=== PATIENT | male | born 1950 | race Caucasian/White ===

== ENCOUNTER → 2023-11-07 12:27 | Outpatient (REF) | payer MEDICARE, SELFPAY ==
[2023-11-07 12:39] LABS: % Basophils 0.3 % (0-2); % Eosinophils 1.2 % (0-6); % Immature Granulocytes 0.9 % (0-0.5); % Lymphocytes 29.8 % (20.5-51.1); % Neutrophils 54.8 % (42.2-75.2); Absolute Monocytes 0.4 10^3/uL (0.1-0.6); Absolute Neutrophils 1.9 10^3/uL (1.4-6.5); Hematocrit 28.2 % (39.0-52.0); Hemoglobin 9.5 g/dL (13.0-18.0); Mean Corp Hgb Conc. 33.7 g/dL (33.0-37.0); Mean Corpuscular Hgb 27.5 pg (27.0-31.0); Mean Corpuscular Volume 81.5 fL (80.0-94.0); Mean Platelet Volume 9.2 fL (7.4-10.4); Nucleated Red Blood Cells % 0 % (-); Platelet Count 195 10^3/uL (130-400); Red Blood Cell Count 3.46 10^6/uL (4.70-6.10); Red Cell Dist. Width 21.2 % (11.5-14.5); White Blood Cell Count 3.4 10^3/uL (4.8-10.8)
[2023-11-07 12:48] LABS: ALT (SGPT) 16 U/L (0-50); AST (SGOT) 20 U/L (17-59); Albumin 3.3 g/dl (3.5-5.0); Alkaline Phosphatase 85 U/L (38-126); Blood Urea Nitrogen 9 mg/dl (9-20); Calcium 8.6 mg/dl (8.4-10.2); Carbon Dioxide 23 mmol/L (22-30); Chloride 106 mmol/L (98-107); Glucose 158 mg/dl (70-99); Potassium 3.7 mmol/L (3.5-5.1); Sodium 137 mmol/L (135-145); Total Bilirubin 0.6 mg/dl (0.2-1.3); Total Protein 5.9 g/dl (6.3-8.2); eGFR > 60.00
== END ==
LOC: OIDL 12:27
PROVIDERS: ATTENDING PHYSICIAN Internal Medicine Hematology & Oncology
DX: C21.1 Malignant neoplasm of anal canal (principal); D50.9 Iron deficiency anemia, unspecified
CPT/HCPCS: 80053; 85025

== ENCOUNTER → 2023-12-19 14:23 | Outpatient (REF) | payer MEDICARE, SELFPAY ==
[2023-12-19 14:41] LABS: % Basophils 0.3 % (0-2); % Eosinophils 0.7 % (0-6); % Immature Granulocytes 0.7 % (0-0.5); % Lymphocytes 26.7 % (20.5-51.1); % Monocytes 5.6 % (1.7-9.3); Absolute Lymphocytes 0.8 10^3/uL (1.2-3.4); Absolute Monocytes 0.2 10^3/uL (0.1-0.6); Absolute Neutrophils 1.9 10^3/uL (1.4-6.5); Hematocrit 27.1 % (39.0-52.0); Hemoglobin 9.1 g/dL (13.0-18.0); Mean Corp Hgb Conc. 33.6 g/dL (33.0-37.0); Mean Corpuscular Hgb 29.7 pg (27.0-31.0); Mean Corpuscular Volume 88.6 fL (80.0-94.0); Mean Platelet Volume 9.5 fL (7.4-10.4); Platelet Count 267 10^3/uL (130-400); Red Blood Cell Count 3.06 10^6/uL (4.70-6.10); Red Cell Dist. Width 20.7 % (11.5-14.5); White Blood Cell Count 2.9 10^3/uL (4.8-10.8)
[2023-12-19 15:12] LABS: ALT (SGPT) 15 U/L (0-50); AST (SGOT) 23 U/L (17-59); Albumin 3.8 g/dl (3.5-5.0); Alkaline Phosphatase 96 U/L (38-126); Blood Urea Nitrogen 17 mg/dl (9-20); Calcium 8.9 mg/dl (8.4-10.2); Carbon Dioxide 24 mmol/L (22-30); Chloride 105 mmol/L (98-107); Glucose 154 mg/dl (70-99); Potassium 4.5 mmol/L (3.5-5.1); Sodium 135 mmol/L (135-145); Total Bilirubin 0.6 mg/dl (0.2-1.3); Total Protein 6.4 g/dl (6.3-8.2); eGFR > 60.00
== END ==
LOC: OIDL 14:23
PROVIDERS: ATTENDING PHYSICIAN Internal Medicine Hematology & Oncology
DX: C21.0 Malignant neoplasm of anus, unspecified (principal)
CPT/HCPCS: 80053; 85025

== ENCOUNTER → 2023-12-26 14:44 | Outpatient (REF) | payer MEDICARE, SELFPAY ==
[2023-12-26 14:50] LABS: % Basophils 0.5 % (0-2); % Immature Granulocytes 0.5 % (0-0.5); Absolute Lymphocytes 0.8 10^3/uL (1.2-3.4); Absolute Monocytes 0.2 10^3/uL (0.1-0.6); Absolute Neutrophils 1.1 10^3/uL (1.4-6.5); Hematocrit 25.6 % (39.0-52.0); Hemoglobin 8.7 g/dL (13.0-18.0); Mean Corpuscular Hgb 30.9 pg (27.0-31.0); Mean Corpuscular Volume 90.8 fL (80.0-94.0); Mean Platelet Volume 9.4 fL (7.4-10.4); Platelet Count 190 10^3/uL (130-400); Red Blood Cell Count 2.82 10^6/uL (4.70-6.10); Red Cell Dist. Width 19.8 % (11.5-14.5)
[2023-12-26 14:51] LABS: White Blood Cell Count 2.1 10^3/uL (4.8-10.8)
[2023-12-26 15:43] LABS: ALT (SGPT) 13 U/L (0-50); AST (SGOT) 22 U/L (17-59); Albumin 3.9 g/dl (3.5-5.0); Alkaline Phosphatase 74 U/L (38-126); Blood Urea Nitrogen 13 mg/dl (9-20); Calcium 9.2 mg/dl (8.4-10.2); Carbon Dioxide 22 mmol/L (22-30); Chloride 103 mmol/L (98-107); Glucose 173 mg/dl (70-99); Potassium 4.4 mmol/L (3.5-5.1); Sodium 135 mmol/L (135-145); Total Protein 6.5 g/dl (6.3-8.2); eGFR > 60.00
== END ==
LOC: OIDL 14:44
PROVIDERS: ATTENDING PHYSICIAN Internal Medicine Hematology & Oncology
DX: C21.1 Malignant neoplasm of anal canal (principal)
CPT/HCPCS: 80053; 85025

== ENCOUNTER 2024-01-04 14:21 | Inpatient (IN) | payer MEDICARE, SELFPAY ==
[2024-01-04] VITALS (10 sets, daily range): BP systolic 94–159; BP diastolic 52–86; BMI 25.4; BMI 25.1
[2024-01-04 10:44] LABS: Hematocrit 22.9 % (39.0-52.0); Hemoglobin 7.9 g/dL (13.0-18.0); Mean Corp Hgb Conc. 34.5 g/dL (33.0-37.0); Mean Corpuscular Hgb 32.2 pg (27.0-31.0); Mean Corpuscular Volume 93.5 fL (80.0-94.0); Platelet Count 145 10^3/uL (130-400); Red Blood Cell Count 2.45 10^6/uL (4.70-6.10); Red Cell Dist. Width 19.6 % (11.5-14.5); White Blood Cell Count 11.5 10^3/uL (4.8-10.8)
[2024-01-04 10:57] LABS: ALT (SGPT) 14 U/L (0-50); AST (SGOT) 25 U/L (17-59); Albumin 3.7 g/dl (3.5-5.0); Alkaline Phosphatase 84 U/L (38-126); Blood Urea Nitrogen 13 mg/dl (9-20); Carbon Dioxide 23 mmol/L (22-30); Chloride 106 mmol/L (98-107); Glucose 156 mg/dl (70-99); Potassium 4.9 mmol/L (3.5-5.1); Sodium 135 mmol/L (135-145); Total Bilirubin 0.6 mg/dl (0.2-1.3); Total Protein 6.1 g/dl (6.3-8.2); eGFR > 60.00
[2024-01-04 11:12] LABS: Troponin I 0.152 ng/ml
[2024-01-04 12:09] LABS: Absolute Neutrophils -Man Diff 9.7 10^3/uL (1.4-6.5); Band Neutrophils 23 % (0-3); Lymphocytes 6 % (20-51); Monocytes 8 % (2-9); Segmented Neutrophils 62 % (42-75)
--- NOTE | 2024-01-04 12:09 | ED.GENMED ---
History of Present Illness
<Mai Leon PA-C - Last Filed: 01/04/24 13:45>
General
Chief Complaint: Breathing Problem
Source: patient
Exam Limitations: none
Time Seen by Provider: 01/04/24 11:39
Nursing documentation reviewed up to this point in time: agreed with
Travel History
Have you had any contact with someone who has COVID-19?: No
Do you have any symptoms of coronavirus? Fever > 100 degrees, chills, cough, shortness of breath, sore throat, loss of taste or smell, muscle aches, or headache?: No
History of Present Illness
History of Present Illness:
73-year-old male with past medical history of CVA, CAD, rectal cancer, diabetes presenting emergency department today with shortness of breath for the past week intermittent mild chest pain. Patient states that earlier this week, he started to
notice that when he would walk, he would become very short of breath. He also states that he will occasionally have shortness of breath at rest. He has not noticed any positions that make the shortness of breath worse. Patient states that 1 night,
when the shortness of breath came on, he had chest pain that lasted a few minutes and resolved. Of note, patient is currently undergoing chemotherapy treatment for rectal cancer. Patient had 7 treatments thus far. Patient does take baby aspirin
daily but is not on any blood thinners.
Past History
<Mai Leon PA-C - Last Filed: 01/04/24 13:45>
Past History
ED Past Medical History: CAD, Hypercholesterolemia and Other (Alchol abuse, GI bleed)
ED Past Surgical History: Other (Hernia repair)
Patient has exhibited threatening behavior?: No
Social History
Tobacco: Former smoker
Alcohol: Occasional
Drug: None
Living: with roommate
Review of Systems
<Mai Leon PA-C - Last Filed: 01/04/24 13:45>
Review of Systems
All Other Systems: ROS reviewed and negative except as documented in HPI and ROS
Phy Exam
<Mai Leon PA-C - Last Filed: 01/04/24 13:45>
Physical Exam
Physical Exam:
Vitals: Vital signs are stable
General: Patient appears chronically ill
Skin: Mild pallor noted. No rashes or lesions.
Head: Normocephalic, atraumatic
Cardiac: Regular rate and rhythm, no murmurs
Peripheral Vascular: Right sided lower extremity edema and erythema, warmth. No tenderness to palpation. 2+ DP pulses b/l.
Pulm: Normal respiratory effort, breath sounds equal bilaterally, no wheezes, rales, or rhonchi
Abdomen: No abdominal tenderness
Neuro: AAOx3. CN II-XII intact.
Scores
<Mai Leon PA-C - Last Filed: 01/04/24 13:45>
Heart Failure Risk
Heart Failure Risk Score: Yes
History of Stroke or TIA: Yes
History of intubation for respiratory distress: No (unknown)
Heart rate on ED arrival >/= 110: No
SaO2 <90% on arrival on room air: No
HR >/=110 during 3min walk test (or too ill to perform test): No
ECG has acute ischemic changes: No
Urea >/=12mmol/L (BUN 33.6mg/dL): No
Serum CO2>/=35mmol/L: No
Troponin I or T elevated to [place] Level (0.4mg/dL): Yes
NT-proBNP >/=5,000ng/L (5,000pg/ml): No
HF Risk Score: 3
Admission Status: HIGH RISK 15.9% Consider SNF treatment or admission to hospital
Course
<Mai Leon PA-C - Last Filed: 01/04/24 13:45>
Orders/Labs/Results
Orders:
Orders
01/04/24 10:10
EKG [Electrocardiogram (*1)] Urgent
Reason for Study: Chest Pain
EKG- Treatment ONCE
01/04/24 10:37
Complete Blood Count/With Diff Urgent
Comprehensive Metabolic Panel Urgent
Manual Differential Urgent
Troponin I Urgent
01/04/24 12:06
CT Chest Pe Study Urgent
Comment:
Reason For Exam: chest pain, shortness of breath, leg swelling
01/04/24 12:07
US Legs, Right [US Periph Venous LOWER Ext RT] Urgent
Comment:
Reason For Exam: right lower ext swelling + warmth
01/04/24 12:17
0.9% Sodium Chloride 500 ml [Nss] 500 ml IV BOLUS
01/04/24 12:18
0.9% Sodium Chloride 250 ml [Nss] 250 ml IV BOLUS
01/04/24 12:22
0.9% Sodium Chloride 500 ml [Nss] 500 ml IV BOLUS
Abnormal Lab Results
01/04/24
10:37
WBC 11.5 H 10^3/uL
(4.8-10.8)
RBC 2.45 L 10^6/uL
(4.70-6.10)
Hgb 7.9 L g/dL
(13.0-18.0)
Hct 22.9 L %
(39.0-52.0)
MCH 32.2 H pg
(27.0-31.0)
RDW 19.6 H %
(11.5-14.5)
Abs Neuts (Manual) 9.7 H 10^3/uL
(1.4-6.5)
Band Neutrophils 23 H %
(0-3)
Lymphocytes (Manual) 6 L %
(20-51)
Creatinine 0.6 L mg/dL
(0.7-1.3)
Glucose 156 H mg/dl
(70-99)
Troponin I 0.152 H* ng/ml
Total Protein 6.1 L g/dl
(6.3-8.2)
01/04/24 10:37
01/04/24 10:37
Vital Signs
Initial and Last Documented VS:
Initial Vital Signs
Temp Pulse Resp BP Pulse Ox
98.8 F 96 18 104/62 98
01/04/24 10:21 01/04/24 10:21 01/04/24 10:21 01/04/24 10:21 01/04/24 10:21
Last Documented Vital Signs
Temp Pulse Resp BP Pulse Ox
98.8 F 86 17 94/59 97
01/04/24 10:21 01/04/24 12:15 01/04/24 12:15 01/04/24 12:10 01/04/24 12:15
<Jarrod Ribeiro, DO - Last Filed: 01/04/24 12:29>
Orders/Labs/Results
Orders:
Orders
01/04/24 10:10
EKG [Electrocardiogram (*1)] Urgent
Reason for Study: Chest Pain
EKG- Treatment ONCE
01/04/24 10:37
Complete Blood Count/With Diff Urgent
Comprehensive Metabolic Panel Urgent
Manual Differential Urgent
Troponin I Urgent
01/04/24 12:06
CT Chest Pe Study Urgent
Comment:
Reason For Exam: chest pain, shortness of breath, leg swelling
01/04/24 12:07
US Legs, Right [US Periph Venous LOWER Ext RT] Urgent
Comment:
Reason For Exam: right lower ext swelling + warmth
01/04/24 12:17
0.9% Sodium Chloride 500 ml [Nss] 500 ml IV BOLUS
01/04/24 12:18
0.9% Sodium Chloride 250 ml [Nss] 250 ml IV BOLUS
01/04/24 12:22
0.9% Sodium Chloride 500 ml [Nss] 500 ml IV BOLUS
Abnormal Lab Results
01/04/24
10:37
WBC 11.5 H 10^3/uL
(4.8-10.8)
RBC 2.45 L 10^6/uL
(4.70-6.10)
Hgb 7.9 L g/dL
(13.0-18.0)
Hct 22.9 L %
(39.0-52.0)
MCH 32.2 H pg
(27.0-31.0)
RDW 19.6 H %
(11.5-14.5)
Abs Neuts (Manual) 9.7 H 10^3/uL
(1.4-6.5)
Band Neutrophils 23 H %
(0-3)
Lymphocytes (Manual) 6 L %
(20-51)
Creatinine 0.6 L mg/dL
(0.7-1.3)
Glucose 156 H mg/dl
(70-99)
Troponin I 0.152 H* ng/ml
Total Protein 6.1 L g/dl
(6.3-8.2)
01/04/24 10:37
01/04/24 10:37
Vital Signs
Initial and Last Documented VS:
Initial Vital Signs
Temp Pulse Resp BP Pulse Ox
98.8 F 96 18 104/62 98
01/04/24 10:21 01/04/24 10:21 01/04/24 10:21 01/04/24 10:21 01/04/24 10:21
Last Documented Vital Signs
Temp Pulse Resp BP Pulse Ox
98.8 F 86 17 94/59 97
01/04/24 10:21 01/04/24 12:15 01/04/24 12:15 01/04/24 12:10 01/04/24 12:15
<Mai Leon PA-C - Last Filed: 01/04/24 13:45>
MDM/Problems Addressed
Differential Diagnosis Includes:
ddx include PE, pneumonia, ACS, COPD, chemotherapy side affects, lung metastasis,
MDM/Problems Addressed:
shortness of breath
leg swelling
Chronic conditions affecting care: DM, HTN, CAD and Cancer
Acute Exacerbation and/or Progression of Chronic Illness: DM, HTN, CAD and Cancer
<Mai Leon PA-C - Last Filed: 01/04/24 13:45>
*Pulse Oximetry
Patient hypoxic: no
*EKG
Interpreted by ED Provider?: Yes
EKG Intrepretation Date: 01/04/24
Interpretation: abnormal
Comparison EKG: no changes
Heart Rate: 97
Rate: normal
Rhythm: sinus
[place]: left axis deviation
Interval: normal interval, normal QT interval and normal TN interval
QRS Pattern: left bundle branch block
Ischemia: no ischemia
*Critical Care Note
Total Time (30-74mins, 75-104mins- exclusive of procedures): Not Applicable
Data Reviewed
Review of Other/Old Records Reveals: Records (reviewed ER physician documentation from 08/02/23, 04/11/23) and Discharge Summary (reviewed discharge summary from 08/16/2023)
Source: patient
<MICHELLE Umaña Last Filed: 01/04/24 13:45>
Patient Management
Escalation/DeEscalation of care consider admission/obs:
73-year-old male with past medical history of CVA, CAD, rectal cancer, diabetes presenting emergency department today with shortness of breath for the past week intermittent mild chest pain. Patient currently undergoing chemotherapy for rectal
cancer. In emergency department, his vital signs have been stable. His CBC demonstrates mild leukocytosis, and chronic anemia. His CMP is unremarkable. His troponin is elevated at 0.152. His EKG demonstrates left bundle branch block unchanged
from previous EKGs. His CT PE study was negative for PE, negative for pneumonia. His ultrasound study of the right leg did not show any evidence of clot. Considering his significant history of cardiac disease and elevated troponin, he will be
admitted to the hospital for further monitoring and workup. Patient accepted by hospitalist.
ED Attending Note
<Mia Leon PA-C - Last Filed: 01/04/24 13:45>
-
Portions of this chart may have been created with voice recognition software.� Occasional wrong word or��sound alike� substitutions may have occurred due to the inherent limitations of voice recognition software.
<Jarrod Ribeiro DO - Last Filed: 01/04/24 12:29>
ED Attending Note
Patient seen and examined by attending physician: Yes
I performed a history and physical exam of patient and discussed management with resident, I reviewed resident's note and agree with documented findings and plan of care.: Yes
ED Attending Note:
I have reviewed and agree with history and treatment plan by Mai Leon. My exam revealed 73-year-old male with mild hypotension, clear lungs bilaterally. Patient with exertional chest pain over the past week and mild chest pain. Concerning
for PE versus ACS. CT chest pending.
Discharge Plan
Departure
Patient Disposition: Admit
Date of Disposition: 01/04/24
Time of Disposition: 13:24
Presentation/result/management discussed w/ accepting MD/DO: Hospitalist
Discharge Problem:
Shortness of breath, Chest pain
Prescriptions:
No Action
rosuvastatin 10 MG tablet
10 mg PO DAILY
cholecalciferol (vitamin D3) [Vitamin D3] 25 mcg (1,000 unit) Tablet
25 mcg PO DAILY Qty: 0
metoprolol succinate 25 mg Tablet Extended Release 24 Hr
25 mg PO DAILY
tamsulosin 0.4 MG capsule
0.4 mg PO DAILY
vitamin B complex Tablet
1 tab PO DAILY
metformin 500 mg Tablet
250 mg PO DAILY
aspirin 81 MG tablet,delayed release (DR/EC)
81 mg PO DAILY
glimepiride 2 MG tablet
2 mg PO DAILY
folic acid 1 MG tablet
1 mg PO DAILY
polyethylene glycol 3350 [Miralax] 17 gram Powder In Packet
17 g PO DAILY PRN (Reason: constipation)
docusate sodium [Colace] 100 mg Capsule
100 mg PO DAILY
Referrals:
Marco Rahman MD [Family Provider] -
Interventions
Interventions:
*Risk Screen - Suicide Last Done: 01/04/24 10:21
*General Assessment Last Done: 01/04/24 10:21
*Neglect/Abuse Screening Last Done: 01/04/24 10:21
ED- Fall Risk Assessment Last Done: 01/04/24 12:20
*ED COVID-19 Vaccine History Last Done: 01/04/24 12:11
ED- Cardiac Assessment Last Done: 01/04/24 12:20
ED- Pulmonary Assessment Last Done: 01/04/24 12:20
Discharge Date and Time
Print Language: CYPRIOT
[2024-01-04 12:10] LABS: Anisocytosis 1+; Macrocytosis 1+; Normal RBC Morphology No; Ovalocytes 1+; Platelets Checked Yes; Poikilocytosis 1+; Total Cells Counted 100
[2024-01-04] MEDS: NSS 500 IV (12:37)
--- NOTE | 2024-01-04 14:53 | HPS.HSE ---
Family Physician
-
Family Physician: Marco Rahman
Chief Complaint
-
shortness of breath
History of Present Illness
73-year-old male past medical history of rectal cancer on chemotherapy, GI bleeding, anemia, hypertension, hyperlipidemia, diabetes, coronary artery disease, peripheral arterial disease, CVA, alcohol use disorder, chronic lymphedema right lower
extremity presenting with exertional shortness of breath for the past week associate with intermittent mild chest pain described as aching. Pain does not radiate to the back or arms. He also has some dizziness when he stands up which has been
ongoing for a longer time. He denies any blood in the stool or black stool. He denies any cough or fevers or chills.
He last received chemotherapy a week ago.
He does drink 2 glasses of beer or wine every night. He is a former smoker.
Medical History
Past Medical History
Past Medical History: Reports Other (rectal cancer on chemotherapy, GI bleeding, anemia, hypertension, hyperlipidemia, diabetes, coronary artery disease, peripheral arterial disease, CVA, alcohol use disorder, chronic lymphedema right lower
extremity)
Past Surgical History: Reports None
Social History
Tobacco: Former Smoker
Drug: None
Family History
Family History: Not pertinent
Allergies / Home Medications
Allergies reflects when Allergies were last updated in [facility].
Home Medications with original date entered in [facility]
Allergy/Medication List:
Allergies
Allergy/AdvReac Type Severity Reaction Status Date / Time
abciximab [From Reopro] Allergy Thrombocyto Verified 04/11/23 21:02
penia
Penicillins Allergy Rash-chilho Verified 04/11/23 21:02
od
Home Medications
cholecalciferol (vitamin D3) 25 mcg (1,000 unit) tablet (Vitamin D3) 25 mcg PO DAILY Supplement ##0 01/11/22
rosuvastatin 10 mg tablet 10 mg PO DAILY High cholesterol 01/11/22
metoprolol succinate 25 mg tablet,extended release 24 hr 25 mg PO DAILY Heart disease/condition 04/18/22
tamsulosin 0.4 mg capsule 0.4 mg PO DAILY Urinary issue 04/18/22
aspirin 81 mg tablet,delayed release 81 mg PO DAILY Blood Clot Prevention/Tx 08/02/23
folic acid 1 mg tablet 1 mg PO DAILY Supplement 08/02/23
glimepiride 2 mg tablet 2 mg PO DAILY Diabetes 08/02/23
metformin 500 mg tablet 250 mg PO DAILY Diabetes 08/02/23
vitamin B complex 1 tab PO DAILY Supplement 08/02/23
carboplatin 1 dose IV . DIRECTED Cancer 01/04/24
docusate sodium 100 mg capsule (Colace) 100 mg PO DAILY 01/04/24
paclitaxel 6 mg/mL concentrate,intravenous 1 mg IV . DIRECTED Cancer 01/04/24
polyethylene glycol 3350 17 gram oral powder packet (Miralax) 17 g PO DAILY PRN constipation 01/04/24
Review of Systems
-
History Source: Patient
A 12 point ROS was completed and negative except as noted: Yes
Constitutional: Reports No Symptoms
EENT: Reports No Symptoms
Respiratory: Reports See HPI
Cardiac: Reports See HPI
Abdomen/GI: Reports No Symptoms
: Reports No Symptoms
Musculoskeletal: Reports No Symptoms
Skin: Reports No Symptoms
Neurological: Reports No Symptoms
Endocrine: Reports No Symptoms
Hematologic/Lymphatic: Reports No Symptoms
Psych: Reports No Symptoms
Physical Exam
Vital Signs
Vital Signs
Temp Pulse Resp BP Pulse Ox
98.8 F 75 14 134/60 98
01/04/24 10:21 01/04/24 14:32 01/04/24 14:32 01/04/24 14:00 01/04/24 14:32
Physical Exam
General: Well Developed, Well Nourished and No Apparent Distress
HEENT: NormoCephalic, Moist mucous membranes and Atraumatic
Respiratory: Clear
Cardiac: S1/S2 and Regular Rhythm; No Murmur or Rub
GI: Soft, Non Tender, Non Distended and Normal Bowel Sounds; No Organomegaly
Rectal: Deferred by Provider
Musculoskeletal: No Clubbing, No Cyanosis and Edema, Right Lower Extremity
Skin: No Rash
Neuro: Nonfocal/grossly intact
Laboratory Results
-
01/04/24 14:41
01/04/24 10:37
Laboratory Results
APTT Cancelled 01/04/24 14:41
Total Bilirubin 0.6 mg/dl (0.2-1.3) 01/04/24 10:37
AST 25 U/L (17-59) 01/04/24 10:37
ALT 14 U/L (0-50) 01/04/24 10:37
Alkaline Phosphatase 84 U/L (38-126) 01/04/24 10:37
Troponin I 0.152 ng/ml H* 01/04/24 10:37
Data Reviewed
-
Lab Data: Labs Reviewed by me
Old Records: Reviewed
Impression/Plan
-
IMPRESSION:
PLAN:
# NSTEMI
# History of CAD
-EKG shows normal sinus rhythm, left bundle branch block which is old
-CT PE shows no evidence of pulmonary embolism/thoracic aortic dissection
-Troponin of 0.152
-Continue to trend troponins
-Give aspirin 325 mg, continue 81 mg daily
-Hold off on heparin drip given progressive anemia and underlying rectal cancer
History of SVT
Proximal left subclavian artery stenosis
-50 to 75% stenosis
-Outpatient follow-up with vascular surgery
Peripheral arterial disease
History of left carotid endarterectomy
Rectal cancer on chemotherapy
#Symptomatic anemia secondary to rectal cancer/chemotherapy
-No active bleeding
-Hemoglobin 7.9 trending down from 10.1 in October
-Will give 2 unit of blood to keep hemoglobin above 8
-Check fecal occult, iron studies,
Essential hypertension
Hyperlipidemia
-Continue statin
Type 2 diabetes
-Hold glimepiride, metformin
-Insulin sliding scale
History of CVA
Alcohol use disorder
BPH
-Continue tamsulosin
Chronic right lower extremity lymphedema
Full code
DVT prophylaxis�heparin drip
Cardiac diet
--- NOTE | 2024-01-04 15:20 | CON.CAR ---
Addendum entered and electronically signed by Jacky Peterson MD 01/04/24 17:07:
I saw and examined the patient.
The Supply Chain Director's note was reviewed and I agree with the note.
Comment:
GEN: No distress, awake, Ox3
HEENT: supple, anicteric, mmm
LUNGS: CTA, no wheezes/rales
CV: Reg, S1/S2, 1/6 syst LSB, no gallop
ABD: soft, BS+, NT/ND
EXT: No edema
NEURO: Gross non-focal
SKIN: No rash
Plan:
He has a past medical history of rectal cancer getting current chemotherapy, coronary status post OM PCI, hypertension, hyperlipidemia, diabetes, left bundle branch block, carotid disease, CVA, and moderate aortic stenosis presents with CP,
dizziness and sob. He is getting current chemotherapy and felt poorly for the past several days. He has noticed positional dizziness and then over the past 48 hours started having chest discomfort and shortness of breath. He noticed significant
dyspnea on exertion and felt something was not right. Cardiac troponins were abnormal in the 0.1-0.3 range. He currently is pain-free but was found to have a hemoglobin of 7.9. His blood pressure was also on the low side.
Plan: Continue to trend troponins until they plateau. I suspect he has had a small non-STEMI. With his history of colon cancer getting active treatment and a hemoglobin of 7.9 I will treat him conservatively for now. We will repeat an
echocardiogram to reevaluate his LVEF and aortic valve. He has a history of moderate aortic stenosis.
Okay to continue aspirin for now. Continue metoprolol and Crestor. Check lipids. Will likely further titrate his Crestor. If blood pressure remains stable or improves would consider adding low-dose lisinopril.
We could consider an invasive treatment for him, however he would likely need dual antiplatelet therapy. Will discuss with medicine and oncology.
He does have a history of stress testing from 2021 which did suggest some apical ischemia.
Original Note:
Consultation
Consultation Request
Date/Time Consultation Requested: 01/04/2024
Date/Time Consultation Performed: 01/04/2024 at 1445
Requesting Provider: Dr. Gregory
Performing Provider: Dr. Peterson
Reason for Consultation: Chest Pain, elevated troponin
Medical History
-
History of Present Illness:
HPI: Perry is a 73-year-old male with past medical history of CAD w/ prior PCI to OM 2, hypertension, hyperlipidemia, aortic stenosis, type 2 diabetes mellitus, CVA, carotid artery disease, SVT, LBBB, alcohol abuse, and rectal cancer. He presents
to ER for evaluation of chest pain and dizziness. He reports that over the past few weeks, he has noted intermittent dizziness with standing. He has had no syncope. He also notes that over the past few days he has had increased shortness of
breath with exertion and chest pain. He states this has been intermittent and chest discomfort is only slight. He has history of ND in 2007. Symptoms at the time were that he felt like his heart 'was not beating like it should'. He states
symptoms currently are different than his prior ND. On arrival to the emergency room, he was found to be hypotensive with blood pressure 98/59. He was started on IV fluids. EKG stable sinus rhythm with left bundle branch block. Lab work returned
with hemoglobin of 7.9 and troponin of 0.152. He was admitted for further workup and evaluation and cardiology was consulted. He reports he is chest pain free currently.
PMH:
CAD s/p ND with OM2 PCI 2007
CVA 01/2022
Carotid artery disease s/p CEA 04/2022
Hypertension
Hyperlipidemia
GERD
LBBB
SVT
Rectal cancer on chemotherapy
h/o GI bleed
DM 2
Former smoker
Alcohol abuse
Past Medical History
Past Medical History: Other (In HPI)
Past Surgical History: Cardiac (OM2 PCI 2007) and Other (Hernia repair, CEA 04/24/2022, right total shoulder and reverse shoulder 01/2022)
Social History
Tobacco: Former Smoker
Alcohol: Daily
Drug: None
Personal: Single
Living: Alone
Family History
Family History: CAD and Cancer
Allergies / Home Medications
Allergy/AdvReac Type Severity Reaction Status Date / Time
abciximab [From Reopro] Allergy Thrombocyto Verified 04/11/23 21:02
penia
Penicillins Allergy Rash-chilho Verified 04/11/23 21:02
od
�Medication �Instructions �Recorded �Confirmed �Type
cholecalciferol (vitamin D3) 25 25 mcg PO DAILY Supplement ##0 01/11/22 01/04/24 History
mcg (1,000 unit) tablet (Vitamin
D3)
rosuvastatin 10 mg tablet 10 mg PO DAILY High cholesterol 01/11/22 01/04/24 History
metoprolol succinate 25 mg 25 mg PO DAILY Heart 04/18/22 01/04/24 History
tablet,extended release 24 hr disease/condition
tamsulosin 0.4 mg capsule 0.4 mg PO DAILY Urinary issue 04/18/22 01/04/24 History
aspirin 81 mg tablet,delayed 81 mg PO DAILY Blood Clot 08/02/23 01/04/24 History
release Prevention/Tx
folic acid 1 mg tablet 1 mg PO DAILY Supplement 08/02/23 01/04/24 History
glimepiride 2 mg tablet 2 mg PO DAILY Diabetes 08/02/23 01/04/24 History
metformin 500 mg tablet 250 mg PO DAILY Diabetes 08/02/23 01/04/24 History
vitamin B complex 1 tab PO DAILY Supplement 08/02/23 01/04/24 History
carboplatin 1 dose IV . DIRECTED Cancer 01/04/24 01/04/24 History
docusate sodium 100 mg capsule 100 mg PO DAILY 01/04/24 01/04/24 History
(Colace)
paclitaxel 6 mg/mL 1 mg IV . DIRECTED Cancer 01/04/24 01/04/24 History
concentrate,intravenous
polyethylene glycol 3350 17 gram 17 g PO DAILY PRN constipation 01/04/24 01/04/24 History
oral powder packet (Miralax)
Review of Systems
-
History Source: Patient
All other systems: Negative unless noted
Physical Exam
Vital Signs
Temp Pulse Resp BP Pulse Ox
98.8 F 75 14 134/60 98
01/04/24 10:21 01/04/24 14:32 01/04/24 14:32 01/04/24 14:00 01/04/24 14:32
Lab Results
01/04/24 14:41
01/04/24 10:37
Troponin I 0.152 ng/ml H* 01/04/24 10:37
Physical Exam
General: Well Developed, Well Nourished and No Apparent Distress
HEENT: Normocephalic, Anicteric and Moist Mucous Membranes
Respiratory: Clear and Non Labored Respirations
Cardiac: S1/S2, Regular Rhythm and Murmur
Musculoskeletal: No Clubbing, No Cyanosis and No Edema
Skin: Warm and Dry
Neuro: AO x 3 and Nonfocal/Grossly Intact
Psych: Calm
Impression / Plan
-
PCP: Dr. Rahman
Litigation Docket Manager: Dr. Bunn
Impression:
Presented with dizziness, chest pain, MOSS
Elevated troponin
Anemia
CAD s/p ND with OM2 PCI 2007
CVA 01/2022
Carotid artery disease s/p CEA 04/2022
Hypertension
Hyperlipidemia
GERD
LBBB
SVT
Rectal cancer on chemotherapy
h/o GI bleed
DM 2
Former smoker
Alcohol abuse
Echo 08/03/2023: EF 55 to 60%, mild concentric LVH, stage II diastolic dysfunction, mild MR, moderate , peak/mean gradients 29/17 mmHg, NILESH 1.0 cm�, trace TR
Echo 01/04/2024: Study pending
Plan:
-Presented with chest pain and dyspnea on exertion. Initial troponin elevated at 0.152. Trend troponin to peak.
-Chest pain-free currently. Given 325 mg of aspirin in ER. On aspirin 81 mg daily as outpatient.
-EKG stable, sinus rhythm with left bundle branch block which is chronic. No acute ischemic changes noted.
-Will check echocardiogram. Prior echo 08/03/2023 with preserved EF and moderate .
-Anemia noted with hemoglobin of 7.9. 2 units PRBCs ordered. Follow Hgb, denies any bleeding. heme test stool
-Blood pressure borderline hypotensive on arrival at 98/59. Improved currently to 134/60.
-Given dizziness with position change, check orthostatic vital signs.
-CT of chest negative for PE/aortic dissection.
-Continue Toprol 25 mg daily.
-Continue Crestor 10 mg daily. Check CVE, HgbA1c in AM.
HPI: Perry is a 73-year-old male with past medical history of CAD w/ prior PCI to OM 2, hypertension, hyperlipidemia, aortic stenosis, type 2 diabetes mellitus, CVA, carotid artery disease, SVT, LBBB, alcohol abuse, and rectal cancer. He presents
to ER for evaluation of chest pain and dizziness. He reports that over the past few weeks, he has noted intermittent dizziness with standing. He has had no syncope. He also notes that over the past few days he has had increased shortness of
breath with exertion and chest pain. He states this has been intermittent and chest discomfort is only slight. He has history of ND in 2007. Symptoms at the time were that he felt like his heart 'was not beating like it should'. He states
symptoms currently are different than his prior ND. On arrival to the emergency room, he was found to be hypotensive with blood pressure 98/59. He was started on IV fluids. EKG stable sinus rhythm with left bundle branch block. Lab work returned
with hemoglobin of 7.9 and troponin of 0.152. He was admitted for further workup and evaluation and cardiology was consulted. He reports he is chest pain free currently.
Data Reviewed
-
EKG: Tracing Personally Visualized and interpreted
CT Scan: Report Reviewed by me
Ultrasound: Report Reviewed by me
Labs: Labs Reviewed by me
Old Records: Reviewed
[2024-01-04 16:35] LABS: Iron 60 ug/dl (49-181)
[2024-01-04 16:44] LABS: Percent Saturation 22 % (20-50); Total Iron Binding Capacity 269 ug/dl (261-462)
[2024-01-04 16:50] LABS: Troponin I 0.346 ng/ml
[2024-01-04 17:29] LABS: Glucose - Point of Care 101 mg/dl (70-99)
[2024-01-04] MEDS: NOVOLOG FLEXPEN-LOW RESISTANCE SC (17:53)
[2024-01-04] MEDS: ASPIRIN 325 MG PO (17:54)
[2024-01-04 19:01] LABS: Folate > 20.0 ng/ml (2.76-20); Vitamin B12 988 pg/ml (239-931)
[2024-01-04 21:57] LABS: Glucose - Point of Care 116 mg/dl (70-99)
[2024-01-05] VITALS (8 sets, daily range): BP systolic 104–125; BP diastolic 36–62
[2024-01-05 01:03] LABS: Troponin I 0.383 ng/ml
[2024-01-05 06:12] LABS: Hematocrit 26.2 % (39.0-52.0); Hemoglobin 8.8 g/dL (13.0-18.0); Mean Corp Hgb Conc. 33.6 g/dL (33.0-37.0); Mean Corpuscular Hgb 30.6 pg (27.0-31.0); Mean Platelet Volume 10.1 fL (7.4-10.4); Nucleated Red Blood Cells % 0.6 % (-); Platelet Count 126 10^3/uL (130-400); Red Blood Cell Count 2.88 10^6/uL (4.70-6.10); Red Cell Dist. Width 19.3 % (11.5-14.5); White Blood Cell Count 17.8 10^3/uL (4.8-10.8)
[2024-01-05 06:25] LABS: Troponin I 0.299 ng/ml
[2024-01-05 06:38] LABS: ALT (SGPT) 12 U/L (0-50); AST (SGOT) 26 U/L (17-59); Albumin 3.3 g/dl (3.5-5.0); Alkaline Phosphatase 90 U/L (38-126); Blood Urea Nitrogen 11 mg/dl (9-20); Calcium 8.9 mg/dl (8.4-10.2); Carbon Dioxide 22 mmol/L (22-30); Chloride 103 mmol/L (98-107); Estimated Creatinine Clearance 105 ml/min; Glucose 112 mg/dl (70-99); Potassium 3.9 mmol/L (3.5-5.1); Sodium 134 mmol/L (135-145); Total Bilirubin 1.3 mg/dl (0.2-1.3); Total Protein 5.8 g/dl (6.3-8.2); eGFR > 60.00
[2024-01-05 07:46] LABS: Glucose - Point of Care 135 mg/dl (70-99)
[2024-01-05] MEDS: NOVOLOG FLEXPEN-LOW RESISTANCE SC ×2 (08:00→12:15)
[2024-01-05] MEDS: B COMPLEX w/VITAMIN C 1 CAPLET PO (09:03)
[2024-01-05] MEDS: CRESTOR 10 MG PO (09:03)
[2024-01-05] MEDS: TOPROL XL 25 MG PO (09:04)
[2024-01-05] MEDS: FLOMAX 0.400000000000000022 MG PO (09:04)
[2024-01-05] MEDS: FOLVITE 1 MG PO (09:07)
[2024-01-05] MEDS: VITAMIN D3 (cholecalciferol) 25 MCG PO (09:07)
[2024-01-05] MEDS: COLACE 100 MG PO (09:07)
[2024-01-05 09:08] LABS: Band Neutrophils 11 % (0-3); Lymphocytes 6 % (20-51); Segmented Neutrophils 68 % (42-75)
[2024-01-05] MEDS: ASPIR LOW (ENTERIC COATED) 81 MG PO (09:08)
[2024-01-05 09:09] LABS: Atypical Lymphocytes 4 %; Monocytes 9 % (2-9); Myelocytes 2 % (-)
[2024-01-05 09:10] LABS: Anisocytosis 1+; Normal RBC Morphology No; Platelets Checked Yes; Poikilocytosis Slight
[2024-01-05 09:11] LABS: Macrocytosis Slight; Ovalocytes 1+; Total Cells Counted 100
--- NOTE | 2024-01-05 09:13 | W.PN.CARDCBS ---
Today's Communication / Plan
-
Trop peaked at 0.38. Echo noted and reviewed with pt.
Discussed consideration for ischemic eval however pt with ongoing chemo. Would consider oncology consult for length of chemo tx.
Cont ASA
His symptoms are improved with transfusion of 2 units PRBCs and improvement in hemoglobin.
Hb is 8.8 January 04. s/p 2 units PRBCs. Monitor H/H.
Likely consider outpt ischemic eval after chemo if he continues to improve. If he has recurrent symptoms despite improvement in hemoglobin, may need to consider ischemic eval sooner.
Would also need to ask oncology if he would be a candidate for potential DAPT.
Cont beta antonio
EKG shows chronic LBBB
Check lipids. Cont statin.
Cont medical therapy and follow up of mod .
Impression / Plan
-
.
PCP: Dr. Rahman
Logistics Coordinator: Dr. Bunn
Impression:
Presented with dizziness, chest pain, MOSS
Elevated troponin, peak 0.38, small wall motion change on echo
Anemia
Rectal cancer on chemotherapy
CAD s/p [place] with OM2 PCI 2007
Mod Aortic stenosis
CVA 01/2022
Carotid artery disease s/p CEA 04/2022
DM 2
Former smoker
Hypertension
Hyperlipidemia
LBBB
SVT
h/o GI bleed
GERD
Alcohol abuse
Echo 08/03/2023: EF 55 to 60%, mild concentric LVH, stage II diastolic dysfunction, mild MR, moderate , peak/mean gradients 29/17 mmHg, NILESH 1.0 cm�, trace TR
Echo 01/04/2024: Mild concentric left ventricular hypertrophy. Normal left ventricular chamber size. Low-Normal left ventricular systolic function.
EF 50% by Oconnor' s method. Mild distal anteroseptal hypokinesis. Mild to moderate MR. Mod with peak/mean gradients 49/30 mmHg.
NILESH = 1.1cm2. No AR. Compared to previous echo 08/03/23, there is now a distal anteroseptal wall motion abnormality and the aortic stenosis has worsened with mean gradient increasing from 17 to 30 mmHg.
Plan:
Trop peaked at 0.38. Echo noted and reviewed with pt.
Discussed consideration for ischemic eval however pt with ongoing chemo. Would consider oncology consult for length of chemo tx.
Cont ASA
His symptoms are improved with transfusion of 2 units PRBCs and improvement in hemoglobin.
Hb is 8.8 January 04. s/p 2 units PRBCs. Monitor H/H.
Likely consider outpt ischemic eval after chemo if he continues to improve. If he has recurrent symptoms despite improvement in hemoglobin, may need to consider ischemic eval sooner.
Would also need to ask oncology if he would be a candidate for potential DAPT.
Cont beta antonio
EKG shows chronic LBBB
Check lipids. Cont statin.
Cont medical therapy and follow up of mod .
Hx: He has a past medical history of rectal cancer getting current chemotherapy, coronary status post OM PCI, hypertension, hyperlipidemia, diabetes, left bundle branch block, carotid disease, CVA, and moderate aortic stenosis presents with CP,
dizziness and sob. He is getting current chemotherapy and felt poorly for the past several days. He has noticed positional dizziness and then over the past 48 hours started having chest discomfort and shortness of breath. He noticed significant
dyspnea on exertion and felt something was not right.
HPI: Perry is a 73-year-old male with past medical history of CAD w/ prior PCI to OM 2, hypertension, hyperlipidemia, aortic stenosis, type 2 diabetes mellitus, CVA, carotid artery disease, SVT, LBBB, alcohol abuse, and rectal cancer. He presents
to ER for evaluation of chest pain and dizziness. He reports that over the past few weeks, he has noted intermittent dizziness with standing. He has had no syncope. He also notes that over the past few days he has had increased shortness of
breath with exertion and chest pain. He states this has been intermittent and chest discomfort is only slight. He has history of [place] in 2007. Symptoms at the time were that he felt like his heart 'was not beating like it should'. He states
symptoms currently are different than his prior FL. On arrival to the emergency room, he was found to be hypotensive with blood pressure 98/59. He was started on IV fluids. EKG stable sinus rhythm with left bundle branch block. Lab work returned
with hemoglobin of 7.9 and troponin of 0.152. He was admitted for further workup and evaluation and cardiology was consulted. He reports he is chest pain free currently.
Progress Note - Logistics Coordinator
Subjective
Date of Service: January 05, 2024
Pt seen and examined. No chest kenroy. Breathing is better.
Objective
Labs:
01/05/24 05:56
01/05/24 05:56
Labs
Hgb 8.8 g/dL (13.0-18.0) L 01/05/24 05:56
Hct 26.2 % (39.0-52.0) L 01/05/24 05:56
Plt Count 126 10^3/uL (130-400) L 01/05/24 05:56
APTT Cancelled 01/04/24 14:41
Sodium 134 mmol/L (135-145) L 01/05/24 05:56
Potassium 3.9 mmol/L (3.5-5.1) 01/05/24 05:56
BUN 11 mg/dl (9-20) 01/05/24 05:56
Creatinine 0.6 mg/dL (0.7-1.3) L 01/05/24 05:56
Glucose 112 mg/dl (70-99) H 01/05/24 05:56
Troponins
01/04/24 01/04/24 01/05/24
10:37 16:07 00:14
Troponin I 0.152 H* 0.346 H* D 0.383 H*
01/05/24 01/05/24
05:56 09:13
Troponin I 0.299 H* Cancelled
Vital Signs and I&O:
Vital Signs
Temp Pulse Resp BP Pulse Ox
99.4 F 89 18 113/55 96
01/05/24 07:33 01/05/24 09:04 01/05/24 07:33 01/05/24 09:04 01/05/24 07:33
Vital Signs
Temp Pulse Resp BP Pulse Ox
99.4 F 89 18 113/55 96
01/05/24 07:33 01/05/24 09:04 01/05/24 07:33 01/05/24 09:04 01/05/24 07:33
Intake & Output
01/03/24 01/04/24 01/05/24 01/06/24
06:59 06:59 06:59 06:59
Intake Total 1530 / 1530
Balance 1530 / 1530
Physical Exam
Physical Exam
General: No acute distress, AAOX3
Neck: Negative JVD
Heart: Regular, Negative S3 positive S1/S2, Negative S4, No murmur
Lungs: CTA b/l, negative wheezes/rales/rhonchi
Abd: Positive BS, NT/ND, neg rebound/rigidity/guarding
Ext: Negative cyanosis/clubbing/edema
Neuro: nonfocal
--- NOTE | 2024-01-05 11:54 | W.PN.HOSP.TC ---
Today's Communication/Plan
-
Ongoing.
Trying CBC
Transfuse as needed
Continue with goal-directed medical therapy aspirin, statin and beta-antonio
Assessment / Plan
Assessment / Plan
# NSTEMI
# History of CAD
-EKG shows normal sinus rhythm, left bundle branch block which is old
-CT PE shows no evidence of pulmonary embolism/thoracic aortic dissection
-Troponin downtrended.
-Give aspirin 325 mg, continue 81 mg daily
-Hold off on heparin drip given progressive anemia and underlying rectal cancer
-Possible plan for cardiac catheterization however oncology input requested for duration of chemo, if safe with dual antiplatelets with thrombocytopenia while receiving chemotherapy.
-Cards correspondence noted. Oncology consulted.
History of SVT
Proximal left subclavian artery stenosis
-50 to 75% stenosis
-Outpatient follow-up with vascular surgery
Peripheral arterial disease
History of left carotid endarterectomy
Rectal cancer on chemotherapy
#Symptomatic anemia secondary to rectal cancer/chemotherapy
-No active bleeding
-Hemoglobin 8.8 status post 2 units of PRBC
-Appropriate iron stores, B12 and folate.
Essential hypertension
Hyperlipidemia
-Continue statin
Type 2 diabetes
-Hold glimepiride, metformin
-Insulin sliding scale
History of CVA
Alcohol use disorder
BPH
-Continue tamsulosin
Chronic right lower extremity lymphedema
Full code
DVT prophylaxis�scds in setting of pancytopenia
Anticipated Discharge: > 48 hours
Subjective/Interval History
-
Date of Service: January 05, 2024
Denies any chest pain or sob
feeling better
states next chemo is next sunday
Objective Data
-
Labs:
Laboratory Results
01/05/24
05:56
WBC 17.8 H
Hgb 8.8 L
Hct 26.2 L
Plt Count 126 L
Sodium 134 L
Potassium 3.9
Chloride 103
Carbon Dioxide 22
BUN 11
Creatinine 0.6 L
Glucose 112 H
Calcium 8.9
Total Bilirubin 1.3
AST 26
ALT 12
Alkaline Phosphatase 90
Vital Signs:
Vital Signs
Temp Pulse Resp BP Pulse Ox
98.6 F 78 16 115/59 97
01/05/24 11:50 01/05/24 11:50 01/05/24 11:50 01/05/24 11:50 01/05/24 11:50
I&O
01/04/24 01/05/24 01/06/24
06:59 06:59 06:59
Intake Total 1530 / 1530
Balance 1530 / 1530
Physical Exam
-
General: Well Developed and No Apparent Distress
HEENT: Normocephalic, Atraumatic and Moist Mucous Membranes
Respiratory: Clear to Auscultation
Cardiac: Regular Rhythm, S1/S2 and Other (Left chest wall port noted ); Negative Murmur, Rub or Gallop
GI: Soft, Nontender, Nondistended and Normal Bowel Sounds; Negative Organomegaly
Rectal: Deferred by Provider
Musculoskeletal: No Clubbing, No Cyanosis and No Edema
Skin: Negative Rash
Neuro: Awake, AO x 3, No Motor Deficits and Nonfocal/Grossly Intact
Psych: Calm
[2024-01-05 12:14] LABS: Glucose - Point of Care 132 mg/dl (70-99)
[2024-01-05 12:49] LABS: Glycohemoglobin (HgbA1c) 6.2 % (4.0-5.6)
--- NOTE | 2024-01-05 12:50 | CON.ONC ---
Impression
Impression
stage IV anal squamous cell carcinoma, with good response to carbo/taxol (s/p cycle #3 in late December, PET 01/03/24). Prior pelvic radiation for bleeding (late 2022)
NSTEMI
CAD
Anemia from chemotherapy
Mild thrombocytopenia
Plan
Plan
Suspect anemia contributed to ischemia, as symptoms improved w/ transfusion
Will add MONTEZ to outpatient treatment plan in hopes of maintaining a higher hgb
No contraindication to DAPT at this time from heme/onc perspective, though he's at risk for worsening thrombocytopenia as chemo continues. Details of treatment plan/duration of therapy to be determined by Dr. Craig.
However, patient is reluctant to undergo cardiac catheterization, possible stent placement and need for DAPT
No contraindications to discharge from heme/onc standpoint if no further inpatient w/u is planned
He has an appt to see Dr. Craig on 01/09/24, which I encouraged him to keep
Patient History
History of Present Illness
73 yo M w/ stage IV anal squamous cell carcinoma, diagnosed in fall 2022 w/ rectal bleeding, currently undergoing first-line chemo w/ Dr. Craig (carboplatin, taxol; cycle 3, day 15 given on 12/27, w/ GCSF), presented with progressive chest pain and
MOSS, found to have an NSTEMI. He was seen by cardiology, troponin peaked at 0.38. Echo showed new distal anteroseptal wall motion abnormality and worsened . EF is 50% with mild concentric LVH.
He was transfused x2u for hgb 7.9, up to 8.8 today. He's been resting in bed, denies chest pain/SOB at this time.
No bleeding currently, but he's had rectal bleeding previously, treated with palliative radiation in late 2022. Labs show replete iron stores.
PET on 01/03/24 showed a positive response to chemo.
Cardiology is considering further ischemia workup, though concern re: safety of DAPT while on chemo, with mild thrombocytopenia currently.
Past-Medical/Surgical History
Past History
Past Medical History: CAD, Hypercholesterolemia, DM, anemia, stroke 2021
Past Surgical History: Hernia repair, coronary stent, right arm fracture, carotid endarterectomy
Social History
Tobacco: Former smoker, quite 2020
Alcohol: 2 drinks/day
Drug: None
Living: with roommate
Family History
colon cancer in grandfather
Patient Medication
�Medication �Instructions �Recorded �Confirmed �Last Taken �Type
cholecalciferol (vitamin D3) 25 25 mcg PO DAILY Supplement ##0 01/11/22 01/04/24 01/04/24 History
mcg (1,000 unit) tablet (Vitamin
D3)
rosuvastatin 10 mg tablet 10 mg PO DAILY High cholesterol 01/11/22 01/04/24 01/04/24 History
metoprolol succinate 25 mg 25 mg PO DAILY Heart 04/18/22 01/04/24 01/04/24 History
tablet,extended release 24 hr disease/condition
tamsulosin 0.4 mg capsule 0.4 mg PO DAILY Urinary issue 04/18/22 01/04/24 01/04/24 History
aspirin 81 mg tablet,delayed 81 mg PO DAILY Blood Clot 08/02/23 01/04/24 01/04/24 History
release Prevention/Tx
folic acid 1 mg tablet 1 mg PO DAILY Supplement 08/02/23 01/04/24 01/04/24 History
glimepiride 2 mg tablet 2 mg PO DAILY Diabetes 08/02/23 01/04/24 01/04/24 History
metformin 500 mg tablet 250 mg PO DAILY Diabetes 08/02/23 01/04/24 01/04/24 History
vitamin B complex 1 tab PO DAILY Supplement 08/02/23 01/04/24 01/04/24 History
carboplatin 1 dose IV . DIRECTED Cancer 01/04/24 01/04/24 12/28/23 History
docusate sodium 100 mg capsule 100 mg PO DAILY 01/04/24 01/04/24 Unknown History
(Colace)
paclitaxel 6 mg/mL 1 mg IV . DIRECTED Cancer 01/04/24 01/04/24 12/28/23 History
concentrate,intravenous
polyethylene glycol 3350 17 gram 17 g PO DAILY PRN constipation 01/04/24 01/04/24 Unknown History
oral powder packet (Miralax)
Active Medications
Generic Name Dose Route Start Last Admin
Trade Name Freq PRN Reason Stop Dose Admin
Aspirin 81 mg 01/05/24 08:00 01/05/24 09:08
Aspirin 81 Mg (Enteric Coated) Tablet PO 02/02/24 07:59 81 mg
DAILY KATIA Administration
Cholecalciferol 25 mcg 01/05/24 08:00 01/05/24 09:07
Cholecalciferol (Vitamin D3) 25 Mcg Tablet (1,000 Units) PO 02/02/24 07:59 25 mcg
DAILY KATIA Administration
Dextrose 12.5 grams 01/04/24 15:13
Dextrose 50% (0.5 Grams/Ml) 50 Ml Syringe IV 02/01/24 15:12
[id number] PRN
hypoglycemia
Protocol
Docusate Sodium 100 mg 01/05/24 08:00 01/05/24 09:07
Docusate Sodium 100 Mg Capsule PO 02/02/24 07:59 100 mg
DAILY KATIA Administration
Folic Acid 1 mg 01/05/24 08:00 01/05/24 09:07
Folic Acid 1 Mg Tablet PO 02/02/24 07:59 1 mg
DAILY KATIA Administration
Glucagon 1 mg 01/04/24 15:13
Glucagon 1 Mg Vial IM 02/01/24 15:12
PRN PRN
hypoglycemia
Protocol
Heparin Sodium (Porcine) 500 unit 01/04/24 17:17 01/05/24 06:01
Heparin Flush Pf (100 Unit/Ml) 5 Ml Syringe IV 02/01/24 17:16 500 unit
PRN PRN Administration
SC PORT FLUSH
Insulin Aspart 0 units 01/04/24 16:30 01/05/24 08:00
Insulin Aspart Low Resistance 300 Units/3 Ml Pen.Injctr SC 02/01/24 16:29 Not Given
AC KATIA
Protocol
Metoprolol Succinate 25 mg 01/05/24 08:00 01/05/24 09:04
Metoprolol 25 Mg Extended Release Tablet PO 02/02/24 07:59 25 mg
DAILY KATIA Administration
Polyethylene Glycol 17 grams 01/04/24 15:13
Polyethylene Glycol Powder 17 Grams Packet PO 02/01/24 15:12
DAILYPRN PRN
constipation
Rosuvastatin Calcium 10 mg 01/05/24 08:00 01/05/24 09:03
Rosuvastatin (Crestor) 10 Mg Tablet PO 02/02/24 07:59 10 mg
DAILY KATIA Administration
Sodium Chloride 0 flush 01/04/24 17:00
Sodium Chloride 0.9% (Flush) Syringe IV 02/01/24 16:59
PER PROTOCOL KATIA
Tamsulosin HCl 0.4 mg 01/05/24 08:00 01/05/24 09:04
Tamsulosin 0.4 Mg Capsule PO 02/02/24 07:59 0.4 mg
DAILY KATIA Administration
Vitamin B Complex/Vitamin C 1 caplet 01/05/24 08:00 01/05/24 09:03
Vitamin B Complex With Vitamin C Caplet PO 02/02/24 07:59 1 caplet
DAILY KATIA Administration
Physical Exam
-
General: Well Developed, Well Nourished and No Apparent Distress
HEENT: Moist Mucous Membranes
Cardiology: Normal Sinus Rhythm
Musculoskeletal: No Clubbing and No Cyanosis; Negative No Edema (trace LE)
Neurology: Non Focal, No Lateralizing Symptoms and No Word Finding Difficulty
Skin: Dry; Negative Rash
Psych: Calm and Intact Judgement/Insight
Labs
Lab Results
WBC 17.8 10^3/uL (4.8-10.8) H 01/05/24 05:56
RBC 2.88 10^6/uL (4.70-6.10) L 01/05/24 05:56
Hgb 8.8 g/dL (13.0-18.0) L 01/05/24 05:56
Hct 26.2 % (39.0-52.0) L 01/05/24 05:56
MCV 91.0 fL (80.0-94.0) 01/05/24 05:56
MCH 30.6 pg (27.0-31.0) 01/05/24 05:56
MCHC 33.6 g/dL (33.0-37.0) 01/05/24 05:56
RDW 19.3 % (11.5-14.5) H 01/05/24 05:56
Plt Count 126 10^3/uL (130-400) L 01/05/24 05:56
MPV 10.1 fL (7.4-10.4) 01/05/24 05:56
Abs Immat Gran (auto) Not Reportable 01/04/24 10:37
Absolute Neuts (auto) Not Reportable 01/04/24 10:37
Absolute Lymphs (auto) Not Reportable 01/04/24 10:37
Absolute Monos (auto) Not Reportable 01/04/24 10:37
Absolute Eos (auto) Not Reportable 01/04/24 10:37
Absolute Basos (auto) Not Reportable 01/04/24 10:37
Immature Gran % Not Reportable 01/04/24 10:37
Neutrophils % Not Reportable 01/04/24 10:37
Lymphocytes % Not Reportable 01/04/24 10:37
Monocytes % Not Reportable 01/04/24 10:37
Eosinophils % Not Reportable 01/04/24 10:37
Basophils % Not Reportable 01/04/24 10:37
Creatinine 0.6 mg/dL (0.7-1.3) L 01/05/24 05:56
Vital Signs
Vital Signs
Temp Pulse Resp BP Pulse Ox
98.6 F 78 16 115/59 97
01/05/24 11:50 01/05/24 11:50 01/05/24 11:50 01/05/24 11:50 01/05/24 11:50
--- NOTE | 2024-01-05 16:00 | CM ---
Met with patient at bedside; initial assessment completed
Pharmacy verified: [facility], [facility], [place]
Patient reported he lives with a friend in a multi-level home; 8 step in via the back door; 11 steps down to the basement; full bath on the first floor; tub w/shower
PLOF: patient reported that he is independent with ambulation, stairs, and ADLs; Drives. 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
DME: none
SNF/Rehab/Home Care utilization history: [facility] in 2021 after he fractured his arm
Transport: friend will provide ride home
Plan: discharge to home when medically stable
[2024-01-05 16:36] LABS: Glucose - Point of Care 175 mg/dl (70-99)
[2024-01-05] MEDS: NOVOLOG FLEXPEN-LOW RESISTANCE 1 UNITS SC (18:31)
[2024-01-05 18:38] LABS: Glucose - Point of Care 162 mg/dl (70-99)
[2024-01-05 21:17] LABS: Glucose - Point of Care 184 mg/dl (70-99)
[2024-01-05] MEDS: MELATONIN 3 MG PO (21:31)
[2024-01-06 03:12] VITALS: BP 120/60
[2024-01-06 06:00] VITALS: BMI 25.1
[2024-01-06 07:19] VITALS: BP 106/51
[2024-01-06 07:38] LABS: HDL Cholesterol 11 mg/dl; LDL Cholesterol, Calculated 20 mg/dl; Total Cholesterol 77 mg/dl (50-199); Triglyceride 234 mg/dl (10-149); Very Low Density Lipoprotein 46 mg/dl (0-30)
[2024-01-06 07:46] LABS: Glucose - Point of Care 187 mg/dl (70-99)
[2024-01-06] MEDS: TOPROL XL PO (08:15)
[2024-01-06] MEDS: NOVOLOG FLEXPEN-LOW RESISTANCE 1 UNITS SC (08:16)
[2024-01-06] MEDS: B COMPLEX w/VITAMIN C 1 CAPLET PO (08:16)
[2024-01-06] MEDS: FLOMAX 0.400000000000000022 MG PO (08:16)
[2024-01-06] MEDS: CRESTOR 10 MG PO (08:16)
[2024-01-06] MEDS: FOLVITE 1 MG PO (08:17)
[2024-01-06] MEDS: ASPIR LOW (ENTERIC COATED) 81 MG PO (08:17)
[2024-01-06] MEDS: VITAMIN D3 (cholecalciferol) 25 MCG PO (08:17)
[2024-01-06] MEDS: COLACE 100 MG PO (08:17)
--- NOTE | 2024-01-06 08:26 | W.PN.CARDCBS ---
Today's Communication / Plan
-
Trop peaked at 0.38. Echo noted and reviewed with pt.
Appreciate oncology input. His symptoms appear to be more related to anemia which has improved.
May consider eventual outpt ischemic eval once he has completed his chemo. He was given approval for DAPT by oncology in the future if it needed to be considered. He was also not enthusiastic about invasive therapy or ischemic eval.
Cont beta antonio
EKG shows chronic LBBB
His symptoms are improved with transfusion of 2 units PRBCs and improvement in hemoglobin.
Hb is 8.8 January 04. s/p 2 units PRBCs. Monitor H/H, pending this AM
LDL at goal Cont statin.
Cont medical therapy and follow up of mod .
Will arrange outpt follow up.
Please recall if needed. Discussed with primary service.
Impression / Plan
-
.
PCP: Dr. Rahman
Tuber Machine Operator: Dr. Bunn
Impression:
Presented with dizziness, chest pain, MOSS
Elevated troponin, peak 0.38, small wall motion change on echo
Anemia
Rectal cancer on chemotherapy
CAD s/p [place] with OM2 PCI 2007
Mod Aortic stenosis
CVA 01/2022
Carotid artery disease s/p CEA 04/2022
DM 2
Former smoker
Hypertension
Hyperlipidemia
LBBB
SVT
h/o GI bleed
GERD
Alcohol abuse
Echo 08/03/2023: EF 55 to 60%, mild concentric LVH, stage II diastolic dysfunction, mild MR, moderate , peak/mean gradients 29/17 mmHg, NILESH 1.0 cm�, trace TR
Echo 01/04/2024: Mild concentric left ventricular hypertrophy. Normal left ventricular chamber size. Low-Normal left ventricular systolic function.
EF 50% by Oconnor' s method. Mild distal anteroseptal hypokinesis. Mild to moderate MR. Mod with peak/mean gradients 49/30 mmHg.
NILESH = 1.1cm2. No AR. Compared to previous echo 08/03/23, there is now a distal anteroseptal wall motion abnormality and the aortic stenosis has worsened with mean gradient increasing from 17 to 30 mmHg.
Plan:
Trop peaked at 0.38. Echo noted and reviewed with pt.
Appreciate oncology input. His symptoms appear to be more related to anemia which has improved.
May consider eventual outpt ischemic eval once he has completed his chemo. He was given approval for DAPT by oncology in the future if it needed to be considered. He was also not enthusiastic about invasive therapy or ischemic eval.
Cont beta antonio
EKG shows chronic LBBB
His symptoms are improved with transfusion of 2 units PRBCs and improvement in hemoglobin.
Hb is 8.8 January 04. s/p 2 units PRBCs. Monitor H/H, pending this AM
LDL at goal Cont statin.
Cont medical therapy and follow up of mod .
Will arrange outpt follow up.
Please recall if needed. Discussed with primary service.
Hx: He has a past medical history of rectal cancer getting current chemotherapy, coronary status post OM PCI, hypertension, hyperlipidemia, diabetes, left bundle branch block, carotid disease, CVA, and moderate aortic stenosis presents with CP,
dizziness and sob. He is getting current chemotherapy and felt poorly for the past several days. He has noticed positional dizziness and then over the past 48 hours started having chest discomfort and shortness of breath. He noticed significant
dyspnea on exertion and felt something was not right.
HPI: Perry is a 73-year-old male with past medical history of CAD w/ prior PCI to OM 2, hypertension, hyperlipidemia, aortic stenosis, type 2 diabetes mellitus, CVA, carotid artery disease, SVT, LBBB, alcohol abuse, and rectal cancer. He presents
to ER for evaluation of chest pain and dizziness. He reports that over the past few weeks, he has noted intermittent dizziness with standing. He has had no syncope. He also notes that over the past few days he has had increased shortness of
breath with exertion and chest pain. He states this has been intermittent and chest discomfort is only slight. He has history of [place] in 2008. Symptoms at the time were that he felt like his heart 'was not beating like it should'. He states
symptoms currently are different than his prior [place]. On arrival to the emergency room, he was found to be hypotensive with blood pressure 98/59. He was started on IV fluids. EKG stable sinus rhythm with left bundle branch block. Lab work returned
with hemoglobin of 7.9 and troponin of 0.152. He was admitted for further workup and evaluation and cardiology was consulted. He reports he is chest pain free currently.
Progress Note - Tuber Machine Operator
Subjective
Date of Service: January 06, 2024
Pt seen and examined. No complaints. No chest pain or shortness of breath.
Objective
Labs:
01/05/24 05:56
Labs
Hgb 8.8 g/dL (13.0-18.0) L 01/05/24 05:56
Hct 26.2 % (39.0-52.0) L 01/05/24 05:56
Plt Count 126 10^3/uL (130-400) L 01/05/24 05:56
APTT Cancelled 01/04/24 14:41
Sodium 134 mmol/L (135-145) L 01/05/24 05:56
Potassium 3.9 mmol/L (3.5-5.1) 01/05/24 05:56
BUN 11 mg/dl (9-20) 01/05/24 05:56
Creatinine 0.6 mg/dL (0.7-1.3) L 01/05/24 05:56
Glucose 112 mg/dl (70-99) H 01/05/24 05:56
Troponins
01/04/24 01/04/24 01/05/24
10:37 16:07 00:14
Troponin I 0.152 H* 0.346 H* D 0.383 H*
01/05/24 01/05/24
05:56 09:13
Troponin I 0.299 H* Cancelled
Vital Signs and I&O:
Vital Signs
Temp Pulse Resp BP Pulse Ox
98.0 F 75 18 106/51 97
01/06/24 07:19 01/06/24 07:19 01/06/24 07:19 01/06/24 07:19 01/06/24 07:19
Vital Signs
Temp Pulse Resp BP Pulse Ox
98.0 F 75 18 106/51 97
01/06/24 07:19 01/06/24 07:19 01/06/24 07:19 01/06/24 07:19 01/06/24 07:19
Intake & Output
01/04/24 01/05/24 01/06/24 01/07/24
06:59 06:59 06:59 06:59
Intake Total 1530 / 1530 510 / 510
Output Total 250 / 250
Balance 1530 / 1530 260 / 260
Physical Exam
Physical Exam
General: No acute distress, AAOX3
Neck: Negative JVD
Heart: Regular, Negative S3 positive S1/S2, Negative S4, No murmur
Lungs: CTA b/l, negative wheezes/rales/rhonchi
Abd: Positive BS, NT/ND, neg rebound/rigidity/guarding
Ext: Negative cyanosis/clubbing/edema
Neuro: nonfocal
[2024-01-06 10:50] LABS: Hematocrit 27.4 % (39.0-52.0); Hemoglobin 9.1 g/dL (13.0-18.0); Mean Corp Hgb Conc. 33.2 g/dL (33.0-37.0); Mean Corpuscular Hgb 30.8 pg (27.0-31.0); Mean Corpuscular Volume 92.9 fL (80.0-94.0); Mean Platelet Volume 10.8 fL (7.4-10.4); Nucleated Red Blood Cells % 0.2 % (-); Platelet Count 134 10^3/uL (130-400); Red Blood Cell Count 2.95 10^6/uL (4.70-6.10); Red Cell Dist. Width 19.8 % (11.5-14.5); White Blood Cell Count 16.3 10^3/uL (4.8-10.8)
--- NOTE | 2024-01-06 11:03 | W.PN.HOSP.TC ---
Today's Communication/Plan
-
dc home
op onc f/u 01/08
Assessment / Plan
Assessment / Plan
# NSTEMI
# History of CAD
-EKG shows normal sinus rhythm, left bundle branch block which is old
-CT PE shows no evidence of pulmonary embolism/thoracic aortic dissection
-Troponin downtrended.
-Give aspirin 325 mg, continue 81 mg daily
-symptoms resolved s/p blood transfusion
-Possible plan for cardiac catheterization however oncology input requested for duration of chemo, if safe with dual antiplatelets with thrombocytopenia while receiving chemotherapy.
-Cards correspondence noted. Oncology consulted
-no further plan for intervention.
History of SVT
Proximal left subclavian artery stenosis
-50 to 75% stenosis
-Outpatient follow-up with vascular surgery
Peripheral arterial disease
History of left carotid endarterectomy
Rectal cancer on chemotherapy
#Symptomatic anemia secondary to rectal cancer/chemotherapy
-No active bleeding
-Hemoglobin 9.1 status post 2 units of PRBC
-Appropriate iron stores, B12 and folate.
Essential hypertension
Hyperlipidemia
-Continue statin
Type 2 diabetes
-restart glimepiride, metformin
-Insulin sliding scale
History of CVA
Alcohol use disorder
BPH
-Continue tamsulosin
Chronic right lower extremity lymphedema
Full code
DVT prophylaxis�scds in setting of pancytopenia
d/w with cardiology.
More than 30 minutes spent in discharge including
Final examination of the patient
Summarizing hospital stay
Instructions for continuing care to all relevant caregivers
Preparation of discharge records, prescriptions, and referral forms
Total time spent (in minutes): 45
Anticipated Discharge: Today
Subjective/Interval History
-
Date of Service: January 06, 2024
denies chest pain at rest or exertion
denies sob at rest or exertion
Objective Data
-
Labs:
Laboratory Results
01/06/24
10:06
WBC 16.3 H
Hgb 9.1 L
Hct 27.4 L
Plt Count 134
Vital Signs:
Vital Signs
Temp Pulse Resp BP Pulse Ox
98.0 F 74 18 106/50 97
01/06/24 07:19 01/06/24 08:15 01/06/24 07:19 01/06/24 08:15 01/06/24 07:19
I&O
01/05/24 01/06/24 01/07/24
06:59 06:59 06:59
Intake Total 1530 / 1530 510 / 510
Output Total 250 / 250
Balance 1530 / 1530 260 / 260
Physical Exam
-
General: Well Developed and No Apparent Distress
HEENT: Normocephalic, Atraumatic and Moist Mucous Membranes
Respiratory: Clear to Auscultation
Cardiac: Regular Rhythm, S1/S2 and Other (Left chest wall port noted ); Negative Murmur, Rub or Gallop
GI: Soft, Nontender, Nondistended and Normal Bowel Sounds; Negative Organomegaly
Rectal: Deferred by Provider
Musculoskeletal: No Clubbing, No Cyanosis and No Edema
Skin: Negative Rash
Neuro: Awake, AO x 3, No Motor Deficits and Nonfocal/Grossly Intact
Psych: Calm
--- NOTE | 2024-01-06 11:08 | W.DCSUMMARY ---
Discharge Summary
Discharge Data
Date of Admission: 01/04/24
Date of Discharge: 01/06/24
-
Pending Results: No
Hospital Course
73male past medical history of rectal cancer on chemotherapy, anemia, hypertension, hyperlipidemia, diabetes mellitus, history of stroke who is presented with chest pain. Patient was found of NSTEMI. Patient was also found with anemia and received
2 units of PRBC. Post blood transfusion patient with resolution of chest pain. Patient was eval by cardiology. Initial plan was for cardiac catheterization however with resolution of symptoms plan will be for goal-directed medical therapy.
Patient was continued on aspirin and statin. Oncology evaluated patient and stated okay for dual antiplatelet regimen if needed in the future. Patient hemoglobin stable and will be discharged home with outpatient follow-up per discussion with
cardiology.
Discharge Plan
-
Patient Disposition: Home (Routine Discharge)
Discharge Diagnosis/Procedures: NSTEMI
Symptomatic anemia
Blood transfusion
Condition: Fair
Diet: Low Cholesterol
Activity: With assistance and As tolerated
Driving Restrictions: As prior to admission
Blood Work: cbc in 3-5 days via primary doctor or oncologist.
Referrals:
Danielle Craig DO [Active] - 01/09/24
Marco Rahman MD [Family Provider] - in less than 1 week
Prescriptions:
Continued
rosuvastatin 10 MG tablet
10 mg PO DAILY
cholecalciferol (vitamin D3) [Vitamin D3] 25 mcg (1,000 unit) Tablet
25 mcg PO DAILY Qty: 0
metoprolol succinate 25 mg Tablet Extended Release 24 Hr
25 mg PO DAILY
tamsulosin 0.4 MG capsule
0.4 mg PO DAILY
vitamin B complex Tablet
1 tab PO DAILY
metformin 500 mg Tablet
250 mg PO DAILY
aspirin 81 MG tablet,delayed release (DR/EC)
81 mg PO DAILY
glimepiride 2 MG tablet
2 mg PO DAILY
folic acid 1 MG tablet
1 mg PO DAILY
polyethylene glycol 3350 [Miralax] 17 gram Powder In Packet
17 g PO DAILY PRN (Reason: constipation)
docusate sodium [Colace] 100 mg Capsule
100 mg PO DAILY
paclitaxel 6 mg/mL Concentrate
1 mg IV . DIRECTED
Patient Comments:
01/04/24: days 1,8,15 - every 28 days
carboplatin
1 dose IV . DIRECTED
Patient Comments:
01/04/24: days 1,8,15 - every 28 days
Discharge Orders:
Discharge Patient (As Directed); Ordered 01/06/24
Ordered By: Jordon Stevens
Discharge Date and Time
Print Language: ROMANSH
--- NOTE | 2024-01-06 11:17 | CM ---
Met with patient at bedside
IMM benefit explained and signed @ 1111
Friend will drive patient's car to the hospital; he plans to drive home
Plan: discharge to home today without services
[2024-01-06 11:44] VITALS: BP 91/57
[2024-01-06 11:53] LABS: Glucose - Point of Care 186 mg/dl (70-99)
[2024-01-06 11:57] LABS: Absolute Neutrophils -Man Diff 11.5 10^3/uL (1.4-6.5); Band Neutrophils 9 % (0-3); Lymphocytes 14 % (20-51); Metamyelocytes 8 % (-); Monocytes 2 % (2-9); Segmented Neutrophils 62 % (42-75)
[2024-01-06 11:58] LABS: Myelocytes 4 % (-)
[2024-01-06 12:01] LABS: Normal RBC Morphology No
[2024-01-06 12:02] LABS: Microcytosis FEW; Ovalocytes FEW; Stomatocytes FEW
[2024-01-06 12:03] LABS: Target Cells FEW; Tear Drop Red Blood Cells FEW; Total Cells Counted 100
[2024-01-06 12:15] VITALS: BP 106/60
[2024-01-06 14:59] LABS: Platelets Checked YES
== END 2024-01-06 13:15 | disposition home or self-care (01) | DRG 281 ==
LOC: 4 EAST ACU 14:21
PROVIDERS: Physician Assistant Medical; ADMITTING PHYSICIAN Hospitalist; ATTENDING PHYSICIAN Hospitalist; CONSULT PHYSICIAN Internal Medicine Cardiovascular Disease; CONSULT PHYSICIAN Internal Medicine Hematology & Oncology; EMERGENCY PHYSICIAN Emergency Medicine; FAMILY PHYSICIAN Family Medicine
PROC: 30233N1 Transfusion of Nonautologous Red Blood Cells into Peripheral Vein, Percutaneous Approach (ICD-10-PCS; 2024-01-04)
DX: I21.4 Non-ST elevation (NSTEMI) myocardial infarction (principal); C21.8 Malignant neoplasm of overlapping sites of rectum, anus and anal canal; I44.7 Left bundle-branch block, unspecified; D64.81 Anemia due to antineoplastic chemotherapy; I25.10 Atherosclerotic heart disease of native coronary artery without angina pectoris; I35.0 Nonrheumatic aortic (valve) stenosis; E11.9 Type 2 diabetes mellitus without complications; I10 Essential (primary) hypertension; F10.10 Alcohol abuse, uncomplicated; D69.6 Thrombocytopenia, unspecified; I25.2 Old myocardial infarction; Z95.5 Presence of coronary angioplasty implant and graft; Z87.891 Personal history of nicotine dependence; Z79.84 Long term (current) use of oral hypoglycemic drugs; Z79.82 Long term (current) use of aspirin; Z86.73 Personal history of transient ischemic attack (TIA), and cerebral infarction without residual deficits
CPT/HCPCS: 71275; 80053; 80061; 82607; 82728; 82746; 82962; 83036; 83540; 83550; 84484; 85025; 86850; 86900; 86901; 86920; 93005; 93306; 93971; 96360; 99285; P9016; Q9967

== ENCOUNTER → 2024-02-06 11:01 | Outpatient (REF) | payer MEDICARE, SELFPAY ==
[2024-02-06 11:01] LABS: % Basophils 0.4 % (0-2); % Eosinophils 0.4 % (0-6); % Immature Granulocytes 0.8 % (0-0.5); % Lymphocytes 29.3 % (20.5-51.1); % Monocytes 6.6 % (1.7-9.3); % Neutrophils 62.5 % (42.2-75.2); Absolute Lymphocytes 0.8 10^3/uL (1.2-3.4); Absolute Monocytes 0.2 10^3/uL (0.1-0.6); Absolute Neutrophils 1.6 10^3/uL (1.4-6.5); Hematocrit 27.2 % (39.0-52.0); Hemoglobin 9.2 g/dL (13.0-18.0); Mean Corp Hgb Conc. 33.8 g/dL (33.0-37.0); Mean Corpuscular Hgb 32.6 pg (27.0-31.0); Mean Corpuscular Volume 96.5 fL (80.0-94.0); Mean Platelet Volume 9.6 fL (7.4-10.4); Platelet Count 192 10^3/uL (130-400); Red Blood Cell Count 2.82 10^6/uL (4.70-6.10); Red Cell Dist. Width 13.9 % (11.5-14.5); White Blood Cell Count 2.6 10^3/uL (4.8-10.8)
[2024-02-06 11:47] LABS: ALT (SGPT) 15 U/L (0-50); AST (SGOT) 27 U/L (17-59); Albumin 3.7 g/dl (3.5-5.0); Alkaline Phosphatase 87 U/L (38-126); Blood Urea Nitrogen 18 mg/dl (9-20); Calcium 8.8 mg/dl (8.4-10.2); Carbon Dioxide 22 mmol/L (22-30); Chloride 107 mmol/L (98-107); Glucose 122 mg/dl (70-99); Potassium 4.4 mmol/L (3.5-5.1); Sodium 136 mmol/L (135-145); Total Bilirubin 0.5 mg/dl (0.2-1.3); Total Protein 6.2 g/dl (6.3-8.2); eGFR > 60.00
== END ==
LOC: OIDL 11:01
PROVIDERS: ATTENDING PHYSICIAN Internal Medicine Hematology & Oncology
DX: C21.1 Malignant neoplasm of anal canal (principal)
CPT/HCPCS: 80053; 85025

== ENCOUNTER 2024-02-13 06:30 | Day surgery (SDC) | payer MEDICARE, SELFPAY ==
[2024-02-13] VITALS (8 sets, daily range): BP systolic 103–130; BP diastolic 50–80; BMI 25.1
[2024-02-13 10:58] LABS: Glucose - Point of Care 140 mg/dl (70-99)
[2024-02-13] MEDS: TYLENOL 1000 MG PO (10:59)
[2024-02-13] MEDS: NORMOSOL-R 1000 IV (11:16)
[2024-02-13 13:26] LABS: Glucose - Point of Care 130 mg/dl (70-99)
== END 2024-02-13 15:00 | disposition home or self-care (01) ==
LOC: SDS 06:30
PROVIDERS: ATTENDING PHYSICIAN Surgery
DX: K62.6 Ulcer of anus and rectum (principal); Z85.048 Personal history of other malignant neoplasm of rectum, rectosigmoid junction, and anus
CPT/HCPCS: 45990; 88305; 88312; 82962; 88341; 88342

== ENCOUNTER 2024-03-21 13:02 | Inpatient (IN) | payer MEDICARE, SELFPAY ==
[2024-03-20] VITALS (14 sets, daily range): BP systolic 99–155; BP diastolic 44–69; BMI 27.0; BMI 26.8
[2024-03-20 01:50] LABS: Mean Corpuscular Volume 98.8 fL (80.0-94.0); Nucleated Red Blood Cells % 0 % (-); Red Cell Dist. Width 16.2 % (11.5-14.5)
[2024-03-20 01:53] LABS: Hematocrit 24.1 % (39.0-52.0); Hemoglobin 8.4 g/dL (13.0-18.0); Mean Corp Hgb Conc. 34.9 g/dL (33.0-37.0); Mean Corpuscular Hgb 34.4 pg (27.0-31.0); Mean Platelet Volume 10.4 fL (7.4-10.4); Platelet Count 150 10^3/uL (130-400); Red Blood Cell Count 2.44 10^6/uL (4.70-6.10); White Blood Cell Count 16.1 10^3/uL (4.8-10.8)
[2024-03-20 02:05] LABS: ALT (SGPT) 12 U/L (0-50); AST (SGOT) 22 U/L (17-59); Albumin 3.6 g/dl (3.5-5.0); Alkaline Phosphatase 92 U/L (38-126); Blood Urea Nitrogen 13 mg/dl (9-20); Calcium 8.9 mg/dl (8.4-10.2); Carbon Dioxide 23 mmol/L (22-30); Chloride 106 mmol/L (98-107); Estimated Creatinine Clearance 90 ml/min; Glucose 187 mg/dl (70-99); Potassium 4.2 mmol/L (3.5-5.1); Sodium 140 mmol/L (135-145); Total Bilirubin 0.4 mg/dl (0.2-1.3); Total Protein 5.9 g/dl (6.3-8.2); eGFR > 60.00
--- NOTE | 2024-03-20 02:17 | ED.GENMED ---
History of Present Illness
<SHAYLEE Price - Last Filed: 03/20/24 03:31>
General
Chief Complaint: Breathing Problem
Source: patient
Exam Limitations: none
Time Seen by Provider: 03/20/24 01:51
Travel History
Have you had any contact with someone who has COVID-19?: No
Do you have any symptoms of coronavirus? Fever > 100 degrees, chills, cough, shortness of breath, sore throat, loss of taste or smell, muscle aches, or headache?: No
History of Present Illness
History of Present Illness:
This is a 73 year old male that comes in by ambulance with c/o SOB and chest pain. States that he was getting ready for bed when he felt like he was SOB and had chest pain. States that this has happened before. States that the chest pain lasted
about a 1/2 hour. States that before it went away and this time it was not going away. States that he also got a shot on Sunday to help with is WBC's and feels that this was when he had these symptoms in the past. States that he has had diarrhea.
Denies any fever, chills, abd pain, nausea, vomiting, headache, dizziness, urinary burning.
Past History
<SHAYLEE Price - Last Filed: 03/20/24 03:31>
Past History
ED Past Medical History: CAD, CVA (No residual weakness), GERD, HTN, Hypercholesterolemia, NIDDM, [place] and Other ( GI bleed, Renal calculus, Chronic right leg lymph edema)
ED Past Surgical History: Cardiac (stents, ), Orthopedic (Right Humerus, Right shoulder replacement, ) and Other (Hernia repair, Carotid surgery, )
Patient has exhibited threatening behavior?: No
Social History
Tobacco: Former smoker
Alcohol: Daily (Wine or beer 2)
Drug: None
Personal: Single
Living: with roommate
Review of Systems
<SHAYLEE Price - Last Filed: 03/20/24 03:31>
Review of Systems
All Other Systems: ROS reviewed and negative except as documented in HPI and ROS
Constitutional: Reports no symptoms; Denies fever or chills
EENT: Reports no symptoms
Respiratory: Reports trouble breathing; Denies cough
Cardiac: Reports chest pain
ABD/GI: Reports diarrhea; Denies abdominal pain, nausea or vomiting
: Reports no symptoms; Denies dysuria, frequency or urgency
Musculoskeletal: Reports no symptoms
Skin: Reports no symptoms
Neurological: Reports no symptoms; Denies dizzy or headache
Psychiatric: Reports no symptoms
Phy Exam
<SHAYLEE Price - Last Filed: 03/20/24 03:31>
General Physical Exam
General Presentation: no apparent distress
General age: appears stated age
General Skin: warm and dry
General Habitus: elderly
General Mental: alert
General Hydration: appears well hydrated
ENT Exam
ENT Exam: TM's normal, pharynx normal and neck supple
Eye Exam
Eye Exam: EOMI
Cardiovascular Exam
Cardiovascular Exam: regular rate/rhythm, normal peripheral pulses and other (Murmur)
Pulmonary Exam
Pulmonary Exam: lungs clear, no respiratory distress, no rales, chest non tender, no crackles, no rhonchi, no wheezing and no cough
Gastrointestinal Exam
Gastrointestinal Exam: normal bowel sounds, non tender, soft, no organomegaly, no pulsatile mass and non distended
Musculoskeletal Exam
Musculoskeletal Exam: full ROM and edema (Chronic right leg lymph edema +2pitting from foot into thighs)
Skin Exam
Skin Exam: normal color, warm/dry, no rash and no petechia
Psychiatric Exam
Psychiatric Exam: normal mood/affect
Scores
<SHAYLEE Price - Last Filed: 06/13/24 03:31>
Heart Failure Risk
Heart Failure Risk Score: Not Applicable
Course
<SHAYLEE Price - Last Filed: 03/20/24 03:31>
Orders/Labs/Results
Orders:
Orders
03/20/24 01:34
Electrocardiogram (*1) Urgent
Reason for Study: Other
Other Reason for Exam: Respiratory Distress
Cardiac Monitoring- Treatment ONCE
EKG- Treatment ONCE
IV Insert/Care/Rem.- Treatment PRN
CR Chest - 2 Views Urgent
Comment:
Reason For Exam: respiratory distress
O2 Therapy [RESP] Urgent
Titrate/Wean O2 to maintain O2 sat greater than (%): 93
Special Instructions: TO MAINTAIN CONTINUOUS O2 SATS >/= 93%
Pulse Ox/cont/shift [RESP] Urgent
Quantity: 1
Special Instructions: continuous pulse ox
03/20/24 01:40
Complete Blood Count/With Diff Urgent
Comprehensive Metabolic Panel Urgent
Manual Differential Urgent
NT-proBNP Urgent
Troponin I Urgent
03/20/24 02:19
D-Dimer Urgent
03/20/24 02:33
ECG [Electrocardiogram (*1)] Urgent
Reason for Study: Chest Pain
EKG- Treatment ONCE
03/20/24 02:47
Nitroglycerin Sublingual [Nitrostat (Sublingual)] 0.4 mg .ROUTE .STK-MED ONE
03/20/24 02:48
Nitroglycerin Sublingual [Nitrostat (Sublingual)] 0.4 mg SL NOW STA
03/20/24 03:00
Electrocardiogram (*1) Urgent
Reason for Study: Chest Pain
Other Reason for Exam: Repeat with Troponin
EKG- Treatment ONCE
03/20/24 03:20
CT Chest Pe Study Urgent
Comment:
Reason For Exam: SOB, Elevated d-dimer
Urinalysis Reflex To Culture Urgent
03/20/24 03:52
Admit/Transfer Patient As Directed
Co-Sign Provider:
Level of Care: Observation services
Assign to:: Telemetry
Physician / Group: [email or web address]
Diagnosis: CP, elevated D Dimer, Leucocytosis with significant Lt shift-
Reason for Telemetry: Chest Pain syndromes
Date to Stop Telemetry: 03/22/24
Time to Stop Telemetry: 11:00
Reason for Hospitalization: CP, elevated D Dimer, Leucocytosis with significant Lt shift
03/20/24 03:53
Code Status As Directed
Resuscitation Status: Full Code
03/20/24 04:22
Troponin I Urgent
03/20/24 05:49
Electrocardiogram (*1) Q6H
Reason for Study: Chest Pain
Comment: at admission and Q3H for total of 3, to be done with each troponin
Dextrose 50%-Water [Dextrose 50% Syringe] 12.5 grams IV [id number] PRN
Glucagon [GlucaGen] 1 mg IM PRN PRN
03/20/24 05:49
CARDIOLOGY CONSULT Routine
Consulting Provider: Sita Ann
Was physician already notified: No
Reason for consult: CP, elevated D Dimer, Leucocytosis with significant Lt shift
Consult Notification Routine
Specialty to Notify: Cardiology
Activity As Directed
Activity Level: With Assistance
Bedside Glucose Monitoring As Directed
Frequency: AC&HS
Additional Instructions:: Change to q6h if pt on TPN, tube feeding or not eating
INT (Intravenous Needle Therapy) As Directed
Comment: maintain peripheral IV access
Intake/ Output As Directed
Frequency: Per unit guidelines
Pneumatic Compression Sleeves As Directed
Type: Knee high
Vital Signs As Directed
Frequency: q4h
Weight As Directed
Frequency: Daily
DX Deep Vein Thrombosis Video Routine
03/20/24 06:26
Cardiovascular Evaluation IN AM
Complete Blood Count/No Diff IN AM
Glycohemoglobin (HgbA1c) Routine
Troponin I Q3H
Comment: at admit & Q3H for 3 total including ED draws, obtain ECG with each level
03/20/24 07:30
Insulin Aspart Corrective Low [Novolog Flexpen-Low Resistance] See Protocol SC AC
03/20/24 08:00
Aspirin Low Dose EC [Aspir Low (Enteric Coated)] 81 mg PO DAILY
FOLic ACID [Folvite] 1 mg PO DAILY
Metoprolol Xl [Toprol Xl] 25 mg PO DAILY
Rosuvastatin Calcium [Crestor] 10 mg PO DAILY
Tamsulosin [Flomax] 0.4 mg PO DAILY
03/20/24 08:49
Troponin I Q3H
Comment: at admit & Q3H for 3 total including ED draws, obtain ECG with each level
03/20/24 11:49
Electrocardiogram (*1) Q6H
Reason for Study: Chest Pain
Comment: at admission and Q3H for total of 3, to be done with each troponin
Troponin I Q3H
Comment: at admit & Q3H for 3 total including ED draws, obtain ECG with each level
03/20/24 Dinner
Cholesterol Lowering
At Your Request: Full Participation
Cholesterol Lowering: Sodium, 2 Gram
1800 abiel/15 CHO Diabetic
03/20/24 17:49
Electrocardiogram (*1) Q6H
Reason for Study: Chest Pain
Comment: at admission and Q3H for total of 3, to be done with each troponin
03/21/24 06:00
Comprehensive Metabolic Panel IN AM
03/22/24 11:00
DC Protocol for Telemetry ONCE
Abnormal Lab Results
03/20/24 03/20/24 03/20/24
01:40 02:19 04:22
WBC 16.1 H 10^3/uL
(4.8-10.8)
RBC 2.44 L 10^6/uL
(4.70-6.10)
Hgb 8.4 L g/dL
(13.0-18.0)
Hct 24.1 L %
(39.0-52.0)
MCV 98.8 H fL
(80.0-94.0)
MCH 34.4 H pg
(27.0-31.0)
RDW 16.2 H %
(11.5-14.5)
Abs Neuts (Manual) 13.6 H 10^3/uL
(1.4-6.5)
Band Neutrophils 14 H %
(0-3)
Lymphocytes (Manual) 9 L %
(20-51)
D-Dimer 1.06 H ug/mlFEU
(0.00-0.50)
Glucose 187 H mg/dl
(70-99)
Troponin I 0.054 H* D ng/ml
Total Protein 5.9 L g/dl
(6.3-8.2)
03/20/24 01:40
03/20/24 01:40
Leukocytosis (patient had injection to increase WBC's), H/H low. bandemia, Glucose nonfasting. total protein low. Troponin 0.022, Pro-BNP 1030 D-dimer 1.06.
Vital Signs
Initial and Last Documented VS:
Initial Vital Signs
Pulse Resp Pulse Ox
93 19 95
03/20/24 01:37 03/20/24 01:37 03/20/24 01:37
Last Documented Vital Signs
Temp Pulse Resp BP Pulse Ox
98.6 F 92 18 123/60 97
03/20/24 06:02 03/20/24 06:02 03/20/24 06:02 03/20/24 06:02 03/20/24 06:02
<Gissell R. Santizo, DO - Last Filed: 03/20/24 06:57>
Orders/Labs/Results
Orders:
Orders
03/20/24 01:34
Electrocardiogram (*1) Urgent
Reason for Study: Other
Other Reason for Exam: Respiratory Distress
Cardiac Monitoring- Treatment ONCE
EKG- Treatment ONCE
IV Insert/Care/Rem.- Treatment PRN
CR Chest - 2 Views Urgent
Comment:
Reason For Exam: respiratory distress
O2 Therapy [RESP] Urgent
Titrate/Wean O2 to maintain O2 sat greater than (%): 93
Special Instructions: TO MAINTAIN CONTINUOUS O2 SATS >/= 93%
Pulse Ox/cont/shift [RESP] Urgent
Quantity: 1
Special Instructions: continuous pulse ox
03/20/24 01:40
Complete Blood Count/With Diff Urgent
Comprehensive Metabolic Panel Urgent
Manual Differential Urgent
NT-proBNP Urgent
Troponin I Urgent
03/20/24 02:19
D-Dimer Urgent
03/20/24 02:33
ECG [Electrocardiogram (*1)] Urgent
Reason for Study: Chest Pain
EKG- Treatment ONCE
03/20/24 02:47
Nitroglycerin Sublingual [Nitrostat (Sublingual)] 0.4 mg .ROUTE .STK-MED ONE
03/20/24 02:48
Nitroglycerin Sublingual [Nitrostat (Sublingual)] 0.4 mg SL NOW STA
03/20/24 03:00
Electrocardiogram (*1) Urgent
Reason for Study: Chest Pain
Other Reason for Exam: Repeat with Troponin
EKG- Treatment ONCE
03/20/24 03:20
CT Chest Pe Study Urgent
Comment:
Reason For Exam: SOB, Elevated d-dimer
Urinalysis Reflex To Culture Urgent
03/20/24 03:52
Admit/Transfer Patient As Directed
Co-Sign Provider:
Level of Care: Observation services
Assign to:: Telemetry
Physician / Group: karen
Diagnosis: CP, elevated D Dimer, Leucocytosis with significant Lt shift-
Reason for Telemetry: Chest Pain syndromes
Date to Stop Telemetry: 03/22/24
Time to Stop Telemetry: 11:00
Reason for Hospitalization: CP, elevated D Dimer, Leucocytosis with significant Lt shift
03/20/24 03:53
Code Status As Directed
Resuscitation Status: Full Code
03/20/24 04:22
Troponin I Urgent
03/20/24 05:49
Electrocardiogram (*1) Q6H
Reason for Study: Chest Pain
Comment: at admission and Q3H for total of 3, to be done with each troponin
Dextrose 50%-Water [Dextrose 50% Syringe] 12.5 grams IV [id number] PRN
Glucagon [GlucaGen] 1 mg IM PRN PRN
03/20/24 05:49
CARDIOLOGY CONSULT Routine
Consulting Provider: Sita Ann
Was physician already notified: No
Reason for consult: CP, elevated D Dimer, Leucocytosis with significant Lt shift
Consult Notification Routine
Specialty to Notify: Cardiology
Activity As Directed
Activity Level: With Assistance
Bedside Glucose Monitoring As Directed
Frequency: AC&HS
Additional Instructions:: Change to q6h if pt on TPN, tube feeding or not eating
INT (Intravenous Needle Therapy) As Directed
Comment: maintain peripheral IV access
Intake/ Output As Directed
Frequency: Per unit guidelines
Pneumatic Compression Sleeves As Directed
Type: Knee high
Vital Signs As Directed
Frequency: q4h
Weight As Directed
Frequency: Daily
DX Deep Vein Thrombosis Video Routine
03/20/24 06:26
Cardiovascular Evaluation IN AM
Complete Blood Count/No Diff IN AM
Glycohemoglobin (HgbA1c) Routine
Troponin I Q3H
Comment: at admit & Q3H for 3 total including ED draws, obtain ECG with each level
03/20/24 07:30
Insulin Aspart Corrective Low [Novolog Flexpen-Low Resistance] See Protocol SC AC
03/20/24 08:00
Aspirin Low Dose EC [Aspir Low (Enteric Coated)] 81 mg PO DAILY
FOLic ACID [Folvite] 1 mg PO DAILY
Metoprolol Xl [Toprol Xl] 25 mg PO DAILY
Rosuvastatin Calcium [Crestor] 10 mg PO DAILY
Tamsulosin [Flomax] 0.4 mg PO DAILY
03/20/24 08:49
Troponin I Q3H
Comment: at admit & Q3H for 3 total including ED draws, obtain ECG with each level
03/20/24 11:49
Electrocardiogram (*1) Q6H
Reason for Study: Chest Pain
Comment: at admission and Q3H for total of 3, to be done with each troponin
Troponin I Q3H
Comment: at admit & Q3H for 3 total including ED draws, obtain ECG with each level
03/20/24 Dinner
Cholesterol Lowering
At Your Request: Full Participation
Cholesterol Lowering: Sodium, 2 Gram
1800 abiel/15 CHO Diabetic
03/20/24 17:49
Electrocardiogram (*1) Q6H
Reason for Study: Chest Pain
Comment: at admission and Q3H for total of 3, to be done with each troponin
03/21/24 06:00
Comprehensive Metabolic Panel IN AM
03/22/24 11:00
DC Protocol for Telemetry ONCE
Abnormal Lab Results
03/20/24 03/20/24 03/20/24
01:40 02:19 04:22
WBC 16.1 H 10^3/uL
(4.8-10.8)
RBC 2.44 L 10^6/uL
(4.70-6.10)
Hgb 8.4 L g/dL
(13.0-18.0)
Hct 24.1 L %
(39.0-52.0)
MCV 98.8 H fL
(80.0-94.0)
MCH 34.4 H pg
(27.0-31.0)
RDW 16.2 H %
(11.5-14.5)
Abs Neuts (Manual) 13.6 H 10^3/uL
(1.4-6.5)
Band Neutrophils 14 H %
(0-3)
Lymphocytes (Manual) 9 L %
(20-51)
D-Dimer 1.06 H ug/mlFEU
(0.00-0.50)
Glucose 187 H mg/dl
(70-99)
Troponin I 0.054 H* D ng/ml
Total Protein 5.9 L g/dl
(6.3-8.2)
03/20/24 01:40
03/20/24 01:40
Vital Signs
Initial and Last Documented VS:
Initial Vital Signs
Pulse Resp Pulse Ox
93 19 95
03/20/24 01:37 03/20/24 01:37 03/20/24 01:37
Last Documented Vital Signs
Temp Pulse Resp BP Pulse Ox
98.6 F 92 18 123/60 97
03/20/24 06:02 03/20/24 06:02 03/20/24 06:02 03/20/24 06:02 03/20/24 06:02
Celinalt;SHAYLEE Price - Last Filed: 03/20/24 03:31>
MDM/Problems Addressed
Differential Diagnosis Includes:
CHF, PE, Anxiety
MDM/Problems Addressed:
This is a 73 year old male that comes in with c/o chest pain and SOB. States that he has had this before after getting an injection to help with his WBC's. States that at this time he has no pain.
Will get Labs, Chest x-ray
Patient was seen by Dr. Santizo as nursing come out and stated that he had c/o chest pain again. Patient had Repeat ECG: Rate 105, Sinus Tachycardia, Left axis. LBBB, ST depression in V4, V5, V6. Patient was given a nitro and know his pain is gone.
Will admit for further evaluation.
D-dimer is elevated will get CT chest and urine.
Chronic conditions affecting care: CAD and Cancer
Acute Exacerbation and/or Progression of Chronic Illness: CAD and Cancer
<SHAYLEE Price - Last Filed: 03/20/24 03:31>
*Radiology
Radiology exam reviewed: preliminary read by ED provider (Chest - Negative for active disease)
*Pulse Oximetry
Patient hypoxic: no
*EKG
Interpreted by ED Provider?: Yes
Heart Rate: 89
Rate: normal
Rhythm: sinus
Arnold: left axis deviation
Interval: normal interval
QRS Pattern: left bundle branch block
Ischemia: no ischemia
*Modeling Teacher Interpretation
Rate: normal
Heart Rate: 89
Rhythm: sinus
*Critical Care Note
Total Time (30-74mins, 75-104mins- exclusive of procedures): Not Applicable
ED Attending Note
<SHAYLEE Price - Last Filed: 03/20/24 03:31>
-
Portions of this chart may have been created with voice recognition software.� Occasional wrong word or��sound alike� substitutions may have occurred due to the inherent limitations of voice recognition software.
<Gissell Santizo DO - Last Filed: 03/20/24 06:57>
ED Attending Note
Patient seen and examined by attending physician: Yes
I performed the substantive portion of visit, reviewed & personally made and approve the management plan that is documented in note by myself or PALLAVI.: Yes
I performed a history and physical exam of patient and discussed management with resident, I reviewed resident's note and agree with documented findings and plan of care.: Yes
ED Attending Note:
03/20/2024 03:00 AM
73-year-old gentleman with history of anal carcinoma, follows with oncology, currently receiving chemotherapy and receives subcu injections of Epogen/Neupogen after his chemotherapy treatments.
He also has history of hypertension, hyperlipidemia, diabetes, CAD, CVA, peripheral arterial disease.
He presents to the ED with complaints of acute substernal chest pain accompanied with shortness of breath. Chest pain improved/resolved shortly after arrival to the ED and initial EKG unremarkable but chest pain has since returned accompanied with
shortness of breath.
Repeat EKG shows new ST depression laterally compared to previous.
Significant concern for unstable angina, ACS. He has been given 1 sublingual nitroglycerin with prompt relief of chest discomfort and no further shortness of breath.
Initial troponin 0.022.
He was given 4 chewable aspirin prehospital by EMS.
Will plan to repeat troponin at 4 AM and plan to admit to hospitalist service.
Discharge Plan
Departure
Patient Disposition: Admit
Date of Disposition: 03/20/24
Time of Disposition: 03:00
Presentation/result/management discussed w/ accepting MD/DO: Hospitalist
Patient with high blood pressure during this ER visit?: Yes
Condition: Good
Covid-19: Not Applicable
Discharge Problem:
Chest pain
Interventions
Interventions:
*Risk Screen - Suicide Last Done: 03/20/24 01:37
*General Assessment Last Done: 03/20/24 01:37
*Neglect/Abuse Screening Last Done: 03/20/24 01:37
ED- Fall Risk Assessment Last Done: 03/20/24 02:05
*ED COVID-19 Vaccine History Last Done: 03/20/24 01:37
*Nursing Disposition Last Done: 03/20/24 05:33
ED- Cardiac Assessment Last Done: 03/20/24 02:05
ED- Pulmonary Assessment Last Done: 03/20/24 02:05
Discharge Date and Time
Discharge Date/Time: 03/20/24 05:33
[2024-03-20 02:23] LABS: NT-proBNP 1030 pg/ml; Troponin I 0.022 ng/ml
[2024-03-20 02:38] LABS: Absolute Neutrophils -Man Diff 13.6 10^3/uL (1.4-6.5); Band Neutrophils 14 % (0-3); Lymphocytes 9 % (20-51); Monocytes 6 % (2-9); Segmented Neutrophils 71 % (42-75)
[2024-03-20 02:39] LABS: Normal RBC Morphology No; Platelets Checked Yes
[2024-03-20 02:40] LABS: Anisocytosis 1+; Ovalocytes 1+; Tear Drop Red Blood Cells 1+; Total Cells Counted 100; Toxic Granulation 1+
[2024-03-20 02:48] LABS: D-Dimer 1.06 ug/mlFEU (0.00-0.50)
[2024-03-20] MEDS: NITROSTAT (SUBLINGUAL) 0.400000000000000022 MG SL (02:48)
--- NOTE | 2024-03-20 03:45 | HPS.HSE ---
Addendum entered and electronically signed by Juan Diaz MD 03/20/24 12:09:
CTC PE study
There is no pulmonary embolism
There are small stable probably benign pulmonary nodules, not significantly changed when compared with the prior study
Original Note:
Family Physician
-
Family Physician: Marco Rahman
Chief Complaint
-
CP and SoB
History of Present Illness
73M HX rectal CA on chemotherapy, ACDz , HTN, DM HX CVA stroke seen at ER for chest pain
[facility] EMS for evaluation for CP and SoB
- acute onset of CP and SoB for 30mins however CP free at ER
- Then recurrent of CP with abn ST : Pain was relieved by SL NTG
- Recent admission in December for CP : it was considered d due to symptomatic anemia and improved with Blood Tx. Initial plan was for cardiac catheterization however with resolution of symptoms plan will be for GDMT.
- reports recently received inj for low WCC
ROS
Denies any fever, chills, abd pain, nausea, vomiting, headache, dizziness, urinary burning.
PHX
Medical History
Past Medical History
Past Medical History: Reports Other (rectal cancer on chemotherapy, GI bleeding, anemia, hypertension, hyperlipidemia, diabetes, coronary artery disease, peripheral arterial disease, CVA, alcohol use disorder, chronic lymphedema right lower
extremity)
Past Surgical History: Reports None
Social History
Tobacco: Former Smoker
Drug: None
Family History
Family History: Not pertinent
Allergies / Home Medications
Allergies reflects when Allergies were last updated in [facility].
Home Medications with original date entered in [facility]
Allergy/Medication List:
Allergies
Allergy/AdvReac Type Severity Reaction Status Date / Time
abciximab [From Reopro] Allergy Thrombocyto Verified 04/11/23 21:02
penia
Penicillins Allergy Rash-chilho Verified 04/11/23 21:02
od
Home Medications
cholecalciferol (vitamin D3) 25 mcg (1,000 unit) tablet (Vitamin D3) 25 mcg PO DAILY Supplement ##0 01/11/22
rosuvastatin 10 mg tablet 10 mg PO DAILY High cholesterol 01/11/22
metoprolol succinate 25 mg tablet,extended release 24 hr 25 mg PO DAILY Heart disease/condition 04/18/22
tamsulosin 0.4 mg capsule 0.4 mg PO DAILY Urinary issue 04/18/22
aspirin 81 mg tablet,delayed release 81 mg PO DAILY Blood Clot Prevention/Tx 08/02/23
folic acid 1 mg tablet 1 mg PO DAILY Supplement 08/02/23
glimepiride 2 mg tablet 2 mg PO DAILY Diabetes 08/02/23
metformin 500 mg tablet 250 mg PO DAILY Diabetes 08/02/23
vitamin B complex 1 tab PO DAILY Supplement 08/02/23
carboplatin 1 dose IV . DIRECTED Cancer 01/04/24
docusate sodium 100 mg capsule (Colace) 100 mg PO DAILY 01/04/24
paclitaxel 6 mg/mL concentrate,intravenous 1 mg IV . DIRECTED Cancer 01/04/24
polyethylene glycol 3350 17 gram oral powder packet (Miralax) 17 g PO DAILY PRN constipation 01/04/24
Review of Systems
-
Constitutional: Reports No Symptoms
EENT: Reports No Symptoms
Respiratory: Reports See HPI
Cardiac: Reports See HPI
Abdomen/GI: Reports No Symptoms
: Reports No Symptoms
Musculoskeletal: Reports No Symptoms
Skin: Reports No Symptoms
Neurological: Reports No Symptoms
Endocrine: Reports No Symptoms
Hematologic/Lymphatic: Reports No Symptoms
Psych: Reports No Symptoms
Physical Exam
Vital Signs
Vital Signs
Pulse Resp BP Pulse Ox
94 16 117/45 100
03/20/24 03:00 03/20/24 03:00 03/20/24 03:00 03/20/24 02:45
Physical Exam
General: Well Developed, Well Nourished and No Apparent Distress
HEENT: NormoCephalic, Moist mucous membranes and Atraumatic
Respiratory: Clear
Cardiac: S1/S2 and Regular Rhythm; No Murmur or Rub
GI: Soft, Non Tender, Non Distended and Normal Bowel Sounds; No Organomegaly
Rectal: Deferred by Provider
Genito-urinary: Deferred by me
Musculoskeletal: No Clubbing, No Cyanosis and Edema, Right Lower Extremity
Skin: No Rash
Neuro: AO x 3 and Nonfocal/grossly intact
Psych: Calm
Laboratory Results
-
03/20/24 01:40
03/20/24 01:40
Laboratory Results
Total Bilirubin 0.4 mg/dl (0.2-1.3) 03/20/24 01:40
AST 22 U/L (17-59) 03/20/24 01:40
ALT 12 U/L (0-50) 03/20/24 01:40
Alkaline Phosphatase 92 U/L (38-126) 03/20/24 01:40
Troponin I 0.022 ng/ml 03/20/24 01:40
Data Reviewed
-
CT Scan: Other (pending )
Medical Tests (Nuc Med, Echo, EKG etc): Report Reviewed by me
Lab Data: Labs Reviewed by me
Old Records: Reviewed
Impression/Plan
-
Reviewed VS: HR 94 BP 117/45
Data
WCC 16 POS bands with significant Lt shift
Hgb 8.4 - baseline hi 8s to low 9s
TPNI 0.022 --> Pending
D Dimer 1.06
EKG
SINUS TACHYCARDIA WITH PREMATURE ATRIAL COMPLEXES
LEFT AXIS DEVIATION
LEFT BUNDLE BRANCH BLOCK
ABNORMAL ECG
01/04/24 TTE
LVEF 50
Stage II diastolic dysfunction
Normal RV size and function.
Indexed LA volume is mildly abnormal (35-41 mL/m2).
Mild to moderate MR
Moderate : Peak/mean gradients across the aortic valve are 49/30 mmHg,
LVOT diameter of 2.1 cm, the NILESH = 1.1cm2.
Last hospitalist admission: 01/04/24 - 01/06/24
Symptomatic anemia
Blood transfusion
ASSESSMENT & PLAN
Acute CP improved with SL NTG, associated abnorma ST . NEG first TPNI but elevated D dimer
Asso. SoB
HX CAD
HX Moderate : LVOT diameter of 2.1 cm, the NILESH = 1.1cm2.
Hyperlipidemia
Of note: - Admission in December for CP : it was considered due to symptomatic anemia and improved with Blood Tx. Initial plan was for cardiac catheterization however with resolution of symptoms plan will be for GDMT
- CTC for PE protocol
- Trend TPNI
- add SL NTG PRN
- cont MANAGER OUTPATIENT baby ASA and Statin
- Hold off on heparin gtt : currently CP free
- cont MANAGER OUTPATIENT Metoprolol succinate
- DCA card consult
Essential hypertension
- cont MANAGER OUTPATIENT Metoprolol succinate
Leucocytosis with significant Lt shift- bandemia 14% likely due to recent GCSF inj for chemo for Rectal CA
Rectal CA on chemotherapy
- f/u CXR final report
- check UA
- afebrile
- Hold off ABx for now
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
- No active bleeding
- Current Hgb hi 8s is somewhat close to baseline
- trend Hgb
HX CVA
Proximal left subclavian artery stenosis
- 50 to 75% stenosis
- Outpatient follow-up with vascular surgery
Peripheral arterial disease HX
HX eft carotid endarterectomy
TDM
-Hold glimepiride, metformin
add ISS low
BPH
-Continue tamsulosin
Chronic right lower extremity lymphedema
DVT Px: SCD
Code: Full
Obs TLM
[2024-03-20 05:06] LABS: Troponin I 0.054 ng/ml
--- NOTE | 2024-03-20 05:34 | W.PN.UPDATE ---
Update Note
Progress Note Update
RN notified elevated Troponin. 0.022>>0.054, Will trend Troponin, EKG in Am. Patient asymptomatic, stable VS. Hx of elevated Troponin CAD and stents.
--- NOTE | 2024-03-20 06:03 | PTCARENOTE ---
Pt arrived onto floor @0603. Pt AAOx3 and a ticket puller to the bed. Pt with no complaints of pain or SOB at this time. EKG and troponin drawn as ordered. Pt oriented to room and call ham[place]; will continue to monitor.
[2024-03-20 06:36] LABS: Hematocrit 23.8 % (39.0-52.0); Mean Corp Hgb Conc. 33.6 g/dL (33.0-37.0); Mean Corpuscular Hgb 33.9 pg (27.0-31.0); Mean Corpuscular Volume 100.8 fL (80.0-94.0); Mean Platelet Volume 10.2 fL (7.4-10.4); Platelet Count 125 10^3/uL (130-400); Red Blood Cell Count 2.36 10^6/uL (4.70-6.10); Red Cell Dist. Width 16.2 % (11.5-14.5); White Blood Cell Count 15.1 10^3/uL (4.8-10.8)
[2024-03-20 06:52] LABS: HDL Cholesterol 38 mg/dl; LDL Cholesterol, Calculated 54 mg/dl; Total Cholesterol 122 mg/dl (50-199); Triglyceride 154 mg/dl (10-149); Very Low Density Lipoprotein 30 mg/dl (0-30)
[2024-03-20 07:05] LABS: Troponin I 0.075 ng/ml
[2024-03-20] MEDS: NOVOLOG FLEXPEN-LOW RESISTANCE SC ×2 (08:00→18:38)
[2024-03-20 08:49] LABS: Glycohemoglobin (HgbA1c) 5.9 % (4.0-5.6)
[2024-03-20] MEDS: ASPIR LOW (ENTERIC COATED) 81 MG PO (10:23)
[2024-03-20] MEDS: FLOMAX 0.400000000000000022 MG PO (10:23)
[2024-03-20] MEDS: FOLVITE 1 MG PO (10:24)
[2024-03-20] MEDS: TOPROL XL 25 MG PO (10:24)
[2024-03-20] MEDS: CRESTOR 10 MG PO (10:27)
--- NOTE | 2024-03-20 11:09 | CON.CAR ---
Addendum entered and electronically signed by Juan Diego Cerda MD 03/20/24 13:17:
73-year-old man with rectal cancer with inguinal nodes but good response to carboplatin, radiation, and Taxol, negative PET scan in December, remote OM PCI in 2007, admitted in December with chest discomfort and detectable troponin in the setting of
anemia, with medical management after consideration for cardiac catheterization. Now with recurrent chest pain. Troponin is0.075, during prior hospital stay had peaked at 0.383, and 4.2 in 2021 in the setting of carotid endarterectomy. Current
hemoglobin 8.0, platelets are 125, never thrombocytopenic. He underwent biopsy of palpable rectal mass following chemotherapy in February without evidence of carcinoma but with suppurative inflammation
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
aortic stenosis, history of GI bleed, history of alcohol abuse, history of SVT
PSH: Herniorrhaphy, right arm fracture reverse right total shoulder, carotid endarterectomy
SH: Lives with roommate, retired, 2 drinks a day, quit smoking 2020
FH: Colon cancer in second-degree relatives
Allergies: ReoPro, penicillin
Outpatient cardiac meds: Aspirin 81 mg a day, glimepiride, metformin, metoprolol ER 25 mg a day, rosuvastatin 10 mg a day
Review of systems negative except as above
125/54, pulse 80, afebrile, respiratory rate 18
Hemoglobin 8, platelets 125, D-dimer 1.06, hemoglobin A1c 5.9, BUN and creatinine 13 and 0.8, LDL 54, total cholesterol 122, proBNP 1030, troponin 0.075
EKG sinus rhythm, left bundle branch block left axis
Cardiac cath April 2008, normal left main, 30% LAD, followed by 50% LAD, D1 50-70% at ostium, small ramus, OM 2 is large with 90% proximal stenosis, 40% stenosis of inferior branch, RCA luminal irregularities, normal EF, 3.0 x 23 vision stent to OM
Echo 3/24: Mild LVH, EF 50% low normal systolic function with stage II diastolic dysfunction, mild to moderate MR, dilated left atrium, moderate aortic stenosis, peak/mean gradient 49/30 mmHg, aortic valve area 1.1 cm to no AI, normal RV, could not
determine pulmonary artery pressure
Plan:
He presents with recent non-STEMI and now with recurrent chest pain with detectable troponin in the setting of known CAD, prior stroke, and moderate aortic stenosis. Management strategy in December was based largely on uncertainty regarding his
prognosis from stage IV anal cancer, associated with coexisting anemia.
At this time he is now doing very well from the standpoint of his malignancy, platelets are 125, recent PET scan was negative, and an anal biopsy in February did not show evidence of cancer. Given recurrent admission with high likelihood of progressive
CAD and moderate aortic stenosis, cardiac catheterization may be the best strategy at this time.
.
Discussed with the patient, he is agreeable to proceeding with cardiac catheterization.
We will discuss with interventional cardiology. Per oncology, as of December he was a candidate for DAPT.
Original Note:
Consultation
Consultation Request
Date/Time Consultation Requested: 03/20/2024
Date/Time Consultation Performed: 03/20/2024
Requesting Provider: Dr. Diaz
Performing Provider: Dr. VICTOR MANUEL Cerda
Reason for Consultation: Chest Pain, elevated troponin
Medical History
-
History of Present Illness:
HPI: Perry is a 73-year-old male with past medical history of CAD w/ prior PCI to OM 2, hypertension, hyperlipidemia, aortic stenosis, type 2 diabetes mellitus, CVA, carotid artery disease, SVT, LBBB, alcohol abuse, and rectal cancer who presents
to [facility] for evaluation of chest pain. He was lying in bed last night when he had onset of L sided chest pain. He states this pain is similar to what brought him in for recent admission 12/2023. He has had intermittent, mild pain since that admission
that is only short lived, however episode last night lasted longer and was more severe, prompting ER evaluation. On arrival to ER, he was noted to have troponin of 0.022 which has trended up to 0.075. He was given SL nitro in ER and has had no
recurrent pain overnight. He notes he receives a shot every so often to increase his WBC after chemo. He received this shot recently and also notes he had gotten the shot shortly before his prior hospitalization as well. During both admissions, he
has been somewhat anemic. During prior admission, he required 2units PRBCs, however hemoglobin this admission 8.0. Previously he has preferred avoiding invasive cardiac procedures and preferred to avoid cardiac catheterization as well as DAPT,
however he has been given approval by oncology to be on DAPT if needed. He notes this AM he is feeling well and has had no recurrent pain.
PMH:
CAD s/p LA with OM2 PCI 2007
CVA 01/2022
Carotid artery disease s/p CEA 04/2022
Hypertension
Hyperlipidemia
GERD
LBBB
SVT
Rectal cancer on chemotherapy
h/o GI bleed
DM 2
Former smoker
Alcohol abuse
Past Medical History
Past Medical History: Other (In HPI)
Past Surgical History: Cardiac (OM2 PCI 2007) and Other (Hernia repair, CEA 04/24/2022, right total shoulder and reverse shoulder 01/2022)
Social History
Tobacco: Former Smoker
Alcohol: Daily
Drug: None
Personal: Single
Living: Alone
Family History
Family History: CAD and Cancer
Allergies / Home Medications
Allergy/AdvReac Type Severity Reaction Status Date / Time
abciximab [From Reopro] Allergy Thrombocyto Verified 03/20/24 01:33
penia
Penicillins Allergy Rash-chilho Verified 03/20/24 01:33
od
�Medication �Instructions �Recorded �Confirmed �Type
cholecalciferol (vitamin D3) 25 25 mcg PO DAILY Supplement ##0 01/11/22 03/20/24 History
mcg (1,000 unit) tablet (Vitamin
D3)
rosuvastatin 10 mg tablet 10 mg PO DAILY High cholesterol 01/11/22 03/20/24 History
metoprolol succinate 25 mg 25 mg PO DAILY Heart 04/18/22 03/20/24 History
tablet,extended release 24 hr disease/condition
tamsulosin 0.4 mg capsule 0.4 mg PO DAILY Urinary issue 04/18/22 03/20/24 History
aspirin 81 mg tablet,delayed 81 mg PO DAILY Blood Clot 08/02/23 03/20/24 History
release Prevention/Tx
folic acid 1 mg tablet 1 mg PO DAILY Supplement 08/02/23 03/20/24 History
glimepiride 2 mg tablet 2 mg PO DAILY Diabetes 08/02/23 03/20/24 History
metformin 500 mg tablet 250 mg PO DAILY Diabetes 08/02/23 03/20/24 History
vitamin B complex 1 tab PO DAILY Supplement 08/02/23 03/20/24 History
docusate sodium 100 mg capsule 100 mg PO DAILY PRN constipation 01/04/24 02/13/24 History
(Colace)
Chemotherapy 1 dose IV .TWICE A MONTH 02/11/24 03/20/24 History
Review of Systems
-
History Source: Patient
All other systems: Negative unless noted
Physical Exam
Vital Signs
Temp Pulse Resp BP Pulse Ox
98.0 F 80 18 125/54 97
03/20/24 07:00 03/20/24 07:00 03/20/24 07:00 03/20/24 07:00 03/20/24 07:00
Lab Results
03/20/24 06:26
03/20/24 01:40
Troponin I Cancelled 03/20/24 11:00
Ins-S-Rfencmhqdlz Pept 1030 pg/ml 03/20/24 01:40
Physical Exam
General: Well Developed, Well Nourished and No Apparent Distress
HEENT: Normocephalic, Anicteric and Moist Mucous Membranes
Respiratory: Clear and Non Labored Respirations
Cardiac: S1/S2, Regular Rhythm and Murmur
Musculoskeletal: No Clubbing, No Cyanosis and Edema
Skin: Warm and Dry
Neuro: AO x 3 and Nonfocal/Grossly Intact
Psych: Calm
Impression / Plan
-
PCP: Dr. Rahman
Shale Miner: Dr. Bunn
Impression:
Presented with chest pain
Elevated troponin
Anemia
Elevated D-dimer
CAD s/p LA with OM2 PCI 2007
CVA 01/2022
Carotid artery disease s/p CEA 04/2022
Mod
Hypertension
Hyperlipidemia
GERD
LBBB
SVT
Rectal cancer on chemotherapy
h/o GI bleed
DM 2
Former smoker
Alcohol abuse
Echo 08/03/2023: EF 55 to 60%, mild concentric LVH, stage II diastolic dysfunction, mild MR, moderate , peak/mean gradients 29/17 mmHg, NILESH 1.0 cm�, trace TR
Echo 01/04/2024: EF 50%, mild cLVH, mild distal anteroseptal hypokinesis, stage II diastolic dysfunction, mild to mod MR, mod with peak/mean gradients 49/30 mmHg, NILESH 1.1cm2
Plan:
-Presented with chest pain that started while lying in bed. Lasted for 30 minutes. No recurrent pain overnight.
-Elevated troponin noted, peaking at 0.075, trending down thereafter. During recent admission, trop was as high as 0.383.
-Echo 12/2023 with low normal EF and new WMA, however patient was not interested in cath/ischemic evaluation at the time.
-EKG this AM stable, SR with LBBB which is chronic.
-Continue medical therapy with aspirin 81mg daily, Toprol 25mg daily, and crestor 10 mg daily
-BPs have been on the lower side which limits ability to increase medical therapy/antianginals.
-Discussed w/ patient that given recurrent chest pain w/ elevated troponin, would strongly consider ischemic evaluation w/ stress testing versus catheterization.
-He has been given the OK from oncology to be on DAPT if needed which previously was a concern.
-Hgb 8.0, continue to follow closely. During prior admission, chest pain was felt to possibly be related to symptomatic anemia.
-Elevated D-dimer noted in ER, CTA of chest negative for PE or dissection.
-LDL 54.
-Hgb A1c 5.9%
HPI: Perry is a 73-year-old male with past medical history of CAD w/ prior PCI to OM 2, hypertension, hyperlipidemia, aortic stenosis, type 2 diabetes mellitus, CVA, carotid artery disease, SVT, LBBB, alcohol abuse, and rectal cancer who presents
to [facility] for evaluation of chest pain. He was lying in bed last night when he had onset of L sided chest pain. He states this pain is similar to what brought him in for recent admission 12/2023. He has had intermittent, mild pain since that admission
that is only short lived, however episode last night lasted longer and was more severe, prompting ER evaluation. On arrival to ER, he was noted to have troponin of 0.022 which has trended up to 0.075. He was given SL nitro in ER and has had no
recurrent pain overnight. He notes he receives a shot every so often to increase his WBC after chemo. He received this shot recently and also notes he had gotten the shot shortly before his prior hospitalization as well. During both admissions, he
has been somewhat anemic. During prior admission, he required 2units PRBCs, however hemoglobin this admission 8.0. Previously he has preferred avoiding invasive cardiac procedures and preferred to avoid cardiac catheterization as well as DAPT,
however he has been given approval by oncology to be on DAPT if needed. He notes this AM he is feeling well and has had no recurrent pain.
Data Reviewed
-
EKG: Tracing Personally Visualized and interpreted
Radiology: Report Reviewed by me
CT Scan: Report Reviewed by me
Labs: Labs Reviewed by me
Old Records: Reviewed
--- NOTE | 2024-03-20 11:26 | W.PN.UPDATE ---
Update Note
Progress Note Update
Seen and examined independent of overnight physician. Nonbillable note. Denies chest pain chronically. Resting in bed comfortably.
General: Well Developed, Well Nourished and No Apparent Distress
HEENT: NormoCephalic, Moist mucous membranes and Atraumatic
Respiratory: Clear, port noted
Cardiac: S1/S2 and Regular Rhythm; No Murmur or Rub
GI: Soft, Non Tender, Non Distended and Normal Bowel Sounds; No Organomegaly
Musculoskeletal: No Clubbing, No Cyanosis and Edema, Right Lower Extremity
Skin: No Rash
Neuro: AO x 3 and Nonfocal/grossly intact
Psych: Calm
Elevated troponin likely secondary to rule out ACS
CAD s/p PCI
Chronic LBBB
Hx of SVT
HX Moderate : LVOT diameter of 2.1 cm, the NILESH = 1.1cm2.
Hyperlipidemia
- CTC for PE protocol negative. Pulmonary nodules.
- Trend TPNI up trended to 0.075 and now downtrending. proBNP 8000.
- add SL NTG PRN
- cont [facility] baby ASA and Statin
- Hold off on heparin gtt : currently CP free
- cont [facility] Metoprolol succinate
-Repeat echo per cardiology. Echo 01/04/24 with mild concentric LVH. EF 50%. Mild distal anteroseptal hypokinesis. Stage II diastolic dysfunction. Mild to moderate mitral regurgitation. Moderate aortic stenosis.
-Ischemic eval stress test versus cath per cardiology.
- DCA card consult
Essential hypertension
- cont [facility] Metoprolol succinate
Leucocytosis with significant Lt shift- bandemia 14% likely due to recent GCSF inj for chemo for Rectal CA
Stage IV anal squamous cell carcinoma on chemotherapy status post radiation
-No urinary symptoms.
- afebrile
- Hold off ABx for now
- follows with Dr. Craig
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
- No active bleeding
- trend Hgb
HX CVA
Proximal left subclavian artery stenosis
Peripheral arterial disease
- 50 to 75% stenosis
- Outpatient follow-up with vascular surgery
Peripheral arterial disease HX
HX eft carotid endarterectomy
TDM
-Hold glimepiride, metformin
add ISS low
BPH
-Continue tamsulosin
Chronic right lower extremity lymphedema
DVT Px: SCD
Code: Full
--- NOTE | 2024-03-20 12:35 | CM ---
Met with patient at the bedside; initial assessment completed
Pharmacy verified: [facility], [facility]
Patient reported that he and a friend live in a one floor cottage w/ basement; 8 steps to enter via back door; 11 steps down to the basement; railings inside/outside. Bathroom has tub w/shower; grab bar
PLOF: patient reported that he is independent with ambulation, stairs, and ADLs; Drives. Receiving outpatient Chemo 2-3 times/month
SNF/Rehab/Home Health utilization history: SNF stay @ [facility] 2021; has needed home health care in the past; does not remember agency
Transportation: unsure who will be available to give him a ride home but thinks he can find someone
Has DM2 but does not check his blood sugar; does not have a glucometer
Plan: anticipate discharge to home when medically stable; CM will monitor for needs
[2024-03-20 13:28] LABS: Troponin I 0.053 ng/ml
[2024-03-20 13:41] LABS: Glucose - Point of Care 169 mg/dl (70-99)
[2024-03-20] MEDS: NOVOLOG FLEXPEN-LOW RESISTANCE 1 UNITS SC (14:00)
[2024-03-20 14:54] LABS: Urine Albumin Negative (Neg - Trace); Urine Bilirubin Negative (Negative); Urine Character Clear (Clear); Urine Color Yellow; Urine Glucose Negative (Negative); Urine Ketone Negative (Negative); Urine Leukocyte Negative (Negative); Urine Nitrite Negative (Negative); Urine Occult Blood Negative (Negative); Urine Specific Gravity 1.005 (<1.030); Urine Urobilinogen Negative (Neg - 1+)
[2024-03-20 16:54] LABS: Glucose - Point of Care 123 mg/dl (70-99)
[2024-03-20] MEDS: MELATONIN 5 MG PO (23:19)
[2024-03-21] VITALS (16 sets, daily range): BP systolic 83–127; BP diastolic 45–79; BMI 26.3
[2024-03-21 03:15] LABS: Glucose - Point of Care 142 mg/dl (70-99)
[2024-03-21 04:58] LABS: ALT (SGPT) 11 U/L (0-50); AST (SGOT) 23 U/L (17-59); Albumin 3.3 g/dl (3.5-5.0); Alkaline Phosphatase 117 U/L (38-126); Blood Urea Nitrogen 9 mg/dl (9-20); Calcium 9.2 mg/dl (8.4-10.2); Carbon Dioxide 25 mmol/L (22-30); Chloride 106 mmol/L (98-107); Estimated Creatinine Clearance 90 ml/min; Glucose 124 mg/dl (70-99); Potassium 4.2 mmol/L (3.5-5.1); Sodium 136 mmol/L (135-145); Total Bilirubin 0.5 mg/dl (0.2-1.3); Total Protein 5.6 g/dl (6.3-8.2); eGFR > 60.00
[2024-03-21 05:50] LABS: Glucose - Point of Care 144 mg/dl (70-99)
[2024-03-21] MEDS: FLOMAX 0.400000000000000022 MG PO (08:19)
[2024-03-21] MEDS: TOPROL XL 25 MG PO (08:19)
[2024-03-21] MEDS: ASPIR LOW (ENTERIC COATED) 81 MG PO (08:19)
[2024-03-21] MEDS: CRESTOR 10 MG PO (08:19)
[2024-03-21] MEDS: FOLVITE 1 MG PO (08:19)
--- NOTE | 2024-03-21 10:37 | CONSULT.CT ---
Consultation
-
Date/Time Consultation Requested: 03/21/24
Date/Time Consultation Performed: 03/21/24
Requesting Provider: Fatoumata
Performing Provider: Khadra Townsend PA-C for Dr. Clint Overton
Reason for Consultation: CABG evaluation
Patient History
Physicians
Family Physician: Marco Rahman
Outpatient Brush Material Preparer: Sepideh
Inpatient Brush Material Preparer: ELA
History of Present Illness
Pt is a very pleasant 73y/oM with PMH significant for CAD s/p PCI to OM2 2007, CVA 2021 without residual, hx bilateral carotid stenosis s/p L CEA 04/2022, currently undergoing treatment for stage IV anal squamous cell carcinoma (chemotx- IV
taxol/carboplatin) with recent anal biopsy negative for CA who presented to the ED with complaints of chest pain and shortness of breath. Pt had similar complaints during admission in december in the setting of worsened anemia which improved with
transfusion and therefore LHC deferred at that time. Troponins positive with peak at 0.075, symptoms have resolved with SL nitro. Pt underwent cardiac cath today which demonstrated MVCAD. Echo in december demonstrated LVEF 50% with mild-mod MR & mod
. We are asked to evaluate him for CABG.
Past Medical History
CAD s/p MD with OM2 PCI 2007
CVA 01/2022 (aphasia, no residual)
Carotid artery disease- totally occluded R ICA and s/p left CEA 04/2022
left subclavian artery stenosis
Hypertension
Hyperlipidemia
GERD
LBBB
SVT
R shoulder fx s/p reverse total shoulder replacement
stage IV anal squamous cell carcinoma dx 07/2023, on IV taxol/carboplatin & some XRT early 2023; rectal bx 02/13/2024 neg for CA
h/o lower GI bleed
NIDDM, well controlled w/ A1C 5.9
Former smoker
daily alcohol use with hx ETOH withdrawal during admission 01/2022
Past Surgical History
Left CEA 04/2022 (Joanie)
rectal biopsies 07/2023
Right reverse total shoulder replacement 01/12/22 with reop for dislocation 01/18/24 (both related to mechanical falls)
bilateral inguinal hernia repair
Family History
Mother: at Age (90; with hx 'leaky valve')
Father: at Age (91; with hx CABG)
Family Medical History: CAD
Social History
Alcohol: Daily (2-3 drinks/day--usually wine, occasional martini)
Drug: None
Tobacco: Former Smoker
Personal: Single and Other
Living: With Roomate
Allergies
Allergy/AdvReac Type Severity Reaction Status Date / Time
abciximab [From Reopro] Allergy Thrombocyto Verified 03/20/24 01:33
penia
Penicillins Allergy Rash-chilho Verified 03/20/24 01:33
od
Home Medications
�Medication �Instructions �Recorded �Confirmed �Type
cholecalciferol (vitamin D3) 25 25 mcg PO DAILY Supplement ##0 01/11/22 03/20/24 History
mcg (1,000 unit) tablet (Vitamin
D3)
rosuvastatin 10 mg tablet 10 mg PO DAILY High cholesterol 01/11/22 03/20/24 History
metoprolol succinate 25 mg 25 mg PO DAILY Heart 04/18/22 03/20/24 History
tablet,extended release 24 hr disease/condition
tamsulosin 0.4 mg capsule 0.4 mg PO DAILY Urinary issue 04/18/22 03/20/24 History
aspirin 81 mg tablet,delayed 81 mg PO DAILY Blood Clot 08/02/23 03/20/24 History
release Prevention/Tx
folic acid 1 mg tablet 1 mg PO DAILY Supplement 08/02/23 03/20/24 History
glimepiride 2 mg tablet 2 mg PO DAILY Diabetes 08/02/23 03/20/24 History
metformin 500 mg tablet 250 mg PO DAILY Diabetes 08/02/23 03/20/24 History
vitamin B complex 1 tab PO DAILY Supplement 08/02/23 03/20/24 History
docusate sodium 100 mg capsule 100 mg PO DAILY PRN constipation 01/04/24 02/13/24 History
(Colace)
Chemotherapy 1 dose IV .TWICE A MONTH 02/11/24 03/20/24 History
Review of Systems
-
History Source: Patient
General: Denies Fever, Weight Gain or Weight Loss
HEENT: Reports No Symptoms
Respiratory: Reports SOB; Denies MOSS or PND
Cardiac: Reports Chest Pain, CAD and Known Vascular Disease; Denies Palpitations, Diaphoresis or Edema
Abdomen/GI: Reports No Symptoms
: Reports No Symptoms
Musculoskeletal: Reports No Symptoms
Skin: Reports No Symptoms
Neurological: Reports CVA; Denies Syncope or Seizures
Vascular: Reports No Symptoms
Physical Exam
Vital Signs
Temp 98.3 F 03/21/24 10:34
Temp route: Oral 03/21/24 10:34
Pulse 65 03/21/24 10:34
Rhythm: Normal sinus rhythm 03/21/24 08:20
With- Bundle Branch Block Confi 03/21/24 08:20
Resp Rate 18 03/21/24 10:34
Blood pressure 127/51 03/21/24 07:31
Blood pressure extremity used: Left upper arm 03/21/24 10:34
Position: Lying 03/21/24 07:31
MAP (cuff-Corazon Monitor) 67 03/20/24 05:00
SaO2 99 03/21/24 10:34
Oxygen Mode of Delivery Room air 03/21/24 10:34
Can the patient verbally communicate their pain? Yes 03/20/24 20:00
Actual Weight 78.585 kg 03/21/24 05:40
Body Mass Index (BMI) 26.3 03/21/24 05:40
Labs
03/20/24 06:26
03/21/24 04:02
Hemoglobin A1c 5.9 % (4.0-5.6) H 03/20/24 06:26
Troponin I 0.053 ng/ml H* 03/20/24 12:47
Czf-E-[place] Pept 1030 pg/ml 03/20/24 01:40
Urinalysis
Urine Color Yellow 03/20/24 14:28
Urine Clarity Clear (Clear) 03/20/24 14:28
Urine pH 7.0 (5.0-9.0) 03/20/24 14:28
Ur Specific [place] 1.005 (<1.030) 03/20/24 14:28
Urine Ketones Negative (Negative) 03/20/24 14:28
Ur Occult Blood Reflex Negative (Negative) 03/20/24 14:28
Urine Bilirubin Negative (Negative) 03/20/24 14:28
Leukocyte Esterase Rfl Negative (Negative) 03/20/24 14:28
Urine Glucose Negative (Negative) 03/20/24 14:28
Urine Albumin (Reflex) Negative (Neg - Trace) 03/20/24 14:28
Exam
General: Well Developed, Well Nourished and No Apparent Distress
HEENT: Normocephalic and Anicteric
Neck: Trachea Midline; Negative Carotid Bruit or Mass
Respiratory: Clear and Other (left chest wall port in place & accessed); Negative Wheezes, Crackles or Rhonchi
Cardiac: Regular Rhythm and Murmur (systolic murmur radiating to carotids)
GI: Soft, Non Tender and Non Distended
Rectal: Deferred by Provider
Skin: Warm and Dry
Neuro: Nonfocal/Grossly Intact
Extremities: Lower Level Edema (RLE lymphedema; no LLE edema)
Psych: Calm
Assessment / Plan
-
NSTEMI
MVCAD with patent OM stent from 2007
stage IV anal SCC undergoing chemo tx (oncologist Dr. Kiara)
[facility] report unavailable to me at this time, but on my review of films anatomy looks acceptable for bypass surgery. Will discuss further with Drs. Overton & Fatoumata-- although patient is currently undergoing cancer treatment it is apparent his response to
chemo has been very good. Will likely discuss further with oncology as well. Will hold off on ordering preop studies until these discussions occur (US carotids, vein mapping of LLE). Would repeat echo if not already ordered for this admission to
reassess severity of MR & .
Data Reviewed
-
EKG: Report Reviewed by me
Briquette Machine Operator: Image Personally Visualized and interpreted
Echo: Report Reviewed by me
Labs: Labs Reviewed by me
--- NOTE | 2024-03-21 10:46 | CM ---
Patient off floor for Cardiac cath.
--- NOTE | 2024-03-21 10:57 | PTCARENOTE ---
received pt from slab installer. right radial is CDI, slightly ecchymotic, but pt denies pain. pt is sr on the monitor, hr in the 60s, vss. IVF running per order. pt educated on plan of care and pt verbalized understanding.
[2024-03-21 12:26] LABS: Glucose - Point of Care 158 mg/dl (70-99)
--- NOTE | 2024-03-21 12:36 | ITS.CL.CATH ---
[employer] - Catheterization
Cardiac Catheterization
Procedure Report:
LEFT HEART CATHETERIZATION
Date of Procedure: March 21, 2024
Referring: Juan Diego Cerda MD
PROCEDURES:
1. Left heart catheterization, coronary angiogram.
2. Ultrasound-guided access.
INDICATION: Patient is a 73-year-old gentleman with past medical history of hypertension, hyperlipidemia, type 2 diabetes mellitus, carotid artery disease status post CEA in April 2022, CVA in January 2022, coronary artery disease status post TN with
OM 2 PCI in 2007, chronic left bundle branch block, Former tobacco abuse, history of GI bleed, alcohol abuse, rectal cancer with inguinal nodes but good response to carboplatin, radiation and Taxol, negative PET scan in December who presents this
admission with recurrent episode of chest discomfort with mild level troponin elevation now being referred for left heart catheterization to rule out obstructive CAD. Echocardiogram from December 2023 shows LVEF of 50%, stage II diastolic dysfunction,
mild to moderate mitral regurgitation, moderate aortic stenosis with peak and mean transaortic gradients of 49 and 30 mmHg, aortic valve area 1.1 cm� without aortic regurgitation.
ACCESS: Right radial artery, 6 Ivorian sheath, under ultrasound guidance
HEMODYNAMICS : (mmHg)
AO (s/d) : 96/46
LV (s/d) : 111/4
LVEDP : 11
CORONARY FINDINGS
DOMINANCE: Left
LEFT MAIN: The left main artery is a large-caliber vessel which gives rise to the left anterior descending artery and the left circumflex artery. There is mild diffuse atherosclerotic
LEFT ANTERIOR DESCENDING: The left anterior descending artery is a medium to large caliber vessel which gives rise to multiple small to medium caliber diagonal branches as it courses through the anterior interventricular groove towards the apex.
There is diffuse at least moderate plaque from the proximal to the mid LAD with 3 serial tubular stenosis, 50% in the proximal LAD, 70% just distal to a diagonal branch and a third 80% stenosis in the mid LAD. There is a possible subtotally
occluded versus a very small diagonal branch in the mid LAD and between the 2 distal lesions.
CIRCUMFLEX: The left circumflex artery is a medium caliber, nondominant vessel which gives rise to 1 very small obtuse marginal branch and a second branching medium to large caliber obtuse marginal branch as it courses through the AV groove with
small left posterolateral branches distally. Previously placed OM stent is patent. The upper branch of the OM has an ostial 70% stenosis. Mid left circumflex at the level of previous OM stent has eccentric 70% stenosis
RIGHT CORONARY ARTERY: The right coronary artery is a medium to large caliber, dominant vessel which gives rise to the right posterior descending artery and the right posterolateral system. The right PDA has 2 serial lesions, 70% proximally and
50-60% distally. Ostial RPL B branch has an eccentric 70% stenosis. Otherwise there is mild diffuse atherosclerotic plaque.
SEDATION: 27 minutes of procedural sedation was utilized. An independent medical investigator was present to assist with and help manage the patient's level of consciousness and physiologic status.
RADIATION SUMMARY: Fluoro Time (min): 2.8, Dose (mGy): 224.04, DAP (Gy.cm2) : 19.08
Closure Device: Vascular band over right radial artery, 10 cc of air
CONCLUSIONS
1. Significant multi-vessel coronary artery disease.
2. Moderate aortic stenosis with invasive transaortic mean gradient of 28 mmHg.
3. Normal LV EDP at 11 mmHg.
RECOMMENDATIONS
1. In the setting of his rectal cancer and ongoing chemotherapy with multivessel coronary artery disease in the setting of known type 2 diabetes mellitus and moderate aortic stenosis, plan for a multidisciplinary discussion with CT surgery input as
well as oncology input in regards to prognosis and tolerance of full anticoagulation versus dual antiplatelet therapy in the setting of pancytopenia to discuss best management strategy in addition to medications.
2. Repeat echocardiogram to assess biventricular function.
3. Medical management of presumed NSTEMI and coronary artery disease.
4. Aggressive management of cardiovascular risk factors.
5. Eventual outpatient referral for cardiac rehab.
Copy to: Juan Diego Cerda MD
Yisel Ham MD, FACC, [facility]
--- NOTE | 2024-03-21 13:00 | W.PN.HOSP.TC ---
Today's Communication/Plan
-
CT surgery recs
Continue with goal-directed medical therapy
Echo pending
Assessment / Plan
Assessment / Plan
General: Well Developed, Well Nourished and No Apparent Distress
HEENT: NormoCephalic, Moist mucous membranes and Atraumatic
Respiratory: Clear, port noted
Cardiac: S1/S2 and Regular Rhythm; No Murmur or Rub
GI: Soft, Non Tender, Non Distended and Normal Bowel Sounds; No Organomegaly
Musculoskeletal: No Clubbing, No Cyanosis and Edema, Right Lower Extremity
Skin: No Rash
Neuro: AO x 3 and Nonfocal/grossly intact
Psych: Calm
NSTEMI
CAD s/p PCI
Chronic LBBB
Hx of SVT
HX Moderate : LVOT diameter of 2.1 cm, the NILESH = 1.1cm2.
Hyperlipidemia
- CTC for PE protocol negative. Pulmonary nodules.
- Trend TPNI up trended to 0.075 and now downtrending. proBNP 8000.
- add SL NTG PRN
- cont POWDER MIXER baby ASA and Statin
- Hold off on heparin gtt : currently CP free
- cont POWDER MIXER Metoprolol succinate
-Echo 01/04/24 with mild concentric LVH. EF 50%. Mild distal anteroseptal hypokinesis. Stage II diastolic dysfunction. Mild to moderate mitral regurgitation. Moderate aortic stenosis.
-Repeat echo pending.
-Status post cardiac catheterization with significant multivessel coronary artery disease. Moderate aortic stenosis with invasive transaortic mean gradient of 28 mmHg. Intervention cardiology discussed with CT surgery if patient candidate for
bypass
-Cardiology on board.
Essential hypertension
- cont POWDER MIXER Metoprolol succinate
Leucocytosis with significant Lt shift- bandemia 14% likely due to recent GCSF inj for chemo for Rectal CA
Stage IV anal squamous cell carcinoma on chemotherapy status post radiation
-No urinary symptoms.
- afebrile
- Hold off ABx for now
- follows with Dr. Craig
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
- No active bleeding
- trend Hgb
HX CVA
Proximal left subclavian artery stenosis
Peripheral arterial disease
- 50 to 75% stenosis
- Outpatient follow-up with vascular surgery
Peripheral arterial disease HX
HX eft carotid endarterectomy
TDM
-Hold glimepiride, metformin
add ISS low
BPH
-Continue tamsulosin
Chronic right lower extremity lymphedema
DVT Px: SCD
Code: Full
Anticipated Discharge: > 48 hours
Subjective/Interval History
-
Date of Service: March 21, 2024
Seen postcardiac cath
Denies any chest pain nausea vomiting
Objective Data
-
Labs:
Laboratory Results
03/21/24
04:02
Sodium 136
Potassium 4.2
Chloride 106
Carbon Dioxide 25
BUN 9
Creatinine 0.7
Glucose 124 H
Calcium 9.2
Total Bilirubin 0.5
AST 23
ALT 11
Alkaline Phosphatase 117
Vital Signs:
Vital Signs
Temp Pulse Resp BP Pulse Ox
98.3 F 61 18 95/67 96
03/21/24 10:34 03/21/24 10:46 03/21/24 10:34 03/21/24 10:46 03/21/24 11:39
I&O
03/20/24 03/21/24 03/22/24
06:59 06:59 06:59
Intake Total 1680 / 1680 480 / 480
Output Total 300 / 300
Balance 1680 / 1680 180 / 180
[2024-03-21] MEDS: NORVASC PO (13:28)
--- NOTE | 2024-03-21 15:42 | CM ---
Chart reviewed. Patient is independent of ADLS, lives with his friend in a [address], 8 [address]IO in the back, 0 DME. Patient being worked up for a CABG vs PCI. Plan is for the patient to return home. CM to follow
--- NOTE | 2024-03-21 17:22 | PTCARENOTE ---
pt continues to be SR w/ BBB on the monitor, hr in the 80s, vss. pt offers no complaints at this time. right radial band off, ecchymotic. pt educated on plan of care for the evening and pt verbalized understanding. call hamilton within reach.
[2024-03-21 17:32] LABS: Glucose - Point of Care 144 mg/dl (70-99)
[2024-03-21] MEDS: NOVOLOG FLEXPEN-LOW RESISTANCE SC (17:45)
[2024-03-21] MEDS: CRESTOR 20 MG PO (17:51)
--- NOTE | 2024-03-21 20:45 | PTCARENOTE ---
Assumed care of pt from prev nsg shift, AAOx3 w/no c/o CP or SOB. Pt w/R radial site w/dressing C/D/I w/some ecchymosis surrounding the dressing. No signs or symptoms of bleeding or hematoma at the access site. Pt's VS stable w/HR in the 70's & BP
119/53. Pt anxious regarding current plan of care; emotional support provided. Pt w/call hamilton within reach & no addtl needs at this time. Plan of care ongoing.
[2024-03-21 22:07] LABS: Glucose - Point of Care 167 mg/dl (70-99)
[2024-03-21] MEDS: MELATONIN 5 MG PO (22:26)
[2024-03-22 04:15] VITALS: BP 116/51
[2024-03-22] MEDS: FLUSH (NSS) 2 FLUSH IV (04:57)
[2024-03-22 05:18] LABS: Hematocrit 23.3 % (39.0-52.0); Mean Corp Hgb Conc. 34.3 g/dL (33.0-37.0); Mean Corpuscular Hgb 34.2 pg (27.0-31.0); Mean Corpuscular Volume 99.6 fL (80.0-94.0); Mean Platelet Volume 10.7 fL (7.4-10.4); Platelet Count 150 10^3/uL (130-400); Red Blood Cell Count 2.34 10^6/uL (4.70-6.10); Red Cell Dist. Width 16.7 % (11.5-14.5); White Blood Cell Count 21.2 10^3/uL (4.8-10.8)
[2024-03-22 05:32] LABS: Blood Urea Nitrogen 12 mg/dl (9-20); Calcium 9.1 mg/dl (8.4-10.2); Carbon Dioxide 25 mmol/L (22-30); Chloride 104 mmol/L (98-107); Estimated Creatinine Clearance 90 ml/min; Glucose 140 mg/dl (70-99); HDL Cholesterol 12 mg/dl; LDL Cholesterol, Calculated 25 mg/dl; Potassium 3.9 mmol/L (3.5-5.1); Sodium 136 mmol/L (135-145); Total Cholesterol 92 mg/dl (50-199); Triglyceride 275 mg/dl (10-149); Very Low Density Lipoprotein 55 mg/dl (0-30); eGFR > 60.00
[2024-03-22 06:00] VITALS: BMI 26.3
--- NOTE | 2024-03-22 06:27 | W.PN.HOSP.TC ---
Today's Communication/Plan
-
Await further recommendations from cardiology and CT surgery. Discharge planning is on hold
Assessment / Plan
Assessment / Plan
Physical exam:
General: Well Developed, Well Nourished and No Apparent Distress
HEENT: NormoCephalic, Moist mucous membranes and Atraumatic
Respiratory: Clear, port noted
Cardiac: S1/S2 and Regular Rhythm; No Murmur or Rub
GI: Soft, Non Tender, Non Distended and Normal Bowel Sounds; No Organomegaly
Musculoskeletal: No Clubbing, No Cyanosis and Edema, Right Lower Extremity
Skin: No Rash
Neuro: AO x 3 and Nonfocal/grossly intact
Psych: Calm
NSTEMI
CAD s/p PCI
Chronic LBBB
Hx of SVT
HX Moderate : LVOT diameter of 2.1 cm, the NILESH = 1.1cm2.
Hyperlipidemia
- CTC for PE protocol negative. Pulmonary nodules.
- Trend TPNI up trended to 0.075 and now downtrending. proBNP 8000.
- added SL NTG PRN
- cont WAFER SUBSTRATE TESTER baby ASA and Statin
- Hold off on heparin gtt : currently CP free
- cont WAFER SUBSTRATE TESTER Metoprolol succinate
-Echo 01/04/24 with mild concentric LVH. EF 50%. Mild distal anteroseptal hypokinesis. Stage II diastolic dysfunction. Mild to moderate mitral regurgitation. Moderate aortic stenosis.
-Repeat echo showed LVEF 65-to 70%, mild LVH, mild MR, moderate AAS, trace TR
-Status post cardiac catheterization with significant multivessel coronary artery disease. Moderate aortic stenosis with invasive transaortic mean gradient of 28 mmHg. Intervention cardiology discussed with CT surgery if patient candidate for
bypass
-Cardiology on board.
#Essential hypertension
- cont WAFER SUBSTRATE TESTER Metoprolol succinate
# Reactive leucocytosis with significant Lt shift- bandemia 14% likely due to recent GCSF inj for chemo for Rectal CA
Stage IV anal squamous cell carcinoma on chemotherapy status post radiation
-No urinary symptoms.
- afebrile
- Hold off ABx for now
- follows with Dr. Craig
# History of colon cancer/anemia of chronic disease secondary to rectal cancer/chemotherapy
- No active bleeding
- Hemoglobin around 8
# HX CVA
Proximal left subclavian artery stenosis
Peripheral arterial disease
- 50 to 75% stenosis
- Outpatient follow-up with vascular surgery
Peripheral arterial disease HX
HX eft carotid endarterectomy
# Diabetes
A.m. blood glucose 176
-Hold glimepiride, metformin
add ISS low
#BPH
-Continue tamsulosin
Chronic right lower extremity lymphedema
DVT Px: SCD
Code: Full
Total time spent to see the patient, examine the patient on the floor, review data and lab results, discuss treatment plan with patient, nursing staff around 55 minutes
Anticipated Discharge: > 48 hours
Subjective/Interval History
-
Date of Service: March 22, 2024
No chest pain
No sob
Objective Data
-
Labs:
Laboratory Results
03/22/24
05:03
WBC 21.2 H
Hgb 8.0 L
Hct 23.3 L
Plt Count 150
Sodium 136
Potassium 3.9
Chloride 104
Carbon Dioxide 25
BUN 12
Creatinine 0.7
Glucose 140 H
Calcium 9.1
Vital Signs:
Vital Signs
Temp Pulse Resp BP Pulse Ox
98.6 F 82 20 116/51 96
03/22/24 04:42 03/22/24 04:30 03/22/24 04:18 03/22/24 04:15 03/22/24 04:18
I&O
03/20/24 03/21/24 03/22/24
06:59 06:59 06:59
Intake Total 1680 / 1680 840 / 840
Output Total 300 / 300
Balance 1680 / 1680 540 / 540
[2024-03-22 06:49] VITALS: BP 128/53
[2024-03-22 06:53] LABS: Glucose - Point of Care 176 mg/dl (70-99)
--- NOTE | 2024-03-22 08:37 | W.PN.CARDCBS ---
Today's Communication / Plan
-
-Pain free
Continue medical therapy with aspirin 81mg daily, Toprol 25mg daily, and Crestor 10 mg daily. Holding off on SHIRIN-I for now due to borderline BPs
Maintain heparin and asa as we await CTS opinion
-Discussed with primary service re consulting oncology. He tells me his next chemo rx infusion is this upcoming Sunday.
Impression / Plan
-
PCP: Dr. Rahman
Real Estate Leasing Manager: Dr. Bunn
Impression:
ACS
Anemia
Elevated D-dimer, CTA of chest negative for PE or dissection.
CAD s/p AK with OM2 PCI 2007
CVA 01/2022
Carotid artery disease s/p CEA 04/2022
Mod
Hypertension
Hyperlipidemia
GERD
LBBB
SVT
Rectal cancer on chemotherapy
h/o GI bleed
DM 2
Former smoker
Alcohol abuse
Echo 08/03/2023: EF 55 to 60%, mild concentric LVH, stage II diastolic dysfunction, mild MR, moderate , peak/mean gradients 29/17 mmHg, NILESH 1.0 cm�, trace TR
Echo 01/04/2024: EF 50%, mild cLVH, mild distal anteroseptal hypokinesis, stage II diastolic dysfunction, mild to mod MR, mod with peak/mean gradients 49/30 mmHg, NILESH 1.1cm2
Cath 03/21/24: Multivessel CAD
-There is diffuse at least moderate plaque from the proximal to the mid LAD with 3 serial tubular stenosis, 50% in the proximal LAD, 70% just distal to a diagonal branch and a third 80% stenosis in the mid LAD. There is a possible subtotally
occluded versus a very small diagonal branch in the mid LAD and between the 2 distal lesions.
-The upper branch of the OM has an ostial 70% stenosis. Mid left circumflex at the level of previous OM stent has eccentric 70% stenosis.
-The right PDA has 2 serial lesions, 70% proximally and 50-60% distally. Ostial RPL B branch has an eccentric 70% stenosis.
Echo 03/21/24: Normal LV systolic function with ejection fraction of 65 to 70% with distal septal hypokinesis. Moderate aortic stenosis with peak and mean gradients of 46 and 28 mmHg. Aortic valve area of 1 cm�
Plan:
ACS now pain free, multivessel coronary artery disease and moderate aortic stenosis, DM, prior CVA, PAD, LBBB, HTN, GIB, Anemia, Rectal CA
In the setting of his rectal cancer and ongoing chemotherapy with multivessel coronary artery disease in the setting of known type 2 diabetes mellitus and moderate aortic stenosis, we are planning multidisciplinary discussion with CT surgery as well
as oncology regarding prognosis and tolerance of dual antiplatelet therapy in the setting of pancytopenia to discuss best management strategy while we concentrate on aggressive management of cardiovascular risk factors.
-Pain free, troponin peaking at 0.075, trending down thereafter, ECHO with stable wall motion abn (mild distal anteroseptal hypokinesis) and preserved LVEF with Mod
-Continue medical therapy with aspirin 81mg daily, Toprol 25mg daily, and Crestor 10 mg daily. Holding off on SHIRIN-I for now due to borderline BPs
Currently on heparin and asa as we await CTS opinion
-He has been given the OK from oncology to be on DAPT if needed which previously was a concern.
Currently on heparin and asa as we await CTS opinion
Discussed with primary service re consulting oncology. He tells me his next chemo rx infusion is this upcoming Sunday.
Total time today, 52 min
HPI: Perry is a 73-year-old male with past medical history of CAD w/ prior PCI to OM 2, hypertension, hyperlipidemia, aortic stenosis, type 2 diabetes mellitus, CVA, carotid artery disease, SVT, LBBB, alcohol abuse, and rectal cancer who presents
to [facility] for evaluation of chest pain. He was lying in bed last night when he had onset of L sided chest pain. He states this pain is similar to what brought him in for recent admission 12/2023. He has had intermittent, mild pain since that admission
that is only short lived, however episode last night lasted longer and was more severe, prompting ER evaluation. On arrival to ER, he was noted to have troponin of 0.022 which has trended up to 0.075. He was given SL nitro in ER and has had no
recurrent pain overnight. He notes he receives a shot every so often to increase his WBC after chemo. He received this shot recently and also notes he had gotten the shot shortly before his prior hospitalization as well. During both admissions, he
has been somewhat anemic. During prior admission, he required 2units PRBCs, however hemoglobin this admission 8.0. Previously he has preferred avoiding invasive cardiac procedures and preferred to avoid cardiac catheterization as well as DAPT,
however he has been given approval by oncology to be on DAPT if needed. He notes this AM he is feeling well and has had no recurrent pain.
Progress Note - Real Estate Leasing Manager
Subjective
Date of Service: March 22, 2024
He tells me he is pain-free. No shortness of breath palpitations or dizziness.
Objective
Labs:
03/22/24 05:03
03/22/24 05:03
Labs
Hgb 8.0 g/dL (13.0-18.0) L 03/22/24 05:03
Hct 23.3 % (39.0-52.0) L 03/22/24 05:03
Plt Count 150 10^3/uL (130-400) 03/22/24 05:03
Sodium 136 mmol/L (135-145) 03/22/24 05:03
Potassium 3.9 mmol/L (3.5-5.1) 03/22/24 05:03
BUN 12 mg/dl (9-20) 03/22/24 05:03
Creatinine 0.7 mg/dL (0.7-1.3) 03/22/24 05:03
Glucose 140 mg/dl (70-99) H 03/22/24 05:03
Troponins
03/20/24 03/20/24 03/20/24
01:40 04:22 06:26
Troponin I 0.022 0.054 H* D 0.075 H* D
03/20/24 03/20/24 03/20/24
09:28 11:00 12:47
Troponin I 0.070 H* Cancelled 0.053 H*
Vital Signs and I&O:
Vital Signs
Temp Pulse Resp BP Pulse Ox
98.9 F 82 18 116/51 97
03/22/24 07:00 03/22/24 04:30 03/22/24 07:00 03/22/24 04:15 03/22/24 07:00
Vital Signs
Temp Pulse Resp BP Pulse Ox
98.9 F 82 18 116/51 97
03/22/24 07:00 03/22/24 04:30 03/22/24 07:00 03/22/24 04:15 03/22/24 07:00
Intake & Output
03/20/24 03/21/24 03/22/24 03/23/24
06:59 06:59 06:59 06:59
Intake Total 1680 / 1680 840 / 840
Output Total 300 / 300
Balance 1680 / 1680 540 / 540
Physical Exam
Physical Exam
Well-appearing, no acute distress laying in bed appears comfortable.
Regular rate and rhythm with normal S1 and S2, there is no S3 and there is no S4. There is a grade 2/6 basal systolic ejection murmur. 1/6 apical holosystolic murmur. No rubs. Normal PMI.
Lungs are clear to auscultation bilaterally without wheezes rales or rhonchi.
Abdomen soft nontender nondistended with normoactive bowel sounds.
Extremities demonstrate trace pretibial edema bilaterally.
[2024-03-22] MEDS: TOPROL XL 25 MG PO (08:58)
[2024-03-22] MEDS: FOLVITE 1 MG PO (08:58)
[2024-03-22] MEDS: NORVASC 2.5 MG PO (08:58)
[2024-03-22] MEDS: ASPIR LOW (ENTERIC COATED) 81 MG PO (08:58)
[2024-03-22] MEDS: NOVOLOG FLEXPEN-LOW RESISTANCE 1 UNITS SC ×2 (09:02→12:25)
[2024-03-22] MEDS: FLOMAX 0.400000000000000022 MG PO (09:24)
--- NOTE | 2024-03-22 10:00 | CON.ONC ---
Impression
Impression
NSTEMI
MVCAD with patent OM stent from 2007
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
History of iron deficiency anemia status post parenteral iron
Pulmonary nodules of unclear significance
Plan
Plan
Patient has had an excellent response to initial 3 cycles of carboplatin and Taxol He has just completed cycle 5
No change in pulmonary nodules unclear whether these represent metastases less likely as the areas of known metastases have progressed with chemo
Palliative radiation completed to the anus
Monitor for progressive anemia
Based on the patient's response and distribution of disease prognosis is moderate to good without expectation for curative intent
Oncologic diagnosis and stage would not preclude cardiac surgery
Anemia is likely secondary myelosuppressive effects stable today
Has previously received parenteral iron
Will follow
Patient History
History of Present Illness
Pt is a very pleasant 73y/oM with PMH significant for CAD s/p PCI to OM2 2007, CVA 2021 without residual, hx bilateral carotid stenosis s/p L CEA 04/2022, currently undergoing treatment for stage IV anal squamous cell carcinoma (chemotx- IV
taxol/carboplatin) with recent anal biopsy negative for CA who presented to the ED with complaints of chest pain and shortness of breath. Pt had similar complaints during admission in december in the setting of worsened anemia which improved with
transfusion and therefore LHC deferred at that time. Troponins positive with peak at 0.075, symptoms have resolved with SL nitro. Pt underwent cardiac cath today which demonstrated MVCAD. Echo in december demonstrated LVEF 50% with mild-mod MR & mod
. We are consulted to provide insight into oncologic prognosis and current treatment.
Recent oncologic history: Pt presented to�the�ED�on�08/02/2023�complaining�of�rectal�bleeding�and�near�syncope.�He�had�noted�intermittent�rectal
bleeding�dating�back�to�March�for�which�she�was�scheduled�to�have�outpatient�colonoscopy�in�early�November.�He�also�noted�new
right�lower�extremity�swelling�for�which�he�had�outpatient�lower�extremity�ultrasound�on�07/31/23�that�showed�no�evidence�of�DVT,
enlarged�right�inguinal�lymph�nodes�with�largest�measuring�3.1�x�2.4�x�2.8�cm.�Lab�work�was�notable�for�drop�in�hemoglobin�from 11.0�g/dL�in�[place]�to�8.0�g/dl.�He�underwent�CT�C/A/P�that�showed�Right�inguinal�lymphadenopathy�with�cluster�lymph�nodes
measuring�3.5�cm,�retroperitoneal�lymphadenopathy,�1.5�cm�pretracheal�lymph�node,�multiple�sub�cm�lung�nodules,�inflammatory
vs.�malignant.�Colorectal�surgery,�oncology,�radiation�oncology�were�consulted.�He�underwent�rectal�exam�under�anesthesia�with
�on�08/06�which�showed�a�distal�rectal�versus�anal�cancer�in�the�right�anterior�quadrant�extending�from�the�anal�canal�5
cm�proximally,�nonobstructing.�Biopsies�were�taken.�A�port�was�also�placed�due�to�high�suspicion�for�distal�GI�primary.�Biopsy�of
the�lesion�was�consistent�with�invasive�HPV�positive�squamous�cell�carcinoma,�moderately�differentiated,�focally�keratinized.�He
was�discharged�on�08/06/23.�He�had�received�2�units�pRBCs�and�IV�iron�inpatient�and�hgb�at�discharge�was�11.7�g/dl.�More�recent
CBC�on�howed�hgb�is�stable�at�10.8�g/dl.�at�showed�Metabolic�anal�mass,�nodalmetastases�throughout�the�abdomen�and�pelvis�including�multiple�para�aortic�lymph�nodes,�greatest�in�the�right�pelvic�sidewall,�right
inguinal�lymph�node�stations.�Due�to�ongoing�bleeding�and�RLE�lymphedema�from�obstructive�carrie�disease�he�started�palliative radiation�which�he�will�complete�111/22/22.�He�notes�bleeding�has�improved,�still�intermittent.�LE�swelling�is�unchanged.�
Past-Medical/Surgical History
CAD s/p [place] with OM2 PCI 2007
CVA 01/2022 (aphasia, no residual)
Carotid artery disease- totally occluded R ICA and s/p left CEA 04/2022
left subclavian artery stenosis
Hypertension
Hyperlipidemia
GERD
LBBB
SVT
R shoulder fx s/p reverse total shoulder replacement
stage IV anal squamous cell carcinoma dx 07/2023, on IV taxol/carboplatin & some XRT early 2023; rectal bx 02/13/2024 neg for CA
h/o lower GI bleed
NIDDM, well controlled w/ A1C 5.9
Former smoker
daily alcohol use with hx ETOH withdrawal during admission 01/2022
Past Surgical History
Left CEA 04/2022 ([facility])
rectal biopsies 07/2023
Right reverse total shoulder replacement 01/12/22 with reop for dislocation 01/18/24 (both related to mechanical falls)
bilateral inguinal hernia repair
Family History
Mother: at Age (90; with hx 'leaky valve')
Father: at Age (91; with hx CABG)
Family Medical History: CAD
Social History
Alcohol: Daily (2-3 drinks/day--usually wine, occasional martini)
Drug: None
Tobacco: Former Smoker
Personal: Single and Other
Living: With Roomate
Patient Medication
�Medication �Instructions �Recorded �Confirmed �Last Taken �Type
cholecalciferol (vitamin D3) 25 25 mcg PO DAILY Supplement ##0 01/11/22 03/20/24 02/11/24 History
mcg (1,000 unit) tablet (Vitamin
D3)
rosuvastatin 10 mg tablet 10 mg PO DAILY High cholesterol 01/11/22 03/20/24 02/11/24 History
metoprolol succinate 25 mg 25 mg PO DAILY Heart 04/18/22 03/20/24 02/11/24 History
tablet,extended release 24 hr disease/condition
tamsulosin 0.4 mg capsule 0.4 mg PO DAILY Urinary issue 04/18/22 03/20/24 02/11/24 History
aspirin 81 mg tablet,delayed 81 mg PO DAILY Blood Clot 08/02/23 03/20/24 02/11/24 History
release Prevention/Tx
folic acid 1 mg tablet 1 mg PO DAILY Supplement 08/02/23 03/20/24 02/11/24 History
glimepiride 2 mg tablet 2 mg PO DAILY Diabetes 08/02/23 03/20/24 02/11/24 History
metformin 500 mg tablet 250 mg PO DAILY Diabetes 08/02/23 03/20/24 02/11/24 History
vitamin B complex 1 tab PO DAILY Supplement 08/02/23 03/20/24 02/11/24 History
docusate sodium 100 mg capsule 100 mg PO DAILY PRN constipation 01/04/24 02/13/24 02/11/24 History
(Colace)
Chemotherapy 1 dose IV .TWICE A MONTH 02/11/24 03/20/24 02/08/24 History
Active Medications
Generic Name Dose Route Start Last Admin
Trade Name Freq PRN Reason Stop Dose Admin
Acetaminophen 650 mg 03/21/24 13:04
Acetaminophen 325 Mg Tablet PO 04/18/24 13:03
Q6HPRN PRN
mild pain/ fever>100.5F
Amlodipine Besylate 2.5 mg 03/21/24 11:00 03/22/24 08:58
Amlodipine 2.5 Mg Tablet PO 04/18/24 10:59 2.5 mg
DAILY KATIA Administration
Aspirin 81 mg 03/20/24 08:00 03/22/24 08:58
Aspirin 81 Mg (Enteric Coated) Tablet PO 04/17/24 07:59 81 mg
DAILY KATIA Administration
Dextrose 12.5 grams 03/20/24 05:49
Dextrose 50% (0.5 Grams/Ml) 50 Ml Syringe IV 04/17/24 05:48
[id number] PRN
hypoglycemia
Protocol
Folic Acid 1 mg 03/20/24 08:00 03/22/24 08:58
Folic Acid 1 Mg Tablet PO 04/17/24 07:59 1 mg
DAILY KATIA Administration
Glucagon 1 mg 03/20/24 05:49
Glucagon 1 Mg Vial IM 04/17/24 05:48
PRN PRN
hypoglycemia
Protocol
Heparin Sodium (Porcine) 500 unit 03/20/24 08:46 03/22/24 04:57
Heparin Flush Pf (100 Unit/Ml) 5 Ml Syringe IV 04/17/24 08:45 500 unit
PRN PRN Administration
PORT FLUSH
Sodium Chloride 1,000 mls @ 0 mls/hr 03/21/24 10:15
Nss IV 03/22/24 10:07
PER PROTOCOL KATIA
Protocol
Per Protocol
Insulin Aspart 0 units 03/21/24 16:30 03/22/24 09:02
Insulin Aspart Low Resistance 300 Units/3 Ml Pen.Injctr SC 04/18/24 16:29 1 units
AC KATIA Administration
Protocol
Melatonin 5 mg 03/21/24 22:00 03/21/24 22:26
Melatonin 5 Mg Tablet PO 04/18/24 21:59 5 mg
HS KATIA Administration
Metoprolol Succinate 25 mg 03/20/24 08:00 03/22/24 08:58
Metoprolol 25 Mg Extended Release Tablet PO 04/17/24 07:59 25 mg
DAILY KATIA Administration
Nitroglycerin 0.4 mg 03/20/24 06:13
Nitroglycerin 0.4 Mg Sl Tablet SL 04/17/24 06:12
Q5MPRN PRN
CHEST PAIN
Rosuvastatin Calcium 20 mg 03/21/24 18:00 03/21/24 17:51
Rosuvastatin (Crestor) 20 Mg Tablet PO 04/18/24 17:59 20 mg
QPM KATIA Administration
Sodium Chloride 0 flush 03/20/24 06:00 03/22/24 04:57
Sodium Chloride 0.9% (Flush) Syringe IV 04/17/24 05:59 2 flush
PER PROTOCOL KATIA Administration
Tamsulosin HCl 0.4 mg 03/20/24 08:00 03/22/24 09:24
Tamsulosin 0.4 Mg Capsule PO 04/17/24 07:59 0.4 mg
DAILY KATIA Administration
Review of Systems
-
12 point review symptoms fails to elicit additional complaints other than those reviewed in HPI
Physical Exam
-
Physical exam
General: Well Developed, Well Nourished and No Apparent Distress
HEENT: Normocephalic and Anicteric
Neck: Trachea Midline; Negative Carotid Bruit or Mass
Respiratory: Clear and Other (left chest wall port in place & accessed); Negative Wheezes, Crackles or Rhonchi
Cardiac: Regular Rhythm and Murmur (systolic murmur radiating to carotids)
GI: Soft, Non Tender and Non Distended
Skin: Warm and Dry
Neuro: Nonfocal/Grossly Intact
Extremities: Lower Level Edema (RLE lymphedema; no LLE edema)
Psych: Calm
Labs
Lab Results
WBC 21.2 10^3/uL (4.8-10.8) H 03/22/24 05:03
RBC 2.34 10^6/uL (4.70-6.10) L 03/22/24 05:03
Hgb 8.0 g/dL (13.0-18.0) L 03/22/24 05:03
Hct 23.3 % (39.0-52.0) L 03/22/24 05:03
MCV 99.6 fL (80.0-94.0) H 03/22/24 05:03
MCH 34.2 pg (27.0-31.0) H 03/22/24 05:03
MCHC 34.3 g/dL (33.0-37.0) 03/22/24 05:03
RDW 16.7 % (11.5-14.5) H 03/22/24 05:03
Plt Count 150 10^3/uL (130-400) 03/22/24 05:03
MPV 10.7 fL (7.4-10.4) H 03/22/24 05:03
Creatinine 0.7 mg/dL (0.7-1.3) 03/22/24 05:03
Vital Signs
Vital Signs
Temp Pulse Resp BP Pulse Ox
98.9 F 68 18 128/53 97
03/22/24 07:00 03/22/24 08:58 03/22/24 07:00 03/22/24 08:58 03/22/24 07:00
[2024-03-22 12:07] LABS: Glucose - Point of Care 162 mg/dl (70-99)
[2024-03-22 12:11] VITALS: BP 121/53
[2024-03-22 15:18] VITALS: BP 114/70
--- NOTE | 2024-03-22 17:15 | W.PN.UPDATE ---
Update Note
Progress Note Update
Patient's case was discussed with the multidisciplinary team. Due to the patient's co-morbidities and actively receiving chemotherapy, we felt that this would lead to poor tissue quality and prolonged healing, therefore, increasing his surgical
risk. Case was discussed with cardiology and PCI would be attempted in the future. CT surgery will sign off.
[2024-03-22 17:37] LABS: Glucose - Point of Care 128 mg/dl (70-99)
[2024-03-22] MEDS: CRESTOR 20 MG PO (17:38)
[2024-03-22] MEDS: PLAVIX 600 MG PO (17:38)
[2024-03-22] MEDS: NOVOLOG FLEXPEN-LOW RESISTANCE SC (17:41)
--- NOTE | 2024-03-22 19:13 | PTCARENOTE ---
pt continues to be sr on the monitor, hr in the 70s, vss. pt offers no complaints at this time. pt educated on plan of care and pt verbalized understanding. call hamilton within reach.
--- NOTE | 2024-03-22 19:50 | PTCARENOTE ---
Assumed care of pt from prev nsg shift, AAOx3 w/no c/o CP or SOB. Pt w/R radial site [id number] w/some ecchymosis surrounding the dressing. No signs or symptoms of bleeding or hematoma at the access site. Pt's VS stable w/HR in the 70's & BP 123/53. Pt
reports 'feeling tired', but denies any pain. Pt w/call hamilton within reach & no addtl needs at this time. Plan of care ongoing.
[2024-03-22 20:17] VITALS: BP 123/53
[2024-03-22 23:11] VITALS: BP 124/42
[2024-03-22] MEDS: MELATONIN PO (23:11)
[2024-03-22 23:14] LABS: Glucose - Point of Care 189 mg/dl (70-99)
[2024-03-23 03:49] VITALS: BP 123/47
[2024-03-23] MEDS: PINK BISMUTH 525 MG PO (03:51)
[2024-03-23 04:40] LABS: Hematocrit 24.5 % (39.0-52.0); Hemoglobin 8.1 g/dL (13.0-18.0); Mean Corp Hgb Conc. 33.1 g/dL (33.0-37.0); Mean Corpuscular Hgb 33.8 pg (27.0-31.0); Mean Corpuscular Volume 102.1 fL (80.0-94.0); Mean Platelet Volume 11.1 fL (7.4-10.4); Nucleated Red Blood Cells % 0.7 % (-); Platelet Count 156 10^3/uL (130-400); Red Cell Dist. Width 16.3 % (11.5-14.5); White Blood Cell Count 18.1 10^3/uL (4.8-10.8)
[2024-03-23 05:01] LABS: Blood Urea Nitrogen 10 mg/dl (9-20); Calcium 9.4 mg/dl (8.4-10.2); Carbon Dioxide 22 mmol/L (22-30); Chloride 105 mmol/L (98-107); Estimated Creatinine Clearance 90 ml/min; Glucose 141 mg/dl (70-99); Magnesium 1.3 mg/dl (1.6-2.3); Potassium 3.8 mmol/L (3.5-5.1); Sodium 138 mmol/L (135-145); eGFR > 60.00
[2024-03-23 05:56] LABS: Absolute Neutrophils -Man Diff 12.4 10^3/uL (1.4-6.5); Atypical Lymphocytes 1 %; Band Neutrophils 11 % (0-3); Lymphocytes 15 % (20-51); Monocytes 8 % (2-9); Segmented Neutrophils 58 % (42-75)
[2024-03-23 05:57] LABS: Metamyelocytes 2 % (-); Myelocytes 5 % (-); Platelets Checked Yes
[2024-03-23 05:58] LABS: Nucleated Red Blood Cells 2 (-)
[2024-03-23 05:59] LABS: Normal RBC Morphology No
[2024-03-23 06:00] VITALS: BMI 25.5
[2024-03-23 06:00] LABS: Anisocytosis 1+; Ovalocytes 1+; Sickled Red Blood Cells 1+; Total Cells Counted 100; Toxic Granulation 2+
--- NOTE | 2024-03-23 06:39 | W.PN.HOSP.TC ---
Today's Communication/Plan
-
.
Assessment / Plan
Assessment / Plan
Physical exam:
General: Well Developed, Well Nourished and No Apparent Distress
HEENT: NormoCephalic, Moist mucous membranes and Atraumatic
Respiratory: Clear, port noted
Cardiac: S1/S2 and Regular Rhythm; No Murmur or Rub
GI: Soft, Non Tender, Non Distended and Normal Bowel Sounds; No Organomegaly
Musculoskeletal: No Clubbing, No Cyanosis and Edema, Right Lower Extremity
Skin: No Rash
Neuro: AO x 3 and Nonfocal/grossly intact
Psych: Calm
NSTEMI
CAD s/p PCI
Chronic LBBB
Hx of SVT
HX Moderate : LVOT diameter of 2.1 cm, the NILESH = 1.1cm2.
Hyperlipidemia
- CTC for PE protocol negative. Pulmonary nodules.
- Trend TPNI up trended to 0.075 and now downtrending. proBNP 8000.
- added SL NTG PRN
- cont FLY MAKER baby ASA and Statin
- Hold off on heparin gtt : currently CP free
- cont FLY MAKER Metoprolol succinate
-Echo 01/04/24 with mild concentric LVH. EF 50%. Mild distal anteroseptal hypokinesis. Stage II diastolic dysfunction. Mild to moderate mitral regurgitation. Moderate aortic stenosis.
-Repeat echo showed LVEF 65-to 70%, mild LVH, mild MR, moderate AAS, trace TR
-Status post cardiac catheterization with significant multivessel coronary artery disease. Moderate aortic stenosis with invasive transaortic mean gradient of 28 mmHg. Intervention cardiology discussed with CT surgery if patient candidate for
bypass
-Cardiology on board.
#Essential hypertension
- cont FLY MAKER Metoprolol succinate
# Reactive leucocytosis with significant Lt shift- bandemia 14% likely due to recent GCSF inj for chemo for Rectal CA
Stage IV anal squamous cell carcinoma on chemotherapy status post radiation
-No urinary symptoms.
- afebrile
- Hold off ABx for now
- follows with Dr. Craig
- Patient requested oncology to be involved, we talked to Dr Bobby.
# hypomagnesemia, replace with 2 gm Mg sulfate
# History of colon cancer/anemia of chronic disease secondary to rectal cancer/chemotherapy
- No active bleeding
- Hemoglobin around 8
# HX CVA
Proximal left subclavian artery stenosis
Peripheral arterial disease
- 50 to 75% stenosis
- Outpatient follow-up with vascular surgery
Peripheral arterial disease HX
HX eft carotid endarterectomy
# Diabetes
A.m. blood glucose 176
-Hold glimepiride, metformin
add ISS low
#BPH
-Continue tamsulosin
Chronic right lower extremity lymphedema
DVT Px: SCD
Code: Full
Total time spent to see the patient, examine the patient on the floor, review data and lab results, discuss treatment plan with patient, consultants, nursing staff around 57 minutes
Anticipated Discharge: > 48 hours
Subjective/Interval History
-
Date of Service: March 23, 2024
Slept well
No chest pain. No sob
Denies N/V, tolerating diet, moving around w/o sob
Objective Data
-
Labs:
Laboratory Results
03/23/24
03:59
WBC 18.1 H
Hgb 8.1 L
Hct 24.5 L
Plt Count 156
Sodium 138
Potassium 3.8
Chloride 105
Carbon Dioxide 22
BUN 10
Creatinine 0.7
Glucose 141 H
Calcium 9.4
Vital Signs:
Vital Signs
Temp Pulse Resp BP Pulse Ox
99.0 F 74 20 123/47 96
03/23/24 03:51 03/23/24 03:49 03/23/24 03:51 03/23/24 03:49 03/23/24 03:51
I&O
03/21/24 03/22/24 03/23/24
06:59 06:59 06:59
Intake Total 1680 / 1680 840 / 840 960 / 960
Output Total 300 / 300
Balance 1680 / 1680 540 / 540 960 / 960
[2024-03-23 07:06] VITALS: BP 132/57
[2024-03-23 07:09] LABS: Glucose - Point of Care 169 mg/dl (70-99)
[2024-03-23] MEDS: NOVOLOG FLEXPEN-LOW RESISTANCE 1 UNITS SC ×2 (07:47→12:13)
[2024-03-23] MEDS: NORVASC 2.5 MG PO (07:47)
[2024-03-23] MEDS: FOLVITE 1 MG PO (07:48)
[2024-03-23] MEDS: ASPIR LOW (ENTERIC COATED) 81 MG PO (07:48)
[2024-03-23] MEDS: FLOMAX 0.400000000000000022 MG PO (07:48)
[2024-03-23] MEDS: TOPROL XL 25 MG PO (07:48)
[2024-03-23] MEDS: PLAVIX 75 MG PO (07:48)
[2024-03-23] MEDS: MAGNESIUM SULFATE 50 IV (08:32)
--- NOTE | 2024-03-23 09:44 | W.PN.CARDCBS ---
Today's Communication / Plan
-
Plan for cardiac catheterization for complex intervention of multivessel disease in a.m.
N.p.o. after midnight
Continue current treatment
Telemetry stable
Impression / Plan
-
PCP: Dr. Rahman
Laboratory Specialist: Dr. Bunn
Impression:
ACS
Anemia
Elevated D-dimer, CTA of chest negative for PE or dissection.
CAD s/p [place] with OM2 PCI 2007
CVA 01/2022
Carotid artery disease s/p CEA 04/2022
Mod
Hypertension
Hyperlipidemia
GERD
LBBB
SVT
Rectal cancer on chemotherapy
h/o GI bleed
DM 2
Former smoker
Alcohol abuse
Echo 08/03/2023: EF 55 to 60%, mild concentric LVH, stage II diastolic dysfunction, mild MR, moderate , peak/mean gradients 29/17 mmHg, NILESH 1.0 cm�, trace TR
Echo 01/04/2024: EF 50%, mild cLVH, mild distal anteroseptal hypokinesis, stage II diastolic dysfunction, mild to mod MR, mod with peak/mean gradients 49/30 mmHg, NILESH 1.1cm2
Cath 03/21/24: Multivessel CAD
-There is diffuse at least moderate plaque from the proximal to the mid LAD with 3 serial tubular stenosis, 50% in the proximal LAD, 70% just distal to a diagonal branch and a third 80% stenosis in the mid LAD. There is a possible subtotally
occluded versus a very small diagonal branch in the mid LAD and between the 2 distal lesions.
-The upper branch of the OM has an ostial 70% stenosis. Mid left circumflex at the level of previous OM stent has eccentric 70% stenosis.
-The right PDA has 2 serial lesions, 70% proximally and 50-60% distally. Ostial RPL B branch has an eccentric 70% stenosis.
Echo 03/21/24: Normal LV systolic function with ejection fraction of 65 to 70% with distal septal hypokinesis. Moderate aortic stenosis with peak and mean gradients of 46 and 28 mmHg. Aortic valve area of 1 cm�
Plan:
ACS continues to be pain free, multivessel coronary artery disease and moderate aortic stenosis, DM, prior CVA, PAD, LBBB, HTN, GIB, Anemia, Rectal CA
In the setting of his rectal cancer and ongoing chemotherapy with multivessel coronary artery disease in the setting of known type 2 diabetes mellitus and moderate aortic stenosis, there has been multidisciplinary discussion with CT surgery as well
as oncology regarding prognosis and tolerance of dual antiplatelet therapy in the setting of pancytopenia to discuss best management strategy while we concentrate on aggressive management of cardiovascular risk factors.
-Troponin peak 0.075, trending down thereafter, ECHO with stable wall motion abn (mild distal anteroseptal hypokinesis) and preserved LVEF with Mod
-Continue medical therapy with aspirin 81mg daily, Toprol 25mg daily, and Crestor 10 mg daily. Holding off on SHIRIN-I for now due to borderline BPs
Appreciate CT surgery opinion. Plan is for PCI likely Sunday (Dr. Ham) will make patient NPO. Discussed at length with patient.
-Previously, he has been given the OK from oncology to be on DAPT if needed which previously was a concern.
Currently on Plavix and asa continue. Load given yesterday of Plavix.
He has upcoming outpatient oncology appointment (Dr. Craig). Chemo rx infusion is this upcoming Sunday.
HPI: Perry is a 73-year-old male with past medical history of CAD w/ prior PCI to OM 2, hypertension, hyperlipidemia, aortic stenosis, type 2 diabetes mellitus, CVA, carotid artery disease, SVT, LBBB, alcohol abuse, and rectal cancer who presents
to [facility] for evaluation of chest pain. He was lying in bed last night when he had onset of L sided chest pain. He states this pain is similar to what brought him in for recent admission 12/2023. He has had intermittent, mild pain since that admission
that is only short lived, however episode last night lasted longer and was more severe, prompting ER evaluation. On arrival to ER, he was noted to have troponin of 0.022 which has trended up to 0.075. He was given SL nitro in ER and has had no
recurrent pain overnight. He notes he receives a shot every so often to increase his WBC after chemo. He received this shot recently and also notes he had gotten the shot shortly before his prior hospitalization as well. During both admissions, he
has been somewhat anemic. During prior admission, he required 2units PRBCs, however hemoglobin this admission 8.0. Previously he has preferred avoiding invasive cardiac procedures and preferred to avoid cardiac catheterization as well as DAPT,
however he has been given approval by oncology to be on DAPT if needed. He notes this AM he is feeling well and has had no recurrent pain.
Progress Note - Laboratory Specialist
Subjective
Date of Service: March 23, 2024
He denies chest pain, palpitations, dizziness and syncope.
Objective
Labs:
03/23/24 03:59
03/23/24 03:59
Labs
Hgb 8.1 g/dL (13.0-18.0) L 03/23/24 03:59
Hct 24.5 % (39.0-52.0) L 03/23/24 03:59
Plt Count 156 10^3/uL (130-400) 03/23/24 03:59
Sodium 138 mmol/L (135-145) 03/23/24 03:59
Potassium 3.8 mmol/L (3.5-5.1) 03/23/24 03:59
BUN 10 mg/dl (9-20) 03/23/24 03:59
Creatinine 0.7 mg/dL (0.7-1.3) 03/23/24 03:59
Glucose 141 mg/dl (70-99) H 03/23/24 03:59
Troponins
03/20/24 03/20/24 03/20/24
09:28 11:00 12:47
Troponin I 0.070 H* Cancelled 0.053 H*
Vital Signs and I&O:
Vital Signs
Temp Pulse Resp BP Pulse Ox
98.9 F 68 18 132/57 96
03/23/24 08:13 03/23/24 09:15 03/23/24 08:13 03/23/24 07:48 03/23/24 08:13
Vital Signs
Temp Pulse Resp BP Pulse Ox
98.9 F 68 18 132/57 96
03/23/24 08:13 03/23/24 09:15 03/23/24 08:13 03/23/24 07:48 03/23/24 08:13
Intake & Output
03/21/24 03/22/24 03/23/24 03/24/24
06:59 06:59 06:59 06:59
Intake Total 1680 / 1680 840 / 840 960 / 960 480 / 480
Output Total 300 / 300
Balance 1680 / 1680 540 / 540 960 / 960 480 / 480
Physical Exam
Physical Exam
Heart: Non displaced PMI, RRR, no murmurs, No S3, S4, no rubs.
Lungs: Clear to auscultation bilaterally anteriorly
Extremities: No clubbing, cyanosis or edema bilaterally.
Neuro: Grossly nonfocal, awake, alert and oriented x3.
[2024-03-23 10:47] VITALS: BP 133/50
[2024-03-23 12:14] LABS: Glucose - Point of Care 157 mg/dl (70-99)
[2024-03-23 15:05] VITALS: BP 130/54
[2024-03-23 17:35] LABS: Glucose - Point of Care 126 mg/dl (70-99)
[2024-03-23] MEDS: NOVOLOG FLEXPEN-LOW RESISTANCE SC (17:42)
[2024-03-23] MEDS: CRESTOR 20 MG PO (17:49)
--- NOTE | 2024-03-23 17:51 | PTCARENOTE ---
pt is sr on the monitor, hr in the 70s, vss. pt offers no complaints at this time. pt educated on plan of care for the evening and pt verbalized understanding. call hamilton within reach.
[2024-03-23 18:23] VITALS: BP 131/60
[2024-03-23] MEDS: IMODIUM 2 MG PO (21:10)
--- NOTE | 2024-03-23 21:40 | PTCARENOTE ---
Pt rec'd at change of shift awake,alert with c/o loose stools. Pt reports having taken Bismuth last night without success. House [employer]CH[employer]ICIAN called one time dose of Imodium ordered and given. Pt sinus on telemetry with BBB and + murmur. Npo after mn for PCI
in am.
[2024-03-23 22:02] VITALS: BP 123/51
--- NOTE | 2024-03-23 22:05 | PTCARENOTE ---
Pt's accu check 181 at HS . taken approx 1 hr after drinking apple juice.
[2024-03-23 22:06] LABS: Glucose - Point of Care 181 mg/dl (70-99)
[2024-03-23] MEDS: MELATONIN PO (23:00)
[2024-03-24] VITALS (13 sets, daily range): BP systolic 85–132; BP diastolic 51–89
--- NOTE | 2024-03-24 05:52 | PTCARENOTE ---
Pt reports having slept well. No c/o cp or sob. Remains npo for cath today. pt also reports NO loose bm overnight.
[2024-03-24 07:39] LABS: Glucose - Point of Care 179 mg/dl (70-99)
--- NOTE | 2024-03-24 08:00 | PTCARENOTE ---
Resumed care of patient from previous RN. AAOx3. SR on monitor. + murmur. VSS. + weak pulses R leg with lymphedema noted. Remains NPO for pci this am. will continue to monitor.
[2024-03-24] MEDS: ASPIR LOW (ENTERIC COATED) 81 MG PO (08:35)
[2024-03-24] MEDS: FOLVITE 1 MG PO (08:35)
[2024-03-24] MEDS: FLOMAX 0.400000000000000022 MG PO (08:35)
[2024-03-24] MEDS: NORVASC 2.5 MG PO (08:35)
[2024-03-24] MEDS: TOPROL XL 25 MG PO (08:36)
[2024-03-24] MEDS: NOVOLOG FLEXPEN-LOW RESISTANCE SC ×2 (08:36→15:22)
[2024-03-24] MEDS: PLAVIX 75 MG PO (08:37)
--- NOTE | 2024-03-24 08:51 | W.PN.HOSP.TC ---
Today's Communication/Plan
-
Cardiac cath today
Assessment / Plan
Assessment / Plan
Physical exam:
General: Well Developed, Well Nourished and No Apparent Distress
HEENT: NormoCephalic, Moist mucous membranes and Atraumatic
Respiratory: Clear, port noted
Cardiac: S1/S2 and Regular Rhythm; No Murmur or Rub
GI: Soft, Non Tender, Non Distended and Normal Bowel Sounds; No Organomegaly
Musculoskeletal: No Clubbing, No Cyanosis and Edema, Right Lower Extremity
Skin: No Rash
Neuro: AO x 3 and Nonfocal/grossly intact
Psych: Calm
A/P:
NSTEMI
CAD s/p PCI
Chronic LBBB
Hx of SVT
HX Moderate : LVOT diameter of 2.1 cm, the NILESH = 1.1cm2.
Hyperlipidemia
- CTC for PE protocol negative. Pulmonary nodules.
- Trend TPNI up trended to 0.075 and now downtrending. proBNP 8000.
- added SL NTG PRN
- cont STUDENT [employer] REP baby ASA and Statin
- Hold off on heparin gtt : currently CP free
- cont [employer]UDENT [employer] REP Metoprolol succinate
-Echo 01/04/24 with mild concentric LVH. EF 50%. Mild distal anteroseptal hypokinesis. Stage II diastolic dysfunction. Mild to moderate mitral regurgitation. Moderate aortic stenosis.
-Repeat echo showed LVEF 65-to 70%, mild LVH, mild MR, moderate AAS, trace TR
-Status post cardiac catheterization with significant multivessel coronary artery disease. Moderate aortic stenosis with invasive transaortic mean gradient of 28 mmHg. Intervention cardiology discussed with CT surgery if patient candidate for
bypass and not ideal.
-Cardiology on board.
-Plan to repeat cardiac cath today on 03/24 for intervention
#Essential hypertension
- cont ST[employer]ENT [employer] REP Metoprolol succinate
# Reactive leucocytosis with significant Lt shift- bandemia 14% likely due to recent GCSF inj for chemo for Rectal CA
Stage IV anal squamous cell carcinoma on chemotherapy status post radiation
-No urinary symptoms.
- afebrile
- Hold off ABx for now
- follows with Dr. Craig
- Patient requested oncology to be involved, we talked to Dr Bobby.
# hypomagnesemia, replace with 2 gm Mg sulfate prior
# History of colon cancer/anemia of chronic disease secondary to rectal cancer/chemotherapy
- No active bleeding
- Hemoglobin around 8
# HX CVA
Proximal left subclavian artery stenosis
Peripheral arterial disease
- 50 to 75% stenosis
- Outpatient follow-up with vascular surgery
Peripheral arterial disease HX
HX left carotid endarterectomy
# Diabetes
-Holding glimepiride, metformin
added ISS low
#BPH
-Continue tamsulosin
Chronic right lower extremity lymphedema
DVT Px: SCD
Code: Full
Total time spent to see the patient, examine the patient on the floor, review data and lab results, discuss treatment plan with patient, consultants, nursing staff around 57 minutes
Anticipated Discharge: 24 - 48 hours
Subjective/Interval History
-
Date of Service: March 24, 2024
pte denies any cp/sob
Objective Data
-
Vital Signs:
Vital Signs
Temp Pulse Resp BP Pulse Ox
98.8 F 63 20 112/53 100
03/24/24 07:36 03/24/24 08:35 03/24/24 07:36 03/24/24 08:35 03/24/24 07:36
I&O
03/23/24 03/24/24 03/25/24
06:59 06:59 06:59
Intake Total 960 / 960 880 / 880
Balance 960 / 960 880 / 880
--- NOTE | 2024-03-24 12:51 | CM ---
Chart reviewed. Patient is independent of ADLS, lives with his friend in a 1 [address], 8 CELIO, 0 DME. Patient is going for a PCI today. Plan is for the patient to return home. CM to follow
[2024-03-24 14:02] LABS: ACT-LR - POC 265 Seconds (116-155)
[2024-03-24 14:12] LABS: ACT-LR - POC 295 Seconds (116-155)
[2024-03-24 14:41] LABS: ACT-LR - POC 271 Seconds (116-155)
[2024-03-24 15:23] LABS: ACT-LR - POC 265 Seconds (116-155)
--- NOTE | 2024-03-24 15:37 | ITS.CL.CATH ---
Clinical Office Technician - Catheterization
Cardiac Catheterization
Procedure Report:
CORONARY INTERVENTION
Date of Procedure: March 24, 2024
Referring: Juan Diego Cerda MD
PROCEDURES:
1. Selective left coronary angiogram.
2. Ultrasound-guided access.
3. Successful percutaneous coronary artery intervention of proximal to mid LAD with 2 overlapping 2.5 x 38 mm and 2.75 x 15 mm Xience johnson point drug-eluting stents, postdilated with a 2.5 x 15 mm NC trek balloon at 18 bryan distally and a 2.75 x 15
mm NC trek balloon at 18 bryan proximally with an excellent angiographic result
INDICATION: Patient is a 73-year-old gentleman with past medical history of hypertension, hyperlipidemia, type 2 diabetes mellitus, carotid artery disease status post CEA in April 2022, CVA in January 2022, coronary artery disease status post FL with
OM 2 PCI in 2007, chronic left bundle branch block, Former tobacco abuse, history of GI bleed, alcohol abuse, rectal cancer with inguinal nodes but good response to carboplatin, radiation and Taxol, negative PET scan in December who presented this
admission with recurrent episode of chest discomfort with mild level troponin elevation and was referred for left heart catheterization last week. Echocardiogram from December 2023 shows LVEF of 50%, stage II diastolic dysfunction, mild to moderate
mitral regurgitation, moderate aortic stenosis with peak and mean transaortic gradients of 49 and 30 mmHg, aortic valve area 1.1 cm� without aortic regurgitation. Left heart catheterization showed multivessel coronary artery disease and therefore
heart team discussion was had with CT surgery consult and consideration for coronary artery bypass grafting. As discussed with Dr. Clint Overton, given his underlying malignancy and ongoing chemotherapy with uncertain overall prognosis and
lymphedema of lower extremities, there were concerns regarding tissue quality and healing from a surgical standpoint and therefore decision was made to move forward with percutaneous coronary artery intervention of the LAD. Patient was loaded with
600 mg of Plavix on March 22, 2024 with stable hemoglobin this morning in low 8s.
ACCESS: Right radial artery, 6 Emirati sheath, under ultrasound guidance
HEMODYNAMICS : (mmHg)
AO (s/d) : 120/66
CORONARY FINDINGS
DOMINANCE: Right
LEFT MAIN: The left main artery is a large-caliber vessel which gives rise to the left anterior descending artery and the left circumflex artery. There is mild diffuse atherosclerotic
LEFT ANTERIOR DESCENDING: The left anterior descending artery is a medium to large caliber vessel which gives rise to multiple small to medium caliber diagonal branches as it courses through the anterior interventricular groove towards the apex.
There is diffuse at least moderate plaque from the proximal to the mid LAD with 3 serial tubular stenosis, eccentric 70% in the proximal LAD, 80% just distal to a diagonal branch and a third 90% stenosis in the mid LAD. There is a possible
subtotally occluded versus a very small diagonal branch in the mid LAD and between the 2 distal lesions.
CIRCUMFLEX: The left circumflex artery is a medium caliber, nondominant vessel which gives rise to 1 very small obtuse marginal branch and a second branching medium to large caliber obtuse marginal branch as it courses through the AV groove with
small left posterolateral branches distally. Previously placed OM stent is patent. The upper branch of the OM has an ostial 70% stenosis. Mid left circumflex at the level of previous OM stent has eccentric 70% stenosis
RIGHT CORONARY ARTERY: The RCA was not selectively shot on this study. On recent diagnostic study, the right coronary artery is known to be a medium to large caliber, dominant vessel which gives rise to the right posterior descending artery and the
right posterolateral system. The right PDA has 2 serial lesions, 70% proximally and 50-60% distally. Ostial RPL B branch has an eccentric 70% stenosis. Otherwise there is mild diffuse atherosclerotic plaque.
CORONARY INTERVENTION: The left coronary artery was selectively engaged using a 6 Emirati EBU 3.5 guide catheter. Additional heparin was given to maintain a therapeutic ACT throughout the case. A 190 cm 0.014' power turn flex coronary wire was
carefully navigated across the serial lesions and parked in the distal LAD. We initially attempted to predilate the lesions using a 2.5 x 20 mm semicompliant balloon however we could not deliver the balloon passed the second lesion given
significant stenosis. At this point we attempted to predilate the lesions with a 2.0 x 15 mm semicompliant balloon with full expansion at 14 bryan and a prolonged balloon inflation. The lesions were then further predilated using a 2.5 x 20 mm
semicompliant balloon with full expansion. The lesions were stented using a 2.5 x 33 mm Xience johnson point drug-eluting stent distally and a second overlapping 2.75 x 15 mm Xience johnson point drug-eluting stent proximally which was delivered using
guide liner support. Both the stents were postdilated using a 2.5 x 15 mm NC trek balloon at 18 bryan distally and a 2.75 x 15 mm NC trek balloon at 18 bryan proximally with an excellent angiographic result. No acute complications.
SEDATION: 118 minutes of procedural sedation was utilized. An independent medical technologist chief was present to assist with and help manage the patient's level of consciousness and physiologic status.
RADIATION SUMMARY: Fluoro Time (min): 26.9, Dose (mGy): 720.6, DAP (Gy.cm2) : 58.9
Closure Device: Vascular band over right radial artery, 11 cc of air.
CONCLUSIONS
1. Successful percutaneous coronary artery intervention of proximal to mid LAD with 2 overlapping 2.5 x 38 mm and 2.75 x 15 mm Xience johnson point drug-eluting stents, postdilated with a 2.5 x 15 mm NC trek balloon at 18 bryan distally and a 2.75 x 15 mm
NC trek balloon at 18 bryan proximally with an excellent angiographic result.
RECOMMENDATIONS
1. Uninterrupted dual antiplatelet therapy with daily baby aspirin and Plavix 75 mg along with high intensity statin and beta-antonio as tolerated.
2. Wean radial band per protocol.
3. Aggressive management of cardiovascular risk factors.
4. For now pursue aggressive medical therapy for coronary disease in the left circumflex artery and the RCA to make sure patient continues to tolerate DAPT in the setting of chronic pancytopenia with plan close monitoring of her current symptoms.
5. Referral for outpatient cardiac rehab.
Copy to: Juan Diego Cerda MD, Sita Ann
Yisel Ham MD, FAC, [facility]
--- NOTE | 2024-03-24 15:49 | PTCARENOTE ---
pt back from cathead operator, right radial is CDI, ecchymotic from previous cath. pt offers no complaints at this time. pt educated on plan of care and pt verbalized understanding. call hamilton within reach.
[2024-03-24 16:15] LABS: Glucose - Point of Care 153 mg/dl (70-99)
[2024-03-24] MEDS: NOVOLOG FLEXPEN-LOW RESISTANCE 1 UNITS SC (16:15)
[2024-03-24] MEDS: CRESTOR 20 MG PO (16:58)
[2024-03-24] MEDS: MELATONIN 5 MG PO (22:46)
[2024-03-24 22:49] LABS: Glucose - Point of Care 159 mg/dl (70-99)
[2024-03-25] VITALS (7 sets, daily range): BP systolic 89–143; BP diastolic 46–74; BMI 25.5
--- NOTE | 2024-03-25 00:25 | PTCARENOTE ---
Pt received start of shift, HR SR w/ BBB. R radial band off @ 1940. Dressing CDI, soft, no hematoma. Pt states they look forward to getting out of hospital. Pt denies any CP or SOB. Informed to notify RN if any changes, call hamilton within reach.
[2024-03-25 05:23] LABS: Hematocrit 24.4 % (39.0-52.0); Hemoglobin 8.2 g/dL (13.0-18.0); Mean Corp Hgb Conc. 33.6 g/dL (33.0-37.0); Mean Corpuscular Hgb 33.9 pg (27.0-31.0); Mean Corpuscular Volume 100.8 fL (80.0-94.0); Mean Platelet Volume 10.9 fL (7.4-10.4); Platelet Count 167 10^3/uL (130-400); Red Blood Cell Count 2.42 10^6/uL (4.70-6.10); Red Cell Dist. Width 17.1 % (11.5-14.5); White Blood Cell Count 12.3 10^3/uL (4.8-10.8)
[2024-03-25 06:30] LABS: Blood Urea Nitrogen 16 mg/dl (9-20); Calcium 8.5 mg/dl (8.4-10.2); Carbon Dioxide 25 mmol/L (22-30); Chloride 104 mmol/L (98-107); Estimated Creatinine Clearance 78 ml/min; Glucose 150 mg/dl (70-99); Potassium 4.2 mmol/L (3.5-5.1); Sodium 136 mmol/L (135-145); eGFR > 60.00
[2024-03-25 07:33] LABS: Glucose - Point of Care 179 mg/dl (70-99)
[2024-03-25] MEDS: ASPIR LOW (ENTERIC COATED) 81 MG PO (08:48)
[2024-03-25] MEDS: FLOMAX 0.400000000000000022 MG PO (08:48)
[2024-03-25] MEDS: TOPROL XL 25 MG PO (08:48)
[2024-03-25] MEDS: PLAVIX 75 MG PO (08:48)
[2024-03-25] MEDS: NOVOLOG FLEXPEN-LOW RESISTANCE 1 UNITS SC ×2 (08:48→10:20)
[2024-03-25] MEDS: FOLVITE 1 MG PO (08:49)
[2024-03-25] MEDS: NORVASC 2.5 MG PO (08:57)
--- NOTE | 2024-03-25 09:09 | W.PN.HOSP.TC ---
Addendum entered and electronically signed by Jose Roberto Reed MD 03/25/24 15:12:
We reported to getting discharged today but patient developed hypotension and lightheadedness. Cardiology reach out to me. Compression stockings and IV fluids and hold discharge today.
Original Note:
Today's Communication/Plan
-
d/c planning today
Assessment / Plan
Assessment / Plan
Physical exam:
General: Well Developed, Well Nourished and No Apparent Distress
HEENT: NormoCephalic, Moist mucous membranes and Atraumatic
Respiratory: Clear, port noted
Cardiac: S1/S2 and Regular Rhythm; No Murmur or Rub
GI: Soft, Non Tender, Non Distended and Normal Bowel Sounds; No Organomegaly
Musculoskeletal: No Clubbing, No Cyanosis and Edema, Right Lower Extremity
Skin: No Rash
Neuro: AO x 3 and Nonfocal/grossly intact
Psych: Calm
A/P:
NSTEMI
CAD s/p PCI
Chronic LBBB
Hx of SVT
HX Moderate : LVOT diameter of 2.1 cm, the NILESH = 1.1cm2.
Hyperlipidemia
- CTC for PE protocol negative. Pulmonary nodules.
- Trend TPNI up trended to 0.075 and now downtrending. proBNP 8000.
- added SL NTG PRN
- cont CIVIL TRANSPORTATION ENGINEER baby ASA and Statin
- Hold off on heparin gtt : currently CP free
- cont CIVIL TRANSPORTATION ENGINEER Metoprolol succinate
-Echo 01/04/24 with mild concentric LVH. EF 50%. Mild distal anteroseptal hypokinesis. Stage II diastolic dysfunction. Mild to moderate mitral regurgitation. Moderate aortic stenosis.
-Repeat echo showed LVEF 65-to 70%, mild LVH, mild MR, moderate AAS, trace TR
-Status post cardiac catheterization with significant multivessel coronary artery disease. Moderate aortic stenosis with invasive transaortic mean gradient of 28 mmHg. Intervention cardiology discussed with CT surgery if patient candidate for
bypass and not ideal.
-Cardiology on board.
-Plan to repeat cardiac cath yesterday on 03/24 for intervention--> see cath results. Cardiology clear him for d/c today
#Essential hypertension
- cont CIVIL TRANSPORTATION ENGINEER Metoprolol succinate
# Reactive leucocytosis with significant Lt shift- bandemia 14% likely due to recent GCSF inj for chemo for Rectal CA
Stage IV anal squamous cell carcinoma on chemotherapy status post radiation
-No urinary symptoms.
- afebrile
- Hold off ABx for now
- follows with Dr. Craig
- Patient requested oncology to be involved, we talked to Dr Bobby.
# hypomagnesemia, replace with 2 gm Mg sulfate prior
# History of colon cancer/anemia of chronic disease secondary to rectal cancer/chemotherapy
- No active bleeding
- Hemoglobin around 8
# HX CVA
Proximal left subclavian artery stenosis
Peripheral arterial disease
- 50 to 75% stenosis
- Outpatient follow-up with vascular surgery
Peripheral arterial disease HX
HX left carotid endarterectomy
# Diabetes
-Holding glimepiride, metformin
added ISS low
#BPH
-Continue tamsulosin
Chronic right lower extremity lymphedema
DVT Px: SCD
Code: Full
Anticipated Discharge: Today
Subjective/Interval History
-
Date of Service: March 25, 2024
pte denies any cp or sob today
Objective Data
-
Labs:
Laboratory Results
03/25/24
05:09
WBC 12.3 H
Hgb 8.2 L
Hct 24.4 L
Plt Count 167
Sodium 136
Potassium 4.2
Chloride 104
Carbon Dioxide 25
BUN 16
Creatinine 0.8
Glucose 150 H
Calcium 8.5
Vital Signs:
Vital Signs
Temp Pulse Resp BP Pulse Ox
98.3 F 60 18 108/53 98
03/25/24 07:27 03/25/24 08:48 03/25/24 07:27 03/25/24 08:48 03/25/24 07:27
I&O
03/24/24 03/25/24 03/26/24
06:59 06:59 06:59
Intake Total 880 / 880 480 / 480
Balance 880 / 880 480 / 480
--- NOTE | 2024-03-25 10:15 | W.PN.CARDCBS ---
Addendum entered and electronically signed by Angel Bunn MD 03/25/24 12:23:
I saw and examined the patient.
The PAINT MIXER MACHINE or PA's note was reviewed and I agree with the note.
Comment: General: Well developed, well nourished in NAD.
Stable cardiology status for discharge. Follow-up will be arranged. Discussed with patient in detail.
Original Note:
Today's Communication / Plan
-
Status post LAD PCI x 2
Continue aspirin, Plavix, increased dose Crestor, decreased dose Toprol, Norvasc
Cardiac rehab
Outpatient cardiac follow-up arranged
Okay for discharge to home today
Impression / Plan
-
PCP: Dr. Rahman
Application Performance Engineer: Dr. Bunn
Impression:
NSTEMI s/p cath resulting in LAD PCI x2 03/24/24
Anemia
Elevated D-dimer, CTA of chest negative for PE or dissection.
CAD s/p PR with OM2 PCI 2007
CVA 01/2022
Carotid artery disease s/p CEA 04/2022
Mod
Hypertension
Hyperlipidemia
GERD
LBBB
SVT
Rectal cancer on chemotherapy
h/o GI bleed
DM 2
Former smoker
Alcohol abuse
Echo 08/03/2023: EF 55 to 60%, mild concentric LVH, stage II diastolic dysfunction, mild MR, moderate , peak/mean gradients 29/17 mmHg, NILESH 1.0 cm�, trace TR
Echo 01/04/2024: EF 50%, mild cLVH, mild distal anteroseptal hypokinesis, stage II diastolic dysfunction, mild to mod MR, mod with peak/mean gradients 49/30 mmHg, NILESH 1.1cm2
Cath 03/21/24: Multivessel CAD
-There is diffuse at least moderate plaque from the proximal to the mid LAD with 3 serial tubular stenosis, 50% in the proximal LAD, 70% just distal to a diagonal branch and a third 80% stenosis in the mid LAD. There is a possible subtotally
occluded versus a very small diagonal branch in the mid LAD and between the 2 distal lesions.
-The upper branch of the OM has an ostial 70% stenosis. Mid left circumflex at the level of previous OM stent has eccentric 70% stenosis.
-The right PDA has 2 serial lesions, 70% proximally and 50-60% distally. Ostial RPL B branch has an eccentric 70% stenosis.
Echo 03/21/24: Normal LV systolic function with ejection fraction of 65 to 70% with distal septal hypokinesis. Moderate aortic stenosis with peak and mean gradients of 46 and 28 mmHg. Aortic valve area of 1 cm�
Plan:
-Patient presented with chest pain troponin peaked at 0.075. Treating as NSTEMI. Status post cardiac catheterization with LAD and OM stenosis, status post multidisciplinary discussion. Status post LAD PCI times 2 on 03/24/24
-Feeling well overnight without symptoms
-Right wrist site clean dry and intact
-Continue aspirin, Plavix
-Crestor dose increased from 10 mg daily to 20 mg daily
-Was on Toprol 25 mg daily prior to admission. Overnight is noted to have several brief episodes of heart rates into the 30s. Will reduce dose to 12.5 mg daily. Norvasc 2.5 mg daily was added postcardiac catheterization. holding off on susi for
now with borderline BPs
-Cardiac rehab
-Plan for medical therapy of residual coronary disease in OM and RCA for now. Could consider for intervention if tolerating dual antiplatelet therapy and with recurrent symptoms
-Will need outpatient follow-up of moderate aortic stenosis in addition
-OP cardiac follow up arranged
-ok for DC to home today
-He has upcoming outpatient oncology appointment (Dr. Craig). Chemo rx infusion is this upcoming Sunday.
-d/w nursing
HPI: Perry is a 73-year-old male with past medical history of CAD w/ prior PCI to OM 2, hypertension, hyperlipidemia, aortic stenosis, type 2 diabetes mellitus, CVA, carotid artery disease, SVT, LBBB, alcohol abuse, and rectal cancer who presents
to [facility] for evaluation of chest pain. He was lying in bed last night when he had onset of L sided chest pain. He states this pain is similar to what brought him in for recent admission 12/2023. He has had intermittent, mild pain since that admission
that is only short lived, however episode last night lasted longer and was more severe, prompting ER evaluation. On arrival to ER, he was noted to have troponin of 0.022 which has trended up to 0.075. He was given SL nitro in ER and has had no
recurrent pain overnight. He notes he receives a shot every so often to increase his WBC after chemo. He received this shot recently and also notes he had gotten the shot shortly before his prior hospitalization as well. During both admissions, he
has been somewhat anemic. During prior admission, he required 2units PRBCs, however hemoglobin this admission 8.0. Previously he has preferred avoiding invasive cardiac procedures and preferred to avoid cardiac catheterization as well as DAPT,
however he has been given approval by oncology to be on DAPT if needed. He notes this AM he is feeling well and has had no recurrent pain.
Progress Note - Application Performance Engineer
Subjective
Date of Service: March 25, 2024
No issues overnight.
Objective
Labs:
03/25/24 05:09
03/25/24 05:09
Labs
Hgb 8.2 g/dL (13.0-18.0) L 03/25/24 05:09
Hct 24.4 % (39.0-52.0) L 03/25/24 05:09
Plt Count 167 10^3/uL (130-400) 03/25/24 05:09
Sodium 136 mmol/L (135-145) 03/25/24 05:09
Potassium 4.2 mmol/L (3.5-5.1) 03/25/24 05:09
BUN 16 mg/dl (9-20) 03/25/24 05:09
Creatinine 0.8 mg/dL (0.7-1.3) 03/25/24 05:09
Glucose 150 mg/dl (70-99) H 03/25/24 05:09
Vital Signs and I&O:
Vital Signs
Temp Pulse Resp BP Pulse Ox
98.3 F 60 18 108/53 98
03/25/24 07:27 03/25/24 08:48 03/25/24 07:27 03/25/24 08:48 03/25/24 07:27
Vital Signs
Temp Pulse Resp BP Pulse Ox
98.3 F 60 18 108/53 98
03/25/24 07:27 03/25/24 08:48 03/25/24 07:27 03/25/24 08:48 03/25/24 07:27
Intake & Output
03/23/24 03/24/24 03/25/24 03/26/24
07:59 07:59 07:59 07:59
Intake Total 960 / 960 400 / 400 480 / 480
Balance 960 / 960 400 / 400 480 / 480
Physical Exam
Physical Exam
GEN: No distress, awake, alert, oriented x3
HEENT: supple, anicteric, mmm, EOMI
LUNGS: CTA bilaterally, no wheezes/rales
CV: Reg, S1/S2, 2/6 syst LSB
EXT: No cyanosis, clubbing, edema
NEURO: Gross non-focal
SKIN: Warm, pink, dry. No rash. Right wrist site clean dry and intact, soft, nontender to palpation
[2024-03-25 10:21] LABS: Glucose - Point of Care 183 mg/dl (70-99)
[2024-03-25 11:00] LABS: Magnesium 1.5 mg/dl (1.6-2.3)
[2024-03-25 11:48] LABS: Glucose - Point of Care 192 mg/dl (70-99)
--- NOTE | 2024-03-25 15:06 | W.PN.UPDATE ---
Update Note
Progress Note Update
CTSP due to complaints of dizziness, hypotension. States he was getting dressed and getting his things packed to go home and felt lightheaded and dizzy. Checked BP which was 88/49. Was noted to have drop from sitting to standing. placed back in bed
by nursing. remains with some mild lightheadedness presently. BP 82/50. will order compression stockings and 500cc IVF bolus over 2 hours. DC cancelled. will keep reduced dose of toprol 12.5mg daily in AM and change norvasc 2.5mg to QPM. repeat H&H
in AM. d/w nursing, hospitalist
[2024-03-25] MEDS: NSS 500 IV (15:31)
[2024-03-25 17:33] LABS: Glucose - Point of Care 146 mg/dl (70-99)
[2024-03-25] MEDS: NOVOLOG FLEXPEN-LOW RESISTANCE SC (17:52)
[2024-03-25] MEDS: CRESTOR 20 MG PO (18:34)
--- NOTE | 2024-03-25 20:38 | PTCARENOTE ---
R radial dressing removed site CDI. + pulse. Plan of care discussed- pt without complaints of lightheadedness or dizziness this evening. Tubi automotive specialty technician measured and ordered. ambulating the room as self. L Subq. port accessed.
[2024-03-25] MEDS: MELATONIN 5 MG PO (22:10)
[2024-03-25 22:15] LABS: Glucose - Point of Care 164 mg/dl (70-99)
--- NOTE | 2024-03-26 03:44 | DOWNTIME ---
There was a Managed Methods Client Vocational Counselor Downtime on 03/26/2024 from 0100 to 03/26/2024 at 0337. Downtime documentation of patient's care, including medication administrations, has been reconciled in the electronic record per guidelines. Refer to the
patient's paper chart under the miscellaneous tab to see printed paper medication records and downtime forms.
[2024-03-26 03:53] VITALS: BP 125/56
--- NOTE | 2024-03-26 04:17 | PTCARENOTE ---
R radial dressing removed site CDI. + pulse. Plan of care discussed- pt without complaints of lightheadedness or dizziness this evening. ambulating the room as self. L Subq. port accessed.
[2024-03-26 04:18] LABS: Hematocrit 25.3 % (39.0-52.0); Hemoglobin 8.4 g/dL (13.0-18.0)
[2024-03-26 04:43] LABS: Blood Urea Nitrogen 14 mg/dl (9-20); Calcium 8.8 mg/dl (8.4-10.2); Carbon Dioxide 23 mmol/L (22-30); Chloride 107 mmol/L (98-107); Estimated Creatinine Clearance 78 ml/min; Glucose 138 mg/dl (70-99); Potassium 4.3 mmol/L (3.5-5.1); Sodium 138 mmol/L (135-145); eGFR > 60.00
[2024-03-26 05:35] VITALS: BMI 25.5
[2024-03-26 07:22] VITALS: BP 119/52
[2024-03-26] MEDS: ASPIR LOW (ENTERIC COATED) 81 MG PO (08:31)
[2024-03-26] MEDS: TOPROL XL 12.5 MG PO (08:31)
[2024-03-26] MEDS: PLAVIX 75 MG PO (08:31)
[2024-03-26] MEDS: FLOMAX 0.400000000000000022 MG PO (08:31)
[2024-03-26] MEDS: FOLVITE 1 MG PO (08:31)
[2024-03-26] MEDS: NOVOLOG FLEXPEN-LOW RESISTANCE 1 UNITS SC ×2 (08:51→12:14)
[2024-03-26 08:52] LABS: Glucose - Point of Care 154 mg/dl (70-99)
--- NOTE | 2024-03-26 08:54 | W.PN.HOSP.TC ---
Today's Communication/Plan
-
d/c planning today
Assessment / Plan
Assessment / Plan
Physical exam:
General: Well Developed, Well Nourished and No Apparent Distress
HEENT: NormoCephalic, Moist mucous membranes and Atraumatic
Respiratory: Clear, port noted
Cardiac: S1/S2 and Regular Rhythm; No Murmur or Rub
GI: Soft, Non Tender, Non Distended and Normal Bowel Sounds; No Organomegaly
Musculoskeletal: No Clubbing, No Cyanosis and Edema, Right Lower Extremity
Skin: No Rash
Neuro: AO x 3 and Nonfocal/grossly intact
Psych: Calm
A/P:
NSTEMI
CAD s/p PCI
Chronic LBBB
Hx of SVT
HX Moderate : LVOT diameter of 2.1 cm, the NILESH = 1.1cm2.
Hyperlipidemia
- CTC for PE protocol negative. Pulmonary nodules.
- Trend TPNI up trended to 0.075 and now downtrending. proBNP 8000.
- added SL NTG PRN
- cont BUSINESS ANALYST PROJECT MANAGER baby ASA and Statin
- Hold off on heparin gtt : currently CP free
- cont BUSINESS ANALYST PROJECT MANAGER Metoprolol succinate
-Echo 01/04/24 with mild concentric LVH. EF 50%. Mild distal anteroseptal hypokinesis. Stage II diastolic dysfunction. Mild to moderate mitral regurgitation. Moderate aortic stenosis.
-Repeat echo showed LVEF 65-to 70%, mild LVH, mild MR, moderate AAS, trace TR
-Status post cardiac catheterization with significant multivessel coronary artery disease. Moderate aortic stenosis with invasive transaortic mean gradient of 28 mmHg. Intervention cardiology discussed with CT surgery if patient candidate for
bypass and not ideal.
-Cardiology on board.
-Plan to repeat cardiac cath yesterday on 03/24 for intervention--> see cath results. Cardiology clear him for d/c today
Hypotension episode on 03/25--> resolved
#Essential hypertension
- cont BUSINESS ANALYST PROJECT MANAGER Metoprolol succinate
# Reactive leucocytosis with significant Lt shift- bandemia 14% likely due to recent GCSF inj for chemo for Rectal CA
Stage IV anal squamous cell carcinoma on chemotherapy status post radiation
-No urinary symptoms.
- afebrile
- Hold off ABx for now
- follows with Dr. Craig
- Patient requested oncology to be involved, we talked to Dr Bobby.
# hypomagnesemia, replace with 2 gm Mg sulfate prior
# History of colon cancer/anemia of chronic disease secondary to rectal cancer/chemotherapy
- No active bleeding
- Hemoglobin around 8
# HX CVA
Proximal left subclavian artery stenosis
Peripheral arterial disease
- 50 to 75% stenosis
- Outpatient follow-up with vascular surgery
Peripheral arterial disease HX
HX left carotid endarterectomy
# Diabetes
-Holding glimepiride, metformin
added ISS low
#BPH
-Continue tamsulosin
Chronic right lower extremity lymphedema
DVT Px: SCD
Code: Full
Anticipated Discharge: Today
Subjective/Interval History
-
Date of Service: March 26, 2024
pte feels better today. No cp/sob. BP stable today
Objective Data
-
Labs:
Laboratory Results
03/26/24
04:00
Hgb 8.4 L
Hct 25.3 L
Sodium 138
Potassium 4.3
Chloride 107
Carbon Dioxide 23
BUN 14
Creatinine 0.8
Glucose 138 H
Calcium 8.8
Vital Signs:
Vital Signs
Temp Pulse Resp BP Pulse Ox
98.5 F 61 18 119/52 99
03/26/24 07:22 03/26/24 07:22 03/26/24 07:22 03/26/24 07:22 03/26/24 07:22
I&O
03/25/24 03/26/24 03/27/24
06:59 06:59 06:59
Intake Total 480 / 480
Balance 480 / 480
--- NOTE | 2024-03-26 09:33 | PTCARENOTE ---
Received patient this morning resting in bed. He denies any dizziness this morning and is hopeful to go home today. Concerned that he had an oncology appointment today that he is missing. TT to Dr. De Leon, patient should follow up at the office later
this week, patient has an appointment for chemo on Sunday.
[2024-03-26 11:36] VITALS: BP 119/50
[2024-03-26 12:14] LABS: Glucose - Point of Care 179 mg/dl (70-99)
--- NOTE | 2024-03-26 12:43 | W.PN.CARDCBS ---
Addendum entered and electronically signed by Angel Bunn MD 03/26/24 13:55:
I saw and examined the patient.
The EQUIPMENT OPERATOR/LABORER or PA's note was reviewed and I agree with the note.
Comment: General: Well developed, well nourished in NAD.
Stable cardiology status for discharge. Discussed with patient in detail. Follow-up arranged. Discussed with primary service.
Original Note:
Today's Communication / Plan
-
no further dizziness
asa, plavix
toprol 12.5mg daily
norvasc 2.5mg HS
crestor at 20mg
tubigrip stockings
cardiac rehab
ok for DC
Impression / Plan
-
PCP: Dr. Rahman
Study Specialist: Dr. Bunn
Impression:
NSTEMI s/p cath resulting in LAD PCI x2 03/24/24
Anemia
Elevated D-dimer, CTA of chest negative for PE or dissection.
CAD s/p IL with OM2 PCI 2007
CVA 01/2022
Carotid artery disease s/p CEA 04/2022
Mod
Hypertension
Hyperlipidemia
GERD
LBBB
SVT
Rectal cancer on chemotherapy
h/o GI bleed
DM 2
Former smoker
Alcohol abuse
Echo 08/03/2023: EF 55 to 60%, mild concentric LVH, stage II diastolic dysfunction, mild MR, moderate , peak/mean gradients 29/17 mmHg, NILESH 1.0 cm�, trace TR
Echo 01/04/2024: EF 50%, mild cLVH, mild distal anteroseptal hypokinesis, stage II diastolic dysfunction, mild to mod MR, mod with peak/mean gradients 49/30 mmHg, NILESH 1.1cm2
Cath 03/21/24: Multivessel CAD
-There is diffuse at least moderate plaque from the proximal to the mid LAD with 3 serial tubular stenosis, 50% in the proximal LAD, 70% just distal to a diagonal branch and a third 80% stenosis in the mid LAD. There is a possible subtotally
occluded versus a very small diagonal branch in the mid LAD and between the 2 distal lesions.
-The upper branch of the OM has an ostial 70% stenosis. Mid left circumflex at the level of previous OM stent has eccentric 70% stenosis.
-The right PDA has 2 serial lesions, 70% proximally and 50-60% distally. Ostial RPL B branch has an eccentric 70% stenosis.
Echo 03/21/24: Normal LV systolic function with ejection fraction of 65 to 70% with distal septal hypokinesis. Moderate aortic stenosis with peak and mean gradients of 46 and 28 mmHg. Aortic valve area of 1 cm�
Plan:
-feeling well this morning. no dizziness overnight
-BPs stable
-continue toprol 12.5mg QAM and norvasc 2.5mg HS for DC
-continue asa, plavix s/p LAD PCI x2.
-Right wrist site clean dry and intact
-Crestor dose increased from 10 mg daily to 20 mg daily
-Cardiac rehab
-Plan for medical therapy of residual coronary disease in OM and RCA for now. Could consider for intervention if tolerating dual antiplatelet therapy and with recurrent symptoms
-Will need outpatient follow-up of moderate aortic stenosis in addition
-OP cardiac follow up arranged
-ok for DC to home today
-He has upcoming outpatient oncology appointment (Dr. Craig). Chemo rx infusion is this upcoming Sunday.
-d/w nursing. d/w hospitalist via TT
HPI: Perry is a 73-year-old male with past medical history of CAD w/ prior PCI to OM 2, hypertension, hyperlipidemia, aortic stenosis, type 2 diabetes mellitus, CVA, carotid artery disease, SVT, LBBB, alcohol abuse, and rectal cancer who presents
to [facility] for evaluation of chest pain. He was lying in bed last night when he had onset of L sided chest pain. He states this pain is similar to what brought him in for recent admission 12/2023. He has had intermittent, mild pain since that admission
that is only short lived, however episode last night lasted longer and was more severe, prompting ER evaluation. On arrival to ER, he was noted to have troponin of 0.022 which has trended up to 0.075. He was given SL nitro in ER and has had no
recurrent pain overnight. He notes he receives a shot every so often to increase his WBC after chemo. He received this shot recently and also notes he had gotten the shot shortly before his prior hospitalization as well. During both admissions, he
has been somewhat anemic. During prior admission, he required 2units PRBCs, however hemoglobin this admission 8.0. Previously he has preferred avoiding invasive cardiac procedures and preferred to avoid cardiac catheterization as well as DAPT,
however he has been given approval by oncology to be on DAPT if needed. He notes this AM he is feeling well and has had no recurrent pain.
Progress Note - Study Specialist
Subjective
Date of Service: March 26, 2024
no CP, SOB, lightheadedness/dizziness.
Objective
Labs:
03/26/24 04:00
03/26/24 04:00
Labs
Hgb 8.4 g/dL (13.0-18.0) L 03/26/24 04:00
Hct 25.3 % (39.0-52.0) L 03/26/24 04:00
Plt Count 167 10^3/uL (130-400) 03/25/24 05:09
Sodium 138 mmol/L (135-145) 03/26/24 04:00
Potassium 4.3 mmol/L (3.5-5.1) 03/26/24 04:00
BUN 14 mg/dl (9-20) 03/26/24 04:00
Creatinine 0.8 mg/dL (0.7-1.3) 03/26/24 04:00
Glucose 138 mg/dl (70-99) H 03/26/24 04:00
Vital Signs and I&O:
Vital Signs
Temp Pulse Resp BP Pulse Ox
97.5 F 61 18 119/50 97
03/26/24 11:36 03/26/24 12:00 03/26/24 11:36 03/26/24 11:36 03/26/24 11:36
Vital Signs
Temp Pulse Resp BP Pulse Ox
97.5 F 61 18 119/50 97
03/26/24 11:36 03/26/24 12:00 03/26/24 11:36 03/26/24 11:36 03/26/24 11:36
Intake & Output
03/24/24 03/25/24 03/26/24 03/27/24
07:59 07:59 07:59 07:59
Intake Total 400 / 400 480 / 480
Balance 400 / 400 480 / 480
Physical Exam
Physical Exam
GEN: No distress, awake, alert, oriented x3
HEENT: supple, anicteric, mmm, eomi
LUNGS: CTA B/L, no wheezes/rales
CV: Reg, S1/S2, 2/6 syst LSB
ABD: soft, BS+, NT/ND
EXT: No cyanosis, clubbing, edema. tubigrip stockings in place.
NEURO: Gross non-focal
SKIN: Warm, pink, dry. No rash. R wrist site c/d/i.
--- NOTE | 2024-03-26 13:19 | W.DCSUMMARY ---
Discharge Summary
Discharge Data
Date of Admission: 03/21/24
Date of Discharge: 03/26/24
-
Pending Results: No
Hospital Course
Patient 73 years old male with history of CAD, hypertension, hyperlipidemia, aortic stenosis, diabetes mellitus, CVA, peripheral vascular disease, alcohol use disorder, rectal cancer presented to the hospital with chest pain and clinical picture
consistent with non-STEMI. Cardiology consulted. Patient had a similar presentation and medical management was pursued at the time since the prognosis from his malignancy was unclear and if he would be able to tolerate antiplatelets but after
oncology evaluation it was determined that he could tolerate antiplatelets and his prognosis was okay to do aggressive cardiac interventions if needed. Patient known to have stage IV anal cancer but responded well to current chemotherapy and he had
undergone palliative radiation completed to anus. Patient underwent cardiac catheterization and had multivessel CAD. CT surgery consulted. CT surgery felt that he was very high risk for CABG and recommended PCI intervention if possible and
follow-up for eventual TAVR. Cardiology took him again to cardiac catheterization again and he had successful coronary intervention of proximal to mid LAD with 2 overlapping stents and recommended aggressive medical therapy for left circumflex
artery and RCA. He had mild hypotensive episode that responded to fluids. He tolerated his medications and he is hemodynamically stable currently. His cardiac regimen adjusted as per his cardiac medications upon discharge. Cardiology cleared him
for discharge today. He will be discharged in stable condition today.
Discharge duration: 40 minutes
Discharge Plan
-
Patient Disposition: Home (Routine Discharge)
Discharge Diagnosis/Procedures: Angioplasty and stent x2 to Left Anterior Descending artery
Diet: Low Cholesterol and Low Sodium
Activity: Other activity
Additional Activity: no heavy lifting greater than 10 pounds for 1 week
Driving Restrictions: No driving for 24 hours
Blood Work: PCP to order CBC, BMP within 1 week
Other Services: Cardiac Rehab
Specialty Instructions: Weigh Daily- Call MD for wt gain/loss 3 lbs overnight/5 lbs in 1 week
Stand Alone Forms: DC Instructions- Cath/EP Lab
Referrals:
[facility] [Outside] - 05/09/24 9:30 am
(Cardiac Rehab Orientation appointment is on 05/09/24 at 9:30am
The Cardiac Rehab gym is located on the first floor of the [facility].)
Marco Rahman MD [Family Provider] - in less than 1 week
Ayla Luther PA-C [Specified Professional Personl] - 04/21/24 1:00 pm (Cardiology followup appointment)
Prescriptions:
New
amlodipine 2.5 mg Tablet
2.5 mg PO DAILY 30 Days Qty: 30 0RF
clopidogrel 75 mg Tablet
75 mg PO DAILY 30 Days Qty: 30 0RF
metoprolol succinate 25 mg Tablet Extended Release 24 Hr
12.5 mg PO DAILY 30 Days Qty: 15 0RF
magnesium chloride [Mag 64] 64 mg tablet,delayed release (DR/EC)
64 mg PO DAILY Qty: 10 0RF
Continued
cholecalciferol (vitamin D3) [Vitamin D3] 25 mcg (1,000 unit) Tablet
25 mcg PO DAILY Qty: 0
tamsulosin 0.4 MG capsule
0.4 mg PO DAILY
vitamin B complex Tablet
1 tab PO DAILY
metformin 500 mg Tablet
250 mg PO DAILY
aspirin 81 MG tablet,delayed release (DR/EC)
81 mg PO DAILY
glimepiride 2 MG tablet
2 mg PO DAILY
folic acid 1 MG tablet
1 mg PO DAILY
docusate sodium [Colace] 100 mg Capsule
100 mg PO DAILY PRN (Reason: constipation)
Chemotherapy
1 dose IV .TWICE A MONTH
Changed
rosuvastatin 10 MG tablet
20 mg PO DAILY Qty: 30 0RF
Discontinued
metoprolol succinate 25 mg Tablet Extended Release 24 Hr
25 mg PO DAILY
Discharge Orders:
Discharge Patient (As Directed); Ordered 06/19/24
Ordered By: Jose Roberto Reed
Care Plan Goals
Care Plan Goals:
Problem: Readiness for enhanced knowledge related to diagnosis and treatment plan
Goal: Understand your diagnosis and treatment plan needs, including medications if applicable.
Instructions: Know your diagnosis, underlying causes and treatment plan options, including medications if applicable. Consult with your health care team to learn about your diagnosis and treatment plan, including medications if applicable.
Discharge Date and Time
Discharge Date/Time: 03/26/24 15:33
Print Language: PASHTO
--- NOTE | 2024-03-26 15:01 | PTCARENOTE ---
Patient seen by cardiology and the hospitalist and is ok for discharge home. VSS, no dizziness or complaints offered. Reviewed discharge instructions an follow up appointments/medications and he states his understanding. Waiting for his friend to
pick him up.
== END 2024-03-26 15:33 | disposition home or self-care (01) | DRG 322 ==
LOC: IVU 13:02
PROVIDERS: Clinical Nurse Specialist Family Health; Internal Medicine Cardiovascular Disease; Internal Medicine Interventional Cardiology; Nurse Practitioner; Physician Assistant; ADMITTING PHYSICIAN Internal Medicine; ATTENDING PHYSICIAN Hospitalist; CONSULT PHYSICIAN Thoracic Surgery (Cardiothoracic Vascular Surgery); EMERGENCY PHYSICIAN Emergency Medicine; FAMILY PHYSICIAN Family Medicine; OTHER PHYSICIAN Internal Medicine Cardiovascular Disease; OTHER PHYSICIAN Internal Medicine Hematology & Oncology
PROC: B2111ZZ Fluoroscopy of Multiple Coronary Arteries using Low Osmolar Contrast (ICD-10-PCS; 2024-03-21)
PROC: B2151ZZ Fluoroscopy of Left Heart using Low Osmolar Contrast (ICD-10-PCS; 2024-03-21)
PROC: 4A023N7 Measurement of Cardiac Sampling and Pressure, Left Heart, Percutaneous Approach (ICD-10-PCS; 2024-03-21)
PROC: 027035Z Dilation of Coronary Artery, One Artery with Two Drug-eluting Intraluminal Devices, Percutaneous Approach (ICD-10-PCS; 2024-03-24)
DX: I21.4 Non-ST elevation (NSTEMI) myocardial infarction (principal); C20 Malignant neoplasm of rectum; C21.1 Malignant neoplasm of anal canal; I47.10 Supraventricular tachycardia, unspecified; C77.4 Secondary and unspecified malignant neoplasm of inguinal and lower limb lymph nodes; C77.2 Secondary and unspecified malignant neoplasm of intra-abdominal lymph nodes; R91.8 Other nonspecific abnormal finding of lung field; I10 Essential (primary) hypertension; E11.51 Type 2 diabetes mellitus with diabetic peripheral angiopathy without gangrene; I25.10 Atherosclerotic heart disease of native coronary artery without angina pectoris; I95.9 Hypotension, unspecified; E83.42 Hypomagnesemia; I89.0 Lymphedema, not elsewhere classified; E78.00 Pure hypercholesterolemia, unspecified; D72.825 Bandemia; D64.81 Anemia due to antineoplastic chemotherapy; D63.0 Anemia in neoplastic disease; I08.0 Rheumatic disorders of both mitral and aortic valves; I44.7 Left bundle-branch block, unspecified; T45.1X5A Adverse effect of antineoplastic and immunosuppressive drugs, initial encounter; D50.9 Iron deficiency anemia, unspecified; R79.89 Other specified abnormal findings of blood chemistry; K21.9 Gastro-esophageal reflux disease without esophagitis; N40.0 Benign prostatic hyperplasia without lower urinary tract symptoms; I70.8 Atherosclerosis of other arteries; F10.10 Alcohol abuse, uncomplicated; Z86.73 Personal history of transient ischemic attack (TIA), and cerebral infarction without residual deficits; Z79.82 Long term (current) use of aspirin; Z87.891 Personal history of nicotine dependence; Z79.84 Long term (current) use of oral hypoglycemic drugs; I25.2 Old myocardial infarction; Z82.49 Family history of ischemic heart disease and other diseases of the circulatory system; Z95.5 Presence of coronary angioplasty implant and graft; Z79.899 Other long term (current) drug therapy
CPT/HCPCS: 71046; 71275; 80048; 80053; 80061; 81003; 82962; 83036; 83735; 83880; 84484; 85014; 85018; 85025; 85027; 85347; 85379; 93005; 93306; 93458; 94760; 99152; 99153; 99285; C1725; C1874; C1894; C9600; Q9967

== ENCOUNTER → 2024-04-02 16:24 | Outpatient (REF) | payer MEDICARE, SELFPAY ==
[2024-04-02 12:02] LABS: % Basophils 0.9 % (0-2); % Eosinophils 1.1 % (0-6); % Immature Granulocytes 0.5 % (0-0.5); % Lymphocytes 17.4 % (20.5-51.1); % Monocytes 12.4 % (1.7-9.3); % Neutrophils 67.7 % (42.2-75.2); Absolute Eosinophils 0.1 10^3/uL (0-0.7); Absolute Lymphocytes 0.8 10^3/uL (1.2-3.4); Absolute Monocytes 0.6 10^3/uL (0.1-0.6); Hematocrit 29.3 % (39.0-52.0); Hemoglobin 9.6 g/dL (13.0-18.0); Mean Corp Hgb Conc. 32.8 g/dL (33.0-37.0); Mean Corpuscular Hgb 33.6 pg (27.0-31.0); Mean Corpuscular Volume 102.4 fL (80.0-94.0); Mean Platelet Volume 8.9 fL (7.4-10.4); Platelet Count 330 10^3/uL (130-400); Red Blood Cell Count 2.86 10^6/uL (4.70-6.10); Red Cell Dist. Width 15.7 % (11.5-14.5); White Blood Cell Count 4.4 10^3/uL (4.8-10.8)
[2024-04-02 12:38] LABS: ALT (SGPT) 14 U/L (0-50); AST (SGOT) 25 U/L (17-59); Albumin 4.2 g/dl (3.5-5.0); Alkaline Phosphatase 78 U/L (38-126); Blood Urea Nitrogen 9 mg/dl (9-20); Calcium 9.6 mg/dl (8.4-10.2); Carbon Dioxide 24 mmol/L (22-30); Chloride 107 mmol/L (98-107); Glucose 135 mg/dl (70-99); Potassium 4.6 mmol/L (3.5-5.1); Sodium 139 mmol/L (135-145); Total Bilirubin 0.5 mg/dl (0.2-1.3); Total Protein 6.6 g/dl (6.3-8.2); eGFR > 60.00
== END ==
LOC: OIDL 16:24
PROVIDERS: ATTENDING PHYSICIAN Internal Medicine Hematology & Oncology
DX: C21.1 Malignant neoplasm of anal canal (principal)
CPT/HCPCS: 80053; 85025

== ENCOUNTER → 2024-05-09 12:53 | Outpatient (REF) | payer MEDICARE, SELFPAY ==
[2024-05-09 13:33] LABS: Hematocrit 26.4 % (39.0-52.0); Hemoglobin 8.9 g/dL (13.0-18.0); Mean Corp Hgb Conc. 33.7 g/dL (33.0-37.0); Mean Corpuscular Hgb 33.8 pg (27.0-31.0); Mean Corpuscular Volume 100.4 fL (80.0-94.0); Mean Platelet Volume 11.8 fL (7.4-10.4); Platelet Count 119 10^3/uL (130-400); Red Blood Cell Count 2.63 10^6/uL (4.70-6.10); White Blood Cell Count 14.9 10^3/uL (4.8-10.8)
[2024-05-09 13:55] LABS: Blood Urea Nitrogen 16 mg/dl (9-20); Iron 84 ug/dl (49-181)
[2024-05-09 14:04] LABS: Percent Saturation 30 % (20-50); Total Iron Binding Capacity 276 ug/dl (261-462)
[2024-05-09 14:08] LABS: % Basophils 0.1 % (0-2); % Eosinophils 0.3 % (0-6); % Immature Granulocytes 1.7 % (0-0.5); % Lymphocytes 10.2 % (20.5-51.1); % Monocytes 11.2 % (1.7-9.3); % Neutrophils 76.5 % (42.2-75.2); Absolute Eosinophils 0.1 10^3/uL (0-0.7); Absolute Immature Granulocytes 0.3 10^3/uL (0-0.05); Absolute Lymphocytes 1.5 10^3/uL (1.2-3.4); Absolute Monocytes 1.7 10^3/uL (0.1-0.6); Absolute Neutrophils 11.4 10^3/uL (1.4-6.5); Nucleated Red Blood Cells % 0.2 % (-)
== END ==
LOC: OIDL 12:53
PROVIDERS: ATTENDING PHYSICIAN Internal Medicine Hematology & Oncology
DX: C21.1 Malignant neoplasm of anal canal (principal); D50.9 Iron deficiency anemia, unspecified; D64.81 Anemia due to antineoplastic chemotherapy; I89.0 Lymphedema, not elsewhere classified
CPT/HCPCS: 82565; 82728; 83540; 83550; 84520; 85025

== ENCOUNTER → 2024-05-21 11:56 | Outpatient (REF) | payer MEDICARE, SELFPAY ==
[2024-05-21 11:21] LABS: % Basophils 0.6 % (0-2); % Eosinophils 1.1 % (0-6); % Immature Granulocytes 0.6 % (0-0.5); % Lymphocytes 18.3 % (20.5-51.1); % Monocytes 12.2 % (1.7-9.3); % Neutrophils 67.2 % (42.2-75.2); Absolute Eosinophils 0.1 10^3/uL (0-0.7); Absolute Lymphocytes 0.9 10^3/uL (1.2-3.4); Absolute Monocytes 0.6 10^3/uL (0.1-0.6); Absolute Neutrophils 3.2 10^3/uL (1.4-6.5); Hematocrit 31.6 % (39.0-52.0); Hemoglobin 10.3 g/dL (13.0-18.0); Mean Corp Hgb Conc. 32.6 g/dL (33.0-37.0); Mean Corpuscular Hgb 33.6 pg (27.0-31.0); Mean Corpuscular Volume 102.9 fL (80.0-94.0); Mean Platelet Volume 9.5 fL (7.4-10.4); Platelet Count 321 10^3/uL (130-400); Red Blood Cell Count 3.07 10^6/uL (4.70-6.10); Red Cell Dist. Width 15.8 % (11.5-14.5); White Blood Cell Count 4.7 10^3/uL (4.8-10.8)
[2024-05-21 12:03] LABS: ALT (SGPT) 11 U/L (0-50); AST (SGOT) 22 U/L (17-59); Alkaline Phosphatase 94 U/L (38-126); Blood Urea Nitrogen 14 mg/dl (9-20); Calcium 9.4 mg/dl (8.4-10.2); Carbon Dioxide 24 mmol/L (22-30); Chloride 104 mmol/L (98-107); Glucose 113 mg/dl (70-99); Potassium 4.7 mmol/L (3.5-5.1); Sodium 136 mmol/L (135-145); Total Bilirubin 0.7 mg/dl (0.2-1.3); Total Protein 6.3 g/dl (6.3-8.2); eGFR > 60.00
== END ==
LOC: OIDL 11:56
PROVIDERS: ATTENDING PHYSICIAN Internal Medicine Hematology & Oncology
DX: C21.1 Malignant neoplasm of anal canal (principal)
CPT/HCPCS: 80053; 85025

== ENCOUNTER 2024-05-27 06:17 | Outpatient (RCR) | payer MEDICARE, SELFPAY | END 2024-05-27 23:59 | disposition home or self-care (01) | LOC: RPT 06:17 | PROVIDERS: ATTENDING PHYSICIAN Internal Medicine Hematology & Oncology; FAMILY PHYSICIAN Family Medicine | DX: I89.0 Lymphedema, not elsewhere classified (principal); C44.520 Squamous cell carcinoma of anal skin; Z73.6 Limitation of activities due to disability | CPT/HCPCS: 97140; 97163; 97535 ==

== ENCOUNTER 2024-06-06 13:42 | Outpatient (RCR) | payer MEDICARE, SELFPAY ==
[2024-05-09 11:22] LABS: Glucose - Point of Care 189 mg/dl (70-99)
[2024-05-09 11:56] LABS: Glucose - Point of Care 154 mg/dl (70-99)
[2024-05-12 13:11] LABS: Glucose - Point of Care 226 mg/dl (70-99)
[2024-05-12 14:02] LABS: Glucose - Point of Care 135 mg/dl (70-99)
[2024-05-14 13:10] LABS: Glucose - Point of Care 153 mg/dl (70-99)
[2024-05-14 14:05] LABS: Glucose - Point of Care 155 mg/dl (70-99)
[2024-05-21 13:13] LABS: Glucose - Point of Care 197 mg/dl (70-99)
[2024-05-21 14:06] LABS: Glucose - Point of Care 230 mg/dl (70-99)
[2024-05-23 13:20] LABS: Glucose - Point of Care 158 mg/dl (70-99)
[2024-05-23 14:15] LABS: Glucose - Point of Care 98 mg/dl (70-99)
[2024-05-26 13:10] LABS: Glucose - Point of Care 115 mg/dl (70-99)
[2024-05-26 13:57] LABS: Glucose - Point of Care 158 mg/dl (70-99)
== END 2024-06-06 23:59 | disposition home or self-care (01) ==
LOC: CRHB 13:42
PROVIDERS: ATTENDING PHYSICIAN Internal Medicine Cardiovascular Disease
DX: I25.10 Atherosclerotic heart disease of native coronary artery without angina pectoris (principal); Z95.5 Presence of coronary angioplasty implant and graft
CPT/HCPCS: 82962; G0422; G0423

== ENCOUNTER 2024-07-01 13:10 | Outpatient (RCR) | payer MEDICARE, SELFPAY | END 2024-07-01 23:59 | disposition home or self-care (01) | LOC: RPT 13:10 | PROVIDERS: ATTENDING PHYSICIAN Internal Medicine Hematology & Oncology; FAMILY PHYSICIAN Family Medicine | DX: I89.0 Lymphedema, not elsewhere classified (principal); C44.520 Squamous cell carcinoma of anal skin; Z73.6 Limitation of activities due to disability | CPT/HCPCS: 97140 ==

== ENCOUNTER 2024-07-07 13:33 | Outpatient (RCR) | payer MEDICARE, SELFPAY | END 2024-07-07 23:59 | disposition home or self-care (01) | LOC: CRHB 13:33 | PROVIDERS: ATTENDING PHYSICIAN Internal Medicine Cardiovascular Disease | DX: I25.10 Atherosclerotic heart disease of native coronary artery without angina pectoris (principal); Z95.5 Presence of coronary angioplasty implant and graft; I25.2 Old myocardial infarction | CPT/HCPCS: G0422; G0423 ==

== ENCOUNTER 2024-07-29 11:07 | Outpatient (RCR) | payer MEDICARE, SELFPAY | END 2024-08-05 23:59 | disposition home or self-care (01) | LOC: RPT 11:07 | PROVIDERS: ATTENDING PHYSICIAN Internal Medicine Hematology & Oncology; FAMILY PHYSICIAN Family Medicine | DX: I89.0 Lymphedema, not elsewhere classified (principal); C44.520 Squamous cell carcinoma of anal skin; Z73.6 Limitation of activities due to disability | CPT/HCPCS: 97140; 97535 ==

== ENCOUNTER 2024-08-06 14:05 | Outpatient (RCR) | payer MEDICARE, SELFPAY | END 2024-08-06 23:59 | disposition home or self-care (01) | LOC: CRHB 14:05 | PROVIDERS: ATTENDING PHYSICIAN Internal Medicine Cardiovascular Disease | DX: I25.10 Atherosclerotic heart disease of native coronary artery without angina pectoris (principal); Z95.5 Presence of coronary angioplasty implant and graft; I25.2 Old myocardial infarction | CPT/HCPCS: G0422; G0423 ==

== ENCOUNTER 2024-08-12 11:03 | Outpatient (RCR) | payer MEDICARE, SELFPAY | END 2024-08-12 23:59 | disposition home or self-care (01) | LOC: RPT 11:03 | PROVIDERS: ATTENDING PHYSICIAN Internal Medicine Hematology & Oncology; FAMILY PHYSICIAN Family Medicine | DX: I89.0 Lymphedema, not elsewhere classified (principal); C44.520 Squamous cell carcinoma of anal skin; Z73.6 Limitation of activities due to disability | CPT/HCPCS: 97140 ==

== ENCOUNTER → 2024-09-02 16:31 | Outpatient (REF) | payer MEDICARE, SELFPAY ==
[2024-09-02 12:28] LABS: % Basophils 0.6 % (0-2); % Eosinophils 0.6 % (0-6); % Lymphocytes 49.1 % (20.5-51.1); % Monocytes 11.3 % (1.7-9.3); % Neutrophils 38.4 % (42.2-75.2); Absolute Lymphocytes 0.8 10^3/uL (1.2-3.4); Absolute Monocytes 0.2 10^3/uL (0.1-0.6); Hematocrit 28.4 % (39.0-52.0); Hemoglobin 9.3 g/dL (13.0-18.0); Mean Corp Hgb Conc. 32.7 g/dL (33.0-37.0); Mean Corpuscular Hgb 28.7 pg (27.0-31.0); Mean Corpuscular Volume 87.7 fL (80.0-94.0); Mean Platelet Volume 9.2 fL (7.4-10.4); Platelet Count 184 10^3/uL (130-400); Red Blood Cell Count 3.24 10^6/uL (4.70-6.10); Red Cell Dist. Width 12.4 % (11.5-14.5)
[2024-09-02 12:31] LABS: Absolute Neutrophils 0.6 10^3/uL (1.4-6.5); White Blood Cell Count 1.6 10^3/uL (4.8-10.8)
[2024-09-02 13:01] LABS: ALT (SGPT) 13 U/L (0-50); AST (SGOT) 18 U/L (17-59); Albumin 3.6 g/dl (3.5-5.0); Alkaline Phosphatase 68 U/L (38-126); Blood Urea Nitrogen 15 mg/dl (9-20); Calcium 8.9 mg/dl (8.4-10.2); Carbon Dioxide 24 mmol/L (22-30); Chloride 102 mmol/L (98-107); Glucose 143 mg/dl (70-99); Potassium 4.6 mmol/L (3.5-5.1); Sodium 136 mmol/L (135-145); Total Bilirubin 0.4 mg/dl (0.2-1.3); Total Protein 6.1 g/dl (6.3-8.2); eGFR > 60.00
== END ==
LOC: OIDL 16:31
PROVIDERS: ATTENDING PHYSICIAN Internal Medicine Hematology & Oncology
DX: C21.1 Malignant neoplasm of anal canal (principal); D50.9 Iron deficiency anemia, unspecified; D64.81 Anemia due to antineoplastic chemotherapy; I89.0 Lymphedema, not elsewhere classified; D70.1 Agranulocytosis secondary to cancer chemotherapy
CPT/HCPCS: 80053; 85025

== ENCOUNTER → 2024-09-24 15:41 | Outpatient (REF) | payer MEDICARE, SELFPAY ==
[2024-09-24 15:08] LABS: % Basophils 0.4 % (0-2); % Eosinophils 1.1 % (0-6); % Immature Granulocytes 0.7 % (0-0.5); % Monocytes 5.6 % (1.7-9.3); % Neutrophils 61.2 % (42.2-75.2); Absolute Lymphocytes 0.9 10^3/uL (1.2-3.4); Absolute Monocytes 0.2 10^3/uL (0.1-0.6); Absolute Neutrophils 1.7 10^3/uL (1.4-6.5); Hematocrit 26.9 % (39.0-52.0); Hemoglobin 8.7 g/dL (13.0-18.0); Mean Corp Hgb Conc. 32.3 g/dL (33.0-37.0); Mean Corpuscular Hgb 29.4 pg (27.0-31.0); Mean Corpuscular Volume 90.9 fL (80.0-94.0); Mean Platelet Volume 9.4 fL (7.4-10.4); Platelet Count 242 10^3/uL (130-400); Red Blood Cell Count 2.96 10^6/uL (4.70-6.10); White Blood Cell Count 2.8 10^3/uL (4.8-10.8)
[2024-09-24 15:46] LABS: ALT (SGPT) 13 U/L (0-50); AST (SGOT) 20 U/L (17-59); Albumin 3.8 g/dl (3.5-5.0); Alkaline Phosphatase 103 U/L (38-126); Blood Urea Nitrogen 10 mg/dl (9-20); Calcium 8.7 mg/dl (8.4-10.2); Carbon Dioxide 25 mmol/L (22-30); Chloride 101 mmol/L (98-107); Glucose 136 mg/dl (70-99); Potassium 4.2 mmol/L (3.5-5.1); Sodium 135 mmol/L (135-145); Total Bilirubin 0.5 mg/dl (0.2-1.3); Total Protein 6.3 g/dl (6.3-8.2); eGFR > 60.00
== END ==
LOC: OIDL 15:41
PROVIDERS: ATTENDING PHYSICIAN Internal Medicine Hematology & Oncology
DX: C21.1 Malignant neoplasm of anal canal (principal)
CPT/HCPCS: 80053; 85025

== ENCOUNTER 2024-09-25 11:02 | Emergency (ER) | payer MEDICARE, SELFPAY ==
[2024-09-25 11:11] VITALS: BP 171/87
--- NOTE | 2024-09-25 11:11 | ED.GENMED ---
ED Provider Triage
<Roxanne Kang PA-C - Last Filed: 09/25/24 11:26>
-
Patient seen by provider in Triage?: Seen in Triage
Attestation: A medical screening examination has been initiated by a qualified medical provider. Based on the assessment performed at this time, it has been determined that an emergent medical condition may exist and the patient has been informed
that further medical evaluation and possible additional diagnostic testing may be needed.
HPI: 74yoM here with constipation. Last BM 3 days ago. C/o lower abd pain that began this morning. Has never had this severe pain before with constipation. Currently on chemo. No vomiting, fevers, urinary retention.
GENERAL: Alert , in no apparent distress
EYE: No visual abnormalities.
NECK: Trachea midline
ENT: No visible abnormalities.
LUNGS: No acute respiratory distress
NEUROLOGICAL: Alert and oriented
SKIN: Skin intact. No visible changes.
MUSCULOSKELETAL: Moving extremities normally
PSYCH: Normal and appropriate interaction.
This is a medical evaluation conducted in person to initiate diagnostic evaluation and provide initial therapeutics. Please see further documentation by the treating clinician.
Patient moaning and doubled over in pain. Abdominal labs, lactate, and CT abdomen ordered.
History of Present Illness
<Roxanne Kang PA-C - Last Filed: 09/25/24 11:26>
General
Chief Complaint: Abdominal Pain
Time Seen by Provider: 09/25/24 11:40
<Timothy Barnes PA-C - Last Filed: 09/25/24 15:56>
History of Present Illness
History of Present Illness:
74-year-old male presents to the emergency department for evaluation of severe constipation for the past 3 days. On arrival was noted to be hypertensive and tachycardic with significant abdominal pain however just prior to my evaluation the patient
had a successful bowel movement and now feels improved. Currently denies any pain on my evaluation. Not currently on a bowel regimen
Past History
<Roxanne Kang PA-C - Last Filed: 09/25/24 11:26>
Past History
ED Past Medical History: CAD, CVA (No residual weakness), GERD, HTN, Hypercholesterolemia, NIDDM, [place] and Other ( GI bleed, Renal calculus, Chronic right leg lymph edema)
ED Past Surgical History: Cardiac (stents, ), Orthopedic (Right Humerus, Right shoulder replacement, ) and Other (Hernia repair, Carotid surgery, )
Patient has exhibited threatening behavior?: No
Social History
Tobacco: Former smoker
Alcohol: Daily (Wine or beer 2)
Drug: None
Personal: Single
Living: with roommate
Review of Systems
<Timothy Barnes PA-C - Last Filed: 09/25/24 15:56>
Review of Systems
Allergies reviewed?: Yes
All Other Systems: ROS reviewed and negative except as documented in HPI and ROS
Phy Exam
<Timothy Barnes PA-C - Last Filed: 09/25/24 15:56>
Physical Exam
Physical Exam:
GEN: Well appearing, NAD, WDWN
HEENT: Oral mucosa moist, no scleral icterus
Cardiac: Regular rate
Lung: No respiratory distress, no tachypnea
Abdomen: Soft, nondistended, nontender
MSK: No gross deformity or injuries
Skin: Good color, no pallor or jaundice, no rashes
Neuro: AO x3, moves all extremities freely
Psych: Calm, cooperative
Course
<Roxanne Kang PA-C - Last Filed: 09/25/24 11:26>
Orders/Labs/Results
Orders:
Orders
09/25/24 11:18
CT Abd/pelvis W Iv Cont Urgent
Comment:
Reason For Exam: lower abd pain, constipation
09/25/24 11:24
Complete Blood Count/With Diff Urgent
Comprehensive Metabolic Panel Urgent
Lactate Level [Lactic Acid] Urgent
Lipase Urgent
Abnormal Lab Results
09/25/24
11:24
WBC 3.4 L 10^3/uL
(4.8-10.8)
RBC 3.24 L 10^6/uL
(4.70-6.10)
Hgb 9.3 L g/dL
(13.0-18.0)
Hct 28.0 L %
(39.0-52.0)
RDW 16.1 H %
(11.5-14.5)
Absolute Lymphs (auto) 0.6 L 10^3/uL
(1.2-3.4)
Immature Gran % 1.2 H %
(0-0.5)
Lymphocytes % 18.1 L %
(20.5-51.1)
Sodium 134 L mmol/L
(135-145)
Glucose 189 H mg/dl
(70-99)
09/25/24 11:24
09/25/24 11:24
Vital Signs
Initial and Last Documented VS:
Initial Vital Signs
Temp Pulse Resp BP Pulse Ox
98.1 F 100 20 171/87 100
09/25/24 11:11 09/25/24 11:11 09/25/24 11:11 09/25/24 11:11 09/25/24 11:11
Last Documented Vital Signs
Temp Pulse Resp BP Pulse Ox
98.1 F 74 16 138/85 99
09/25/24 11:11 09/25/24 13:25 09/25/24 13:25 09/25/24 13:25 09/25/24 13:25
<Timothy Barnes PA-C - Last Filed: 09/25/24 15:56>
Orders/Labs/Results
Orders:
Orders
09/25/24 11:18
CT Abd/pelvis W Iv Cont Urgent
Comment:
Reason For Exam: lower abd pain, constipation
09/25/24 11:24
Complete Blood Count/With Diff Urgent
Comprehensive Metabolic Panel Urgent
Lactate Level [Lactic Acid] Urgent
Lipase Urgent
Abnormal Lab Results
09/25/24
11:24
WBC 3.4 L 10^3/uL
(4.8-10.8)
RBC 3.24 L 10^6/uL
(4.70-6.10)
Hgb 9.3 L g/dL
(13.0-18.0)
Hct 28.0 L %
(39.0-52.0)
RDW 16.1 H %
(11.5-14.5)
Absolute Lymphs (auto) 0.6 L 10^3/uL
(1.2-3.4)
Immature Gran % 1.2 H %
(0-0.5)
Lymphocytes % 18.1 L %
(20.5-51.1)
Sodium 134 L mmol/L
(135-145)
Glucose 189 H mg/dl
(70-99)
09/25/24 11:24
09/25/24 11:24
Vital Signs
Initial and Last Documented VS:
Initial Vital Signs
Temp Pulse Resp BP Pulse Ox
98.1 F 100 20 171/87 100
09/25/24 11:11 09/25/24 11:11 09/25/24 11:11 09/25/24 11:11 09/25/24 11:11
Last Documented Vital Signs
Temp Pulse Resp BP Pulse Ox
98.1 F 74 16 138/85 99
09/25/24 11:11 09/25/24 13:25 09/25/24 13:25 09/25/24 13:25 12/19/24 13:25
<Timothy Barnes PA-C - Last Filed: 09/25/24 15:56>
MDM/Problems Addressed
MDM/Problems Addressed:
Patient had a large bowel movement prior to my assessment and feels improved, CT scan with no acute abnormalities. Recommend bowel regimen
<Timothy Barnes PA-C - Last Filed: 09/25/24 15:56>
*Critical Care Note
Total Time (30-74mins, 75-104mins- exclusive of procedures): Not Applicable
ED Attending Note
<Roxanne Kang PA-C - Last Filed: 09/25/24 11:26>
-
Portions of this chart may have been created with voice recognition software.� Occasional wrong word or��sound alike� substitutions may have occurred due to the inherent limitations of voice recognition software.
Discharge Plan
Departure
Patient Disposition: Home (Routine Discharge)
Date of Disposition: 09/25/24
Time of Disposition: 13:22
Patient with high blood pressure during this ER visit?: No
Discharge Problem:
Acute constipation
Instructions: Constipation, Adult (DC)
Prescriptions:
New
docusate sodium [Colace] 100 mg capsule
100 mg PO BID Qty: 30 0RF
No Action
cholecalciferol (vitamin D3) [Vitamin D3] 25 mcg (1,000 unit) Tablet
25 mcg PO DAILY Qty: 0
tamsulosin 0.4 MG capsule
0.4 mg PO DAILY
vitamin B complex Tablet
1 tab PO DAILY
metformin 500 mg Tablet
250 mg PO DAILY
aspirin 81 MG tablet,delayed release (DR/EC)
81 mg PO DAILY
glimepiride 2 MG tablet
2 mg PO DAILY
folic acid 1 MG tablet
1 mg PO DAILY
docusate sodium [Colace] 100 mg Capsule
100 mg PO DAILY PRN (Reason: constipation)
Chemotherapy
1 dose IV .TWICE A MONTH
amlodipine 2.5 mg Tablet
2.5 mg PO DAILY 30 Days Qty: 30 0RF
clopidogrel 75 mg Tablet
75 mg PO DAILY 30 Days Qty: 30 0RF
metoprolol succinate 25 mg Tablet Extended Release 24 Hr
12.5 mg PO DAILY 30 Days Qty: 15 0RF
rosuvastatin 10 MG tablet
20 mg PO DAILY Qty: 30 0RF
magnesium chloride [Mag 64] 64 mg tablet,delayed release (DR/EC)
64 mg PO DAILY Qty: 10 0RF
Referrals:
UNKNOWN - PT DOES,NOT KNOW [Family Provider] -
Interventions
Interventions:
*Risk Screen - Suicide Last Done: 09/25/24 11:14
*General Assessment Last Done: 09/25/24 11:14
*Neglect/Abuse Screening Last Done: 09/25/24 11:14
ED- Fall Risk Assessment Last Done: 09/25/24 11:43
*ED COVID-19 Vaccine History Last Done: 09/25/24 11:14
*Nursing Disposition Last Done: 09/25/24 13:25
[facility] Assessment Last Done: 09/25/24 11:43
Discharge Date and Time
Discharge Date/Time: 09/25/24 13:54
Print Language: CZECH
[2024-09-25 11:17] VITALS: BMI 25.2
[2024-09-25 11:34] LABS: % Basophils 0.6 % (0-2); % Eosinophils 0.6 % (0-6); % Immature Granulocytes 1.2 % (0-0.5); % Lymphocytes 18.1 % (20.5-51.1); % Monocytes 4.4 % (1.7-9.3); % Neutrophils 75.1 % (42.2-75.2); Absolute Lymphocytes 0.6 10^3/uL (1.2-3.4); Absolute Monocytes 0.2 10^3/uL (0.1-0.6); Absolute Neutrophils 2.6 10^3/uL (1.4-6.5); Hemoglobin 9.3 g/dL (13.0-18.0); Mean Corp Hgb Conc. 33.2 g/dL (33.0-37.0); Mean Corpuscular Hgb 28.7 pg (27.0-31.0); Mean Corpuscular Volume 86.4 fL (80.0-94.0); Mean Platelet Volume 9.1 fL (7.4-10.4); Nucleated Red Blood Cells % 0 % (-); Platelet Count 250 10^3/uL (130-400); Red Blood Cell Count 3.24 10^6/uL (4.70-6.10); Red Cell Dist. Width 16.1 % (11.5-14.5); White Blood Cell Count 3.4 10^3/uL (4.8-10.8)
[2024-09-25 11:53] LABS: Lactic Acid 1.7 mmol/L (0.7-2.0)
[2024-09-25 11:54] LABS: ALT (SGPT) 15 U/L (0-50); AST (SGOT) 23 U/L (17-59); Albumin 4.2 g/dl (3.5-5.0); Alkaline Phosphatase 112 U/L (38-126); Blood Urea Nitrogen 11 mg/dl (9-20); Calcium 9.5 mg/dl (8.4-10.2); Carbon Dioxide 24 mmol/L (22-30); Chloride 101 mmol/L (98-107); Estimated Creatinine Clearance 88 ml/min; Glucose 189 mg/dl (70-99); Lipase 78 U/L (23-300); Potassium 4.6 mmol/L (3.5-5.1); Sodium 134 mmol/L (135-145); Total Bilirubin 0.9 mg/dl (0.2-1.3); Total Protein 6.7 g/dl (6.3-8.2); eGFR > 60.00
[2024-09-25 12:00] VITALS: BP 154/94
[2024-09-25 13:25] VITALS: BP 138/85
== END 2024-09-25 13:54 | disposition home or self-care (01) ==
LOC: EMR 11:02
PROVIDERS: Physician Assistant; EMERGENCY PHYSICIAN Student in an Organized Health Care Education/Training Program
DX: K59.09 Other constipation (principal); R10.30 Lower abdominal pain, unspecified; I25.10 Atherosclerotic heart disease of native coronary artery without angina pectoris; I10 Essential (primary) hypertension; E78.00 Pure hypercholesterolemia, unspecified; E11.9 Type 2 diabetes mellitus without complications; I25.2 Old myocardial infarction; Z95.5 Presence of coronary angioplasty implant and graft; Z96.611 Presence of right artificial shoulder joint; Z86.73 Personal history of transient ischemic attack (TIA), and cerebral infarction without residual deficits; Z87.891 Personal history of nicotine dependence; Z88.0 Allergy status to penicillin; Z88.8 Allergy status to other drugs, medicaments and biological substances; Z79.84 Long term (current) use of oral hypoglycemic drugs; Z79.82 Long term (current) use of aspirin
CPT/HCPCS: 99284; 74177; 80053; 83605; 83690; 85025; Q9967

== ENCOUNTER → 2024-10-02 13:01 | Outpatient (REF) | payer MEDICARE, SELFPAY ==
[2024-10-02 14:02] LABS: ALT (SGPT) 13 U/L (0-50); AST (SGOT) 23 U/L (17-59); Albumin 3.7 g/dl (3.5-5.0); Alkaline Phosphatase 110 U/L (38-126); Blood Urea Nitrogen 15 mg/dl (9-20); Calcium 8.5 mg/dl (8.4-10.2); Carbon Dioxide 26 mmol/L (22-30); Chloride 102 mmol/L (98-107); Glucose 125 mg/dl (70-99); Potassium 5.2 mmol/L (3.5-5.1); Sodium 136 mmol/L (135-145); Total Bilirubin 0.2 mg/dl (0.2-1.3); Total Protein 6.1 g/dl (6.3-8.2); eGFR > 60.00
[2024-10-02 14:03] LABS: Hematocrit 28.4 % (39.0-52.0); Mean Corp Hgb Conc. 31.7 g/dL (33.0-37.0); Mean Corpuscular Volume 91.6 fL (80.0-94.0); Mean Platelet Volume 9.5 fL (7.4-10.4); Platelet Count 215 10^3/uL (130-400); Red Cell Dist. Width 18.4 % (11.5-14.5); White Blood Cell Count 2.8 10^3/uL (4.8-10.8)
[2024-10-02 14:31] LABS: Band Neutrophils 0 % (0-3); Eosinophils 2 % (0-6); Lymphocytes 43 % (20-51); Monocytes 19 % (2-9); Segmented Neutrophils 36 % (42-75)
[2024-10-02 14:32] LABS: Anisocytosis 1+; Hypochromasia 1+; Normal RBC Morphology No; Ovalocytes 1+; Platelets Checked Yes; Polychromasia 1+; Total Cells Counted 100
== END ==
LOC: REG 13:01
PROVIDERS: ATTENDING PHYSICIAN Internal Medicine Hematology & Oncology; FAMILY PHYSICIAN Family Medicine
DX: C21.1 Malignant neoplasm of anal canal (principal); D50.9 Iron deficiency anemia, unspecified; D64.81 Anemia due to antineoplastic chemotherapy; I89.0 Lymphedema, not elsewhere classified; D70.0 Congenital agranulocytosis
CPT/HCPCS: 36415; 80053; 85025

== ENCOUNTER → 2024-11-03 13:27 | Outpatient (REF) | payer MEDICARE, SELFPAY | LOC: DHVS 13:27 | PROVIDERS: ATTENDING PHYSICIAN Surgery Vascular Surgery; FAMILY PHYSICIAN Family Medicine | DX: I65.22 Occlusion and stenosis of left carotid artery (principal); I65.21 Occlusion and stenosis of right carotid artery | CPT/HCPCS: 93880 ==

== ENCOUNTER → 2024-11-19 15:08 | Outpatient (REF) | payer MEDICARE, SELFPAY ==
[2024-11-19 15:25] LABS: % Eosinophils 0.4 % (0-6); % Immature Granulocytes 0.4 % (0-0.5); % Lymphocytes 19.8 % (20.5-51.1); % Monocytes 5.6 % (1.7-9.3); % Neutrophils 73.8 % (42.2-75.2); Absolute Monocytes 0.3 10^3/uL (0.1-0.6); Absolute Neutrophils 3.6 10^3/uL (1.4-6.5); Hematocrit 24.4 % (39.0-52.0); Hemoglobin 7.7 g/dL (13.0-18.0); Mean Corp Hgb Conc. 31.6 g/dL (33.0-37.0); Mean Corpuscular Hgb 29.8 pg (27.0-31.0); Mean Corpuscular Volume 94.6 fL (80.0-94.0); Mean Platelet Volume 9.5 fL (7.4-10.4); Platelet Count 234 10^3/uL (130-400); Red Blood Cell Count 2.58 10^6/uL (4.70-6.10); Red Cell Dist. Width 15.6 % (11.5-14.5); White Blood Cell Count 4.9 10^3/uL (4.8-10.8)
[2024-11-19 16:36] LABS: ALT (SGPT) 12 U/L (0-50); AST (SGOT) 17 U/L (17-59); Albumin 3.3 g/dl (3.5-5.0); Alkaline Phosphatase 81 U/L (38-126); Blood Urea Nitrogen 15 mg/dl (9-20); Calcium 8.7 mg/dl (8.4-10.2); Carbon Dioxide 23 mmol/L (22-30); Chloride 102 mmol/L (98-107); Glucose 214 mg/dl (70-99); Iron 61 ug/dl (49-181); Potassium 4.3 mmol/L (3.5-5.1); Sodium 134 mmol/L (135-145); Total Bilirubin 0.3 mg/dl (0.2-1.3); Total Protein 5.8 g/dl (6.3-8.2); eGFR > 60.00
[2024-11-19 16:45] LABS: Percent Saturation 23 % (20-50); Total Iron Binding Capacity 259 ug/dl (261-462)
== END ==
LOC: OIDL 15:08
PROVIDERS: ATTENDING PHYSICIAN Internal Medicine Hematology & Oncology
DX: C21.1 Malignant neoplasm of anal canal (principal); D50.9 Iron deficiency anemia, unspecified; D64.81 Anemia due to antineoplastic chemotherapy
CPT/HCPCS: 80053; 82728; 83540; 83550; 85025; 86850; 86900; 86901; 86920

== ENCOUNTER 2024-11-20 08:14 | Outpatient (RCR) | payer MEDICARE, SELFPAY ==
[2024-11-10 09:55] VITALS: BP 111/44
[2024-11-10 10:13] VITALS: BP 115/63
[2024-11-10 12:11] VITALS: BP 116/53
[2024-11-20 08:40] VITALS: BP 117/50
[2024-11-20 09:12] VITALS: BP 117/50
[2024-11-20 09:29] VITALS: BP 125/68
[2024-11-20 11:06] VITALS: BP 124/48
== END 2024-12-05 23:59 | disposition home or self-care (01) ==
LOC: OID 08:14
PROVIDERS: ATTENDING PHYSICIAN Internal Medicine Hematology & Oncology; FAMILY PHYSICIAN Family Medicine
DX: C21.1 Malignant neoplasm of anal canal (principal); D50.9 Iron deficiency anemia, unspecified
CPT/HCPCS: 36430; 86850; 86900; 86901; 86920; P9016

== ENCOUNTER 2024-12-02 00:10 | Emergency (ER) | payer MEDICARE, SELFPAY ==
[2024-12-02 00:14] VITALS: BP 98/44
[2024-12-02 02:00] VITALS: BP 105/5
[2024-12-02 03:00] VITALS: BP 105/50
[2024-12-02 03:13] VITALS: BMI 25.9
--- NOTE | 2024-12-02 03:31 | ED.GENMED ---
History of Present Illness
General
Chief Complaint: Musculo-Skeletal Complaint
Time Seen by Provider: 12/02/24 03:30
History of Present Illness
History of Present Illness:
TIME OF INITIAL ENCOUNTER: 3:35 AM
HPI: Patient came in by ambulance due to right lower extremity pain that been worsening over the past month. He started having some discomfort and swelling about 2 years ago. He was told that his swelling and pain is likely related to oncologic
involvement of his lymph nodes but he is not sure of his diagnosis (not sure if he has lymphoma). He did not speak to his oncologist recently. He has been intermittently taking narcotic analgesia.
EXAM:
GENERAL: Well appearing in no distress
HEENT: Moist oral mucosa
CARDIOVASCULAR: 3 out of 6 systolic ejection murmur heard in the upper sternal borders, normal heart rate, regular rhythm, No chest wall tenderness
PULMONARY: No respiratory distress, breath sounds are clear and equal
ABDOMEN: Soft with no peritoneal signs, no tenderness
NEUROLOGIC: Good strength all extremities, no coordination deficits
PSYCHIATRIC: Appropriate mental status, normal insight and judgement
EXTREMITIES: Marked pitting edema to the right lower extremity diffusely, mild warmth and erythema, no evidence of Eunice's gangrene
SKIN: No rash, no lesions
NUMBER AND COMPLEXITY OF PROBLEMS ADDRESSED AT THE ENCOUNTER
� Chronic conditions affecting care: Atherosclerosis, former smoker, CAD, high blood pressure, hyperlipidemia
� Acute Exacerbation and/or Progression of Chronic Illness: This is an acute problem
� Differential Diagnosis includes: Progression of venous insufficiency, progression of lymphatic involvement,
AMOUNT AND/OR COMPLEXITY OF DATA TO BE REVIEWED AND ANALYZED
� I performed an independent evaluation of and my interpretation is:
EKG:
CT:
X-rays:
Laboratory Studies:
Other: I received verbal report from cogeneration technician who also noted radiologist dictated report (which I cannot see currently) and the report is that the ultrasound is negative for DVT
� Review of other/old records: I reviewed records, the patient did have a mild drop in his hemoglobin recently
� Clinical information was obtained by an independent historian: None needed
� Prescriptions/Medications Considered but not given:
� Further testing considered but not performed:
RISK OF COMPLICATIONS AND/OR MORBIDITY OR MORTALITY OF PATIENT MANAGEMENT
� Social determinants of health affecting care: Lives at home
� Discussion with other providers:
� Escalation of care including admission/observation vs risk of discharge considered: The patient came in by ambulance due to pain. He did not call his oncologist yet. He was placed on narcotics by his PMD. Will obtain
ultrasound imaging to evaluate for DVT. Considered further workup however the patient's symptoms have been worsening for months.
ANY OTHER UPDATES:
Past History
Past History
ED Past Medical History: CAD, CVA (No residual weakness), GERD, HTN, Hypercholesterolemia, NIDDM, [place] and Other ( GI bleed, Renal calculus, Chronic right leg lymph edema)
ED Past Surgical History: Cardiac (stents, ), Orthopedic (Right Humerus, Right shoulder replacement, ) and Other (Hernia repair, Carotid surgery, )
Patient has exhibited threatening behavior?: No
Social History
Tobacco: Former smoker
Alcohol: Daily (Wine or beer 2)
Drug: None
Personal: Single
Living: with roommate
Phy Exam
Physical Exam
Physical Exam:
See HPI
Course
Orders/Labs/Results
Orders:
Orders
12/02/24 03:40
Ketorolac [Toradol] 30 mg IM NOW STA
US Legs, Right [US Periph Venous LOWER Ext RT] Urgent
Comment:
Reason For Exam: swelling eval for dvt
Vital Signs
Initial and Last Documented VS:
Initial Vital Signs
Temp Pulse Resp BP Pulse Ox
36.7 C 78 18 98/44 100
12/02/24 00:14 12/02/24 00:14 12/02/24 00:14 12/02/24 00:14 12/02/24 00:14
Last Documented Vital Signs
Temp Pulse Resp BP Pulse Ox
36.7 C 80 18 105/5 100
12/02/24 00:14 12/02/24 02:00 12/02/24 02:00 12/02/24 02:00 12/02/24 02:00
*Critical Care Note
Total Time (30-74mins, 75-104mins- exclusive of procedures): Not Applicable
ED Attending Note
-
Portions of this chart may have been created with voice recognition software.� Occasional wrong word or��sound alike� substitutions may have occurred due to the inherent limitations of voice recognition software.
Discharge Plan
Departure
Patient Disposition: Home (Routine Discharge)
Date of Disposition: 12/02/24
Time of Disposition: 06:36
Patient with high blood pressure during this ER visit?: Yes
Discharge Problem:
Edema
Instructions: Lymphedema
Prescriptions:
No Action
cholecalciferol (vitamin D3) [Vitamin D3] 25 mcg (1,000 unit) Tablet
25 mcg PO DAILY Qty: 0
tamsulosin 0.4 MG capsule
0.4 mg PO DAILY
vitamin B complex Tablet
1 tab PO DAILY
metformin 500 mg Tablet
250 mg PO DAILY
aspirin 81 MG tablet,delayed release (DR/EC)
81 mg PO DAILY
glimepiride 2 MG tablet
2 mg PO DAILY
folic acid 1 MG tablet
1 mg PO DAILY
clopidogrel 75 mg Tablet
75 mg PO DAILY 30 Days Qty: 30 0RF
metoprolol succinate 25 mg Tablet Extended Release 24 Hr
12.5 mg PO DAILY 30 Days Qty: 15 0RF
rosuvastatin 10 MG tablet
20 mg PO DAILY Qty: 30 0RF
prochlorperazine maleate [Compazine] 10 mg Tablet
10 mg PO Q6H PRN (Reason: nausea)
oxycodone 5 mg Tablet
5 mg PO Q6H PRN (Reason: pain)
Referrals:
Danielle Craig, [Active] - Follow up in 2-3 days
Marco Rahman MD [Family Provider] -
Activity Restrictions/Additional Instructions:
Ultrasound shows no sign of blood clot. I recommend that you follow-up with your primary care doctor as well as Dr. Craig. We gave a one-time dose of Toradol as a shot.
Interventions
Interventions:
*Risk Screen - Suicide Last Done: 12/02/24 00:14
*General Assessment Last Done: 12/02/24 00:14
*Neglect/Abuse Screening Last Done: 12/02/24 00:14
ED-Musculoskeletal Assessment Last Done: 12/02/24 03:16
Discharge Date and Time
Print Language: ISRAELI
[2024-12-02 04:00] VITALS: BP 111/52
[2024-12-02] MEDS: TORADOL 30 MG IM (04:13)
[2024-12-02 06:47] VITALS: BP 122/57
[2024-12-02 06:50] VITALS: BP 122/57
== END 2024-12-02 08:19 | disposition home or self-care (01) ==
LOC: EMR 00:10
PROVIDERS: EMERGENCY PHYSICIAN Emergency Medicine; FAMILY PHYSICIAN Family Medicine
DX: R60.0 Localized edema (principal); I25.10 Atherosclerotic heart disease of native coronary artery without angina pectoris; E78.00 Pure hypercholesterolemia, unspecified; I10 Essential (primary) hypertension; K21.9 Gastro-esophageal reflux disease without esophagitis; I25.2 Old myocardial infarction; E11.9 Type 2 diabetes mellitus without complications; Z86.73 Personal history of transient ischemic attack (TIA), and cerebral infarction without residual deficits; Z87.891 Personal history of nicotine dependence; Z95.5 Presence of coronary angioplasty implant and graft; Z96.611 Presence of right artificial shoulder joint
CPT/HCPCS: 96372; 99284; 93971

== ENCOUNTER → 2024-12-03 13:27 | Outpatient (REF) | payer MEDICARE, SELFPAY ==
[2024-12-03 11:54] LABS: % Basophils 0.2 % (0-2); % Eosinophils 0.8 % (0-6); % Immature Granulocytes 1.2 % (0-0.5); % Lymphocytes 10.3 % (20.5-51.1); % Neutrophils 79.5 % (42.2-75.2); Absolute Eosinophils 0.1 10^3/uL (0-0.7); Absolute Immature Granulocytes 0.1 10^3/uL (0-0.05); Absolute Monocytes 0.7 10^3/uL (0.1-0.6); Absolute Neutrophils 7.3 10^3/uL (1.4-6.5); Hematocrit 30.1 % (39.0-52.0); Hemoglobin 9.5 g/dL (13.0-18.0); Mean Corp Hgb Conc. 31.6 g/dL (33.0-37.0); Mean Corpuscular Hgb 29.9 pg (27.0-31.0); Mean Corpuscular Volume 94.7 fL (80.0-94.0); Mean Platelet Volume 10.2 fL (7.4-10.4); Platelet Count 219 10^3/uL (130-400); Red Blood Cell Count 3.18 10^6/uL (4.70-6.10); Red Cell Dist. Width 17.2 % (11.5-14.5); White Blood Cell Count 9.2 10^3/uL (4.8-10.8)
[2024-12-03 13:56] LABS: ALT (SGPT) 11 U/L (0-50); AST (SGOT) 20 U/L (17-59); Albumin 3.9 g/dl (3.5-5.0); Alkaline Phosphatase 145 U/L (38-126); Blood Urea Nitrogen 14 mg/dl (9-20); Calcium 9.3 mg/dl (8.4-10.2); Carbon Dioxide 22 mmol/L (22-30); Chloride 103 mmol/L (98-107); Glucose 136 mg/dl (70-99); Potassium 4.7 mmol/L (3.5-5.1); Sodium 138 mmol/L (135-145); Total Protein 6.4 g/dl (6.3-8.2); eGFR > 60.00
== END ==
LOC: OIDL 13:27
PROVIDERS: ATTENDING PHYSICIAN Internal Medicine Hematology & Oncology
DX: C21.1 Malignant neoplasm of anal canal (principal)
CPT/HCPCS: 80053; 85025

== ENCOUNTER 2024-12-08 16:32 | Inpatient (IN) | payer MEDICARE, SELFPAY ==
[2024-12-08 08:40] VITALS: BP 110/50
--- NOTE | 2024-12-08 09:23 | ED.GENMED ---
History of Present Illness
General
Chief Complaint: Swelling
Source: patient and records
Exam Limitations: none
Time Seen by Provider: 12/08/24 09:04
History of Present Illness
History of Present Illness:
74yoM with a history of lymphedema presenting for evaluation of right leg pain and swelling. He has a history of chronic lymphedema to the right leg over the past 2 years. 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
undergoing chemotherapy. Symptoms have been worsening over the past month or so. He was initially prescribed 5 mg of oxycodone which had to be increased to 10 mg due to uncontrolled pain. His oncologist also started him on gabapentin last week
for his pain. He was seen in the ED 6 days ago for the same and had a negative venous duplex. Patient is here with ongoing symptoms. He is tearful during exam stating he does not know what to do anymore and is requesting rehab placement. He
denies any fevers, chills, chest pain, shortness of breath.
Past History
Past History
ED Past Medical History: CAD, CVA (No residual weakness), GERD, HTN, Hypercholesterolemia, NIDDM, [place] and Other ( GI bleed, Renal calculus, Chronic right leg lymph edema)
ED Past Surgical History: Cardiac (stents, ), Orthopedic (Right Humerus, Right shoulder replacement, ) and Other (Hernia repair, Carotid surgery, )
Patient has exhibited threatening behavior?: No
Social History
Tobacco: Former smoker
Alcohol: Daily (Wine or beer 2)
Drug: None
Personal: Single
Living: with roommate
Phy Exam
General Physical Exam
General Presentation: well appearing and no apparent distress
General age: appears stated age
General Skin: warm and dry
General Habitus: normal
General Mental: anxious
ENT Exam
ENT Exam: normocephalic
Pulmonary Exam
Pulmonary Exam: lungs clear, no respiratory distress, no rales, no crackles and no rhonchi
Neurological Exam
Neurological Exam: alert
Hammond Coma Scale
Eye Opening: Spontaneous
Verbal Response: Oriented
Motor Response: Obeys Commands
GCS Total Score: 15
Skin Exam
Skin Exam: warm/dry and other (Lymphedema noted to R leg. Leg is erythematous consistent with venous stasis. No warmth to suggest cellulitis. 2+ DP pulse and cap refill <2 seconds.)
Psychiatric Exam
Psychiatric Exam: anxious
Scores
Heart Failure Risk
Heart Failure Risk Score: Not Applicable
Course
Orders/Labs/Results
Orders:
Orders
12/08/24 09:22
Case Management Consult ONCE
Case Management Consult: Discharge Planning
Oxycodone/Acetaminophen [Percocet 5/325] 2 tablet PO NOW STA
Pt Eval And Treat Urgent
Activity Level: Out of Bed- Ad Amaris
Venous Doppler Lwr Ext Rt [[facility] Venous LOWER Ext RT] Urgent
Comment:
Reason For Exam: worsening R leg swelling/pain
12/08/24 14:49
Complete Blood Count/With Diff Urgent
Comprehensive Metabolic Panel Urgent
Vital Signs
Initial and Last Documented VS:
Initial Vital Signs
Temp Pulse Resp BP Pulse Ox
98.2 F 110 18 110/50 100
12/08/24 08:40 12/08/24 08:40 12/08/24 08:40 12/08/24 08:40 12/08/24 08:40
Last Documented Vital Signs
Temp Pulse Resp BP Pulse Ox
98.2 F 110 18 110/50 100
12/08/24 08:40 12/08/24 08:40 12/08/24 08:40 12/08/24 08:40 12/08/24 08:40
MDM/Problems Addressed
Differential Diagnosis Includes:
74yoM here with R leg pain and swelling. Chronic lymphedema in the leg x 2 years. Currently on oxycodone and gabapentin for his pain. Seen in the ED last week for the same. Also does not feel comfortable at home and requesting rehab placement. HR
110, remainder of vitals are normal. Lymphedema noted to R leg on exam. Palpable pulse present and cap refill intact. Differential diagnosis includes but is not limited to: lymphedema, DVT, doubt cellulitis
Initial ED plan: Check venous duplex. Consult case management and PT.
*Critical Care Note
Total Time (30-74mins, 75-104mins- exclusive of procedures): Not Applicable
Update Note
Update Note:
Venous duplex is negative for DVT. Patient evaluated by physical therapy who recommended short-term rehab. Case management consulted to assist with this. Unfortunately, case management unable to secure placement today. He was admitted for
further management.
ED Attending Note
-
Portions of this chart may have been created with voice recognition software.� Occasional wrong word or��sound alike� substitutions may have occurred due to the inherent limitations of voice recognition software.
Discharge Plan
Departure
Patient Disposition: Admit
Date of Disposition: 12/08/24
Time of Disposition: 14:58
Presentation/result/management discussed w/ accepting MD/DO: Hospitalist
Discharge Problem:
Lymphedema, Ambulatory dysfunction
Prescriptions:
No Action
cholecalciferol (vitamin D3) [Vitamin D3] 25 mcg (1,000 unit) Tablet
25 mcg PO DAILY Qty: 0
tamsulosin 0.4 MG capsule
0.4 mg PO DAILY
vitamin B complex Tablet
1 tab PO DAILY
metformin 500 mg Tablet
250 mg PO DAILY
aspirin 81 MG tablet,delayed release (DR/EC)
81 mg PO DAILY
glimepiride 2 MG tablet
2 mg PO DAILY
folic acid 1 MG tablet
1 mg PO DAILY
clopidogrel 75 mg Tablet
75 mg PO DAILY 30 Days Qty: 30 0RF
metoprolol succinate 25 mg Tablet Extended Release 24 Hr
12.5 mg PO DAILY 30 Days Qty: 15 0RF
rosuvastatin 10 MG tablet
20 mg PO DAILY Qty: 30 0RF
prochlorperazine maleate [Compazine] 10 mg Tablet
10 mg PO Q6H PRN (Reason: nausea)
oxycodone 5 mg Tablet
5 mg PO Q6H PRN (Reason: pain)
Referrals:
Marco Rahman MD [Family Provider] -
Interventions
Interventions:
*Risk Screen - Suicide Last Done: 12/08/24 08:40
*General Assessment Last Done: 12/08/24 09:38
*Neglect/Abuse Screening Last Done: 12/08/24 08:40
*ED COVID-19 Vaccine History Last Done: 12/08/24 09:38
ED- Cardiac Assessment Last Done: 12/08/24 09:36
ED- Pulmonary Assessment Last Done: 12/08/24 09:36
ED-Skin Assessment Last Done: 12/08/24 09:36
Discharge Date and Time
Print Language: EMIRATI
[2024-12-08] MEDS: PERCOCET 5/325 2 TABLET PO (09:33)
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
[2024-12-08 11:49] VITALS: BP 93/79
--- NOTE | 2024-12-08 16:01 | HPS.HSE ---
Family Physician
-
Family Physician: Marco Rahman
Chief Complaint
-
evaluation of right leg pain and swelling.
History of Present Illness
74M HX chronic lymphedema seen at ER
- evaluation of right leg pain and swelling.
- chronic lymphedema to the right leg over the past 2 years
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
- Symptoms have been worsening over the past month or so
- initially prescribed 5 mg of oxycodone which had to be increased to 10 mg due to uncontrolled pain.
- Primary oncologist also started him on gabapentin last week for his pain.
- was in ED 6 days ago for the same and had a negative venous duplex.
- He is tearful during exam stating he does not know what to do anymore and is requesting rehab placement.
ROS
He denies any fevers, chills, chest pain, shortness of breath.
Medical History
Past Medical History
Past Medical History: Reports Other (rectal cancer on chemotherapy, GI bleeding, anemia, hypertension, hyperlipidemia, diabetes, coronary artery disease, peripheral arterial disease, CVA, alcohol use disorder, chronic lymphedema right lower
extremity)
Past Surgical History: Reports None
Social History
Tobacco: Former Smoker
Drug: None
Family History
Family History: Not pertinent
Allergies / Home Medications
Allergies reflects when Allergies were last updated in [facility].
Home Medications with original date entered in [facility]
Allergy/Medication List:
Allergies
Allergy/AdvReac Type Severity Reaction Status Date / Time
abciximab [From Reopro] Allergy Thrombocyto Verified 04/11/23 21:02
penia
Penicillins Allergy Rash-chilho Verified 04/11/23 21:02
od
Home Medications
cholecalciferol (vitamin D3) 25 mcg (1,000 unit) tablet (Vitamin D3) 25 mcg PO DAILY Supplement ##0 01/11/22
rosuvastatin 10 mg tablet 10 mg PO DAILY High cholesterol 01/11/22
metoprolol succinate 25 mg tablet,extended release 24 hr 25 mg PO DAILY Heart disease/condition 04/18/22
tamsulosin 0.4 mg capsule 0.4 mg PO DAILY Urinary issue 04/18/22
aspirin 81 mg tablet,delayed release 81 mg PO DAILY Blood Clot Prevention/Tx 08/02/23
folic acid 1 mg tablet 1 mg PO DAILY Supplement 08/02/23
glimepiride 2 mg tablet 2 mg PO DAILY Diabetes 08/02/23
metformin 500 mg tablet 250 mg PO DAILY Diabetes 08/02/23
vitamin B complex 1 tab PO DAILY Supplement 08/02/23
carboplatin 1 dose IV . DIRECTED Cancer 01/04/24
docusate sodium 100 mg capsule (Colace) 100 mg PO DAILY 01/04/24
paclitaxel 6 mg/mL concentrate,intravenous 1 mg IV . DIRECTED Cancer 01/04/24
polyethylene glycol 3350 17 gram oral powder packet (Miralax) 17 g PO DAILY PRN constipation 01/04/24
Review of Systems
-
Constitutional: Reports No Symptoms
EENT: Reports No Symptoms
Respiratory: Reports No Symptoms
Cardiac: Reports No Symptoms
Abdomen/GI: Reports No Symptoms
: Reports No Symptoms
Musculoskeletal: Reports See HPI
Skin: Reports No Symptoms
Neurological: Reports No Symptoms
Endocrine: Reports No Symptoms
Hematologic/Lymphatic: Reports No Symptoms
Psych: Reports No Symptoms
Physical Exam
Vital Signs
Vital Signs
Temp Pulse Resp BP Pulse Ox
98.2 F 110 18 110/50 100
12/08/24 08:40 12/08/24 08:40 12/08/24 08:40 12/08/24 08:40 12/08/24 08:40
Physical Exam
General: Well Developed, Well Nourished and No Apparent Distress
HEENT: NormoCephalic, Moist mucous membranes and Atraumatic
Respiratory: Clear
Cardiac: S1/S2 and Regular Rhythm; No Murmur or Rub
GI: Soft, Non Tender, Non Distended and Normal Bowel Sounds; No Organomegaly
Rectal: Deferred by Provider
Genito-urinary: Deferred by me
Musculoskeletal: No Clubbing, No Cyanosis and Edema, Right Lower Extremity
Skin: Other ( Lymphedema noted to R leg. Leg is erythematous consistent with venous stasis. No warmth to suggest cellulitis. 2+ DP pulse and cap refill <2 seconds.); No Warm or Rash
Psych: Calm
Laboratory Results
-
03/20/24 01:40
03/20/24 01:40
Laboratory Results
Total Bilirubin 0.4 mg/dl (0.2-1.3) 03/20/24 01:40
AST 22 U/L (17-59) 03/20/24 01:40
ALT 12 U/L (0-50) 03/20/24 01:40
Alkaline Phosphatase 92 U/L (38-126) 03/20/24 01:40
Troponin I 0.022 ng/ml 03/20/24 01:40
Data Reviewed
-
Ultrasound: Report Reviewed by me
Medical Tests (Nuc Med, Echo, EKG etc): Report Reviewed by me
Lab Data: Labs Reviewed by me
Old Records: Reviewed
Impression/Plan
-
VSS
12/08/24
08:40
Temp 98.2 F
Pulse 110
Resp Rate 18
Blood pressure 110/50
SaO2 100
Oxygen Mode of Delivery Room air
Data: Pending
Rt [place] US: No evidence of deep venous thrombosis of the right lower extremity.
ASSESSMENT & PLAN
74M HX lymphoma on chemo (follows with Dr. Craig) and chronic lymphedema of R leg.
Worsening & intractable pain/swelling to the R leg on current OP pain controll
- associated with ambulatory dysfunction.
- Duplex is negative for DVT
- escalade Gabapentin to 300mg q8h in place of RATE SETTER BID
- escalade PO Oxycodone to 5mg q4h prn and hold for excessive sedation
- add IV Dilaudid PRN for break thru pain
- BW regime
- PT/OT
- to consider placement
- f/u with Case management in AM : unable to place from ER today
Known HX
HX OR, HX CAD: on DAPL
HX CVA without residual weakness
Essential HTN: on Amlodipine, metoprolol XL
Hypercholesterolemia
NIDDM; on Metformin, add ISS low
HX GI bleed
HX Renal calculus
DVT Px: SQH
Full code
IP MS
[2024-12-08 16:24] VITALS: BP 122/74
[2024-12-08 16:54] LABS: % Basophils 0.4 % (0-2); % Immature Granulocytes 0.2 % (0-0.5); % Lymphocytes 12.4 % (20.5-51.1); % Monocytes 2.9 % (1.7-9.3); % Neutrophils 84.1 % (42.2-75.2); Absolute Lymphocytes 0.7 10^3/uL (1.2-3.4); Absolute Monocytes 0.2 10^3/uL (0.1-0.6); Absolute Neutrophils 4.4 10^3/uL (1.4-6.5); Hemoglobin 8.3 g/dL (13.0-18.0); Mean Corp Hgb Conc. 31.9 g/dL (33.0-37.0); Mean Corpuscular Volume 93.9 fL (80.0-94.0); Mean Platelet Volume 9.7 fL (7.4-10.4); Nucleated Red Blood Cells % 0 % (-); Platelet Count 240 10^3/uL (130-400); Red Blood Cell Count 2.77 10^6/uL (4.70-6.10); Red Cell Dist. Width 16.8 % (11.5-14.5); White Blood Cell Count 5.3 10^3/uL (4.8-10.8)
[2024-12-08 17:12] LABS: ALT (SGPT) 13 U/L (0-50); AST (SGOT) 22 U/L (17-59); Albumin 3.6 g/dl (3.5-5.0); Alkaline Phosphatase 88 U/L (38-126); Blood Urea Nitrogen 23 mg/dl (9-20); Calcium 8.6 mg/dl (8.4-10.2); Carbon Dioxide 24 mmol/L (22-30); Chloride 99 mmol/L (98-107); Estimated Creatinine Clearance 88 ml/min; Glucose 190 mg/dl (70-99); Sodium 134 mmol/L (135-145); Total Protein 5.9 g/dl (6.3-8.2); eGFR > 60.00
[2024-12-08 17:26] VITALS: BP 153/67
[2024-12-08 17:27] VITALS: BMI 25.3
[2024-12-08 18:04] LABS: Glucose - Point of Care 205 mg/dl (70-99)
[2024-12-08] MEDS: DILAUDID 0.25 MG IV (18:12)
[2024-12-08] MEDS: NOVOLOG FLEXPEN-LOW RESISTANCE 2 UNITS SC (18:14)
[2024-12-08] MEDS: COLACE PO (19:48)
[2024-12-08] MEDS: NEURONTIN 300 MG PO (21:04)
[2024-12-08] MEDS: ROXICODONE 5 MG PO (21:24)
[2024-12-08] MEDS: ANESTHETIC LOZENGE 1 LOZENGE PO (21:39)
[2024-12-08 21:58] LABS: Glucose - Point of Care 204 mg/dl (70-99)
[2024-12-08 23:15] VITALS: BP 116/57
[2024-12-09] MEDS: DILAUDID 0.5 MG IV ×3 (01:19→23:52)
[2024-12-09] MEDS: ROXICODONE 5 MG PO ×3 (04:49→15:05)
[2024-12-09 06:36] LABS: Hematocrit 24.8 % (39.0-52.0); Hemoglobin 8.2 g/dL (13.0-18.0); Mean Corp Hgb Conc. 33.1 g/dL (33.0-37.0); Mean Corpuscular Hgb 30.4 pg (27.0-31.0); Mean Corpuscular Volume 91.9 fL (80.0-94.0); Mean Platelet Volume 11.2 fL (7.4-10.4); Platelet Count 267 10^3/uL (130-400); Red Cell Dist. Width 16.3 % (11.5-14.5); White Blood Cell Count 5.1 10^3/uL (4.8-10.8)
[2024-12-09 06:57] LABS: Blood Urea Nitrogen 17 mg/dl (9-20); Calcium 8.6 mg/dl (8.4-10.2); Carbon Dioxide 26 mmol/L (22-30); Chloride 101 mmol/L (98-107); Estimated Creatinine Clearance 88 ml/min; Glucose 157 mg/dl (70-99); Potassium 4.4 mmol/L (3.5-5.1); Sodium 134 mmol/L (135-145); eGFR > 60.00
[2024-12-09 07:31] LABS: Glucose - Point of Care 169 mg/dl (70-99)
[2024-12-09 07:55] VITALS: BP 155/74
[2024-12-09] MEDS: NEURONTIN 300 MG PO ×3 (08:01→20:01)
[2024-12-09] MEDS: PLAVIX 75 MG PO (08:02)
[2024-12-09] MEDS: NORVASC 2.5 MG PO (08:02)
[2024-12-09] MEDS: TOPROL XL 25 MG PO (08:02)
[2024-12-09] MEDS: AMARYL 2 MG PO (08:02)
[2024-12-09] MEDS: ASPIR LOW (ENTERIC COATED) 81 MG PO (08:02)
[2024-12-09] MEDS: FLOMAX 0.4 MG PO (08:02)
[2024-12-09] MEDS: COLACE PO ×2 (08:02→19:58)
[2024-12-09] MEDS: NOVOLOG FLEXPEN-LOW RESISTANCE 1 UNITS SC (08:03)
--- NOTE | 2024-12-09 09:06 | W.PN.HOSP.TC ---
Today's Communication/Plan
-
PT OT
Consulted CM for placement
Pain management as needed
Assessment / Plan
Assessment / Plan
Patient is a 74 yo M with PMH of who presents with worsening chronic lymphedema of right leg, causing severe pain and ambulatory dysfunction.
#Chronic right leg lymphedema
- Present since 2022 after anal SCC diagnosis
- Patient was recently in ED if similar complaint- Duplex ultrasound done which was negative for DVT
- On gabapentin 300 twice daily and oxycodone 5 mg q6h at home
- Gabapentin increased to 300mg q8h and oxycodone increased to q4h prn- Dilaudid 0.5 q4h PRN
- PT OT
- Consulted CM for placement
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
-Follows with Dr. Craig
-Per patient, still receiving chemo therapy (last session 10/31/24)
# Essential HTN
-Continue home amlodipine 2.5, metoprolol 25 XL
# NIDDM
-Accu-Chek
-Low SSI
-Hold metformin for now-continue glimepiride
-Check A1c
# BPH
-Continue Flomax
# History of PR/ CAD
-Continue home aspirin and Plavix
# History of chronic constipation
-Chronic opioid use
-Scheduled Colace
-MiraLAX and Senokot as as needed
DVT prophylaxis
Heparin SC
CODE STATUS
Full code
Anticipated Discharge: > 48 hours
Subjective/Interval History
-
Date of Service: December 09, 2024
Patient complains of right leg pain, especially on walking. Does not offer any other complaints
Objective Data
-
Labs:
Laboratory Results
12/09/24
04:48
WBC 5.1
Hgb 8.2 L
Hct 24.8 L
Plt Count 267
Sodium 134 L
Potassium 4.4
Chloride 101
Carbon Dioxide 26
BUN 17
Creatinine 0.7
Glucose 157 H
Calcium 8.6
Vital Signs:
Vital Signs
Temp Pulse Resp BP Pulse Ox
98.0 F 97 16 155/74 96
12/09/24 07:55 12/09/24 07:55 12/09/24 07:55 12/09/24 07:55 12/09/24 07:55
I&O
12/08/24 12/09/24 12/10/24
06:59 06:59 06:59
Intake Total 480 / 480
Output Total 1100 / 1100
Balance -620 / -620
Review of Systems
-
History Source: Patient
All other systems: Reviewed and negative
Musculoskeletal: Reports Other (Right leg pain)
Physical Exam
-
General: Well Developed and No Apparent Distress
HEENT: Normocephalic, Atraumatic and Moist Mucous Membranes
Respiratory: Clear to Auscultation
Cardiac: Regular Rhythm, S1/S2 and Other; Negative Murmur, Rub or Gallop
GI: Soft, Nontender, Nondistended and Normal Bowel Sounds
Musculoskeletal: No Clubbing, No Cyanosis and Edema, Right Lower Extrem (2+ nonpitting edema extending from foot to hip, no signs of cellulitis)
Neuro: Awake, AO x 3, No Motor Deficits and Nonfocal/Grossly Intact
Psych: Calm
[2024-12-09 09:17] LABS: Glycohemoglobin (HgbA1c) 6.4 % (4.0-5.6)
--- NOTE | 2024-12-09 11:54 | W.PN.UPDATE ---
Update Note
Progress Note Update
I saw and evaluated the patient. I reviewed the resident�s note and agree with findings and plan as documented in the resident�s note.
No new complaints.
Gen: NAD, AAOx3.
Eyes: EOMI, PERRLA, no scleral icterus.
Neck: supple.
CV: RRR, +S1/S2, no m/r/g.
Resp: CTAB, no rales, wheezes, or rhonchi.
Abd: +BS, soft, NT, ND
Skin: No rashes. 2+ RLE lymphedema.
Neuro: CN 2-12 intact, non-focal.
Psych: Normal mood and affect.
Worsening & intractable pain/swelling of RLE:
-with resulting ambulatory dysfunction
-h/o Lymphoma on chemo with chronic RLE lymphedema
-RLE U/S NEG DVT
-Neurontin/oxycodone increased for uncontrolled pain
-Bowel regimen
-PT/OT
-for placement (was unable to be placed from ER)
Other problems:
HX AK, HX CAD: on DAPL
HX CVA without residual weakness
Essential HTN: on Amlodipine, metoprolol XL
Hypercholesterolemia
NIDDM; on Metformin, add ISS low
HX GI bleed
HX Renal calculus
Remains medically cleared for discharge since the patient was in the ER. Case management aware.
[2024-12-09 13:13] LABS: Glucose - Point of Care 131 mg/dl (70-99)
[2024-12-09] MEDS: NOVOLOG FLEXPEN-LOW RESISTANCE SC ×2 (13:41→18:36)
[2024-12-09 15:06] VITALS: BP 133/58; PULSE 85; O2SAT 99
[2024-12-09 15:55] VITALS: BP 109/50
[2024-12-09 16:13] VITALS: BP 95/58; PULSE 89; O2SAT 99
--- NOTE | 2024-12-09 17:00 | CM ---
Alert awake oriented patient who lives with his friend Jacky who lives in a 1 story home with 4 step to enter. He is independent in driving and in all activities of daily living.He has had increase pain recently in right leg.He is current with
cancer chemo treatments.PT OT helen needed for dc plan.No DME.
Pharmacy [facility]
PCP DR Rahman
PLAN Will need VN VS SNF
[2024-12-09 18:37] LABS: Glucose - Point of Care 111 mg/dl (70-99)
[2024-12-09 21:39] LABS: Glucose - Point of Care 155 mg/dl (70-99)
[2024-12-09 23:16] VITALS: BP 139/66
[2024-12-10 05:54] LABS: Blood Urea Nitrogen 17 mg/dl (9-20); Calcium 8.6 mg/dl (8.4-10.2); Carbon Dioxide 25 mmol/L (22-30); Chloride 102 mmol/L (98-107); Estimated Creatinine Clearance 103 ml/min; Glucose 146 mg/dl (70-99); Potassium 4.1 mmol/L (3.5-5.1); Sodium 133 mmol/L (135-145); eGFR > 60.00
[2024-12-10 07:17] LABS: Glucose - Point of Care 160 mg/dl (70-99)
[2024-12-10 07:20] VITALS: BP 131/59
--- NOTE | 2024-12-10 07:43 | W.PN.HOSP.TC ---
Today's Communication/Plan
-
PT OT
Gabapentin 300 TID and oxycodone 5mg q4h
Assessment / Plan
Assessment / Plan
Patient is a 74 yo M with PMH of stage IV anal SCC who presents with worsening chronic lymphedema of right leg, causing severe pain and ambulatory dysfunction.
#Chronic right leg lymphedema
- Present since 2022 after anal SCC diagnosis
- Patient was recently in ED for similar complaint- Duplex ultrasound done which was negative for DVT
- On gabapentin 300 twice daily and oxycodone 5 mg q6h at home
- Gabapentin increased to 300mg q8h and oxycodone increased to q4h prn- Dilaudid 0.5 q4h PRN
- PT OT
- CM involved for dispo planning
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
-Follows with Dr. Craig
-Per patient, still receiving chemo therapy (last session 10/31/24)
# Essential HTN
-Continue home amlodipine 2.5, metoprolol 25 XL
# NIDDM
-Accu-Chek
-Low SSI
-Hold metformin for now-continue glimepiride
-Check A1c
# BPH
-Continue Flomax
# History of ME/ CAD
-Continue home aspirin and Plavix
# History of chronic constipation
-Chronic opioid use
-Scheduled Colace
-MiraLAX and Senokot as as needed
DVT prophylaxis
Heparin SC
CODE STATUS
Full code
Anticipated Discharge: 24 - 48 hours
Subjective/Interval History
-
Date of Service: December 10, 2024
Does not offer any complaints except for right leg pain.
Objective Data
-
Labs:
Laboratory Results
12/10/24
05:05
Sodium 133 L
Potassium 4.1
Chloride 102
Carbon Dioxide 25
BUN 17
Creatinine 0.6 L
Glucose 146 H
Calcium 8.6
Vital Signs:
Vital Signs
Temp Pulse Resp BP Pulse Ox
99.1 F 91 16 139/66 97
12/09/24 23:16 12/09/24 23:16 12/09/24 23:16 12/09/24 23:16 12/09/24 23:16
I&O
12/09/24 12/10/24 12/11/24
06:59 06:59 06:59
Intake Total 480 / 480 1440 / 1920 480 / 480
Output Total 1100 / 1100 260 / 1735 1475 / 1475
Balance -620 / -620 1180 / 185 -995 / -995
Review of Systems
-
History Source: Patient
All other systems: Reviewed and negative
Musculoskeletal: Reports Other (Right leg pain)
Physical Exam
-
General: Well Developed and No Apparent Distress
HEENT: Normocephalic, Atraumatic and Moist Mucous Membranes
Respiratory: Clear to Auscultation
Cardiac: Regular Rhythm, S1/S2 and Other; Negative Murmur, Rub or Gallop
GI: Soft, Nontender, Nondistended and Normal Bowel Sounds
Musculoskeletal: No Clubbing, No Cyanosis and Edema, Right Lower Extrem (2+ nonpitting edema extending from foot to hip, no signs of cellulitis)
Neuro: Awake, AO x 3, No Motor Deficits and Nonfocal/Grossly Intact
Psych: Calm
[2024-12-10] MEDS: FLOMAX 0.4 MG PO (08:22)
[2024-12-10] MEDS: ASPIR LOW (ENTERIC COATED) 81 MG PO (08:22)
[2024-12-10] MEDS: NORVASC 2.5 MG PO (08:22)
[2024-12-10] MEDS: TOPROL XL 25 MG PO (08:22)
[2024-12-10] MEDS: NEURONTIN 300 MG PO ×3 (08:22→21:40)
[2024-12-10] MEDS: AMARYL 2 MG PO (08:22)
[2024-12-10] MEDS: NOVOLOG FLEXPEN-LOW RESISTANCE 1 UNITS SC ×2 (08:23→12:10)
[2024-12-10] MEDS: COLACE PO ×2 (08:23→19:57)
[2024-12-10] MEDS: PLAVIX 75 MG PO (08:24)
[2024-12-10] MEDS: ROXICODONE 5 MG PO (08:30)
[2024-12-10] MEDS: DILAUDID 0.5 MG IV (09:26)
--- NOTE | 2024-12-10 09:31 | PN.CDI ---
CDI
- -
CDI:
Physician Documentation Request
Admit Date: 12/08/24 16:32
Dear Doctor Bailee,
Patient admitted with lymphedema.
/ Hospitalist PN: 'On gabapentin 300 twice daily and oxycodone 5 mg q6h at home - Gabapentin increased to 300mg q8h and oxycodone increased to q4h prn- Dilaudid 0.5 q4h PRN...Chronic opioid use'
If possible, please provide further specificity as outlined below:
Opioid dependence
Opioid use
Other
Use of terms such as suspected, likely, concern for, or probable (associated with a specific diagnosis that is being evaluated, monitored, or treated as if it exists) are acceptable and can be coded in the inpatient setting, when documented at the
time of discharge.
Thank you,
Lupe Bob RN, BSN
CDI Specialist
Available via [place] text
Please use your independent medical judgment in providing your response.
--- NOTE | 2024-12-10 10:22 | W.PN.UPDATE ---
Update Note
Progress Note Update
I saw and evaluated the patient. I reviewed the resident�s note and agree with findings and plan as documented in the resident�s note.
Complains of uncontrolled pain.
Gen: NAD, AAOx3.
Eyes: EOMI, PERRLA, no scleral icterus.
Neck: supple.
CV: Remains RRR, +S1/S2, no m/r/g.
Resp: Remains CTAB, no rales, wheezes, or rhonchi.
Abd: +BS, soft, NT, ND
Skin: No rashes. remains 2+ RLE lymphedema.
Neuro: CN 2-12 intact, non-focal.
Psych: Normal mood and affect.
Worsening & intractable pain/swelling of RLE:
-with resulting ambulatory dysfunction
-h/o Lymphoma on chemo with chronic RLE lymphedema
-chronic opioid use with dependence
-RLE U/S NEG DVT
-Neurontin/oxycodone increased for uncontrolled pain
-Bowel regimen
-PT/OT
-start MS Contin 15mg PO BID
Other problems:
CAD with h/o VT: cont ASA/Plavix
h/o CVA: cont ASA/Plavix
Essential HTN: cont Amlodipine, metoprolol XL
Hypercholesterolemia
DM2: SSI/accuchecks
h/o GIB
FULL/heparin
--- NOTE | 2024-12-10 10:42 | PTCARENOTE ---
Addendum entered by Ciera Young RN 12/10/24 12:15:
MD aware. MS Contin ordered and given. Education provided to patient. Patient verbalizes understanding of teaching and denies questions at this time.
Original Note:
Patient tearful and upset. Patient states that he 'cannot live like this anymore'. Patient states that he is 'tired' of the pain and 'dealing' with his cancer that will not get better. Patient has a call into his oncologist's office. Gave patient
emotional support. Offered pastoral care services and patient declined. Asked patient if he would like to call family or friends and he declined. Offered patient music or other distraction and patient declined. Patient would be agreeable to seeing a
psychiatrist and is interested in alternative pain management options. Gave patient the ordered dilaudid 5 mg IV at that time. Patient now resting comfortably in bed and appears to be relaxing.
[2024-12-10 11:38] LABS: Glucose - Point of Care 181 mg/dl (70-99)
[2024-12-10] MEDS: MS CONTIN (EXTENDED RELEASE) 15 MG PO ×2 (12:12→20:02)
[2024-12-10 15:34] VITALS: BP 109/49
--- NOTE | 2024-12-10 16:13 | CM ---
Spoke with room mate Jacky [phone] she said she is not his home care giver just room mate . Reviewed with pt and her option . For dc to home with VN VS SNF. Pt will not have chemo if he goes goes to SNF.
Pt said he wanted SNF PACC Data given for [facility].
Referral placed for [facility] and [facility].
Will need auth .
Will probable need walker PT dept can not provide.IF going to SNF they will set up.
Pt reminded to maintain TEDS stocking [place].
PLAN To SNf after located and SNF obtained
[2024-12-10 17:12] LABS: Glucose - Point of Care 114 mg/dl (70-99)
[2024-12-10] MEDS: NOVOLOG FLEXPEN-LOW RESISTANCE SC (17:12)
[2024-12-10 21:26] LABS: Glucose - Point of Care 142 mg/dl (70-99)
[2024-12-10 23:33] VITALS: BP 111/53
[2024-12-11] MEDS: DILAUDID 0.5 MG IV ×2 (00:44→21:47)
[2024-12-11 07:16] LABS: Blood Urea Nitrogen 20 mg/dl (9-20); Calcium 8.6 mg/dl (8.4-10.2); Carbon Dioxide 22 mmol/L (22-30); Chloride 105 mmol/L (98-107); Estimated Creatinine Clearance 88 ml/min; Glucose 119 mg/dl (70-99); Potassium 4.7 mmol/L (3.5-5.1); Sodium 133 mmol/L (135-145); eGFR > 60.00
[2024-12-11] MEDS: ASPIR LOW (ENTERIC COATED) 81 MG PO (07:55)
[2024-12-11] MEDS: PLAVIX 75 MG PO (07:55)
[2024-12-11] MEDS: AMARYL 2 MG PO (07:55)
[2024-12-11] MEDS: MS CONTIN (EXTENDED RELEASE) 15 MG PO ×2 (07:55→20:26)
[2024-12-11] MEDS: NORVASC 2.5 MG PO (07:55)
[2024-12-11] MEDS: NEURONTIN 300 MG PO ×3 (07:55→21:47)
[2024-12-11] MEDS: FLOMAX 0.4 MG PO (07:55)
[2024-12-11] MEDS: TOPROL XL 25 MG PO (07:56)
[2024-12-11] MEDS: COLACE 100 MG PO ×2 (07:56→20:26)
[2024-12-11 08:18] VITALS: BP 111/57
[2024-12-11 08:37] LABS: Glucose - Point of Care 117 mg/dl (70-99)
[2024-12-11] MEDS: NOVOLOG FLEXPEN-LOW RESISTANCE SC ×3 (08:41→16:55)
--- NOTE | 2024-12-11 09:02 | W.PN.HOSP.TC ---
Today's Communication/Plan
-
OT PT
CM working on obtaining authorization and finding SNF
Pain is [id number] care as before
Assessment / Plan
Assessment / Plan
Patient is a 74 yo M with PMH of stage IV anal SCC who presents with worsening chronic lymphedema of right leg, causing severe pain and ambulatory dysfunction.
#Chronic right leg lymphedema
- Present since 2022 after anal SCC diagnosis
- Patient was recently in ED for similar complaint- Duplex ultrasound done which was negative for DVT
- On gabapentin 300 twice daily and oxycodone 5 mg q6h at home
-Gabapentin increased to 300mg q8h and oxycodone increased to q4h prn- Dilaudid 0.5 q4h PRN-pain is well-controlled
-Appreciate PT OT
-Appreciate CM-actively searching for available beds at [facility] and obtaining prior Auth
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
-Follows with Dr. Craig
-Per patient, still receiving chemo therapy (last session 10/31/24)
# Essential HTN
-Continue home amlodipine 2.5, metoprolol 25 XL
# NIDDM
-Accu-Chek
-Low SSI
-Hold metformin for now-continue glimepiride
-Check A1c
# BPH
-Continue Flomax
# History of [place]/ CAD
-Continue home aspirin and Plavix
# History of chronic constipation
-Chronic opioid use
-Scheduled Colace
-MiraLAX and Senokot as as needed
DVT prophylaxis
Heparin SC
CODE STATUS
Full code
Anticipated Discharge: Within 24 hours
Subjective/Interval History
-
Date of Service: December 11, 2024
Patient does not have any complaints. Mentions his pain is well-controlled. Was able to get out of bed and walk around.
Objective Data
-
Labs:
Laboratory Results
12/11/24
05:23
Sodium 133 L
Potassium 4.7
Chloride 105
Carbon Dioxide 22
BUN 20
Creatinine 0.7
Glucose 119 H
Calcium 8.6
Vital Signs:
Vital Signs
Temp Pulse Resp BP Pulse Ox
99 F 82 18 111/57 97
12/11/24 08:18 12/11/24 08:18 12/11/24 08:18 12/11/24 08:18 12/11/24 08:18
I&O
12/10/24 12/11/24 12/12/24
06:59 06:59 06:59
Intake Total 1440 / 1920 1860 / 1860
Output Total 260 / 1735 2400 / 2400
Balance 1180 / 185 -540 / -540
Physical Exam
-
General: Well Developed and No Apparent Distress
HEENT: Normocephalic, Atraumatic and Moist Mucous Membranes
Respiratory: Clear to Auscultation
Cardiac: Regular Rhythm, S1/S2, Murmur (3/6 systolic ejection murmur) and Other (Chemo-Port seen on upper left chest); Negative Rub or Gallop
GI: Soft, Nontender, Nondistended and Normal Bowel Sounds
Musculoskeletal: No Clubbing, No Cyanosis and Edema, Right Lower Extrem (2+ nonpitting edema extending from foot to hip, no signs of cellulitis)
Neuro: Awake, AO x 3, No Motor Deficits and Nonfocal/Grossly Intact
Psych: Calm
[2024-12-11 10:33] VITALS: BP 91/57; PULSE 81
--- NOTE | 2024-12-11 11:28 | CM ---
Trinidad from [facility] confirmed a bed after auth obtained.
Pt aware [facility] has a bed.
Jodie Christianson spoke with [facility] given Auth Ref # [id number] Clinical faxed to [phone].
Requested auth for today.
[facility]
report [phone]
fax [phone]
PLAN To [facility] after auth obtained
--- NOTE | 2024-12-11 11:37 | W.PN.UPDATE ---
Addendum entered and electronically signed by Roberto Jaquez MD 12/11/24 13:06:
Anemia of chronic disease
Original Note:
Update Note
Progress Note Update
I saw and evaluated the patient. I reviewed the resident�s note and agree with findings and plan as documented in the resident�s note.
Pain has improved significantly since yesterday.
Gen: NAD, AAOx3.
Eyes: EOMI, PERRLA, no scleral icterus.
Neck: supple.
CV: Continues to remain RRR, +S1/S2, no m/r/g.
Resp: Continues to remain CTAB, no rales, wheezes, or rhonchi.
Abd: +BS, soft, NT, ND
Skin: No rashes. Continues to remain 2+ RLE lymphedema.
Neuro: CN 2-12 intact, non-focal.
Psych: Normal mood and affect.
Worsening & intractable pain/swelling of RLE:
-with resulting ambulatory dysfunction
-h/o Lymphoma on chemo with chronic RLE lymphedema
-chronic opioid use with dependence
-RLE U/S NEG DVT
-Neurontin/oxycodone increased for uncontrolled pain. MS Contin started.
-Bowel regimen
-PT/OT
Other problems:
CAD with h/o MD: cont ASA/Plavix
h/o CVA: cont ASA/Plavix
Essential HTN: cont Amlodipine, metoprolol XL
Hypercholesterolemia
DM2: SSI/accuchecks
h/o GIB
FULL/heparin
Medically cleared for discharge. Case management aware.
--- NOTE | 2024-12-11 11:50 | PN.CDI ---
CDI
- -
CDI:
Physician Documentation Request
Admit Date: 12/08/24 16:32
Dear Doctor Bailee,
Patient admitted for lymphedema.
12/11 Hospitalist PN: 'Stage IV anal SCC with LN involvement status post chemoradiation...Per patient, still receiving chemo therapy (last session 10/31/24)'
Laboratory Tests
12/08/24 12/09/24
15:36 04:48
RBC 2.77 L 2.70 L
Hgb 8.3 L 8.2 L
Hct 26.0 L 24.8 L
Based on the above, could you clarify in the progress notes, the appropriate diagnosis, if significant, that supports the above abnormalities and additional evaluation, monitoring and/or treatment rendered:
Anemia of chronic disease - indicate if neoplastic disease, CKD or other
Chronic iron deficiency anemia due to blood loss
Vitamin B deficiency anemia - indicate3 etiology, such as intrinsic factor deficiency, malabsorption, transcobalamin II deficiency, dietary etc.
Folate deficiency anemia - indicate etiology, such as dietary, drug induced etc.
Protein deficiency anemia
Other
Unable to determine
Use of terms such as suspected, likely, concern for, or probable (associated with a specific diagnosis that is being evaluated, monitored, or treated as if it exists) are acceptable and can be coded in the inpatient setting, when documented at the
time of discharge.
Thank you,
Lupe Bob RN, BSN
CDI Specialist
Available via [place] text
Please use your independent medical judgment in providing your response.
[2024-12-11 12:11] LABS: Glucose - Point of Care 124 mg/dl (70-99)
[2024-12-11] MEDS: ROXICODONE 5 MG PO (12:29)
[2024-12-11 16:25] VITALS: BP 103/51
[2024-12-11 16:43] LABS: Glucose - Point of Care 131 mg/dl (70-99)
[2024-12-11 21:34] LABS: Glucose - Point of Care 123 mg/dl (70-99)
[2024-12-11 21:40] VITALS: BP 126/63
[2024-12-11] MEDS: PEPCID 20 MG PO (22:06)
[2024-12-11 23:41] VITALS: BP 111/50
[2024-12-12] MEDS: DILAUDID 0.5 MG IV (01:50)
[2024-12-12 05:38] LABS: Hematocrit 22.1 % (39.0-52.0); Hemoglobin 7.2 g/dL (13.0-18.0); Mean Corp Hgb Conc. 32.6 g/dL (33.0-37.0); Mean Corpuscular Hgb 29.8 pg (27.0-31.0); Mean Corpuscular Volume 91.3 fL (80.0-94.0); Mean Platelet Volume 11.5 fL (7.4-10.4); Platelet Count 209 10^3/uL (130-400); Red Blood Cell Count 2.42 10^6/uL (4.70-6.10); Red Cell Dist. Width 15.9 % (11.5-14.5); White Blood Cell Count 3.2 10^3/uL (4.8-10.8)
[2024-12-12 05:52] LABS: Blood Urea Nitrogen 20 mg/dl (9-20); Calcium 8.6 mg/dl (8.4-10.2); Carbon Dioxide 21 mmol/L (22-30); Chloride 99 mmol/L (98-107); Estimated Creatinine Clearance 103 ml/min; Glucose 115 mg/dl (70-99); Potassium 4.5 mmol/L (3.5-5.1); Sodium 131 mmol/L (135-145); eGFR > 60.00
[2024-12-12 07:18] LABS: Glucose - Point of Care 102 mg/dl (70-99)
[2024-12-12 07:20] VITALS: BP 123/50
--- NOTE | 2024-12-12 08:04 | W.PN.HOSP.TC ---
Today's Communication/Plan
-
Stable for discharge as soon as Auth obtained
Assessment / Plan
Assessment / Plan
Patient is a 74 yo M with PMH of stage IV anal SCC who presents with worsening chronic lymphedema of right leg, causing severe pain and ambulatory dysfunction.
#Chronic right leg lymphedema
- Present since 2022 after anal SCC diagnosis
- Patient was recently in ED for similar complaint- Duplex ultrasound done which was negative for DVT
- On gabapentin 300 twice daily and oxycodone 5 mg q6h at home
-Gabapentin increased to 300mg q8h and oxycodone increased to q4h prn- Dilaudid 0.5 q4h PRN-pain is well-controlled
-Appreciate PT OT
-Appreciate CM-actively searching for available beds at [facility] and obtaining prior Auth
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
-Follows with Dr. Craig
-Per patient, still receiving chemo therapy (last session 10/31/24)
# Essential HTN
-Continue home amlodipine 2.5, metoprolol 25 XL
# NIDDM
-Accu-Chek
-Low SSI
-Hold metformin for now-continue glimepiride
-Check A1c
# BPH
-Continue Flomax
# History of [place]/ CAD
-Continue home aspirin and Plavix
# History of chronic constipation
-Chronic opioid use
-Scheduled Colace
-MiraLAX and Senokot as as needed
DVT prophylaxis
Heparin SC
CODE STATUS
Full code
Anticipated Discharge: Within 24 hours
Subjective/Interval History
-
Date of Service: December 12, 2024
Mentions pain is much better than before. Does not offer any complaints. PT OT in room for daily evaluation.
Objective Data
-
Labs:
Laboratory Results
12/12/24 12/12/24
04:25 04:26
WBC 3.2 L
Hgb 7.2 L
Hct 22.1 L
Plt Count 209 D
Sodium 131 L
Potassium 4.5
Chloride 99
Carbon Dioxide 21 L
BUN 20
Creatinine 0.6 L
Glucose 115 H
Calcium 8.6
Vital Signs:
Vital Signs
Temp Pulse Resp BP Pulse Ox
98.5 F 80 18 111/50 96
12/12/24 01:58 12/11/24 23:41 12/11/24 23:41 12/11/24 23:41 12/11/24 23:41
I&O
12/11/24 12/12/24 12/13/24
06:59 06:59 06:59
Intake Total 1860 / 1860
Output Total 2400 / 2400 1500 / 1500
Balance -540 / -540 -1500 / -1500
Review of Systems
-
History Source: Patient
All other systems: Reviewed and negative
Musculoskeletal: Reports Other (Right leg pain)
Physical Exam
-
General: Well Developed and No Apparent Distress
HEENT: Normocephalic, Atraumatic and Moist Mucous Membranes
Respiratory: Clear to Auscultation
Cardiac: Regular Rhythm, S1/S2, Murmur (3/6 systolic ejection murmur) and Other (Chemo-Port seen on upper left chest); Negative Rub or Gallop
GI: Soft, Nontender, Nondistended and Normal Bowel Sounds
Musculoskeletal: No Clubbing, No Cyanosis and Edema, Right Lower Extrem (2+ nonpitting edema extending from foot to hip, no signs of cellulitis)
Neuro: Awake, AO x 3, No Motor Deficits and Nonfocal/Grossly Intact
Psych: Calm
[2024-12-12] MEDS: AMARYL 2 MG PO (08:38)
[2024-12-12] MEDS: ASPIR LOW (ENTERIC COATED) 81 MG PO (08:38)
[2024-12-12] MEDS: NOVOLOG FLEXPEN-LOW RESISTANCE SC (08:38)
[2024-12-12] MEDS: COLACE 100 MG PO (08:38)
[2024-12-12] MEDS: FLOMAX 0.4 MG PO (08:38)
[2024-12-12] MEDS: PLAVIX 75 MG PO (08:39)
[2024-12-12] MEDS: MS CONTIN (EXTENDED RELEASE) 15 MG PO (08:39)
[2024-12-12] MEDS: NEURONTIN 300 MG PO (08:39)
[2024-12-12] MEDS: NORVASC 2.5 MG PO (08:39)
[2024-12-12] MEDS: TOPROL XL 25 MG PO (08:39)
[2024-12-12 09:08] VITALS: BP 123/49
--- NOTE | 2024-12-12 10:46 | W.PN.UPDATE ---
Addendum entered and electronically signed by Roberto Jaquez MD 12/12/24 13:29:
Hyponatremia
Addendum entered and electronically signed by Roberto Jaquez MD 12/12/24 13:15:
Total time spent on d/c = 35 min. This included today's physical exam, progress note, review of laboratory and diagnostic data, preparation of discharge documents and prescriptions, and discussions about the pt's hospital course and discharge plan
with the patient and other medical delivery technician involved in the patient's care.
Original Note:
Update Note
Progress Note Update
I saw and evaluated the patient. I reviewed the resident�s note and agree with findings and plan as documented in the resident�s note.
No new complaints.
Gen: remains NAD, AAOx3.
Eyes: EOMI, PERRLA, no scleral icterus.
Neck: supple.
CV: RRR, +S1/S2, no m/r/g.
Resp: CTAB, no rales anteriorly, wheezes, or rhonchi.
Abd: +BS, soft, NT, ND
Skin: No rashes. Continues to remain with 2+ RLE lymphedema, RLE stocking in place.
Neuro: CN 2-12 intact, non-focal.
Psych: Normal mood and affect.
Worsening & intractable pain/swelling of RLE:
-with resulting ambulatory dysfunction
-h/o Lymphoma on chemo with chronic RLE lymphedema
-chronic opioid use with dependence
-RLE U/S NEG DVT
-Neurontin/oxycodone increased for uncontrolled pain. MS Contin started.
-Bowel regimen
-PT/OT
Other problems:
Anemia of chronic disease: Repeat Hb in 1 week. Patient without any evidence of active bleeding at this moment.
CAD with h/o [place]: cont ASA/Plavix
h/o CVA: cont ASA/Plavix
Essential HTN: cont Amlodipine, metoprolol XL
Hypercholesterolemia
DM2: SSI/accuchecks
h/o GIB
FULL/heparin
Remains medically cleared for discharge. Case management aware.
[2024-12-12 11:47] LABS: Glucose - Point of Care 192 mg/dl (70-99)
[2024-12-12] MEDS: NOVOLOG FLEXPEN-LOW RESISTANCE 1 UNITS SC (12:09)
--- NOTE | 2024-12-12 12:48 | CM ---
indicated pt ready for dc.
Spoke with [facility] faxed additional PT to [place] this am .
Cathleen Yepez from [facility] called back skilled auth given from 12/12/24 to 12/16/24 auth # [id number] NRD to [facility]
Trinidad from [facility] confirmed a bed for today and she was give auth information.
RN and pt notified.
Pt said his friend can drive him to [place] today.
[place]
report [phone]
fax [phone]
PLAN To [facility]
--- NOTE | 2024-12-12 12:48 | PN.CDI ---
CDI
- -
CDI:
Physician Documentation Request
Admit Date: 12/08/24 16:32
Dear Doctor Bailee,
Patient admitted with lymphedema.
Laboratory Tests
12/08/24 12/09/24 12/10/24
15:36 04:48 05:05
Sodium 134 L 134 L 133 L
12/11/24 12/12/24
05:23 04:25
Sodium 133 L 131 L
Based on the above, could you clarify in the progress notes, the appropriate diagnosis, if significant, that supports the above abnormalities and additional evaluation, monitoring and/or treatment rendered:
Hyponatremia
Abnormal lab value insignificant
Other
Use of terms such as suspected, likely, concern for, or probable (associated with a specific diagnosis that is being evaluated, monitored, or treated as if it exists) are acceptable and can be coded in the inpatient setting, when documented at the
time of discharge.
Thank you,
Lupe Bob RN, BSN
CDI Specialist
Available via [place] text
Please use your independent medical judgment in providing your response.
[2024-12-12 13:50] VITALS: BP 94/48
--- NOTE | 2024-12-12 13:55 | PTCARENOTE ---
Vital signs prior to discharge, BP 94/48, HR 73, RR 18, Temp 100.2, SPO2 96% on RA. Rechecked oral temp and 99.8 on recheck. Pt reports feeling fine. Discussed vital signs with Dr. Jaquez and Dr. Leonid wisdom with pt being discharged. Discussed plan with
pt.
--- NOTE | 2024-12-12 14:17 | W.DCSUMMARY ---
Discharge Summary
Discharge Data
Date of Admission: 12/08/24
Date of Discharge: 12/12/24
-
Pending Results: No
Hospital Course
Patient is a 74yo M with a PMH of Stage IV anal SCC with LN involvement s/p chemoradiation who presented with worsening chronic swelling of right leg, causing severe pain and ambulatory dysfunction. He denied any chest pain or shortness of breath.
He was seen in the ED 6 days ago with similar complaint. RLE US was negative for DVT at that time. Patient was admitted for OT PT evaluation and possible rehab placement.
Problem list:
1. Worsening & intractable pain/swelling to the R leg
Home pain medications were escalated to gabapentin 300 TID (previously BID) and oxycodone 5 q4h (previously q6h) and MS Contin was started, resulting in adequate pain control. PT OT visited patient daily, and recommended rehab and SNF for balance,
strength, transfer and gait training. Today, patient is medically stable for discharge to [facility].
2. Rest of chronic conditions were managed as before.
New changes in medications include:
Gabapentin 300 TID
oxycodone 5 q4h
MS Contin 15 twice daily
Recommendations:
Repeat hemoglobin in 1 week
Discharge Plan
-
Patient Disposition: Fdc/SNF
Discharge Diagnosis/Procedures: Worsening & intractable pain and swelling of RLE
Condition: Good
Diet: Low Cholesterol and Diabetic, Carb Controlled
Activity: As tolerated
Driving Restrictions: As prior to admission
Bathing Restrictions: None
Referrals:
Marco Rahman MD [Family Provider] - in less than 1 week
Additional Discharge Medication Instructions: Repeat hemoglobin in 1 week
Prescriptions:
New
gabapentin 300 mg Capsule
300 mg PO TID Qty: 90 0RF
morphine [MS Contin] 15 mg tablet extended release
15 mg PO Q12H Qty: 10 0RF
oxycodone 5 mg capsule
5 mg PO Q4H PRN (Reason: breakthrough pain) Qty: 14 0RF
Continued
cholecalciferol (vitamin D3) [Vitamin D3] 25 mcg (1,000 unit) Tablet
25 mcg PO DAILY Qty: 0
tamsulosin 0.4 MG capsule
0.4 mg PO DAILY
vitamin B complex Tablet
1 tab PO DAILY
metformin 500 mg Tablet
250 mg PO DAILY
aspirin 81 MG tablet,delayed release (DR/EC)
81 mg PO DAILY
glimepiride 2 MG tablet
2 mg PO DAILY
folic acid 1 MG tablet
1 mg PO DAILY
clopidogrel 75 mg Tablet
75 mg PO DAILY 30 Days Qty: 30 0RF
amlodipine 2.5 mg tablet
2.5 mg PO DAILY
metoprolol succinate 25 mg tablet extended release 24 hr
25 mg PO DAILY
albuterol sulfate 90 mcg/actuation HFA aerosol inhaler
2 puff INHALATION Q4HPRN PRN (Reason: shortness of breath)
polyethylene glycol 3350 [Miralax] 17 gram Powder In Packet
17 g PO DAILYPRN PRN (Reason: constipation)
Discontinued
oxycodone 5 mg Tablet
5 mg PO Q6H PRN (Reason: pain)
gabapentin 300 mg capsule
300 mg PO BID
Discharge Orders:
Discharge Patient (As Directed); Ordered 12/12/24
Ordered By: Roberto Jaquez
Discharge Date and Time
Print Language: PERSIAN
== END 2024-12-12 16:12 | DRG 607 ==
LOC: 4 EAST ACU 16:32
PROVIDERS: Physician Assistant; ADMITTING PHYSICIAN Internal Medicine; ATTENDING PHYSICIAN Internal Medicine; EMERGENCY PHYSICIAN Emergency Medicine; FAMILY PHYSICIAN Family Medicine
DX: I89.0 Lymphedema, not elsewhere classified (principal); F11.20 Opioid dependence, uncomplicated; C20 Malignant neoplasm of rectum; E87.1 Hypo-osmolality and hyponatremia; I10 Essential (primary) hypertension; E11.51 Type 2 diabetes mellitus with diabetic peripheral angiopathy without gangrene; Z79.84 Long term (current) use of oral hypoglycemic drugs; I25.2 Old myocardial infarction; I25.10 Atherosclerotic heart disease of native coronary artery without angina pectoris; Z79.82 Long term (current) use of aspirin; K59.00 Constipation, unspecified; Z88.0 Allergy status to penicillin; E78.00 Pure hypercholesterolemia, unspecified; F10.11 Alcohol abuse, in remission; Z86.73 Personal history of transient ischemic attack (TIA), and cerebral infarction without residual deficits; Z79.899 Other long term (current) drug therapy; Z85.72 Personal history of non-Hodgkin lymphomas; Z87.442 Personal history of urinary calculi; Z87.891 Personal history of nicotine dependence; Z95.5 Presence of coronary angioplasty implant and graft; Z96.611 Presence of right artificial shoulder joint; D63.0 Anemia in neoplastic disease
CPT/HCPCS: 80048; 80053; 82962; 83036; 85025; 85027; 93971; 97116; 97167; 97530; 97535; 99285

== ENCOUNTER 2024-12-24 00:56 | Inpatient (IN) | payer MEDICARE, SELFPAY ==
[2024-12-23 22:17] VITALS: BP 122/67
[2024-12-23 23:30] VITALS: BP 134/60
[2024-12-24] VITALS (8 sets, daily range): BP systolic 119–159; BP diastolic 51–73; PULSE 81; O2SAT 96; BMI 25.3; BMI 24.9; BMI 25.0
[2024-12-24 00:04] LABS: Urine Bilirubin Negative (Negative); Urine Character Clear (Clear); Urine Color Yellow; Urine Glucose Negative (Negative); Urine Ketone 3+ (Negative); Urine Leukocyte Negative (Negative); Urine Nitrite Negative (Negative); Urine Occult Blood Negative (Negative); Urine Urobilinogen Negative (Neg - 1+)
[2024-12-24 00:09] LABS: Urine Albumin Trace (Neg - Trace)
[2024-12-24 00:13] LABS: % Basophils 0.2 % (0-2); % Eosinophils 0.4 % (0-6); % Immature Granulocytes 0.4 % (0-0.5); % Lymphocytes 18.1 % (20.5-51.1); % Monocytes 14.9 % (1.7-9.3); Absolute Lymphocytes 0.8 10^3/uL (1.2-3.4); Absolute Monocytes 0.7 10^3/uL (0.1-0.6); Absolute Neutrophils 3.1 10^3/uL (1.4-6.5); Hematocrit 25.8 % (39.0-52.0); Hemoglobin 8.3 g/dL (13.0-18.0); Mean Corp Hgb Conc. 32.2 g/dL (33.0-37.0); Mean Corpuscular Hgb 28.2 pg (27.0-31.0); Mean Corpuscular Volume 87.8 fL (80.0-94.0); Mean Platelet Volume 10.1 fL (7.4-10.4); Nucleated Red Blood Cells % 0 % (-); Platelet Count 309 10^3/uL (130-400); Red Blood Cell Count 2.94 10^6/uL (4.70-6.10); Red Cell Dist. Width 16.5 % (11.5-14.5); White Blood Cell Count 4.6 10^3/uL (4.8-10.8)
[2024-12-24 00:36] LABS: NT-proBNP 2180 pg/ml
--- NOTE | 2024-12-24 00:39 | ED.GENMED ---
History of Present Illness
General
Chief Complaint: Extremity Pain (non-traumatic)
Source: patient
Exam Limitations: none
Time Seen by Provider: 12/24/24 00:33
Nursing documentation reviewed up to this point in time: agreed with
History of Present Illness
History of Present Illness:
Pleasant 74-year-old male presents to the emerged department with right leg pain and difficulty ambulating. Patient has been at [facility] rehab facility and was discharged yesterday. He was sent home where he lives on a 1
level apartment but there are steps to get in. Patient states that he is unable to ambulate and he does not have help at home. Patient have extensive cardiac history. He typically has difficulty with balance. He does have right lower extremity
lymphedema from lymphoma. He is treated by Dr. Craig.
Past History
Past History
ED Past Medical History: CAD, CVA (No residual weakness), GERD, HTN, Hypercholesterolemia, NIDDM, ID and Other ( GI bleed, Renal calculus, Chronic right leg lymph edema)
ED Past Surgical History: Cardiac (stents, ), Orthopedic (Right Humerus, Right shoulder replacement, ) and Other (Hernia repair, Carotid surgery, )
Patient has exhibited threatening behavior?: No
Social History
Tobacco: Former smoker
Alcohol: Daily (Wine or beer 2)
Drug: None
Personal: Single
Living: with roommate
Review of Systems
Review of Systems
Allergies reviewed?: Yes
All Other Systems: ROS reviewed and negative except as documented in HPI and ROS
Constitutional: Reports fatigue and sleep disturbance
EENT: Reports no symptoms
Respiratory: Reports no symptoms
Cardiac: Reports no symptoms
ABD/GI: Reports no symptoms
: Reports no symptoms
Musculoskeletal: Reports joint swelling, muscle pain and edema (Right lower extremity edema)
Skin: Reports no symptoms
Neurological: Reports dizzy
Endocrine: Reports no symptoms
Hematologic/Lymphatic: Reports no symptoms
Psychiatric: Reports anxiety
Phy Exam
General Physical Exam
General Presentation: moderate distress
General age: appears stated age
General Skin: warm and dry
General Habitus: debilitated, elderly and frail
General Mental: alert
General Hydration: appears well hydrated
ENT Exam
ENT Exam: EOMI, pharynx normal, neck supple and normocephalic
Eye Exam
Eye Exam: PERRL, cornea clear and conjunctiva normal
Cardiovascular Exam
Cardiovascular Exam: regular rate/rhythm, no edema, no murmur and normal peripheral pulses
Pulmonary Exam
Pulmonary Exam: lungs clear, no respiratory distress, no rales, no crackles, no rhonchi, no stridor, no wheezing and no cough
Gastrointestinal Exam
Gastrointestinal Exam: normal bowel sounds, non tender, soft, no organomegaly, no pulsatile mass and non distended
Neurological Exam
Neurological Exam: alert, oriented x3, no motor deficits and speech normal
Musculoskeletal Exam
Musculoskeletal Exam: edema (Right lower extremity lymphedema.) and neuro vasc intact (Distal pulses marked with sharpie.)
Skin Exam
Skin Exam: normal color, warm/dry and redness (Slight erythema in the right lower extremity)
Psychiatric Exam
Psychiatric Exam: normal mood/affect
Course
Orders/Labs/Results
Orders:
Orders
12/23/24 23:51
Complete Blood Count/With Diff Urgent
Comprehensive Metabolic Panel Urgent
NT-proBNP Urgent
12/23/24 23:55
Urinalysis Reflex To Culture Urgent
Date Specimen was Collected: 12/23/24
Time Specimen was Collected: 23:53
12/24/24 00:00
US Periph Venous LOWER Ext RT Urgent
Reason For Exam: right leg edema, right thigh/groin pain
12/24/24 00:26
EKG [Electrocardiogram (*1)] Urgent
Reason for Study: Fatigue / Weakness
EKG- Treatment ONCE
Abnormal Lab Results
12/23/24 12/24/24
23:55 00:04
WBC 4.6 L 10^3/uL
(4.8-10.8)
RBC 2.94 L 10^6/uL
(4.70-6.10)
Hgb 8.3 L g/dL
(13.0-18.0)
Hct 25.8 L %
(39.0-52.0)
MCHC 32.2 L g/dL
(33.0-37.0)
RDW 16.5 H %
(11.5-14.5)
Absolute Lymphs (auto) 0.8 L 10^3/uL
(1.2-3.4)
Absolute Monos (auto) 0.7 H 10^3/uL
(0.1-0.6)
Lymphocytes % 18.1 L %
(20.5-51.1)
Monocytes % 14.9 H %
(1.7-9.3)
Urine Ketones 3+ A
(Negative)
12/24/24 00:04
Vital Signs
Initial and Last Documented VS:
Initial Vital Signs
Temp Pulse Resp BP Pulse Ox
97.9 F 102 19 122/67 100
12/23/24 22:17 12/23/24 22:17 12/23/24 22:17 12/23/24 22:17 12/23/24 22:17
Last Documented Vital Signs
Temp Pulse Resp BP Pulse Ox
97.6 F 73 18 134/60 96
12/23/24 23:30 12/23/24 23:30 12/23/24 23:30 12/23/24 23:30 12/23/24 23:30
MDM/Problems Addressed
Differential Diagnosis Includes:
Increase lymphedema, DVT, arterial disease, deconditioning, failure to thrive,
MDM/Problems Addressed:
74-year-old male with chronic right lower extremity leg pain which began approximately 6 months ago and is progressively worsening presents with increased pain and inability to ambulate at home.
Chronic conditions affecting care:
Chronic lymphedema.
Chronic conditions affecting care: HTN, CAD, Cardiomyopathy, Neurological disorder and Psychiatric illness
*Radiology
Radiology exam reviewed: other (Verbal report of ultrasound shows right lower extremity negative for DVT)
*Police Chief Deputy Interpretation
Rate: normal
Interpretation: normal
*Critical Care Note
Total Time (30-74mins, 75-104mins- exclusive of procedures): Not Applicable
ED Attending Note
-
Portions of this chart may have been created with voice recognition software.� Occasional wrong word or��sound alike� substitutions may have occurred due to the inherent limitations of voice recognition software.
Discharge Plan
Departure
Patient Disposition: Admit
Date of Disposition: 12/24/24
Time of Disposition: 00:43
Admit to: Med/Surg
Presentation/result/management discussed w/ accepting MD/DO: Hospitalist
Condition: Good
Discharge Problem:
Ambulatory dysfunction, Lymphedema
Prescriptions:
No Action
cholecalciferol (vitamin D3) [Vitamin D3] 25 mcg (1,000 unit) Tablet
25 mcg PO DAILY Qty: 0
tamsulosin 0.4 MG capsule
0.4 mg PO DAILY
vitamin B complex Tablet
1 tab PO DAILY
metformin 500 mg Tablet
250 mg PO DAILY
aspirin 81 MG tablet,delayed release (DR/EC)
81 mg PO DAILY
glimepiride 2 MG tablet
2 mg PO DAILY
folic acid 1 MG tablet
1 mg PO DAILY
amlodipine 2.5 mg tablet
2.5 mg PO DAILY
Rx Instructions:
hold if sbp less than 100 mm of hg
metoprolol succinate 25 mg tablet extended release 24 hr
25 mg PO DAILY
Rx Instructions:
hold for sbp below 90 & HR below 60
albuterol sulfate 90 mcg/actuation HFA aerosol inhaler
2 puff INHALATION Q4HPRN PRN (Reason: shortness of breath)
polyethylene glycol 3350 [Miralax] 17 gram Powder In Packet
17 g PO DAILYPRN PRN (Reason: constipation)
gabapentin 300 mg Capsule
300 mg PO TID Qty: 90 0RF
oxycodone 5 mg capsule
5 mg PO Q4H PRN (Reason: breakthrough pain) Qty: 14 0RF
acetaminophen 325 mg Tablet
650 mg PO Q6H PRN (Reason: fever/mild pain)
dextrose [Glucose Gel] 40 % Gel
10 g PO ONCE PRN (Reason: hypoglycemia and able to swallow)
urea [Ureacin-10] 10 % Lotion
1 applic TOPICAL BID
Rx Instructions:
apply to right lower leg
lorazepam 0.5 mg Tablet
0.5 mg PO BID PRN (Reason: anxiety)
bisacodyl [Dulcolax (bisacodyl)] 10 mg Suppository
10 mg NC DAILY PRN (Reason: constipation)
Fleet Enema 19-7 gram/118 mL Enema
118 ml NC ONCE PRN (Reason: constipation)
magnesium oxide 400 mg magnesium Tablet
400 mg PO BID
glucagon HCl [Glucagon (HCl) Emergency Kit] 1 mg Recon Soln
1 mg SC ONCE PRN (Reason: hypoglycemia)
clopidogrel 75 mg tablet
75 mg PO DAILY
morphine [MS Contin] 15 mg tablet extended release
15 mg PO Q8H
Referrals:
Marco Rahman MD [Family Provider] -
Interventions
Interventions:
*Risk Screen - Suicide Last Done: 12/23/24 22:17
*General Assessment Last Done: 12/24/24 00:06
*Neglect/Abuse Screening Last Done: 12/23/24 22:17
*ED- Fall Risk Assessment Last Done: 12/24/24 00:06
*ED COVID-19 Vaccine History Last Done: 12/24/24 00:06
ED-Skin Assessment Last Done: 12/24/24 00:05
ED-Peripheral Vascular Assessment Last Done: 12/24/24 00:05
ED-Musculoskeletal Assessment Last Done: 12/24/24 00:05
Discharge Date and Time
Print Language: LATVIAN
[2024-12-24 00:40] LABS: ALT (SGPT) 11 U/L (0-50); AST (SGOT) 23 U/L (17-59); Albumin 3.7 g/dl (3.5-5.0); Alkaline Phosphatase 92 U/L (38-126); Blood Urea Nitrogen 16 mg/dl (9-20); Calcium 9.6 mg/dl (8.4-10.2); Carbon Dioxide 22 mmol/L (22-30); Chloride 104 mmol/L (98-107); Estimated Creatinine Clearance 77 ml/min; Glucose 120 mg/dl (70-99); Potassium 4.3 mmol/L (3.5-5.1); Sodium 138 mmol/L (135-145); Total Bilirubin 0.8 mg/dl (0.2-1.3); Total Protein 6.7 g/dl (6.3-8.2); eGFR > 60.00
--- NOTE | 2024-12-24 00:52 | HPS.HSE ---
Family Physician
-
Family Physician: Marco Rahman
Chief Complaint
-
Walking difficulty
History of Present Illness
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
from [facility] yesterday was fine himself unable to ambulate on arrival at home.
He was admitted and discharged from [facility] on December 12 for leg pain and ambulatory dysfunction. He was given additional pain medications and recommended rehab versus SNF. Patient was discharged to [facility].
He had been in [facility] rehab facility since then and was discharged yesterday. He lives at home on a 1 level apartment where there are steps to get in. Patient is unable to navigate and ambulate the stairs and has no help at
home.
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
In the ED today he was afebrile, blood pressure was normal at 139/70 pulse of 75 and was satting 100% on room air. ECG shows normal sinus rhythm with known left bundle branch block which is unchanged from prior. CBC shows his chronic hemoglobin of
8.3 with normal white count and platelets. Electrolyte BUN/creatinine as well as glucose were all normal. BNP was 2000 similar to prior. UA was completely unremarkable. Ultrasound of his lower extremity was negative for a DVT.
Medical History
Past Medical History
Past Medical History: Reports Other (rectal cancer on chemotherapy, GI bleeding, anemia, hypertension, hyperlipidemia, diabetes, coronary artery disease, peripheral arterial disease, CVA, alcohol use disorder, chronic lymphedema right lower
extremity)
Past Surgical History: Reports None
Social History
Tobacco: Former Smoker
Drug: None
Family History
Family History: Not pertinent
Allergies / Home Medications
Allergies reflects when Allergies were last updated in [facility].
Home Medications with original date entered in [facility]
Allergy/Medication List:
Allergies
Allergy/AdvReac Type Severity Reaction Status Date / Time
abciximab [From Reopro] Allergy Thrombocyto Verified 12/23/24 22:16
penia
Home Medications
cholecalciferol (vitamin D3) 25 mcg (1,000 unit) tablet (Vitamin D3) 25 mcg PO DAILY Supplement ##0 01/11/22
tamsulosin 0.4 mg capsule 0.4 mg PO DAILY Urinary issue 04/18/22
aspirin 81 mg tablet,delayed release 81 mg PO DAILY Blood Clot Prevention/Tx 08/02/23
folic acid 1 mg tablet 1 mg PO DAILY Supplement 08/02/23
glimepiride 2 mg tablet 2 mg PO DAILY Diabetes 08/02/23
metformin 500 mg tablet 250 mg PO DAILY Diabetes 08/02/23
vitamin B complex 1 tab PO DAILY Supplement 08/02/23
albuterol sulfate 90 mcg/actuation aerosol inhaler 2 puff inhalation Q4HPRN PRN shortness of breath 12/08/24
amlodipine 2.5 mg tablet 2.5 mg PO DAILY Blood Pressure 12/08/24
metoprolol succinate 25 mg tablet,extended release 24 hr 25 mg PO DAILY Blood Pressure 12/08/24
polyethylene glycol 3350 17 gram oral powder packet (Miralax) 17 g PO DAILYPRN PRN constipation 12/08/24
gabapentin 300 mg capsule 300 mg PO TID #90 caps 12/12/24
oxycodone 5 mg capsule 5 mg PO Q4H PRN breakthrough pain #14 caps 12/12/24
acetaminophen 325 mg tablet 650 mg PO Q6H PRN fever/mild pain 12/24/24
bisacodyl 10 mg rectal suppository (Dulcolax (bisacodyl)) 10 mg SD DAILY PRN constipation 12/24/24
clopidogrel 75 mg tablet 75 mg PO DAILY CVA 12/24/24
dextrose 40 % oral gel (Glucose Gel) 10 g PO ONCE PRN hypoglycemia and able to swallow 12/24/24
glucagon HCl 1 mg solution for injection (Glucagon (HCl) Emergency Kit) 1 mg SC ONCE PRN hypoglycemia 12/24/24
lorazepam 0.5 mg tablet 0.5 mg PO BID PRN anxiety 12/24/24
magnesium oxide 400 mg PO BID 12/24/24
morphine 15 mg tablet,extended release (MS Contin) 15 mg PO Q8H 12/24/24
sodium phosphates 19 gram-7 gram/118 mL enema (Fleet Enema) 118 ml SD ONCE PRN constipation 12/24/24
urea 10 % lotion (Ureacin-10) 1 applic topical BID 12/24/24
Review of Systems
-
History Source: Patient
Constitutional: Reports No Symptoms
EENT: Reports No Symptoms
Respiratory: Reports No Symptoms
Cardiac: Reports No Symptoms
Abdomen/GI: Reports No Symptoms
: Reports No Symptoms
Musculoskeletal: Reports Joint Pain and Edema
Skin: Reports No Symptoms
Neurological: Reports No Symptoms
Endocrine: Reports No Symptoms
Hematologic/Lymphatic: Reports No Symptoms
Psych: Reports No Symptoms
Physical Exam
Vital Signs
Vital Signs
Temp Pulse Resp BP Pulse Ox
97.6 F 75 18 159/62 100
12/23/24 23:30 12/24/24 00:39 12/23/24 23:30 12/24/24 00:38 12/24/24 00:39
Physical Exam
General: Well Developed, Well Nourished and No Apparent Distress
HEENT: NormoCephalic, Moist mucous membranes and Atraumatic
Respiratory: Clear
Cardiac: S1/S2 and Regular Rhythm; No Murmur or Rub
GI: Soft, Non Tender, Non Distended and Normal Bowel Sounds; No Organomegaly
Rectal: Deferred by Provider
Genito-urinary: Deferred by me
Musculoskeletal: No Clubbing, No Cyanosis and Edema, Right Lower Extremity
Skin: Other ( Lymphedema noted to R leg. Leg is erythematous consistent with venous stasis. No warmth to suggest cellulitis. 2+ DP pulse and cap refill <2 seconds.); No Warm or Rash
Neuro: AO x 3 and Nonfocal/grossly intact
Psych: Calm
Laboratory Results
-
12/24/24 00:04
12/24/24 00:04
Laboratory Results
Total Bilirubin 0.8 mg/dl (0.2-1.3) 12/24/24 00:04
AST 23 U/L (17-59) 12/24/24 00:04
ALT 11 U/L (0-50) 12/24/24 00:04
Alkaline Phosphatase 92 U/L (38-126) 12/24/24 00:04
Data Reviewed
-
Ultrasound: Report Reviewed by me
Medical Tests (Nuc Med, Echo, EKG etc): Image Personally Visualized and interpreted
Lab Data: Labs Reviewed by me
Old Records: Reviewed
Impression/Plan
-
IMPRESSION:
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
unable to ambulate well feels unsafe at home.
PLAN:
Ambulatory dysfunction -chronic and status post rehab. No acute findings on labs or imaging today.
- admit to med/surg
- continue pain management as previous gabapentin, oxycodone and morphine
- elevate RLE
- PT OT
- Case management for senior living placement.
Cardiac - No acute symptoms and changes in status
- will contnue his aspirin, plavix
- continue metoprolol succinate
- continue amlodipine
DM II
- continue glimepride 2 daiy
- metformin 250 daily
- sliding scale insulin
continue tamsulosin and prn nebs
DVT PPX - lovenox sq
Code status - Full code
[2024-12-24] MEDS: MORPHINE SULFATE 4 MG IV (00:55)
--- NOTE | 2024-12-24 03:00 | PTCARENOTE ---
Pt arrived from ED via stretcher. aaox3, cooperative, moaning. Pt pulled onto bed. Pt c/o severe R leg pain with minimal touch or movement. Medicated with prn morphine. oriented to room. call hamilton within reach.
[2024-12-24] MEDS: MORPHINE SULFATE 2 MG IV ×2 (03:20→10:56)
--- NOTE | 2024-12-24 04:34 | DOWNTIME ---
There was a [employer] Downtime on 12/24/2024 from 0100 to 12/25/2023 at 0420 . Downtime documentation of patient's care, including medication administrations, has been reconciled in the electronic record per guidelines. Refer to the
patient's paper chart under the miscellaneous tab to see printed paper medication records and downtime forms.
[2024-12-24 07:17] LABS: Glucose - Point of Care 99 mg/dl (70-99)
[2024-12-24] MEDS: NEURONTIN 300 MG PO ×3 (07:41→21:08)
[2024-12-24] MEDS: MS CONTIN (EXTENDED RELEASE) 15 MG PO ×3 (07:41→23:09)
[2024-12-24] MEDS: MAGNESIUM OXIDE 500 MG PO (07:41)
[2024-12-24] MEDS: PLAVIX 75 MG PO (07:41)
[2024-12-24] MEDS: FLOMAX 0.4 MG PO (07:41)
[2024-12-24] MEDS: ASPIR LOW (ENTERIC COATED) 81 MG PO (07:41)
[2024-12-24] MEDS: FOLVITE 1 MG PO (07:42)
[2024-12-24] MEDS: NORVASC 2.5 MG PO (07:42)
[2024-12-24] MEDS: GLUCOPHAGE 500 MG PO (07:42)
[2024-12-24] MEDS: AMARYL 2 MG PO (08:06)
[2024-12-24] MEDS: ROXICODONE 5 MG PO ×2 (08:06→19:43)
--- NOTE | 2024-12-24 09:30 | W.PN.HOSP.TC ---
Today's Communication/Plan
-
Compression therapy
Sliding scale insulin
Discharge planning
Assessment / Plan
Assessment / Plan
Gen-AAOx3, NAD
HEENT-NC, AT, anicteric, clear oral mm
Neck-supple
CV-reg, no M, +S1/S2
Lungs-clear B/L
Abd-soft, NT, ND
Ext-diffuse right lower extremity edema up to thigh
Musculoskeletal-no cyanosis, clubbing
Skin-warm and dry, right lower extremity hyperpigmentation
Neuro-grossly non-focal
Psych-calm, cooperative
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 Compression therapy ordered. Follow-up with lymphedema clinic.
Continue analgesics.
Ambulatory dysfunction -suspect multifactorial etiology including deconditioning, lymphedema, etc. Consult PT/OT. Anticipate SNF on discharge.
Stage IV anal squamous cell cancer -followed by oncology, Dr. Craig. Still scheduled to undergo chemotherapy, missed his last 3 sessions due to hospitalization as well as rehab stay.
Treated with radiation therapy October 2023. Originally diagnosed July 2023.
CAD -history of [place]. Continue medical therapy.
Essential hypertension -stable.
DM 2 without hyperglycemia -hemoglobin A1c 6.4% on December 09. Glucose 120 this morning. He is on metformin and glimepiride at home. Add sliding scale insulin.
BPH
Full code
Anticipated Discharge: Within 24 hours
Subjective/Interval History
-
Date of Service: December 24, 2024
Patient seen and examined. Complaining of right lower extremity pain.
Objective Data
-
Labs:
Laboratory Results
12/24/24
00:04
WBC 4.6 L
Hgb 8.3 L
Hct 25.8 L
Plt Count 309
Sodium 138
Potassium 4.3
Chloride 104
Carbon Dioxide 22
BUN 16
Creatinine 0.8
Glucose 120 H
Calcium 9.6
Total Bilirubin 0.8
AST 23
ALT 11
Alkaline Phosphatase 92
Vital Signs:
Vital Signs
Temp Pulse Resp BP Pulse Ox
97.9 F 91 18 155/73 97
12/24/24 07:32 12/24/24 07:42 12/24/24 07:32 12/24/24 07:42 12/24/24 07:32
I&O
12/23/24 12/24/24 12/25/24
06:59 06:59 06:59
Output Total 400 / 400
Balance -400 / -400
Review of Systems
-
History Source: Patient
All other systems: Reviewed and negative
--- NOTE | 2024-12-24 10:31 | CM ---
Addendum entered by Kelly Tovar 12/24/24 15:38:
PT recommending skilled rehab.
Spoke with patient and friend Jacky isac.
Alternate- POA Andriy Swain also present. (primary POA is sister in [place])
POA forms to be scanned to chart, hard copy on chart, admissions updated.
Discussed skilled rehab options,, referrals to [facility], [facility], [facility].
Patient and friend and POA requesting Oncology consultation, MD updated.
Discussed with patient that he would not be able to receive chemo in the rehab.
Plan: skilled rehab
Original Note:
Patient seen bedside.
Patient IA completed.
Patient lives with a friend in a 1 story home with 4 steps enter.
Friend is not his caregiver.
Recent d/c from [facility], per patient was able to ambulate at home on day 1, day 2 he took a gummie, new brand, higher dose and had difficulty ambulating.
Per patient he was planning on resuming outpatient chemo. Has appointment with infusion center on Sunday.
Was also scheduled to have [facility] for 1st visit this week.
PT eval pending.
PCP: Dr Rahman
Pharmacy: [facility]
Plan: skilled vs home with [facility].
[2024-12-24 11:32] LABS: Glucose - Point of Care 121 mg/dl (70-99)
[2024-12-24 16:17] LABS: Glucose - Point of Care 97 mg/dl (70-99)
[2024-12-24] MEDS: LOVENOX 40 MG SC (18:01)
[2024-12-24 21:25] LABS: Glucose - Point of Care 103 mg/dl (70-99)
[2024-12-25] MEDS: ROXICODONE 5 MG PO (02:28)
[2024-12-25 07:00] VITALS: BP 95/38
[2024-12-25 07:29] LABS: Glucose - Point of Care 106 mg/dl (70-99)
[2024-12-25] MEDS: ASPIR LOW (ENTERIC COATED) 81 MG PO (07:53)
[2024-12-25] MEDS: NORVASC 2.5 MG PO (07:53)
[2024-12-25] MEDS: PLAVIX 75 MG PO (07:54)
[2024-12-25] MEDS: NEURONTIN 300 MG PO ×3 (07:54→21:03)
[2024-12-25] MEDS: FLOMAX 0.4 MG PO (07:54)
[2024-12-25] MEDS: MS CONTIN (EXTENDED RELEASE) 15 MG PO ×3 (07:54→23:13)
[2024-12-25] MEDS: GLUCOPHAGE 500 MG PO (07:54)
[2024-12-25] MEDS: AMARYL 2 MG PO (07:54)
[2024-12-25] MEDS: MAGNESIUM OXIDE 500 MG PO (07:54)
[2024-12-25] MEDS: FOLVITE 1 MG PO (07:54)
--- NOTE | 2024-12-25 11:55 | W.PN.HOSP.TC ---
Today's Communication/Plan
-
Discharge planning
Assessment / Plan
Assessment / Plan
Gen-AAOx3, NAD
HEENT-NC, AT, anicteric, clear oral mm
Neck-supple
CV-reg, no M, +S1/S2
Lungs-clear B/L
Abd-soft, NT, ND
Ext-diffuse right lower extremity edema up to thigh
Musculoskeletal-no cyanosis, clubbing
Skin-warm and dry, right lower extremity hyperpigmentation
Neuro-grossly non-focal
Psych-calm, cooperative
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 Continue compression therapy. Follow-up with lymphedema clinic.
Continue analgesics.
Ambulatory dysfunction -suspect multifactorial etiology including deconditioning, lymphedema, etc. Consult PT/OT. Anticipate SNF on discharge.
Stage IV anal squamous cell cancer -followed by oncology, Dr. Craig. Still scheduled to undergo chemotherapy, missed his last 3 sessions due to hospitalization as well as rehab stay.
Treated with radiation therapy October 2023. Originally diagnosed July 2023.
Patient requesting oncology consult for opinion regarding plan of care.
CAD -history of [place]. Continue medical therapy.
Essential hypertension -low blood pressure noted this morning, I asked nursing to check in both arms.
DM 2 without hyperglycemia -hemoglobin A1c 6.4% on December 09. Glucose 106 this morning. He is on metformin and glimepiride at home. Add sliding scale insulin.
BPH
Full code
Dispo -anticipate discharge to SNF. Medically stable for discharge.
Anticipated Discharge: Within 24 hours
Subjective/Interval History
-
Date of Service: December 25, 2024
Patient seen and examined. No complaints.
Objective Data
-
Vital Signs:
Vital Signs
Temp Pulse Resp BP Pulse Ox
99.1 F 81 18 95/48 95
12/25/24 07:00 12/25/24 07:00 12/25/24 07:00 12/25/24 07:53 12/25/24 08:00
I&O
12/24/24 12/25/24 12/26/24
06:59 06:59 06:59
Intake Total 960 / 960
Output Total 400 / 400 550 / 550
Balance -400 / -400 410 / 410
Review of Systems
-
History Source: Patient
All other systems: Reviewed and negative
[2024-12-25 12:11] VITALS: BP 142/80
[2024-12-25 12:22] LABS: Glucose - Point of Care 91 mg/dl (70-99)
--- NOTE | 2024-12-25 13:49 | CON.ONC ---
Impression
Impression
advanced anal squamous cell carcinoma
Anemia
ambulatory dysfunction
Plan
Plan
OP follow up with Dr. Craig will be arranged upon discharge
Improve PS prior to resuming therapy -treatment 12/26 will be rescheduled
Continue MONTEZ Q2 weeks -ordered today
Pt will need an outpatient paint dipper for continued controlled substance management with chronic pain -MS contin was started during 12/10/2024 and increased this hospitalization. Pt has not been seen in our office for OP follow up
since 12/03 due to recurrent hospitalizations and rehab.
continue outpatient lymph edema clinic
Patient History
History of Present Illness
74 yo M with advanced anal squamous cell carcinoma presented with ambulatory dysfunction. He was discharged from [facility] 12/23 and was unable to ambulate at home so proceeded to ER for further assistance. CBC shows his chronic hemoglobin
of 8.3 with normal white count, platelets, renal function, sodium, calcium, and LFTs. His RLE US showed no DVT. He was admitted for intractable pain due to severe right lower extremity lymphedema.
In brief, he is known to Dr. Craig for management of his advanced anal squamous cell carcinoma. He had POD on 1st line therapy for which he has been treated with carbo/taxol since . He does have dose reductions due to cumulative toxicities and
anemia. His last cycle was 12/05 since he has been hospitalized or in rehab since. He receives MONTEZ for anemia, last dose 12/05. His most recent iron studies 11/19/2024 showed ferritin 433, IS 23%.
Clinically, denies fever, chills, cough, chest pain, sob at rest, n/v/d/c or abdominal pain. RLE pain improved with MS contin, prn oxy IR and prn IV morphine.
Afebrile, no hypoxia or hypotension.
Past-Medical/Surgical History
Past�Medical�History GIB, HTN, HLD, DM2, CAD, PAD, CVA, chronic lymphedema RLE
Surgical�History Inguinal�hernia���1989's� Stent���200 Right�arm�fracture���2022� Carotid�artery�endarterectomy���2021
Social�History Former�Smoker.�Packs�per�day�1.�Year�Quit�2021.�Approximate�years�smoked�35. Current�alcohol�user.�Patient�reports�an�average�of�2�drinks�per�day. Occupational�Status:�Current:�[employer]. Patient�has�not�had�any�occupational�exposure.
Marital�Status:�Patient�is�single
Family�Medical�History Paternal�grandfather���colon�cancer
Patient Medication
�Medication �Instructions �Recorded �Confirmed �Last Taken �Type
cholecalciferol (vitamin D3) 25 25 mcg PO DAILY Supplement ##0 01/11/22 12/24/24 11/20/24 History
mcg (1,000 unit) tablet (Vitamin
D3)
tamsulosin 0.4 mg capsule 0.4 mg PO DAILY Urinary issue 04/18/22 12/24/24 11/20/24 History
aspirin 81 mg tablet,delayed 81 mg PO DAILY Blood Clot 08/02/23 12/24/24 11/20/24 History
release Prevention/Tx
folic acid 1 mg tablet 1 mg PO DAILY Supplement 08/02/23 12/24/24 11/20/24 History
glimepiride 2 mg tablet 2 mg PO DAILY Diabetes 08/02/23 12/24/24 11/20/24 History
metformin 500 mg tablet 250 mg PO DAILY Diabetes 08/02/23 12/24/24 11/20/24 History
vitamin B complex 1 tab PO DAILY Supplement 08/02/23 12/24/24 11/20/24 History
albuterol sulfate 90 mcg/actuation 2 puff inhalation Q4HPRN PRN 12/08/24 12/24/24 Unknown History
aerosol inhaler shortness of breath
amlodipine 2.5 mg tablet 2.5 mg PO DAILY Blood Pressure 12/08/24 12/24/24 Unknown History
metoprolol succinate 25 mg 25 mg PO DAILY Blood Pressure 12/08/24 12/24/24 Unknown History
tablet,extended release 24 hr
polyethylene glycol 3350 17 gram 17 g PO DAILYPRN PRN constipation 12/08/24 12/24/24 Unknown History
oral powder packet (Miralax)
oxycodone 5 mg capsule 5 mg PO Q4H PRN breakthrough pain 12/12/24 12/24/24 Unknown Rx
#14 caps
acetaminophen 325 mg tablet 650 mg PO Q6H PRN fever/mild pain 12/24/24 12/24/24 Unknown History
bisacodyl 10 mg rectal suppository 10 mg [place] DAILY PRN constipation 12/24/24 12/24/24 Unknown History
(Dulcolax (bisacodyl))
clopidogrel 75 mg tablet 75 mg PO DAILY CVA 12/24/24 12/24/24 Unknown History
dextrose 40 % oral gel (Glucose 10 g PO ONCE PRN hypoglycemia and 12/24/24 12/24/24 Unknown History
Gel) able to swallow
glucagon HCl 1 mg solution for 1 mg SC ONCE PRN hypoglycemia 12/24/24 12/24/24 Unknown History
injection (Glucagon (HCl)
Emergency Kit)
lorazepam 0.5 mg tablet 0.5 mg PO BID PRN anxiety 12/24/24 12/24/24 Unknown History
magnesium oxide 400 mg PO BID Supplement 12/24/24 12/24/24 Unknown History
morphine 15 mg tablet,extended 15 mg PO Q8H Pain 12/24/24 12/24/24 Unknown History
release (MS Contin)
sodium phosphates 19 gram-7 118 ml IL ONCE PRN constipation 12/24/24 12/24/24 Unknown History
gram/118 mL enema (Fleet Enema)
urea 10 % lotion (Ureacin-10) 1 applic topical BID Skin Issues 12/24/24 12/24/24 Unknown History
gabapentin 300 mg capsule 300 mg PO TID Muscle Spasms 12/25/24 12/24/24 Unknown History
Active Medications
Generic Name Dose Route Start Last Admin
Trade Name Freq PRN Reason Stop Dose Admin
Acetaminophen 650 mg 12/24/24 04:33
Acetaminophen 325 Mg Tablet PO 01/21/25 04:32
Q6HPRN PRN
MILD PAIN
Albuterol 2 puff 12/24/24 04:55
Albuterol Hfa [90 Mcg/Dose] Inhaler INH
R Q4HPRN PRN
SOB
Amlodipine Besylate 2.5 mg 12/24/24 08:00 12/25/24 07:53
Amlodipine 2.5 Mg Tablet PO 01/21/25 07:59 2.5 mg
DAILY KATIA Administration
Aspirin 81 mg 12/24/24 08:00 12/25/24 07:53
Aspirin 81 Mg (Enteric Coated) Tablet PO 01/21/25 07:59 81 mg
DAILY KATIA Administration
Bisacodyl 10 mg 12/24/24 04:55
Bisacodyl 10 Mg Rectal Suppository RECTAL 01/21/25 04:54
[id number] PRN
CONSTIPATION
Clopidogrel Bisulfate 75 mg 12/24/24 08:00 12/25/24 07:54
Clopidogrel 75 Mg Tablet PO 01/21/25 07:59 75 mg
DAILY KATIA Administration
Dextrose 12.5 grams 12/24/24 09:37
Dextrose 50% (0.5 Grams/Ml) 50 Ml Syringe IV 01/21/25 09:36
[id number] PRN
hypoglycemia
Protocol
Enoxaparin Sodium 40 mg 12/24/24 18:00 12/24/24 18:01
Enoxaparin Sodium 40 Mg/0.4 Ml Syringe SC 01/21/25 17:59 40 mg
QPM KATIA Administration
Folic Acid 1 mg 12/24/24 08:00 12/25/24 07:54
Folic Acid 1 Mg Tablet PO 01/21/25 07:59 1 mg
DAILY KATIA Administration
Gabapentin 300 mg 12/24/24 08:00 12/25/24 07:54
Gabapentin 300 Mg Capsule PO 01/21/25 07:59 300 mg
TID KATIA Administration
Glimepiride 2 mg 12/24/24 08:00 12/25/24 07:54
Glimepiride 2 Mg Tablet PO 01/21/25 07:59 2 mg
DAILY KATIA Administration
Glucagon 1 mg 12/24/24 09:37
Glucagon 1 Mg Vial IM 01/21/25 09:36
PRN PRN
hypoglycemia
Protocol
Insulin Aspart 0 units 12/24/24 11:30 12/25/24 12:29
Insulin Aspart Low Resistance 300 Units/3 Ml Pen.Injctr SC 01/21/25 11:29 Not Given
AC KATIA
Protocol
Lorazepam 0.5 mg 12/24/24 04:54
Lorazepam 0.5 Mg Tablet PO 01/21/25 04:53
[id number] PRN
ANXIETY
Magnesium Hydroxide 30 ml 12/24/24 04:54
Milk Of Magnesia 30 Ml Cup PO 01/21/25 04:53
[id number] PRN
CONSTIPATION
Magnesium Oxide 500 mg 12/24/24 08:00 12/25/24 07:54
Magnesium Oxide 500 Mg Tablet PO 01/21/25 07:59 500 mg
DAILY KATIA Administration
Metformin HCl 500 mg 12/24/24 08:00 12/25/24 07:54
Metformin 500 Mg Regular Release Tablet PO 01/21/25 07:59 500 mg
DAILY KATIA Administration
Morphine Sulfate 2 mg 12/24/24 04:37 12/24/24 10:56
Morphine 2 Mg/Ml Syringe IV 01/07/25 04:36 2 mg
Q4HPRN PRN Administration
SEVERE PAIN
Morphine Sulfate 15 mg 12/24/24 08:00 12/25/24 07:54
Morphine 15 Mg Extended Release Tablet PO 01/07/25 07:59 15 mg
Q8 KATIA Administration
Oxycodone HCl 5 mg 12/24/24 04:36 12/25/24 02:28
Oxycodone 5 Mg Regular Release Tablet PO 01/07/25 04:35 5 mg
Q4HPRN PRN Administration
MODERATE PAIN
Polyethylene Glycol 17 grams 12/24/24 04:53
Polyethylene Glycol Powder 17 Grams Packet PO 01/21/25 04:52
DAILYPRN PRN
CONSTIPATION
Sodium Chloride 0 flush 12/24/24 05:00
Sodium Chloride 0.9% (Flush) Syringe IV 01/21/25 04:59
PER PROTOCOL KATIA
Tamsulosin HCl 0.4 mg 12/24/24 08:00 12/25/24 07:54
Tamsulosin 0.4 Mg Capsule PO 01/21/25 07:59 0.4 mg
DAILY KATIA Administration
Review of Systems
-
ROS is notable for HPI, otherwise negative
Physical Exam
-
General:�Well�developed,�well�nourished�patient.�In�no�acute�distress.
Head:�Atraumatic�and�normocephalic.
Eyes:�Sclerae�are�anicteric.�Conjunctivae�and�lids�are�normal�in�appearance.
Ears,�Nose,�Throat,�and�Mouth:�Normal�oral�mucosa
Neck:�Neck�is�supple.
Lungs:�No�respiratory�distress.
CV Regular�rate.�Regular�rhythm.
Edema�is�noted:�RLE�2+�pitting�edema.
Neuro A&O3, Speech�is�fluent.�
Labs
Lab Results
WBC 4.6 10^3/uL (4.8-10.8) L 12/24/24 00:04
RBC 2.94 10^6/uL (4.70-6.10) L 12/24/24 00:04
Hgb 8.3 g/dL (13.0-18.0) L 12/24/24 00:04
Hct 25.8 % (39.0-52.0) L 12/24/24 00:04
MCV 87.8 fL (80.0-94.0) 12/24/24 00:04
MCH 28.2 pg (27.0-31.0) 12/24/24 00:04
MCHC 32.2 g/dL (33.0-37.0) L 12/24/24 00:04
RDW 16.5 % (11.5-14.5) H 12/24/24 00:04
Plt Count 309 10^3/uL (130-400) 12/24/24 00:04
MPV 10.1 fL (7.4-10.4) 12/24/24 00:04
Abs Immat Gran (auto) 0.0 10^3/uL (0-0.05) 12/24/24 00:04
Absolute Neuts (auto) 3.1 10^3/uL (1.4-6.5) 12/24/24 00:04
Absolute Lymphs (auto) 0.8 10^3/uL (1.2-3.4) L 12/24/24 00:04
Absolute Monos (auto) 0.7 10^3/uL (0.1-0.6) H 12/24/24 00:04
Absolute Eos (auto) 0.0 10^3/uL (0-0.7) 12/24/24 00:04
Absolute Basos (auto) 0.0 10^3/uL (0-0.2) 12/24/24 00:04
Immature Gran % 0.4 % (0-0.5) 12/24/24 00:04
Neutrophils % 66.0 % (42.2-75.2) 12/24/24 00:04
Lymphocytes % 18.1 % (20.5-51.1) L 12/24/24 00:04
Monocytes % 14.9 % (1.7-9.3) H 12/24/24 00:04
Eosinophils % 0.4 % (0-6) 12/24/24 00:04
Basophils % 0.2 % (0-2) 12/24/24 00:04
Creatinine 0.8 mg/dL (0.7-1.3) 12/24/24 00:04
Vital Signs
Vital Signs
Temp Pulse Resp BP Pulse Ox
99.1 F 81 18 142/80 95
12/25/24 07:00 12/25/24 07:00 12/25/24 07:00 12/25/24 12:11 12/25/24 08:00
[2024-12-25] MEDS: MORPHINE SULFATE 2 MG IV (14:49)
[2024-12-25] MEDS: RETACRIT 40000 UNITS SC (14:59)
[2024-12-25 15:00] VITALS: BP 97/54
--- NOTE | 2024-12-25 15:23 | CM ---
CM spoke w/ one of patient's POAsAndriy, regarding d/c planning. Per chart, patient is requiring skilled rehab and referrals have been sent. CM reviewed referrals w/ Andriy Ashraf agreeable to [facility] as [facility] not have any
bed availability. Andriy continued to share plan post rehab stating that patient will resume services w/ [facility] and is planning to private pay for caregivers.
CM placed call to [facility] to initiate authorization. CM spoke w/ Chiqui, faxed clinicals to [phone].
Pending ref # [id number]
Plan: [facility] once auth is approved
[2024-12-25 16:33] VITALS: BP 108/44; BP 117/54; PULSE 73
[2024-12-25 17:32] LABS: Glucose - Point of Care 96 mg/dl (70-99)
[2024-12-25] MEDS: LOVENOX SC (18:04)
[2024-12-25 21:35] LABS: Glucose - Point of Care 163 mg/dl (70-99)
[2024-12-25 23:38] VITALS: BP 127/63
[2024-12-26 07:00] VITALS: BP 119/50
[2024-12-26 07:17] LABS: Glucose - Point of Care 89 mg/dl (70-99)
[2024-12-26] MEDS: NORVASC 2.5 MG PO (07:37)
[2024-12-26] MEDS: FOLVITE 1 MG PO (07:37)
[2024-12-26] MEDS: AMARYL 2 MG PO (07:37)
[2024-12-26] MEDS: ASPIR LOW (ENTERIC COATED) 81 MG PO (07:37)
[2024-12-26] MEDS: MAGNESIUM OXIDE 500 MG PO (07:37)
[2024-12-26] MEDS: NEURONTIN 300 MG PO (07:38)
[2024-12-26] MEDS: GLUCOPHAGE 500 MG PO (07:38)
[2024-12-26] MEDS: FLOMAX 0.4 MG PO (07:38)
[2024-12-26] MEDS: PLAVIX 75 MG PO (07:38)
[2024-12-26] MEDS: MS CONTIN (EXTENDED RELEASE) 15 MG PO (07:38)
--- NOTE | 2024-12-26 09:33 | W.PN.HOSP.TC ---
Addendum entered and electronically signed by Jaden Lui DO 12/26/24 11:30:
Updated patients sister on the phone.
Original Note:
Today's Communication/Plan
-
Discharge planning
Assessment / Plan
Assessment / Plan
Gen-AAOx3, NAD
HEENT-NC, AT, anicteric, clear oral mm
Neck-supple
CV-reg, no M, +S1/S2
Lungs-clear B/L
Abd-soft, NT, ND
Ext-diffuse right lower extremity edema up to thigh
Musculoskeletal-no cyanosis, clubbing
Skin-warm and dry, right lower extremity hyperpigmentation
Neuro-grossly non-focal
Psych-calm, cooperative
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 Continue compression therapy. Follow-up with lymphedema clinic.
Continue analgesics.
Ambulatory dysfunction -suspect multifactorial etiology including deconditioning, lymphedema, etc. Consult PT/OT. Anticipate SNF on discharge.
Stage IV anal squamous cell cancer -followed by oncology, Dr. Craig. Still scheduled to undergo chemotherapy, missed his last 3 sessions due to hospitalization as well as rehab stay.
Treated with radiation therapy October 2023. Originally diagnosed July 2023.
Patient requesting oncology consult for opinion regarding plan of care.
CAD -history of MO. Continue medical therapy.
Essential hypertension -stable.
DM 2 without hyperglycemia -hemoglobin A1c 6.4% on December 09. Glucose 89 this morning. He is on metformin and glimepiride at home. Add sliding scale insulin.
BPH
Full code
Dispo -anticipate discharge to SNF. Medically stable for discharge.
Anticipated Discharge: Within 24 hours
Subjective/Interval History
-
Date of Service: December 26, 2024
Patient seen and examined. No complaints.
Objective Data
-
Vital Signs:
Vital Signs
Temp Pulse Resp BP Pulse Ox
98.1 F 62 18 119/50 96
12/26/24 07:00 12/26/24 07:00 12/26/24 07:00 12/26/24 07:00 12/26/24 08:00
I&O
12/25/24 12/26/24 12/27/24
06:59 06:59 06:59
Intake Total 960 / 960 1440 / 1440
Output Total 550 / 550 700 / 700
Balance 410 / 410 740 / 740
Review of Systems
-
History Source: Patient
All other systems: Reviewed and negative
--- NOTE | 2024-12-26 09:58 | W.DS.TRANS ---
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
-
Discharge Instructions:
Discharge Diagnosis/Procedures Symptomatic right lower extremity lymphedema,
ambulatory dysfunction, stage IV anal squamous
cell cancer, chronic anemia
Diet Diabetic, Carb Controlled
Activity As tolerated,With assistance
Driving Restrictions No driving
Bathing Restrictions None
Instructions:
Stand-Alone Forms:
Changes to Home Medications: No
Discharge Medications:
DC Medications w/original date entered in [facility]
cholecalciferol (vitamin D3) 25 mcg (1,000 unit) tablet (Vitamin D3) 25 mcg PO DAILY Supplement ##0 01/11/22
tamsulosin 0.4 mg capsule 0.4 mg PO DAILY Urinary issue 04/18/22
aspirin 81 mg tablet,delayed release 81 mg PO DAILY Blood Clot Prevention/Tx 08/02/23
folic acid 1 mg tablet 1 mg PO DAILY Supplement 08/02/23
glimepiride 2 mg tablet 2 mg PO DAILY Diabetes 08/02/23
metformin 500 mg tablet 250 mg PO DAILY Diabetes 08/02/23
vitamin B complex 1 tab PO DAILY Supplement 08/02/23
albuterol sulfate 90 mcg/actuation aerosol inhaler 2 puff inhalation Q4HPRN PRN shortness of breath 12/08/24
amlodipine 2.5 mg tablet 2.5 mg PO DAILY Blood Pressure 12/08/24
metoprolol succinate 25 mg tablet,extended release 24 hr 25 mg PO DAILY Blood Pressure 12/08/24
polyethylene glycol 3350 17 gram oral powder packet (Miralax) 17 g PO DAILYPRN PRN constipation 12/08/24
acetaminophen 325 mg tablet 650 mg PO Q6H PRN fever/mild pain 12/24/24
bisacodyl 10 mg rectal suppository (Dulcolax (bisacodyl)) 10 mg IA DAILY PRN constipation 12/24/24
clopidogrel 75 mg tablet 75 mg PO DAILY CVA 12/24/24
dextrose 40 % oral gel (Glucose Gel) 10 g PO ONCE PRN hypoglycemia and able to swallow 12/24/24
glucagon HCl 1 mg solution for injection (Glucagon (HCl) Emergency Kit) 1 mg SC ONCE PRN hypoglycemia 12/24/24
magnesium oxide 400 mg PO BID Supplement 12/24/24
sodium phosphates 19 gram-7 gram/118 mL enema (Fleet Enema) 118 ml IA ONCE PRN constipation 12/24/24
urea 10 % lotion (Ureacin-10) 1 applic topical BID Skin Issues 12/24/24
gabapentin 300 mg capsule 300 mg PO TID Muscle Spasms 12/25/24
lorazepam 0.5 mg tablet 0.5 mg PO BID PRN anxiety #4 tabs 12/26/24
morphine 15 mg tablet,extended release (MS Contin) 15 mg PO Q8H Pain #4 tabs 12/26/24
oxycodone 5 mg capsule 5 mg PO Q4H PRN breakthrough pain #6 caps 12/26/24
Home Medication Changes
Pending Results: No
--- NOTE | 2024-12-26 10:25 | CM ---
CM received call from [facility] w/ approval for skilled rehab. Approved beginning today, next review is 12/30
Auth ref# [id number]
CM updated [facility] admissions
Updated hospitalist, agreeable to d/c today
Updated Andriy WEEKS. Patient will transport via van, acute care number provided, POA agreeable to $90 cost.
IMM verbally reviewed, patient given copy, copy placed on chart
[facility]
Report: [phone]

Plan: [facility] SN[facility] today
[2024-12-26 11:30] LABS: Glucose - Point of Care 116 mg/dl (70-99)
[2024-12-26 14:00] VITALS: BP 118/65
== END 2024-12-26 14:33 | DRG 607 ==
LOC: 4 WEST ACU 00:56
PROVIDERS: ADMITTING PHYSICIAN Internal Medicine; ATTENDING PHYSICIAN Hospitalist; EMERGENCY PHYSICIAN Student in an Organized Health Care Education/Training Program; FAMILY PHYSICIAN Family Medicine; OTHER PHYSICIAN Internal Medicine Hematology & Oncology
DX: I89.0 Lymphedema, not elsewhere classified (principal); C85.90 Non-Hodgkin lymphoma, unspecified, unspecified site; C21.8 Malignant neoplasm of overlapping sites of rectum, anus and anal canal; G89.3 Neoplasm related pain (acute) (chronic); M79.604 Pain in right leg; R26.2 Difficulty in walking, not elsewhere classified; I25.10 Atherosclerotic heart disease of native coronary artery without angina pectoris; I10 Essential (primary) hypertension; E11.51 Type 2 diabetes mellitus with diabetic peripheral angiopathy without gangrene; R54 Age-related physical debility; E11.649 Type 2 diabetes mellitus with hypoglycemia without coma; M79.89 Other specified soft tissue disorders; D64.9 Anemia, unspecified; K21.9 Gastro-esophageal reflux disease without esophagitis; E78.5 Hyperlipidemia, unspecified; I44.7 Left bundle-branch block, unspecified; N40.0 Benign prostatic hyperplasia without lower urinary tract symptoms; E78.00 Pure hypercholesterolemia, unspecified; Z96.611 Presence of right artificial shoulder joint; I25.2 Old myocardial infarction; Z86.73 Personal history of transient ischemic attack (TIA), and cerebral infarction without residual deficits; Z87.891 Personal history of nicotine dependence; Z95.5 Presence of coronary angioplasty implant and graft; Z79.84 Long term (current) use of oral hypoglycemic drugs; Z79.02 Long term (current) use of antithrombotics/antiplatelets; Z92.21 Personal history of antineoplastic chemotherapy; Z92.3 Personal history of irradiation; Z88.8 Allergy status to other drugs, medicaments and biological substances; Z79.82 Long term (current) use of aspirin
CPT/HCPCS: 80053; 81003; 82962; 83880; 85025; 93005; 93971; 96374; 96376; 97116; 97163; 99285; Q5106

== ENCOUNTER → 2024-12-29 10:35 | Outpatient (REF) | payer OTHER, MEDICARE, SELFPAY ==
[2024-12-29 11:12] LABS: % Basophils 0.4 % (0-2); % Eosinophils 0.7 % (0-6); % Immature Granulocytes 0.4 % (0-0.5); % Lymphocytes 21.5 % (20.5-51.1); Absolute Lymphocytes 1.2 10^3/uL (1.2-3.4); Absolute Monocytes 0.8 10^3/uL (0.1-0.6); Absolute Neutrophils 3.3 10^3/uL (1.4-6.5); Hematocrit 22.4 % (39.0-52.0); Hemoglobin 7.2 g/dL (13.0-18.0); Mean Corp Hgb Conc. 32.1 g/dL (33.0-37.0); Mean Corpuscular Hgb 28.6 pg (27.0-31.0); Mean Corpuscular Volume 88.9 fL (80.0-94.0); Nucleated Red Blood Cells % 0 % (-); Platelet Count 216 10^3/uL (130-400); Red Blood Cell Count 2.52 10^6/uL (4.70-6.10); Red Cell Dist. Width 17.2 % (11.5-14.5); White Blood Cell Count 5.3 10^3/uL (4.8-10.8)
[2024-12-29 13:24] LABS: Blood Urea Nitrogen 12 mg/dl (9-20); Calcium 8.8 mg/dl (8.4-10.2); Carbon Dioxide 24 mmol/L (22-30); Chloride 105 mmol/L (98-107); Glucose 112 mg/dl (70-99); Sodium 139 mmol/L (135-145); eGFR > 60.00
== END ==
LOC: OLABP 10:35
PROVIDERS: ATTENDING PHYSICIAN Family Medicine
DX: I89.0 Lymphedema, not elsewhere classified (principal); D63.0 Anemia in neoplastic disease; R26.2 Difficulty in walking, not elsewhere classified; I47.10 Supraventricular tachycardia, unspecified; C20 Malignant neoplasm of rectum; N40.0 Benign prostatic hyperplasia without lower urinary tract symptoms; E11.9 Type 2 diabetes mellitus without complications; I63.9 Cerebral infarction, unspecified; F10.90 Alcohol use, unspecified, uncomplicated; I25.10 Atherosclerotic heart disease of native coronary artery without angina pectoris; I10 Essential (primary) hypertension; K21.9 Gastro-esophageal reflux disease without esophagitis
CPT/HCPCS: 36415; 80048; 85025

== ENCOUNTER 2024-12-30 12:31 | Emergency (ER) | payer MEDICARE, SELFPAY ==
[2024-12-30 12:33] VITALS: BP 136/52
--- NOTE | 2024-12-30 13:06 | ED.GENMED ---
History of Present Illness
General
Chief Complaint: Abnormal Lab Value
Source: patient
Exam Limitations: none
Time Seen by Provider: 12/30/24 13:01
Nursing documentation reviewed up to this point in time: agreed with
History of Present Illness
History of Present Illness:
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 Presents from [facility] for reported low
hemoglobin of '7.2.'
Denies any new CP or SOB. Denies abdominal pain, fever/chills, n/v/d/c. Does not know if stool color has changed
Takes ASA and Clopidogrel
Past History
Past History
ED Past Medical History: CAD, Cancer (Rectal which is resolved. ), CVA (No residual weakness), GERD, HTN, Hypercholesterolemia, NIDDM, [place] and Other ( GI bleed, Renal calculus, Chronic right leg lymph edema)
ED Past Surgical History: Cardiac (stents, ), Orthopedic (Right Humerus, Right shoulder replacement, ) and Other (Hernia repair, Carotid surgery, )
Patient has exhibited threatening behavior?: No
Social History
Tobacco: Former smoker
Alcohol: Daily (Wine or beer 2)
Drug: None
Personal: Single
Living: with roommate
Review of Systems
Review of Systems
Allergies reviewed?: Yes
All Other Systems: ROS reviewed and negative except as documented in HPI and ROS
Constitutional: Denies fever or fatigue
Respiratory: Denies trouble breathing
Cardiac: Denies chest pain
ABD/GI: Denies abdominal pain, nausea, vomiting, diarrhea, bloody stools or black stools
: Denies dysuria, frequency or difficulty voiding
Musculoskeletal: Reports edema
Neurological: Reports no symptoms
Phy Exam
Physical Exam
Physical Exam:
GENERAL: No acute distress. A&Ox3.
CONSTITUTIONAL: Afebrile.
EYES: clear, conjunctivae normal
ENMT: moist mucus membranes, Pharynx nl
RESPIRATORY: Regular respirations, nonlabored, lungs clear.
CARDIOVASCULAR: Regular rate and rhythm, + murmur, no rubs.
GI: Soft, nontender, normal BS
Rectal: light brown stool, heme neg
MUSCULOSKELETAL: Chronic Bilateral LE lymphedema R>L
SKIN: Warm, dry, pale
PSYCH: Normal mood and affect. Well kept, interactive and appropriate
NEUROLOGIC: Awake, alert and oriented. No focal neurological deficits
Course
Orders/Labs/Results
Orders:
Orders
12/30/24 12:58
Type+Screen Urgent
CMP [Comprehensive Metabolic Panel] Urgent
Complete Blood Count/With Diff Urgent
Abnormal Lab Results
12/30/24
12:58
WBC 4.7 L 10^3/uL
(4.8-10.8)
RBC 2.58 L 10^6/uL
(4.70-6.10)
Hgb 7.2 L g/dL
(13.0-18.0)
Hct 22.6 L %
(39.0-52.0)
MCHC 31.9 L g/dL
(33.0-37.0)
RDW 17.2 H %
(11.5-14.5)
Absolute Lymphs (auto) 1.0 L 10^3/uL
(1.2-3.4)
Absolute Monos (auto) 0.7 H 10^3/uL
(0.1-0.6)
Lymphocytes % 20.4 L %
(20.5-51.1)
Monocytes % 14.2 H %
(1.7-9.3)
Glucose 124 H mg/dl
(70-99)
Total Protein 5.8 L g/dl
(6.3-8.2)
Albumin 3.3 L g/dl
(3.5-5.0)
12/30/24 12:58
12/30/24 12:58
Vital Signs
Initial and Last Documented VS:
Initial Vital Signs
Temp Pulse Resp BP Pulse Ox
98.1 F 74 16 136/52 96
12/30/24 12:33 12/30/24 12:33 12/30/24 12:33 12/30/24 12:33 12/30/24 12:33
Last Documented Vital Signs
Temp Pulse Resp BP Pulse Ox
98.1 F 70 16 135/88 97
12/30/24 12:33 12/30/24 15:26 12/30/24 15:26 12/30/24 15:26 12/30/24 15:26
MDM/Problems Addressed
Differential Diagnosis Includes:
GI bleed, anemia of chronic disease
MDM/Problems Addressed:
74-year-old male with history of TIA, CAD, cardiac stent 2007 and 2023, HTN, HLD, FL, GERD, anxiety, NIDDM, lower GI bleed, states rectal ca is 'clear,' lymphedema. Presents from [facility] for reported low hemoglobin of '7.2.'
Denies any new CP or SOB. Denies abdominal pain, fever/chills, n/v/d/c. Does not know if stool color has changed
Takes ASA and Clopidogrel
CBC: Hemoglobin 7.2 down from 8.3 5 days ago.
spoke with Neelima at [facility]. She states the [employer]RA[employer] SUPERVISOR there saw pt for first time and doesn't really know him well. When P/T reported low BP and they saw the Hgb 7.2 she sent him here for evaluation
BP here is normal multiple times
No sign of dehydration. CMP normal.
Pt has no sign of active bleeding, has anemia of chronic disease, had Hgb 7.2 12/12/24 w no sign of bleeding and ordered to recheck in one week.
Informed Neelima to recheck CBC in one week.
Pt is stable for return to [facility].
*Critical Care Note
Total Time (30-74mins, 75-104mins- exclusive of procedures): Not Applicable
ED Attending Note
-
Portions of this chart may have been created with voice recognition software.� Occasional wrong word or��sound alike� substitutions may have occurred due to the inherent limitations of voice recognition software.
Discharge Plan
Departure
Patient Disposition: Senior Living/SNF
Date of Disposition: 12/30/24
Time of Disposition: 13:54
Condition: Fair
Discharge Problem:
Anemia of chronic disease
Prescriptions:
No Action
cholecalciferol (vitamin D3) [Vitamin D3] 25 mcg (1,000 unit) Tablet
25 mcg PO DAILY Qty: 0
tamsulosin 0.4 MG capsule
0.4 mg PO DAILY
vitamin B complex Tablet
1 tab PO DAILY
metformin 500 mg Tablet
250 mg PO DAILY
aspirin 81 MG tablet,delayed release (DR/EC)
81 mg PO DAILY
glimepiride 2 MG tablet
2 mg PO DAILY
folic acid 1 MG tablet
1 mg PO DAILY
amlodipine 2.5 mg tablet
2.5 mg PO DAILY
Rx Instructions:
hold if sbp less than 100 mm of hg
metoprolol succinate 25 mg tablet extended release 24 hr
25 mg PO DAILY
Rx Instructions:
hold for sbp below 90 & HR below 60
albuterol sulfate 90 mcg/actuation HFA aerosol inhaler
2 puff INHALATION Q4HPRN PRN (Reason: shortness of breath)
polyethylene glycol 3350 [Miralax] 17 gram Powder In Packet
17 g PO DAILYPRN PRN (Reason: constipation)
acetaminophen 325 mg Tablet
650 mg PO Q6H PRN (Reason: fever/mild pain)
dextrose [Glucose Gel] 40 % Gel
10 g PO ONCE PRN (Reason: hypoglycemia and able to swallow)
urea [Ureacin-10] 10 % Lotion
1 applic TOPICAL BID
Rx Instructions:
apply to right lower leg
bisacodyl [Dulcolax (bisacodyl)] 10 mg Suppository
10 mg IL DAILY PRN (Reason: constipation)
Fleet Enema 19-7 gram/118 mL Enema
118 ml IL ONCE PRN (Reason: constipation)
magnesium oxide 400 mg magnesium Tablet
400 mg PO BID
glucagon HCl [Glucagon (HCl) Emergency Kit] 1 mg Recon Soln
1 mg SC ONCE PRN (Reason: hypoglycemia)
clopidogrel 75 mg tablet
75 mg PO DAILY
gabapentin 300 mg capsule
300 mg PO TID
lorazepam 0.5 mg Tablet
0.5 mg PO BID PRN (Reason: anxiety) Qty: 4 0RF
oxycodone 5 mg capsule
5 mg PO Q4H PRN (Reason: breakthrough pain) Qty: 6 0RF
morphine [MS Contin] 15 mg tablet extended release
15 mg PO Q8H Qty: 4 0RF
Referrals:
Juan Castillo MD [Family Provider] -
Activity Restrictions/Additional Instructions:
As I discussed with LINDA Ortez, we don't usually transfuse unless Hgb is <7.0 or pt is SOB, has CP, is tachycardic, has signs of active bleeding. None of which Mr. Sy has (stool heme neg)
Have Hgb rechecked in one week.
His BP has been normal numerous times while here.
Interventions
Interventions:
*Risk Screen - Suicide Last Done: 12/30/24 12:33
*General Assessment Last Done: 12/30/24 12:33
*Neglect/Abuse Screening Last Done: 12/30/24 12:33
*ED- Fall Risk Assessment Last Done: 12/30/24 15:26
*ED COVID-19 Vaccine History Last Done: 12/30/24 15:26
*Nursing Disposition Last Done: 12/30/24 15:26
Discharge Date and Time
Discharge Date/Time: 12/30/24 15:34
Print Language: L[place]
[2024-12-30 13:13] LABS: % Basophils 0.4 % (0-2); % Eosinophils 0.6 % (0-6); % Immature Granulocytes 0.4 % (0-0.5); % Lymphocytes 20.4 % (20.5-51.1); % Monocytes 14.2 % (1.7-9.3); Absolute Monocytes 0.7 10^3/uL (0.1-0.6); Hematocrit 22.6 % (39.0-52.0); Hemoglobin 7.2 g/dL (13.0-18.0); Mean Corp Hgb Conc. 31.9 g/dL (33.0-37.0); Mean Corpuscular Hgb 27.9 pg (27.0-31.0); Mean Corpuscular Volume 87.6 fL (80.0-94.0); Nucleated Red Blood Cells % 0 % (-); Platelet Count 212 10^3/uL (130-400); Red Blood Cell Count 2.58 10^6/uL (4.70-6.10); Red Cell Dist. Width 17.2 % (11.5-14.5); White Blood Cell Count 4.7 10^3/uL (4.8-10.8)
[2024-12-30 13:35] LABS: ALT (SGPT) 10 U/L (0-50); AST (SGOT) 20 U/L (17-59); Albumin 3.3 g/dl (3.5-5.0); Alkaline Phosphatase 70 U/L (38-126); Blood Urea Nitrogen 13 mg/dl (9-20); Calcium 9.1 mg/dl (8.4-10.2); Carbon Dioxide 28 mmol/L (22-30); Chloride 102 mmol/L (98-107); Glucose 124 mg/dl (70-99); Potassium 4.2 mmol/L (3.5-5.1); Sodium 136 mmol/L (135-145); Total Bilirubin 0.4 mg/dl (0.2-1.3); Total Protein 5.8 g/dl (6.3-8.2); eGFR > 60.00
[2024-12-30 13:52] VITALS: BP 121/52
[2024-12-30 14:37] VITALS: BP 143/60
[2024-12-30 15:26] VITALS: BP 135/88
== END 2024-12-30 15:34 ==
LOC: EMR 12:31
PROVIDERS: Emergency Medicine; EMERGENCY PHYSICIAN Emergency Medicine; FAMILY PHYSICIAN Family Medicine
DX: D64.9 Anemia, unspecified (principal); I11.0 Hypertensive heart disease with heart failure; I50.9 Heart failure, unspecified; I25.2 Old myocardial infarction; E11.9 Type 2 diabetes mellitus without complications; E78.00 Pure hypercholesterolemia, unspecified; F41.9 Anxiety disorder, unspecified; I25.10 Atherosclerotic heart disease of native coronary artery without angina pectoris; I89.0 Lymphedema, not elsewhere classified; Z86.73 Personal history of transient ischemic attack (TIA), and cerebral infarction without residual deficits; Z87.891 Personal history of nicotine dependence; Z95.5 Presence of coronary angioplasty implant and graft; Z96.611 Presence of right artificial shoulder joint
CPT/HCPCS: 99283; 80053; 85025; 86850; 86900; 86901

== ENCOUNTER 2025-01-08 10:37 | Outpatient (RCR) | payer MEDICARE, SELFPAY ==
[2025-01-07 13:30] LABS: % Basophils 0.5 % (0-2); % Eosinophils 0.9 % (0-6); % Immature Granulocytes 0.2 % (0-0.5); % Monocytes 8.8 % (1.7-9.3); % Neutrophils 74.6 % (42.2-75.2); Absolute Eosinophils 0.1 10^3/uL (0-0.7); Absolute Monocytes 0.6 10^3/uL (0.1-0.6); Absolute Neutrophils 4.7 10^3/uL (1.4-6.5); Hematocrit 22.9 % (39.0-52.0); Hemoglobin 7.4 g/dL (13.0-18.0); Mean Corp Hgb Conc. 32.3 g/dL (33.0-37.0); Mean Corpuscular Hgb 27.6 pg (27.0-31.0); Mean Corpuscular Volume 85.4 fL (80.0-94.0); Mean Platelet Volume 10.3 fL (7.4-10.4); Platelet Count 334 10^3/uL (130-400); Red Blood Cell Count 2.68 10^6/uL (4.70-6.10); Red Cell Dist. Width 17.1 % (11.5-14.5); White Blood Cell Count 6.4 10^3/uL (4.8-10.8)
[2025-01-07 14:10] LABS: ALT (SGPT) 11 U/L (0-50); AST (SGOT) 26 U/L (17-59); Albumin 3.5 g/dl (3.5-5.0); Alkaline Phosphatase 85 U/L (38-126); Blood Urea Nitrogen 21 mg/dl (9-20); Calcium 9.5 mg/dl (8.4-10.2); Carbon Dioxide 24 mmol/L (22-30); Chloride 102 mmol/L (98-107); Glucose 146 mg/dl (70-99); Potassium 4.7 mmol/L (3.5-5.1); Sodium 136 mmol/L (135-145); Total Bilirubin 0.6 mg/dl (0.2-1.3); Total Protein 6.3 g/dl (6.3-8.2); eGFR > 60.00
[2025-01-07 15:02] LABS: Free T3 4.01 pg/ml (2.77-5.27); TSH 3.51 uIU/ml (0.47-4.68)
[2025-01-08 11:20] VITALS: BP 103/47
[2025-01-08] MEDS: TYLENOL 650 MG PO (11:35)
[2025-01-08] MEDS: BENADRYL 25 MG PO (11:36)
[2025-01-08 11:48] VITALS: BP 103/47
[2025-01-08 12:05] VITALS: BP 96/45
[2025-01-08 14:01] VITALS: BP 102/56
== END 2025-02-04 23:59 | disposition home or self-care (01) ==
LOC: OID 10:37
PROVIDERS: ATTENDING PHYSICIAN Internal Medicine Hematology & Oncology; FAMILY PHYSICIAN Family Medicine
DX: C21.1 Malignant neoplasm of anal canal (principal); D50.9 Iron deficiency anemia, unspecified; C77.9 Secondary and unspecified malignant neoplasm of lymph node, unspecified
CPT/HCPCS: 36430; 80053; 84439; 84443; 84481; 85025; 86850; 86900; 86901; 86920; P9016

== ENCOUNTER 2025-01-11 18:53 | Inpatient (IN) | payer MEDICARE, SELFPAY ==
[2025-01-11 12:31] VITALS: BP 129/73
--- NOTE | 2025-01-11 14:44 | ED.GENMED ---
History of Present Illness
General
Chief Complaint: Generalized Pain
Source: patient
Exam Limitations: none
Time Seen by Provider: 01/11/25 14:24
Nursing documentation reviewed up to this point in time: agreed with
History of Present Illness
History of Present Illness:
Patient is a 74-year-old male with past medical history of TIA's, cardiac stents NIDDM, lower GI bleed rectal cancer chronic pain chronic lymphedema and pain related to lymphedema presents to the ER for pain. Patient complains of chronic right leg
pain. He reports this is not new however medications not working. He is on Dilaudid gabapentin for pain.
He is presently at [facility] for rehab.
Patient reports he has had multiple ultrasounds which are negative. Prescription list reviewed from [facility] includes Dilaudid 2 mg tablets as well as Gabapentin.
Patient denies any fever chills shortness of breath.
Past History
Past History
ED Past Medical History: CAD, Cancer (Rectal which is resolved. ), CVA (No residual weakness), GERD, HTN, Hypercholesterolemia, NIDDM, [place] and Other ( GI bleed, Renal calculus, Chronic right leg lymph edema)
ED Past Surgical History: Cardiac (stents, ), Orthopedic (Right Humerus, Right shoulder replacement, ) and Other (Hernia repair, Carotid surgery, )
Patient has exhibited threatening behavior?: No
Social History
Tobacco: Former smoker
Alcohol: Daily (Wine or beer 2)
Drug: None
Personal: Single
Living: with roommate
Review of Systems
Review of Systems
Allergies reviewed?: Yes
All Other Systems: ROS reviewed and negative except as documented in HPI and ROS
Constitutional: Reports no symptoms
EENT: Reports no symptoms
Respiratory: Reports no symptoms
Cardiac: Reports no symptoms
ABD/GI: Reports no symptoms
: Reports no symptoms
Musculoskeletal: Reports other (chronic right leg pain )
Skin: Reports no symptoms
Neurological: Reports no symptoms
Psychiatric: Reports no symptoms
Phy Exam
General Physical Exam
General Presentation: no apparent distress
General age: appears stated age
General Skin: warm and dry
General Habitus: normal
General Mental: alert
General Hydration: appears well hydrated
Cardiovascular Exam
Cardiovascular Exam: regular rate/rhythm, no murmur and normal peripheral pulses
Pulmonary Exam
Pulmonary Exam: lungs clear and no respiratory distress
Neurological Exam
Neurological Exam: alert and oriented x3
Musculoskeletal Exam
Musculoskeletal Exam: other (Patient has obvious swelling to right leg pain with range of motion strong pulses no erythema)
Skin Exam
Skin Exam: normal color and warm/dry
Psychiatric Exam
Psychiatric Exam: normal mood/affect
Course
Orders/Labs/Results
Orders:
Orders
01/11/25 14:59
IV Insert/Care/Rem.- Treatment PRN
HYDROmorphone [Dilaudid] 1 mg IV NOW STA
01/11/25 15:16
Complete Blood Count/With Diff Urgent
Comprehensive Metabolic Panel Urgent
01/11/25 16:55
Ondansetron Injectable [Zofran] 4 mg IV NOW STA
Abnormal Lab Results
01/11/25
15:16
RBC 3.42 L 10^6/uL
(4.70-6.10)
Hgb 9.3 L D g/dL
(13.0-18.0)
Hct 28.1 L %
(39.0-52.0)
RDW 16.5 H %
(11.5-14.5)
Absolute Monos (auto) 0.7 H 10^3/uL
(0.1-0.6)
Lymphocytes % 16.4 L %
(20.5-51.1)
Monocytes % 9.5 H %
(1.7-9.3)
Sodium 134 L mmol/L
(135-145)
01/11/25 15:16
01/11/25 15:16
Vital Signs
Initial and Last Documented VS:
Initial Vital Signs
Temp Pulse Resp BP Pulse Ox
98.3 F 115 20 129/73 100
01/11/25 12:31 01/11/25 12:31 01/11/25 12:31 01/11/25 12:31 01/11/25 12:31
Last Documented Vital Signs
Temp Pulse Resp BP Pulse Ox
98.3 F 115 20 129/73 100
01/11/25 12:31 01/11/25 12:31 01/11/25 12:31 01/11/25 12:31 01/11/25 12:31
MDM/Problems Addressed
Differential Diagnosis Includes:
not limited to:
Chronic pain chronic lymphedema less likely DVT
MDM/Problems Addressed:
Patient is a 74-year-old male with rectal cancer presents with chronic lymphedema and chronic pain related to the lymphedema. He is presently at [facility] on gabapentin and Dilaudid however this is not relieving his symptoms. He reports this is
typical pain for him. Patient was given IV Dilaudid for pain which has improved his symptoms he does not feel that he can go back due to pain not relieved with his oral pain meds. Family at bedside requesting case management for possible
palliative care and switching patient from [facility] to [facility]. I did review patient's outpatient imaging PET scan in addition I reviewed previous ultrasounds which were negative however we will order ultrasound just to ensure no DVT though less
likely.
*Pulse Oximetry
Patient hypoxic: no
*Critical Care Note
Total Time (30-74mins, 75-104mins- exclusive of procedures): Not Applicable
Data Reviewed
Review of Other/Old Records Reveals: Radiology Studies
Source: patient and family
ED Attending Note
-
Portions of this chart may have been created with voice recognition software.� Occasional wrong word or��sound alike� substitutions may have occurred due to the inherent limitations of voice recognition software.
Discharge Plan
Departure
Prescriptions:
No Action
cholecalciferol (vitamin D3) [Vitamin D3] 25 mcg (1,000 unit) Tablet
25 mcg PO DAILY Qty: 0
tamsulosin 0.4 MG capsule
0.4 mg PO DAILY
vitamin B complex Tablet
1 tab PO DAILY
metformin 500 mg Tablet
250 mg PO DAILY
aspirin 81 MG tablet,delayed release (DR/EC)
81 mg PO DAILY
glimepiride 2 MG tablet
2 mg PO DAILY
folic acid 1 MG tablet
1 mg PO DAILY
sennosides [senna] 8.6 mg Tablet
8.6 mg PO DAILY
midodrine 2.5 mg Tablet
2.5 mg PO TID
albuterol sulfate 90 mcg/actuation HFA aerosol inhaler
2 puff INHALATION Q4HPRN PRN (Reason: shortness of breath)
polyethylene glycol 3350 [Miralax] 17 gram Powder In Packet
17 g PO DAILYPRN PRN (Reason: constipation)
acetaminophen 325 mg Tablet
650 mg PO Q6H PRN (Reason: fever/mild pain)
bisacodyl [Dulcolax (bisacodyl)] 10 mg Suppository
10 mg OR DAILY PRN (Reason: constipation)
Fleet Enema 19-7 gram/118 mL Enema
118 ml OR ONCE PRN (Reason: constipation)
magnesium oxide 400 mg magnesium Tablet
400 mg PO BID
glucagon HCl [Glucagon (HCl) Emergency Kit] 1 mg Recon Soln
1 mg SC ONCE PRN (Reason: hypoglycemia)
clopidogrel 75 mg tablet
75 mg PO DAILY
gabapentin 300 mg capsule
300 mg PO TID
lorazepam 0.5 mg Tablet
0.5 mg PO BID PRN (Reason: anxiety) Qty: 4 0RF
oxycodone 5 mg capsule
5 mg PO Q4H PRN (Reason: breakthrough pain) Qty: 6 0RF
morphine [MS Contin] 15 mg tablet extended release
15 mg PO Q8H Qty: 4 0RF
Referrals:
Juan Castillo MD [Family Provider] -
Interventions
Interventions:
*General Assessment Last Done: 01/11/25 12:31
Discharge Date and Time
Print Language: FRENCH
[2025-01-11] MEDS: DILAUDID 1 MG IV (15:17)
[2025-01-11 15:37] LABS: % Basophils 0.1 % (0-2); % Eosinophils 0.7 % (0-6); % Immature Granulocytes 0.3 % (0-0.5); % Lymphocytes 16.4 % (20.5-51.1); % Monocytes 9.5 % (1.7-9.3); Absolute Eosinophils 0.1 10^3/uL (0-0.7); Absolute Lymphocytes 1.2 10^3/uL (1.2-3.4); Absolute Monocytes 0.7 10^3/uL (0.1-0.6); Absolute Neutrophils 5.5 10^3/uL (1.4-6.5); Hematocrit 28.1 % (39.0-52.0); Hemoglobin 9.3 g/dL (13.0-18.0); Mean Corp Hgb Conc. 33.1 g/dL (33.0-37.0); Mean Corpuscular Hgb 27.2 pg (27.0-31.0); Mean Corpuscular Volume 82.2 fL (80.0-94.0); Mean Platelet Volume 9.5 fL (7.4-10.4); Nucleated Red Blood Cells % 0 % (-); Platelet Count 334 10^3/uL (130-400); Red Blood Cell Count 3.42 10^6/uL (4.70-6.10); Red Cell Dist. Width 16.5 % (11.5-14.5); White Blood Cell Count 7.6 10^3/uL (4.8-10.8)
[2025-01-11 16:00] LABS: ALT (SGPT) 13 U/L (0-50); AST (SGOT) 33 U/L (17-59); Albumin 3.5 g/dl (3.5-5.0); Alkaline Phosphatase 81 U/L (38-126); Blood Urea Nitrogen 15 mg/dl (9-20); Calcium 9.9 mg/dl (8.4-10.2); Carbon Dioxide 25 mmol/L (22-30); Chloride 101 mmol/L (98-107); Glucose 91 mg/dl (70-99); Potassium 4.8 mmol/L (3.5-5.1); Sodium 134 mmol/L (135-145); Total Bilirubin 0.8 mg/dl (0.2-1.3); Total Protein 6.5 g/dl (6.3-8.2); eGFR > 60.00
[2025-01-11] MEDS: ZOFRAN 4 MG IV (17:08)
--- NOTE | 2025-01-11 17:41 | HPS.HSE ---
Family Physician
-
Family Physician: Juan Castillo MD
Chief Complaint
-
Right Lower Extremity Pain
History of Present Illness
Patient is a 74 y/o male past medical history of Stage IV anal cancer, chronic pain with opioid dependence secondary to right lower extremity lymphedema, coronary artery disease and diabetes mellitus who presents with uncontrolled right lower
extremity pain. Patient was hospitalized from December 08 to December 12, and again from December 24 to December 26 for worsening right lower extremity pain. Patient has been at [facility] since his most recent hospitalization and has been unable to
receive chemotherapy. He denies any changes to his pain regimen, and notes that the currently oral medications are not as affective. He reports slight worsening of his edema but denies any redness. He has been using the lymphedema pump and notes
that help the pain sometime. He denies any fevers.
Medical History
Past Medical History
Past Medical History: Reports Other
Additional Past Medical History:
Stage IV Anal Squamous Cell Cancer
Lymphedema
Chronic Pain with Opioid Dependence
Coronary Artery Disease s/p Stent
Essential Hypertension
Hyperlipidemia
Diabetes Mellitus, Type II
BPH
Past Surgical History: Reports Other
Additional Past Surgical History:
Inguinal Hernia Repair
Right Humerus Surgery
Right Shoulder Replacement
Carotid Surgery
Social History
Tobacco: Former Smoker
Drug: None
Family History
Family History: Not pertinent
Allergies / Home Medications
Allergies reflects when Allergies were last updated in [facility].
Home Medications with original date entered in [facility]
Allergy/Medication List:
Allergies
Allergy/AdvReac Type Severity Reaction Status Date / Time
abciximab [From Reopro] Allergy Thrombocyto Verified 01/11/25 12:32
penia
Home Medications
cholecalciferol (vitamin D3) 25 mcg (1,000 unit) tablet (Vitamin D3) 25 mcg PO DAILY Supplement ##0 01/11/22
tamsulosin 0.4 mg capsule 0.4 mg PO DAILY Urinary issue 04/18/22
aspirin 81 mg tablet,delayed release 81 mg PO DAILY Blood Clot Prevention/Tx 08/02/23
folic acid 1 mg tablet 1 mg PO DAILY Supplement 08/02/23
glimepiride 2 mg tablet 2 mg PO DAILY Diabetes 08/02/23
metformin 500 mg tablet 250 mg PO DAILY Diabetes 08/02/23
vitamin B complex 1 tab PO DAILY Supplement 08/02/23
albuterol sulfate 90 mcg/actuation aerosol inhaler 2 puff inhalation Q4HPRN PRN shortness of breath 12/08/24
polyethylene glycol 3350 17 gram oral powder packet (Miralax) 17 g PO DAILYPRN PRN constipation 12/08/24
acetaminophen 325 mg tablet 650 mg PO Q6H PRN fever/mild pain 12/24/24
bisacodyl 10 mg rectal suppository (Dulcolax (bisacodyl)) 10 mg AL DAILY PRN constipation 12/24/24
clopidogrel 75 mg tablet 75 mg PO DAILY CVA 12/24/24
glucagon HCl 1 mg solution for injection (Glucagon (HCl) Emergency Kit) 1 mg SC ONCE PRN hypoglycemia 12/24/24
magnesium oxide 400 mg PO BID Supplement 12/24/24
sodium phosphates 19 gram-7 gram/118 mL enema (Fleet Enema) 118 ml AL ONCE PRN constipation 12/24/24
gabapentin 300 mg capsule 300 mg PO TID Muscle Spasms 12/25/24
lorazepam 0.5 mg tablet 0.5 mg PO BID PRN anxiety #4 tabs 12/26/24
morphine 15 mg tablet,extended release (MS Contin) 15 mg PO Q8H Pain #4 tabs 12/26/24
oxycodone 5 mg capsule 5 mg PO Q4H PRN breakthrough pain #6 caps 12/26/24
midodrine 2.5 mg tablet 2.5 mg PO TID 01/08/25
sennosides 8.6 mg tablet (senna) 8.6 mg PO DAILY 01/08/25
Review of Systems
-
A 12 point ROS was completed and negative except as noted: Yes
Constitutional: Denies Fever
Respiratory: Denies Cough or Trouble Breathing
Cardiac: Denies Chest Pain or Palpitations
Physical Exam
Vital Signs
Vital Signs
Temp Pulse Resp BP Pulse Ox
98.3 F 115 20 129/73 100
01/11/25 12:31 01/11/25 12:31 01/11/25 12:31 01/11/25 12:31 01/11/25 12:31
Physical Exam
General: Comfortable and Conversant
HEENT: Anicteric and Moist mucous membranes
Respiratory: Clear and Non Labored Respirations
Cardiac: S1/S2, Regular Rhythm and Murmur (III/ Systolic Murmur)
GI: Soft and Non Tender
Rectal: Deferred by Provider
Musculoskeletal: No Clubbing, No Cyanosis and Edema, Right Lower Extremity (+3 pitting edema)
Skin: Warm and Dry
Neuro: Awake, Alert, Oriented and Nonfocal/grossly intact
Psych: Calm
Laboratory Results
-
01/11/25 15:16
01/11/25 15:16
Laboratory Results
Total Bilirubin 0.8 mg/dl (0.2-1.3) 01/11/25 15:16
AST 33 U/L (17-59) 01/11/25 15:16
ALT 13 U/L (0-50) 01/11/25 15:16
Alkaline Phosphatase 81 U/L (38-126) 01/11/25 15:16
Data Reviewed
-
Lab Data: Labs Reviewed by me
Old Records: Reviewed
Impression/Plan
-
Intractable Pain secondary to Chronic Right Lower Extremity Lymphedema
-Previously felt that lymphedema was related to prior radiation induced damage to lymphatic systemt
-Continue MC Contin 15m q8h
-Continue oxycodone 5mg PO q4hprn mild pain, 10mg PO q4hprn moderate pain and Dilaudid 0.5mg IV q3hprn severe pain
-Continue gabapentin as prior to admission
-Continue lymphedema treatment - consult PT/OT
Stage IV Anal Squamous Cell Cancer
-Consult Oncology
-Patient reports last chemotherapy was 6 weeks ago
-He expresses interest in palliative care vs hospice particularly if felt that he can not resume chemotherapy or that is chemotherapy will not help his lymphedema
Coronary Artery Disease s/p Stent
-Continue Aspirin and Plavix
Diabetes Mellitus, Type II
-HgbA1c in December 2024 6.4
-Continue glimepiride and metformin
-Monitor sugars and continue coverage insulin
BPH
-Continue Flomax
DVT proph: Lovenox
Code Status: DNR
[2025-01-11 17:48] VITALS: BP 120/74
--- NOTE | 2025-01-11 18:12 | W.PN.UPDATE ---
Update Note
Progress Note Update
This is an addendum to H&P written by SABINE Sutton
I saw and examined the patient.
The OPERATIONS GENERAL AGENT's note was reviewed and I agree with the note.
Comment:
Mr. Perry Sy is a 74 yo man with hx metastatic anal cancer, TIA, CAD s/p PCI, NIDDM, chronic lymphedema with chronic pain presents to the ER with worsening pain. Patient has severe right lower extremity lymphedema due to prior radiation induced
damage to lymphatic system resulting in chronic pain. He has recurrent cancer, has not received in 6 weeks due to recent admissions.
Triage VS: T 98.3, P 115, RR 20, BP 129/73, SpO2 100%
On exam patient is awake, alert, in mild pain. RLE with significant swelling > left. CV: S1, S2, RRR; Chest clear.
LABS: WBC 7.6, Hg 9.3, PLT 334, Na 134, K+ 4.8, Cl 101, CO2 25, BUN 15, Cr 0.7, liver enzymes WNL
LE US:
IMPRESSION:
1. No evidence of deep venous thrombosis in the right lower extremity as described above.
Chronic right lower extremity Lymphedema
Chronic pain 2/2 above
Metastatic Anal Cancer
-admit patient for pain control
-Oncology consult
-palliative care consult
*awaiting med rec
Remainder of plan per SABINE note.
[2025-01-11] MEDS: DILAUDID 0.5 MG IV (18:29)
[2025-01-11 19:00] VITALS: BP 152/85
[2025-01-11 19:16] VITALS: BP 117/72
[2025-01-11 20:18] VITALS: BMI 24.0
[2025-01-11] MEDS: ProAmatine 2.5 MG PO (21:16)
[2025-01-11] MEDS: MS CONTIN (EXTENDED RELEASE) 15 MG PO (21:16)
[2025-01-11] MEDS: SENOKOT 8.6 MG PO (21:17)
[2025-01-11 21:39] LABS: Glucose - Point of Care 87 mg/dl (70-99)
[2025-01-11] MEDS: ATIVAN 0.5 MG PO (22:33)
[2025-01-11] MEDS: NEURONTIN 300 MG PO (22:43)
--- NOTE | 2025-01-11 22:52 | PTCARENOTE ---
Pt admitted to room 319-1 and pulled over from stretcher to bed. Pt AOx3, VSS, complaining of pain in legs, lower abdomen, and lower back. Scheduled medications administered (see MAR). Call [facility] within reach, plan of care on going.
[2025-01-11 23:00] VITALS: BP 152/94
[2025-01-11] MEDS: ROXICODONE 10 MG PO (23:15)
[2025-01-12] MEDS: DILAUDID 0.5 MG IV (00:23)
[2025-01-12] MEDS: MS CONTIN (EXTENDED RELEASE) 15 MG PO ×3 (03:42→20:41)
[2025-01-12] MEDS: ROXICODONE 10 MG PO ×2 (05:12→09:36)
[2025-01-12 06:00] VITALS: BMI 24.1
[2025-01-12] MEDS: TUMS CHEWABLE TABLET 400 MG PO (06:17)
[2025-01-12 07:45] VITALS: BP 129/75
--- NOTE | 2025-01-12 08:52 | W.PN.HOSP.TC ---
Today's Communication/Plan
-
Pain control. Oncology and palliative care eval.
Assessment / Plan
Assessment / Plan
Physical exam:
General: Chronically ill
HEENT: Normocephalic, Atraumatic and Moist Mucous Membranes
Respiratory: Clear to Auscultation; Negative Wheezes, Rales or Rhonchi
Cardiac: Regular Rhythm and S1/S2, systolic murmur
GI: Soft, Nontender and Nondistended
Musculoskeletal: Right lower extremity edema. No Clubbing, No Cyanosis
Neuro: Awake, Alert and Oriented, no gross neurological deficits.
Psych: Calm
A/P:
Intractable Pain secondary to Chronic Right Lower Extremity Lymphedema
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
-Continue MC Contin 15m q8h
-Continue oxycodone 5mg PO q4hprn mild pain, 10mg PO q4hprn moderate pain and Dilaudid 0.5mg IV q3hprn severe pain
-Continue gabapentin as prior to admission
-Continue lymphedema treatment - consult PT/OT
Stage IV Anal Squamous Cell Cancer
-Consulted Oncology and palliative care and awaiting input
-Patient reports last chemotherapy was 6 weeks ago
-He expresses interest in palliative care vs hospice particularly if felt that he can not resume chemotherapy or that is chemotherapy will not help his lymphedema
Coronary Artery Disease s/p Stent
-Continue Aspirin and Plavix
Diabetes Mellitus, Type II
-HgbA1c in December 2024 6.4
-Continue glimepiride and metformin
-Monitor sugars and continue coverage insulin
BPH
-Continue Flomax
DVT proph: Lovenox
Code Status: DNR
Anticipated Discharge: 24 - 48 hours
Subjective/Interval History
-
Date of Service: January 12, 2025
Patient tells me pain on right groin area better controlled with current pain medications. No nausea or vomiting. Afebrile
Objective Data
-
Labs:
Laboratory Results
01/12/25
06:00
WBC Pending
Hgb Pending
Hct Pending
Plt Count Pending
Sodium Pending
Potassium Pending
Chloride Pending
Carbon Dioxide Pending
BUN Pending
Creatinine Pending
Glucose Pending
Calcium Pending
Vital Signs:
Vital Signs
Temp Pulse Resp BP Pulse Ox
97.9 F 100 18 129/75 94
01/12/25 07:45 01/12/25 07:45 01/12/25 07:45 01/12/25 07:45 01/12/25 07:45
I&O
01/11/25 01/12/25 01/13/25
06:59 06:59 06:59
Output Total 400 / 400
Balance -400 / -400
[2025-01-12] MEDS: MAG-TAB SR 84 MG PO ×2 (09:36→20:42)
[2025-01-12] MEDS: PLAVIX 75 MG PO (09:36)
[2025-01-12] MEDS: GLUCOPHAGE 250 MG PO (09:36)
[2025-01-12] MEDS: ASPIR LOW (ENTERIC COATED) 81 MG PO (09:36)
[2025-01-12] MEDS: NEURONTIN 300 MG PO ×3 (09:36→20:50)
[2025-01-12] MEDS: FLOMAX 0.4 MG PO (09:37)
[2025-01-12] MEDS: ProAmatine 2.5 MG PO ×3 (09:39→20:50)
[2025-01-12] MEDS: AMARYL 2 MG PO (09:40)
[2025-01-12] MEDS: MIRALAX 17 GRAMS PO (09:40)
[2025-01-12 09:49] LABS: Glucose - Point of Care 96 mg/dl (70-99)
--- NOTE | 2025-01-12 10:33 | PHANOTE ---
med rec note- called [facility] 4th floor nursing staff, they will fax over patient medication list to ed pod 1 fax.
--- NOTE | 2025-01-12 11:59 | CON.ONC ---
Impression
Impression
Stage IV anal cancer, predominantly widespread lymphadenopathy
Extensive right lower extremity lymphedema due to adenopathy and radiation therapy
Uncontrolled pain due to lower extremity involvement by malignancy
Plan
Plan
His pain seems improved. Continue to optimize oral pain regimen. Hopefully, discharge to a facility where it will be feasible for him to continue on systemic therapy for his cancer in our office. [facility]. Continue lymphedema management.
Patient History
History of Present Illness
Consult from hospitalist service regarding anal cancer.
This 74-year-old man was admitted with severe right lower extremity pain and swelling. This is a chronic condition, due to malignant lymphadenopathy and history of radiation therapy. He has been using a lymphedema pump as well. However, the edema
worsened as did his pain. He is now doing quite a bit better in terms of pain. He is eating and drinking reasonably well. He had been at a rehab facility, but is trying to see if he can get into an assisted living facility.
He has about a 2-year history of metastatic anal carcinoma, status posttreatment with chemotherapy and radiation therapy. He has had a somewhat declining performance status. He has felt to be too weak for chemotherapy, but is due to undergo a
trial of immunotherapy beginning on January 16.
Patient Medication
�Medication �Instructions �Recorded �Confirmed �Last Taken �Type
cholecalciferol (vitamin D3) 25 25 mcg PO DAILY Supplement ##0 01/11/22 01/08/25 01/08/25 History
mcg (1,000 unit) tablet (Vitamin
D3)
tamsulosin 0.4 mg capsule 0.4 mg PO DAILY Urinary issue 04/18/22 01/08/25 01/08/25 History
aspirin 81 mg tablet,delayed 81 mg PO DAILY Blood Clot 08/02/23 01/08/25 01/08/25 History
release Prevention/Tx
folic acid 1 mg tablet 1 mg PO DAILY Supplement 08/02/23 01/08/25 01/08/25 History
glimepiride 2 mg tablet 2 mg PO DAILY Diabetes 08/02/23 01/08/25 01/08/25 History
metformin 500 mg tablet 250 mg PO DAILY Diabetes 08/02/23 01/08/25 01/08/25 History
vitamin B complex 1 tab PO DAILY Supplement 08/02/23 01/08/25 01/08/25 History
albuterol sulfate 90 mcg/actuation 2 puff inhalation Q4HPRN PRN 12/08/24 01/08/25 Unknown History
aerosol inhaler shortness of breath
polyethylene glycol 3350 17 gram 17 g PO DAILYPRN PRN constipation 12/08/24 01/08/25 Unknown History
oral powder packet (Miralax)
acetaminophen 325 mg tablet 650 mg PO Q6H PRN fever/mild pain 12/24/24 01/08/25 Unknown History
bisacodyl 10 mg rectal suppository 10 mg WI DAILY PRN constipation 12/24/24 01/08/25 Unknown History
(Dulcolax (bisacodyl))
clopidogrel 75 mg tablet 75 mg PO DAILY CVA 12/24/24 01/08/25 01/08/25 History
glucagon HCl 1 mg solution for 1 mg SC ONCE PRN hypoglycemia 12/24/24 01/08/25 Unknown History
injection (Glucagon (HCl)
Emergency Kit)
magnesium oxide 400 mg PO BID Supplement 12/24/24 01/08/25 01/08/25 History
sodium phosphates 19 gram-7 118 ml WI ONCE PRN constipation 12/24/24 01/08/25 Unknown History
gram/118 mL enema (Fleet Enema)
gabapentin 300 mg capsule 300 mg PO TID Muscle Spasms 12/25/24 01/08/25 01/08/25 History
lorazepam 0.5 mg tablet 0.5 mg PO BID PRN anxiety #4 tabs 12/26/24 01/08/25 Unknown Rx
morphine 15 mg tablet,extended 15 mg PO Q8H Pain #4 tabs 12/26/24 01/08/25 Unknown Rx
release (MS Contin)
oxycodone 5 mg capsule 5 mg PO Q4H PRN breakthrough pain 12/26/24 01/08/25 Unknown Rx
#6 caps
midodrine 2.5 mg tablet 2.5 mg PO TID 01/08/25 01/08/25 01/08/25 History
sennosides 8.6 mg tablet (senna) 8.6 mg PO DAILY 01/08/25 01/08/25 01/08/25 History
Active Medications
Generic Name Dose Route Start Last Admin
Trade Name Freq PRN Reason Stop Dose Admin
Acetaminophen 650 mg 01/11/25 19:51
Acetaminophen 325 Mg Tablet PO 02/08/25 19:50
Q4HPRN PRN
mild pain/ fever>100.5F
Aspirin 81 mg 01/12/25 08:00 01/12/25 09:36
Aspirin 81 Mg (Enteric Coated) Tablet PO 02/09/25 07:59 81 mg
DAILY KATIA Administration
Calcium Carbonate 400 mg 01/12/25 05:50 01/12/25 06:17
Calcium Antacid 200 Mg (Calcium Carbonate 500 Mg) Chew Tablet PO 02/09/25 05:49 400 mg
Q4HPRN PRN Administration
indigestion/hiccups
Clopidogrel Bisulfate 75 mg 01/12/25 08:00 01/12/25 09:36
Clopidogrel 75 Mg Tablet PO 02/09/25 07:59 75 mg
DAILY KATIA Administration
Dextrose 12.5 grams 01/11/25 19:51
Dextrose 50% (0.5 Grams/Ml) 50 Ml Syringe IV 02/08/25 19:50
[id number] PRN
hypoglycemia
Protocol
Enoxaparin Sodium 40 mg 01/12/25 18:00
Enoxaparin Sodium 40 Mg/0.4 Ml Syringe SC 02/09/25 17:59
QPM KATIA
Gabapentin 300 mg 01/11/25 22:00 01/12/25 09:36
Gabapentin 300 Mg Capsule PO 02/08/25 21:59 300 mg
TID KATIA Administration
Glimepiride 2 mg 01/12/25 08:00 01/12/25 09:40
Glimepiride 2 Mg Tablet PO 02/09/25 07:59 2 mg
DAILY KATIA Administration
Glucagon 1 mg 01/11/25 19:51
Glucagon 1 Mg Vial IM 02/08/25 19:50
PRN PRN
hypoglycemia
Protocol
Hydromorphone HCl 0.5 mg 01/11/25 19:51 01/12/25 00:23
Hydromorphone 0.5 Mg/0.5 Ml Syringe IV 01/25/25 19:50 0.5 mg
Q3HPRN PRN Administration
severe pain
Insulin Aspart 0 units 01/12/25 07:30 01/12/25 10:12
Insulin Aspart Low Resistance 300 Units/3 Ml Pen.Injctr SC 02/09/25 07:29 Not Given
AC KATIA
Protocol
Lorazepam 0.5 mg 01/11/25 20:00 01/11/25 22:33
Lorazepam 0.5 Mg Tablet PO 02/08/25 19:59 0.5 mg
BID PRN Administration
anxiety
Magnesium 84 mg 01/12/25 08:00 01/12/25 09:36
Magnesium Lactate 84 Mg Tablet PO 02/09/25 07:59 84 mg
BID KATIA Administration
Metformin HCl 250 mg 01/12/25 08:00 01/12/25 09:36
Metformin 500 Mg Regular Release Tablet PO 02/09/25 07:59 250 mg
DAILY KATIA Administration
Midodrine 2.5 mg 01/11/25 22:00 01/12/25 09:39
Midodrine 2.5 Mg Tablet PO 2.5 mg
TID KATIA Administration
Morphine Sulfate 15 mg 01/11/25 20:00 01/12/25 11:46
Morphine 15 Mg Extended Release Tablet PO 01/25/25 19:59 15 mg
Q8H KATIA Administration
Oxycodone HCl 5 mg 01/11/25 19:51
Oxycodone 5 Mg Regular Release Tablet PO 01/25/25 19:50
Q4HPRN PRN
mild pain
Oxycodone HCl 10 mg 01/11/25 19:51 01/12/25 09:36
Oxycodone 10 Mg Regular Release Tablet PO 01/25/25 19:50 10 mg
Q4HPRN PRN Administration
moderate pain
Polyethylene Glycol 17 grams 01/12/25 08:00 01/12/25 09:40
Polyethylene Glycol Powder 17 Grams Packet PO 02/09/25 07:59 17 grams
DAILY KATIA Administration
Sennosides 8.6 mg 01/11/25 22:00 01/11/25 21:17
Sennosides (Senokot) 8.6 Mg Tablet PO 02/08/25 21:59 8.6 mg
HS KATIA Administration
Tamsulosin HCl 0.4 mg 01/12/25 08:00 01/12/25 09:37
Tamsulosin 0.4 Mg Capsule PO 02/09/25 07:59 0.4 mg
DAILY KATIA Administration
Review of Systems
-
All Other Systems: Reviewed and Negative
Physical Exam
-
Physical examination shows the patient to be in no acute distress.
HEENT exam is unremarkable.
There are no palpable nodes.
Chest is clear.
The heart is regular with pronounced cooing systolic murmur.
The abdomen is soft and nontender with no organomegaly or masses.
Extremities reveal +3 edema throughout most of the right lower extremity. In addition, there are several nodules in the groin area compatible with cutaneous involvement by his malignancy.
Neurologic is grossly intact.
Labs
Lab Results
WBC 7.6 10^3/uL (4.8-10.8) 01/11/25 15:16
RBC 3.42 10^6/uL (4.70-6.10) L 01/11/25 15:16
Hgb 9.3 g/dL (13.0-18.0) L D 01/11/25 15:16
Hct 28.1 % (39.0-52.0) L 01/11/25 15:16
MCV 82.2 fL (80.0-94.0) 01/11/25 15:16
MCH 27.2 pg (27.0-31.0) 01/11/25 15:16
MCHC 33.1 g/dL (33.0-37.0) 01/11/25 15:16
RDW 16.5 % (11.5-14.5) H 01/11/25 15:16
Plt Count 334 10^3/uL (130-400) 01/11/25 15:16
MPV 9.5 fL (7.4-10.4) 01/11/25 15:16
Abs Immat Gran (auto) 0.0 10^3/uL (0-0.05) 01/11/25 15:16
Absolute Neuts (auto) 5.5 10^3/uL (1.4-6.5) 01/11/25 15:16
Absolute Lymphs (auto) 1.2 10^3/uL (1.2-3.4) 01/11/25 15:16
Absolute Monos (auto) 0.7 10^3/uL (0.1-0.6) H 01/11/25 15:16
Absolute Eos (auto) 0.1 10^3/uL (0-0.7) 01/11/25 15:16
Absolute Basos (auto) 0.0 10^3/uL (0-0.2) 01/11/25 15:16
Immature Gran % 0.3 % (0-0.5) 01/11/25 15:16
Neutrophils % 73.0 % (42.2-75.2) 01/11/25 15:16
Lymphocytes % 16.4 % (20.5-51.1) L 01/11/25 15:16
Monocytes % 9.5 % (1.7-9.3) H 01/11/25 15:16
Eosinophils % 0.7 % (0-6) 01/11/25 15:16
Basophils % 0.1 % (0-2) 01/11/25 15:16
Creatinine 0.7 mg/dL (0.7-1.3) 01/11/25 15:16
Vital Signs
Vital Signs
Temp Pulse Resp BP Pulse Ox
97.9 F 100 18 129/75 94
01/12/25 07:45 01/12/25 07:45 01/12/25 07:45 01/12/25 07:45 01/12/25 07:45
[2025-01-12 12:55] LABS: Hematocrit 24.8 % (39.0-52.0); Hemoglobin 8.1 g/dL (13.0-18.0); Mean Corp Hgb Conc. 32.7 g/dL (33.0-37.0); Mean Corpuscular Hgb 26.8 pg (27.0-31.0); Mean Corpuscular Volume 82.1 fL (80.0-94.0); Mean Platelet Volume 9.6 fL (7.4-10.4); Platelet Count 328 10^3/uL (130-400); Red Blood Cell Count 3.02 10^6/uL (4.70-6.10); Red Cell Dist. Width 16.8 % (11.5-14.5); White Blood Cell Count 6.6 10^3/uL (4.8-10.8)
--- NOTE | 2025-01-12 13:10 | W.CON.PAL ---
Consultation
-
Date/Time Consultation Requested: 01/12/2025
Date/Time Consultation Performed: 01/12/2025
Performing Provider: Dr. Amador
Reason for Consult: Other
Primary Diagnosis: Stage IV anal CA , pain
Consult Requested By: Patient
Reason for Admission
Illness Course/HPI
Perry is a 74 y/o male with IV anal cancer, who was readmitted tohospital overnight due to intractable pain [facility].
At the time of visit patient denied significant pain, recived IV hydromorphone overnight with good relief.
Palliative care consulted per family request as plan was for outpatient visit
Symptoms:Current pain regimen includes Gabapentin 300 q8, MSER 15 q8 and Oxycoodne 5-10mg q4 - reports had been getting oxycodoen 10 at [facility] yesterday without relief. pain waxes and wanes, worse with movement. somedays oxycodone 5 effective,
somedays oxycodoen 10 doesnt work at all. reports mild constipation manged with miralax. reports mild nasuea feeling.
Functional Status
Lives with a housemate Jacky (friend, not able to provide hands on care). Closest family member lives in [place]. His close friend Andriy Obregondarren (Bert) is his medical poa [phone].
He is unable to manage physically at this time due to pain. he plans to transition from rehab to [facility] at [employer] in the near future so that he can get care but also receive cancer treatments. He has explore the rates and process for this already.
Goals of Care Discussion
-
Individuals Present for Discussion & Relationship to Patient:
Patient
Patient able to participate in discussion at time of visit: Yes
Patient Goals
Goals of care discussed: goals are treatment directed - however if not working or if pain escalates then plans to transition to hospice. he is meeting with oncology, plan for keytruda noted.
At the end of life does not want cpr
has completed a LW - friend Andriy is medical poa
Pain & Symptom Assessment
-
No pain at the time of my visit, however was extreme yesterday.
Objective Data
-
Objective Data:
Vital Signs
Temp Pulse Resp BP Pulse Ox
97.9 F 100 18 129/75 94
01/12/25 07:45 01/12/25 07:45 01/12/25 07:45 01/12/25 07:45 01/12/25 07:45
Laboratory Results
01/12/25 12:40
Total Protein 6.5 g/dl (6.3-8.2) 01/11/25 15:16
Albumin 3.5 g/dl (3.5-5.0) 01/11/25 15:16
Palliative Performance Scale
Palliative Performance Scale:
PPS Level Ambulation Activity & Evidence of Disease Self Care Intake Conscious Level
100% Full Normal Activity & Work; Full Intake Full
No Evidence of Disease
90% Full Normal Activity & Work; Full Normal Full
Some Evidence of Disease
80% Full Normal Activity with Effort Full Normal or Full
Some Evidence of Disease Reduced
70% Reduced Unable Normal Job/Work Full Normal or Full
Significant Disease Reduced
60% Reduced Unable Hobby/Housework Occasional Normal or Full or Confusion
Significant Disease Assistance Reduced
50% Mainly Sit/Lie Unable to do Any Work Considerable Normal or Full or Confusion
Extensive Disease Assistance Req'd Reduced
40% Mainly in Bed Unable to do Most Activity Mainly Assistance Normal or Full or Drowsy;
Extensive Disease Reduced +/- Confusion
30% Totally Bed Unable to do Any Activity Total Care Normal or Full or Drowsy;
Bound Extensive Disease Reduced +/- Confusion
20% Totally Bed Bound Unable to do Any Activity Total Care Minimal to Full or Drowsy;
Extensive Disease Sips +/- Confusion
10% Totally Bed Bound Unable to do Any Activity Total Care Mouth Care Drowsy or Coma;
Extensive Disease Only +/- Confusion
0%
PPS Score Level:
Palliative Performance Score Response
Palliative Performance Score Response: 40%
Physical Exam
-
General: No Apparent Distress
Psych: Calm and Confused
Assessment / Plan
-
Assessment/Plan:
Agreeable to outpatient palliative care once home or once at [facility].
Patient plans to move to [facility] for increased care while he continues cancer treatments
If treatments not working or if pain rapidly escalates would want hospice
Agreeable to meet with hospice now to get information - would not be signing on just yet unless symptoms change
For Pain: continue gabapentin, MSER. Would increase breakthrough dose of oxycodone to 10mg. if oxycodoen not working would rotate to hydromorphone oral. Continue bowel regimen
Total floor time 60 mins
[2025-01-12 13:16] LABS: Blood Urea Nitrogen 17 mg/dl (9-20); Calcium 9.7 mg/dl (8.4-10.2); Carbon Dioxide 23 mmol/L (22-30); Chloride 99 mmol/L (98-107); Estimated Creatinine Clearance 88 ml/min; Glucose 112 mg/dl (70-99); Magnesium 1.4 mg/dl (1.6-2.3); Potassium 4.5 mmol/L (3.5-5.1); Sodium 132 mmol/L (135-145); eGFR > 60.00
[2025-01-12 14:05] LABS: Glucose - Point of Care 82 mg/dl (70-99)
--- NOTE | 2025-01-12 14:09 | HOSPNOTE ---
I spoke with patient and at this time he does not wish for hospice care and would like to continue treatment and palliative care for pain management. The patient has my direct contact information when hospice is needed. Family updated.
--- NOTE | 2025-01-12 15:03 | CM ---
Patient seen at bedside.
Dx: Intractable pain
IA completed
Came from [facility], states does not wish to return as he could not receive chemo while in SNF
Notified Br[facility] who will call [facility] regarding bed hold
CM consult completed for hospice. Alma Young saw patient
Patient resides in a 1 story home with room mate in [place]
PLOF: Independent recently with walker
Denies VN - was at [facility]
Per patient and DESI Arango while at SNF they were looking into Assisted Living
PT/OT eval today
PCP: Dr. Rahman
Pharmacy: [facility]
PLAN: Await PT evals
[2025-01-12 15:40] VITALS: BP 116/67; PULSE 84; O2SAT 96
[2025-01-12 15:42] VITALS: BP 116/67; PULSE 90; O2SAT 96
[2025-01-12 16:01] VITALS: BP 102/66
[2025-01-12 17:06] LABS: Glucose - Point of Care 61 mg/dl (70-99)
[2025-01-12 17:25] LABS: Glucose - Point of Care 68 mg/dl (70-99)
[2025-01-12 17:48] LABS: Glucose - Point of Care 72 mg/dl (70-99)
[2025-01-12 19:58] LABS: Glucose - Point of Care 89 mg/dl (70-99)
[2025-01-12] MEDS: SENOKOT 8.6 MG PO (20:50)
[2025-01-12 21:00] VITALS: BP 125/61
[2025-01-12 22:16] LABS: Glucose - Point of Care 91 mg/dl (70-99)
[2025-01-12 23:03] VITALS: BP 115/69
[2025-01-13] MEDS: MS CONTIN (EXTENDED RELEASE) 15 MG PO ×3 (04:21→20:26)
[2025-01-13 07:25] VITALS: BP 153/80
[2025-01-13 07:43] LABS: Glucose - Point of Care 93 mg/dl (70-99)
[2025-01-13] MEDS: ASPIR LOW (ENTERIC COATED) 81 MG PO (08:24)
[2025-01-13] MEDS: GLUCOPHAGE 250 MG PO (08:25)
[2025-01-13] MEDS: FLOMAX 0.4 MG PO (08:25)
[2025-01-13] MEDS: PLAVIX 75 MG PO (08:25)
[2025-01-13] MEDS: NEURONTIN 300 MG PO ×3 (08:25→22:19)
[2025-01-13] MEDS: MAG-TAB SR 84 MG PO ×2 (08:26→20:26)
[2025-01-13] MEDS: AMARYL 2 MG PO (08:26)
[2025-01-13] MEDS: MIRALAX 17 GRAMS PO (08:27)
[2025-01-13] MEDS: ProAmatine PO ×2 (08:28→23:09)
--- NOTE | 2025-01-13 08:32 | W.PN.HOSP.TC ---
Addendum entered and electronically signed by Jose Roberto Reed MD 01/13/25 15:26:
discussed with neo sanchez
Original Note:
Today's Communication/Plan
-
pain control
Assessment / Plan
Assessment / Plan
Physical exam:
General: Chronically ill
HEENT: Normocephalic, Atraumatic and Moist Mucous Membranes
Respiratory: Clear to Auscultation; Negative Wheezes, Rales or Rhonchi
Cardiac: Regular Rhythm and S1/S2, systolic murmur
GI: Soft, Nontender and Nondistended
Musculoskeletal: Right lower extremity edema. No Clubbing, No Cyanosis
Neuro: Awake, Alert and Oriented, no gross neurological deficits.
Psych: Calm
A/P:
Intractable Pain secondary to Chronic Right Lower Extremity Lymphedema
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
-Continue MC Contin 15m q8h
-Continue oxycodone 5mg PO q4hprn mild pain, 10mg PO q4hprn moderate pain and Dilaudid 0.5mg IV q3hprn severe pain
-Continue gabapentin as prior to admission
-Continue lymphedema treatment - consult PT/OT
- Palliative care consult appreciated. Patient not ready for hospice but plan to discuss with hospice staff. Breakthrough doses of oxycodone increased per palliative.
- Patient interested in going to assisted living rather than SNF--> CM working on d/c dispo
Stage IV Anal Squamous Cell Cancer
-Consulted Oncology and palliative care and awaiting input
-Patient reports last chemotherapy was 6 weeks ago
-He expresses interest in palliative care vs hospice particularly if felt that he can not resume chemotherapy or that is chemotherapy will not help his lymphedema
Coronary Artery Disease s/p Stent
-Continue Aspirin and Plavix
Diabetes Mellitus, Type II
-HgbA1c in December 2024 6.4
-Continue glimepiride and metformin
-Monitor sugars and continue coverage insulin
BPH
-Continue Flomax
DVT proph: Lovenox
Code Status: DNR
Anticipated Discharge: 24 - 48 hours
Subjective/Interval History
-
Date of Service: January 13, 2025
pain better controlled with meds, no n/v. Does c/o abd pain but he also mentions he alternates constipation with loose stools accompanied with pain at times.
Objective Data
-
Vital Signs:
Vital Signs
Temp Pulse Resp BP Pulse Ox
98.1 F 100 17 153/80 95
01/13/25 07:25 01/13/25 07:25 01/13/25 07:25 01/13/25 07:25 01/13/25 07:25
I&O
01/12/25 01/13/25 01/14/25
06:59 06:59 06:59
Output Total 400 / 400 400 / 400
Balance -400 / -400 -400 / -400
--- NOTE | 2025-01-13 11:09 | W.PN.ONC2 ---
Today's Communication / Plan
-
.
Impression
Impression
Stage IV anal cancer, predominantly widespread lymphadenopathy
Extensive right lower extremity lymphedema due to adenopathy and radiation therapy
Uncontrolled pain due to lower extremity involvement by malignancy
Plan
Plan
Continue pain management
Continue lymphedema management
Keytruda when performance status allows. May need SNF prior to resuming therapy
Subjective/Objective
Subjective
constipation, otherwise no new complaints
Vital Signs:
Vital Signs
Temp Pulse Resp BP Pulse Ox
98.1 F 100 17 153/80 95
01/13/25 07:25 01/13/25 07:25 01/13/25 07:25 01/13/25 07:25 01/13/25 07:25
Lab Results:
Laboratory Data
WBC 6.6 10^3/uL (4.8-10.8) 01/12/25 12:40
Hgb 8.1 g/dL (13.0-18.0) L 01/12/25 12:40
Plt Count 328 10^3/uL (130-400) 01/12/25 12:40
eGFR > 60.00 01/12/25 12:40
[2025-01-13 11:41] LABS: Glucose - Point of Care 113 mg/dl (70-99)
[2025-01-13] MEDS: DILAUDID 0.5 MG IV (12:43)
--- NOTE | 2025-01-13 14:46 | CM ---
met with patient at bedside
pain management
Spoke with DESI Estrada [phone]
Dispo discussed. Nba WEEKS states not option for patient to go home.
DESI States that he went to [facility] and picked up paperwork/application & will speak to DON today.
PT rec SNF-declines to return as he wants to continue chemo tx.
PLAN: TBD, declining returning to SNF, POMartin speaking with [facility]
--- NOTE | 2025-01-13 15:14 | PTCARENOTE ---
patient medicated with PRN Dilaudid for c/o lower abd pain. reports he alternates between loose BM's and constipation, tolerating diet, cachectic, turns with assist x2, vss, will continue to monitor.
[2025-01-13 15:16] VITALS: BP 126/66
[2025-01-13 16:44] LABS: Glucose - Point of Care 99 mg/dl (70-99)
[2025-01-13] MEDS: ProAmatine 2.5 MG PO (17:01)
[2025-01-13 21:53] LABS: Glucose - Point of Care 88 mg/dl (70-99)
[2025-01-13] MEDS: SENOKOT 8.6 MG PO (22:19)
[2025-01-13] MEDS: MELATONIN 5 MG PO (23:11)
[2025-01-13 23:27] VITALS: BP 142/75
[2025-01-14] MEDS: MS CONTIN (EXTENDED RELEASE) 15 MG PO ×3 (04:05→20:36)
[2025-01-14 06:00] VITALS: BMI 24.1
[2025-01-14 07:05] VITALS: BP 125/75
[2025-01-14] MEDS: PLAVIX 75 MG PO (08:05)
[2025-01-14] MEDS: MIRALAX 17 GRAMS PO (08:05)
[2025-01-14] MEDS: MAG-TAB SR 84 MG PO ×2 (08:05→20:36)
[2025-01-14] MEDS: NEURONTIN 300 MG PO ×3 (08:06→21:23)
[2025-01-14] MEDS: ASPIR LOW (ENTERIC COATED) 81 MG PO (08:06)
[2025-01-14] MEDS: FLOMAX 0.4 MG PO (08:06)
[2025-01-14] MEDS: GLUCOPHAGE 250 MG PO (08:06)
[2025-01-14] MEDS: AMARYL 2 MG PO (08:06)
[2025-01-14 08:07] LABS: Glucose - Point of Care 91 mg/dl (70-99)
[2025-01-14] MEDS: ProAmatine 2.5 MG PO ×3 (08:10→21:23)
[2025-01-14] MEDS: TYLENOL 650 MG PO (08:12)
--- NOTE | 2025-01-14 08:30 | W.PN.HOSP.TC ---
Today's Communication/Plan
-
Pain control. Discharge planning.
Assessment / Plan
Assessment / Plan
Physical exam:
General: Chronically ill
HEENT: Normocephalic, Atraumatic and Moist Mucous Membranes
Respiratory: Clear to Auscultation; Negative Wheezes, Rales or Rhonchi
Cardiac: Regular Rhythm and S1/S2, systolic murmur
GI: Soft, Nontender and Nondistended
Musculoskeletal: Right lower extremity edema. No Clubbing, No Cyanosis
Neuro: Awake, Alert and Oriented, no gross neurological deficits.
Psych: Calm
A/P:
Intractable Pain secondary to Chronic Right Lower Extremity Lymphedema
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
-Continue MC Contin 15m q8h
-Continue oxycodone 5mg PO q4hprn mild pain, 10mg PO q4hprn moderate pain and Dilaudid 0.5mg IV q3hprn severe pain
-Continue gabapentin as prior to admission
-Continue lymphedema treatment - consult PT/OT
- Palliative care consult appreciated. Patient not ready for hospice but plan to discuss with hospice staff. Breakthrough doses of oxycodone increased per palliative.
- Patient interested in going to assisted living rather than SNF--> CM working on d/c dispo but if unable to go to assisted living probably will need to go to SNF temporarily.
Stage IV Anal Squamous Cell Cancer
-Consulted Oncology and palliative care and awaiting input
-Patient reports last chemotherapy was 6 weeks ago
-He expresses interest in palliative care vs hospice particularly if felt that he can not resume chemotherapy or that is chemotherapy will not help his lymphedema
Coronary Artery Disease s/p Stent
-Continue Aspirin and Plavix
Diabetes Mellitus, Type II
-HgbA1c in December 2024 6.4
-Continue glimepiride and metformin
-Monitor sugars and continue coverage insulin
BPH
-Continue Flomax
DVT proph: Lovenox
Code Status: DNR
Anticipated Discharge: 24 - 48 hours
Subjective/Interval History
-
Date of Service: January 14, 2025
Pain is better overall. Some loose stools but as mentioned before sometimes constipation sometimes loose stools.
Objective Data
-
Vital Signs:
Vital Signs
Temp Pulse Resp BP Pulse Ox
98.9 F 96 17 125/75 97
01/14/25 07:05 01/14/25 08:10 01/14/25 07:05 01/14/25 08:10 01/14/25 07:05
I&O
01/13/25 01/14/25 01/15/25
06:59 06:59 06:59
Intake Total 1700 / 1700
Output Total 400 / 400 850 / 850
Balance -400 / -400 850 / 850
--- NOTE | 2025-01-14 08:41 | W.PN.ONC2 ---
Today's Communication / Plan
-
Discharge planning. Outpt Keytruda once PS adequate.
Tx plan in for 01/16 if he is able to be discharged by Sunday
Impression
Impression
Stage IV anal cancer, predominantly widespread lymphadenopathy
Extensive right lower extremity lymphedema due to adenopathy and radiation therapy
Uncontrolled pain due to lower extremity involvement by malignancy
Plan
Plan
Continue pain management - improved
Continue lymphedema management - improved
Keytruda when performance status allows. May need SNF prior to resuming therapy
Subjective/Objective
Chief Complaint
ACS Heme Onc
Subjective
Right leg pain and swelling. Pain seems to be better controlled on MS-Contin
Vital Signs:
Vital Signs
Temp Pulse Resp BP Pulse Ox
98.9 F 96 17 125/75 97
01/14/25 07:05 01/14/25 08:10 01/14/25 07:05 01/14/25 08:10 01/14/25 07:05
Lab Results:
Laboratory Data
WBC 6.6 10^3/uL (4.8-10.8) 01/12/25 12:40
Hgb 8.1 g/dL (13.0-18.0) L 01/12/25 12:40
Plt Count 328 10^3/uL (130-400) 01/12/25 12:40
eGFR > 60.00 01/12/25 12:40
Physical Exam
HEENT: No Jaundice
Cardiology: S1 and S2
Pulmonary: Clear
Extremities: Edema (RLE edema 1-2 +)
--- NOTE | 2025-01-14 11:21 | CM ---
Patient seen at [facility]. Spoke with Nba WEEKS [phone]
Nba picked up application for [facility].
ERUM spoke with Martha Gallagher at [facility]. Requested clincials. Faxed clinicals [phone]
She stated the DON would also need to do on site visit to see if eligible for personal care.
PT/OT today
Patient would prefer not to go back to [facility] as he wants to continue chemo tx
Discussed with POA and patient that he may potentially need to go back to SNF to coordinate this transition more quickly to [facility] as they were starting this process if needed.
spoke with hospitalist
PLAN: ERUM continues to work on disp planning, ?[facility]
[2025-01-14 11:52] LABS: Glucose - Point of Care 103 mg/dl (70-99)
--- NOTE | 2025-01-14 12:36 | W.PN.PAL2 ---
Today's Communication
-
Palliative care follow up note: Patient seen at bedside, POA Nba present.
Pain has been stable on routine meds, PRn usage reviewed. Patient denies significant pain at present, enjoying lunch.
Discussed outpatient palliative care follow up plan
Goal is for patient to start keytruda william and move to either [facility] or [facility] rather than return home. They plan to discuss this further with manager net.
provided office information for follow up to POA. No med changes at this time
Assessment / Plan
-
Assessment/Plan:
Continue current medications, pain stable
outpatient palliative care follow up
Total floor time 30 min s
Goals of Care Discussion
Patient Goals
Treatment orietned
Objective Data
-
Objective Data:
Vital Signs
Temp Pulse Resp BP Pulse Ox
98.9 F 96 17 125/75 97
01/14/25 07:05 01/14/25 08:10 01/14/25 07:05 01/14/25 08:10 01/14/25 07:05
Laboratory Results
01/12/25 12:40
01/12/25 12:40
Hemoglobin A1c 6.0 % (4.0-5.6) H 01/12/25 12:40
Total Protein 6.5 g/dl (6.3-8.2) 01/11/25 15:16
Albumin 3.5 g/dl (3.5-5.0) 01/11/25 15:16
Palliative Performance Scale
Palliative Performance Scale:
PPS Level Ambulation Activity & Evidence of Disease Self Care Intake Conscious Level
100% Full Normal Activity & Work; Full Intake Full
No Evidence of Disease
90% Full Normal Activity & Work; Full Normal Full
Some Evidence of Disease
80% Full Normal Activity with Effort Full Normal or Full
Some Evidence of Disease Reduced
70% Reduced Unable Normal Job/Work Full Normal or Full
Significant Disease Reduced
60% Reduced Unable Hobby/Housework Occasional Normal or Full or Confusion
Significant Disease Assistance Reduced
50% Mainly Sit/Lie Unable to do Any Work Considerable Normal or Full or Confusion
Extensive Disease Assistance Req'd Reduced
40% Mainly in Bed Unable to do Most Activity Mainly Assistance Normal or Full or Drowsy;
Extensive Disease Reduced +/- Confusion
30% Totally Bed Unable to do Any Activity Total Care Normal or Full or Drowsy;
Bound Extensive Disease Reduced +/- Confusion
20% Totally Bed Bound Unable to do Any Activity Total Care Minimal to Full or Drowsy;
Extensive Disease Sips +/- Confusion
10% Totally Bed Bound Unable to do Any Activity Total Care Mouth Care Drowsy or Coma;
Extensive Disease Only +/- Confusion
0%
PPS Score Level:
Physical Exam
-
General: No Apparent Distress and Appears Chronically Ill
Neuro: Awake and Alert
Psych: Calm
[2025-01-14 13:22] LABS: % Basophils 0.3 % (0-2); % Eosinophils 1.4 % (0-6); % Immature Granulocytes 0.5 % (0-0.5); % Lymphocytes 17.9 % (20.5-51.1); % Monocytes 10.4 % (1.7-9.3); % Neutrophils 69.5 % (42.2-75.2); Absolute Eosinophils 0.1 10^3/uL (0-0.7); Absolute Lymphocytes 1.1 10^3/uL (1.2-3.4); Absolute Monocytes 0.7 10^3/uL (0.1-0.6); Absolute Neutrophils 4.4 10^3/uL (1.4-6.5); Hematocrit 27.6 % (39.0-52.0); Mean Corp Hgb Conc. 32.6 g/dL (33.0-37.0); Mean Corpuscular Hgb 26.8 pg (27.0-31.0); Mean Corpuscular Volume 82.1 fL (80.0-94.0); Nucleated Red Blood Cells % 0 % (-); Platelet Count 319 10^3/uL (130-400); Red Blood Cell Count 3.36 10^6/uL (4.70-6.10); Red Cell Dist. Width 16.7 % (11.5-14.5); White Blood Cell Count 6.4 10^3/uL (4.8-10.8)
[2025-01-14 13:59] LABS: ALT (SGPT) 13 U/L (0-50); AST (SGOT) 33 U/L (17-59); Albumin 3.7 g/dl (3.5-5.0); Alkaline Phosphatase 80 U/L (38-126); Blood Urea Nitrogen 15 mg/dl (9-20); Carbon Dioxide 26 mmol/L (22-30); Chloride 97 mmol/L (98-107); Estimated Creatinine Clearance 103 ml/min; Glucose 114 mg/dl (70-99); Magnesium 1.5 mg/dl (1.6-2.3); Potassium 4.7 mmol/L (3.5-5.1); Sodium 133 mmol/L (135-145); Total Bilirubin 0.6 mg/dl (0.2-1.3); Total Protein 6.5 g/dl (6.3-8.2); eGFR > 60.00
[2025-01-14 14:59] VITALS: BP 114/66; BP 95/59; PULSE 87; O2SAT 100
[2025-01-14 15:06] VITALS: BP 126/71
[2025-01-14] MEDS: ROXICODONE 5 MG PO (15:21)
[2025-01-14 15:28] VITALS: BP 114/66; BP 126/71; BP 95/59; PULSE 105; PULSE 83; O2SAT 100
[2025-01-14] MEDS: ZOFRAN 4 MG IV (15:54)
[2025-01-14] MEDS: MAGNESIUM SULFATE 50 IV (16:10)
[2025-01-14 17:18] LABS: Glucose - Point of Care 80 mg/dl (70-99)
[2025-01-14] MEDS: SENOKOT PO (21:23)
[2025-01-14 21:28] LABS: Glucose - Point of Care 146 mg/dl (70-99)
[2025-01-14 23:00] VITALS: BP 113/57
[2025-01-15] MEDS: MS CONTIN (EXTENDED RELEASE) 15 MG PO ×3 (04:53→20:14)
--- NOTE | 2025-01-15 05:54 | PTCARENOTE ---
Pt sleeping intermittently t/o the night. Pt using urinal independently in bed without difficulty. Pain medication administered as ordered. Vital signs stable. No issues to report. Will continue to monitor.
[2025-01-15 05:56] LABS: Magnesium 1.8 mg/dl (1.6-2.3)
[2025-01-15 06:00] VITALS: BMI 23.5
[2025-01-15 07:55] LABS: Glucose - Point of Care 112 mg/dl (70-99)
[2025-01-15 08:00] VITALS: BP 148/75
--- NOTE | 2025-01-15 08:40 | W.PN.ONC2 ---
Today's Communication / Plan
-
.
Impression
Impression
Stage IV anal cancer, predominantly widespread lymphadenopathy
Extensive right lower extremity lymphedema due to adenopathy and radiation therapy
Uncontrolled pain due to lower extremity involvement by malignancy
Plan
Plan
Continue pain management - improved
Continue lymphedema management - improved
Keytruda when performance status allows. May need SNF prior to resuming therapy
Subjective/Objective
Subjective
no new complaints
Vital Signs:
Vital Signs
Temp Pulse Resp BP Pulse Ox
98.1 F 89 16 148/75 98
01/15/25 08:00 01/15/25 08:00 01/15/25 08:00 01/15/25 08:00 01/15/25 08:00
Lab Results:
Laboratory Data
WBC 6.4 10^3/uL (4.8-10.8) 01/14/25 13:09
Hgb 9.0 g/dL (13.0-18.0) L 01/14/25 13:09
Plt Count 319 10^3/uL (130-400) 01/14/25 13:09
eGFR > 60.00 01/14/25 13:09
[2025-01-15] MEDS: ProAmatine 2.5 MG PO ×3 (08:44→21:30)
[2025-01-15] MEDS: GLUCOPHAGE 250 MG PO (08:45)
[2025-01-15] MEDS: ASPIR LOW (ENTERIC COATED) 81 MG PO (08:46)
[2025-01-15] MEDS: FLOMAX 0.4 MG PO (08:46)
[2025-01-15] MEDS: NEURONTIN 300 MG PO ×3 (08:46→21:30)
[2025-01-15] MEDS: AMARYL 2 MG PO (08:46)
[2025-01-15] MEDS: MAG-TAB SR 84 MG PO ×2 (08:46→20:14)
[2025-01-15] MEDS: PLAVIX 75 MG PO (08:46)
--- NOTE | 2025-01-15 08:50 | W.PN.HOSP.TC ---
Addendum entered and electronically signed by Jose Roberto Reed MD 01/15/25 12:28:
Hyponatremia
Original Note:
Today's Communication/Plan
-
Pain control. Discharge planning
Assessment / Plan
Assessment / Plan
Physical exam:
General: Chronically ill
HEENT: Normocephalic, Atraumatic and Moist Mucous Membranes
Respiratory: Clear to Auscultation; Negative Wheezes, Rales or Rhonchi
Cardiac: Regular Rhythm and S1/S2, systolic murmur
GI: Soft, Nontender and Nondistended
Musculoskeletal: Right lower extremity edema. No Clubbing, No Cyanosis
Neuro: Awake, Alert and Oriented, no gross neurological deficits.
Psych: Calm
A/P:
Intractable Pain secondary to Chronic Right Lower Extremity Lymphedema
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
-Continue MC Contin 15m q8h
-Continue oxycodone 5mg PO q4hprn mild pain, 10mg PO q4hprn moderate pain and Dilaudid 0.5mg IV q3hprn severe pain
-Continue gabapentin as prior to admission
-Continue lymphedema treatment - consult PT/OT
- Palliative care consult appreciated. Patient not ready for hospice but plan to discuss with hospice staff. Breakthrough doses of oxycodone increased per palliative.
- Patient interested in going to assisted living rather than SNF--> CM working on d/c dispo but if unable to go to assisted living probably will need to go to SNF temporarily.
- Patient discussing with oncology team if we can get his Keytruda treatment after discharge if it happens over the next 24 hours.
Stage IV Anal Squamous Cell Cancer
-Consulted Oncology and palliative care and awaiting input
-Patient reports last chemotherapy was 6 weeks ago
-He expresses interest in palliative care vs hospice particularly if felt that he can not resume chemotherapy or that is chemotherapy will not help his lymphedema
Coronary Artery Disease s/p Stent
-Continue Aspirin and Plavix
Diabetes Mellitus, Type II
-HgbA1c in December 2024 6.4
-Continue glimepiride and metformin
-Monitor sugars and continue coverage insulin
BPH
-Continue Flomax
DVT proph: Lovenox
Code Status: DNR
Anticipated Discharge: Within 24 hours
Subjective/Interval History
-
Date of Service: January 15, 2025
Patient feels better today. No abdominal pain today. Afebrile
Objective Data
-
Vital Signs:
Vital Signs
Temp Pulse Resp BP Pulse Ox
98.1 F 89 16 148/75 98
01/15/25 08:00 01/15/25 08:44 01/15/25 08:00 01/15/25 08:44 01/15/25 08:00
I&O
01/14/25 01/15/25 01/16/25
06:59 06:59 06:59
Intake Total 1700 / 1700 2120 / 2120
Output Total 850 / 850 850 / 850
Balance 850 / 850 1270 / 1270
[2025-01-15] MEDS: ROXICODONE 5 MG PO (09:35)
--- NOTE | 2025-01-15 12:01 | PN.CDI ---
CDI
- -
CDI:
Physician Documentation Request
Admit Date: 01/11/25 18:53
Dear Doctor Brianna,
Patient admitted for Intractable pain.
Sodium results:
Laboratory Tests
01/11/25 01/12/25 01/14/25
15:16 12:40 13:09
Sodium 134 L 132 L 133 L
Could you please provide a diagnosis that supports the above lab abnormalities and additional evaluation/ monitoring:
Hyponatremia
Abnormal lab value clinically insignificant
Other
Use of terms such as suspected, likely, concern for, or probable (associated with a specific diagnosis that is being evaluated, monitored, or treated as if it exists) are acceptable and can be coded in the inpatient setting, when documented at the
time of discharge.
Thank you,
Alanis West RN, BSN
CDI Specialist
tiger text
Please use your independent medical judgment in providing your response.
[2025-01-15 12:09] LABS: Glucose - Point of Care 115 mg/dl (70-99)
[2025-01-15] MEDS: DECADRON 1 MG TUBE (14:32)
--- NOTE | 2025-01-15 15:09 | CM ---
recreation establishment manager reviewed patient's chart and spoke with patient and POMartin Arango this morning. Nba to provided POA paperwork to hospital. Patient was recently at [facility] and Ketruda treatment was placed on hold while patient got stronger at rehab
facility, patient now at the hospital and has a treatment set up for Sunday 1:30 at [facility], referral sent to [facility] to see if they would accept patent. Patient's POA also completed paperwork for [facility] and provided financials
today.
Plan; To follow up with a plan for patient, patient wants to proceed with treatment at [facility].
[2025-01-15 16:00] VITALS: BP 100/68
[2025-01-15 17:49] LABS: Glucose - Point of Care 109 mg/dl (70-99)
[2025-01-15] MEDS: SENOKOT 8.6 MG PO (20:14)
[2025-01-15] MEDS: DILAUDID 0.5 MG IV (21:30)
[2025-01-15 21:53] LABS: Glucose - Point of Care 141 mg/dl (70-99)
[2025-01-15 23:03] VITALS: BP 134/75
[2025-01-16] MEDS: MS CONTIN (EXTENDED RELEASE) 15 MG PO ×3 (04:55→21:01)
[2025-01-16 06:00] VITALS: BMI 23.2
[2025-01-16 07:05] VITALS: BP 127/70
[2025-01-16 07:47] LABS: Glucose - Point of Care 112 mg/dl (70-99)
[2025-01-16] MEDS: ASPIR LOW (ENTERIC COATED) 81 MG PO (07:48)
[2025-01-16] MEDS: ProAmatine 2.5 MG PO ×3 (07:48→22:16)
[2025-01-16] MEDS: GLUCOPHAGE 250 MG PO (07:49)
[2025-01-16] MEDS: NEURONTIN 300 MG PO ×3 (07:49→22:15)
[2025-01-16] MEDS: MAG-TAB SR 84 MG PO ×2 (07:49→21:00)
[2025-01-16] MEDS: FLOMAX 0.4 MG PO (07:50)
[2025-01-16] MEDS: AMARYL 2 MG PO (07:50)
[2025-01-16] MEDS: PLAVIX 75 MG PO (07:50)
--- NOTE | 2025-01-16 08:44 | W.PN.HOSP.TC ---
Today's Communication/Plan
-
Pain control. Discharge planning
Assessment / Plan
Assessment / Plan
Physical exam:
General: Chronically ill
HEENT: Normocephalic, Atraumatic and Moist Mucous Membranes
Respiratory: Clear to Auscultation; Negative Wheezes, Rales or Rhonchi
Cardiac: Regular Rhythm and S1/S2, systolic murmur
GI: Soft, tender and Nondistended
Musculoskeletal: Right lower extremity edema. No Clubbing, No Cyanosis
Neuro: Awake, Alert and Oriented, no gross neurological deficits.
Psych: Calm
A/P:
Intractable Pain secondary to Chronic Right Lower Extremity Lymphedema
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
-Continue MC Contin 15m q8h
-Continue oxycodone 5mg PO q4hprn mild pain, 10mg PO q4hprn moderate pain and Dilaudid 0.5mg IV q3hprn severe pain
-Continue gabapentin as prior to admission
-Continue lymphedema treatment - consult PT/OT
- Palliative care consult appreciated. Patient not ready for hospice but plan to discuss with hospice staff. Breakthrough doses of oxycodone increased per palliative.
- Patient interested in going to assisted living rather than SNF--> CM working on d/c dispo but if unable to go to assisted living probably will need to go to SNF temporarily.
- Patient discussing with oncology team if we can get his Keytruda treatment after discharge
- Discussed with patient and DESI Arango over the phone today at bedside on 01/16--> plan to discharge to either rehab or assisted living but most likely rehab if he is coming to the hospital to talk to him and make final arrangements (I will follow-up
with immigration case worker in terms of final discharge disposition).
Abdominal pain
- Add Bentyl as needed
- Bowel regimen as needed
- X-ray of the abdomen unremarkable a couple of days ago
Stage IV Anal Squamous Cell Cancer
-Consulted Oncology and palliative care and awaiting input
-Patient reports last chemotherapy was 6 weeks ago
-He expresses interest in palliative care vs hospice particularly if felt that he can not resume chemotherapy or that is chemotherapy will not help his lymphedema
Coronary Artery Disease s/p Stent
-Continue Aspirin and Plavix
Diabetes Mellitus, Type II
-HgbA1c in December 2024 6.4
-Continue glimepiride and metformin
-Monitor sugars and continue coverage insulin
BPH
-Continue Flomax
DVT proph: Lovenox
Code Status: DNR
Anticipated Discharge: Today
Subjective/Interval History
-
Date of Service: January 16, 2025
Patient complains of abdominal discomfort today. No bowel movement yet. Leg pain stable. Afebrile
Objective Data
-
Vital Signs:
Vital Signs
Temp Pulse Resp BP Pulse Ox
98.0 F 83 18 127/70 96
01/16/25 07:05 01/16/25 07:48 01/16/25 07:05 01/16/25 07:48 01/16/25 07:05
I&O
01/15/25 01/16/25 01/17/25
06:59 06:59 06:59
Intake Total 2120 / 2120 900 / 900
Output Total 850 / 850 1825 / 1825
Balance 1270 / 1270 -925 / -925
[2025-01-16] MEDS: ROXICODONE 5 MG PO (10:09)
[2025-01-16 11:40] VITALS: BP 136/72; PULSE 89; O2SAT 100
[2025-01-16] MEDS: DILAUDID 0.5 MG IV (11:41)
[2025-01-16 11:44] LABS: Glucose - Point of Care 102 mg/dl (70-99)
--- NOTE | 2025-01-16 13:32 | HOSPNOTE ---
Met with patient and his POA at the bedside to review hospice care. Patient stated he wants to continue chemotherapy treatment. Spoke with case planner who is working on finding a SNF who will take patient while on treatment. Reviewed with patient
and POA that hospice is available when patient is ready for care.
--- NOTE | 2025-01-16 14:50 | CM ---
Spoke with DESI Arango
[facility] declined patient
DESI filled out paperwork for [facility]
Hospice in to see patient today not ready for hospice yet
CM to send additional referrals
PLAN: to be determined, will continue to search for SNF
[2025-01-16 14:59] VITALS: BP 115/70
[2025-01-16 15:09] VITALS: BMI 23.2
[2025-01-16 16:48] LABS: Glucose - Point of Care 71 mg/dl (70-99)
[2025-01-16 21:24] LABS: Glucose - Point of Care 106 mg/dl (70-99)
[2025-01-16] MEDS: SENOKOT 8.6 MG PO (22:16)
[2025-01-16 23:15] VITALS: BP 103/60
[2025-01-17] MEDS: MS CONTIN (EXTENDED RELEASE) 15 MG PO ×3 (04:23→20:30)
[2025-01-17 06:00] VITALS: BMI 23.1
[2025-01-17] MEDS: ROXICODONE 10 MG PO ×2 (06:01→15:28)
[2025-01-17] MEDS: ProAmatine 2.5 MG PO ×3 (07:35→21:56)
[2025-01-17] MEDS: PLAVIX 75 MG PO (07:35)
[2025-01-17] MEDS: ASPIR LOW (ENTERIC COATED) 81 MG PO (07:35)
[2025-01-17] MEDS: NEURONTIN 300 MG PO ×3 (07:35→21:56)
[2025-01-17] MEDS: MAG-TAB SR 84 MG PO ×2 (07:35→20:30)
[2025-01-17] MEDS: AMARYL 2 MG PO (07:35)
[2025-01-17] MEDS: GLUCOPHAGE 250 MG PO (07:36)
[2025-01-17] MEDS: FLOMAX 0.4 MG PO (07:36)
[2025-01-17 08:01] VITALS: BP 132/62
[2025-01-17 08:10] LABS: Glucose - Point of Care 137 mg/dl (70-99)
--- NOTE | 2025-01-17 09:22 | W.PN.HOSP.TC ---
Today's Communication/Plan
-
Pain control. Discharge planning
Assessment / Plan
Assessment / Plan
Physical exam:
General: Chronically ill
HEENT: Normocephalic, Atraumatic and Moist Mucous Membranes
Respiratory: Clear to Auscultation; Negative Wheezes, Rales or Rhonchi
Cardiac: Regular Rhythm and S1/S2, systolic murmur
GI: Soft, tender and Nondistended
Musculoskeletal: Right lower extremity edema. No Clubbing, No Cyanosis
Neuro: Awake, Alert and Oriented, no gross neurological deficits.
Psych: Calm
A/P:
Intractable Pain secondary to Chronic Right Lower Extremity Lymphedema
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
-Continue MC Contin 15m q8h
-Continue oxycodone 5mg PO q4hprn mild pain, 10mg PO q4hprn moderate pain and Dilaudid 0.5mg IV q3hprn severe pain
-Continue gabapentin as prior to admission
-Continue lymphedema treatment - consult PT/OT
- Palliative care consult appreciated. Patient not ready for hospice but plan to discuss with hospice staff. Breakthrough doses of oxycodone increased per palliative.
- Patient interested in going to assisted living rather than SNF--> CM working on d/c dispo but if unable to go to assisted living probably will need to go to SNF temporarily.
- Patient discussing with oncology team if we can get his Keytruda treatment after discharge
- Discussed with patient and DESI Arango over the phone yesterday at bedside on 01/16--> plan to discharge to either rehab or assisted living and currently awaiting for first availability of either.
Abdominal pain and postchemotherapy stomatitis:
-Magic mouthwash
- Add Bentyl as needed
- Bowel regimen as needed
- X-ray of the abdomen unremarkable a few days ago
Stage IV Anal Squamous Cell Cancer
-Consulted Oncology and palliative care and awaiting input
-Patient reports last chemotherapy was 6 weeks ago
-He expresses interest in palliative care vs hospice particularly if felt that he can not resume chemotherapy or that is chemotherapy will not help his lymphedema
Coronary Artery Disease s/p Stent
-Continue Aspirin and Plavix
Diabetes Mellitus, Type II
-HgbA1c in December 2024 6.4
-Continue glimepiride and metformin
-Monitor sugars and continue coverage insulin
BPH
-Continue Flomax
DVT proph: Lovenox
Code Status: DNR
Anticipated Discharge: > 48 hours
Subjective/Interval History
-
Date of Service: January 17, 2025
Patient states abdominal pain slightly better. Has not had any bowel movement yet. Leg pain is improved. Afebrile
Objective Data
-
Vital Signs:
Vital Signs
Temp Pulse Resp BP Pulse Ox
98.4 F 91 21 132/62 98
01/17/25 08:01 01/17/25 08:01 01/17/25 08:01 01/17/25 08:01 01/17/25 08:01
I&O
01/16/25 01/17/25 01/18/25
06:59 06:59 06:59
Intake Total 900 / 900 1380 / 1380
Output Total 1825 / 1825 1075 / 1075
Balance -925 / -925 305 / 305
[2025-01-17 11:47] LABS: Glucose - Point of Care 140 mg/dl (70-99)
[2025-01-17] MEDS: MIRALAX 17 GRAMS PO (12:31)
[2025-01-17 15:53] VITALS: BP 118/61
[2025-01-17 17:49] LABS: Glucose - Point of Care 85 mg/dl (70-99)
[2025-01-17 21:54] LABS: Glucose - Point of Care 131 mg/dl (70-99)
[2025-01-17] MEDS: SENOKOT 8.6 MG PO (21:56)
[2025-01-17] MEDS: DILAUDID 0.5 MG IV (21:58)
[2025-01-17 23:00] VITALS: BP 102/65
[2025-01-18] MEDS: MS CONTIN (EXTENDED RELEASE) 15 MG PO ×3 (05:12→20:14)
[2025-01-18 06:00] VITALS: BMI 23.0
--- NOTE | 2025-01-18 07:15 | W.PN.HOSP.TC ---
Addendum entered and electronically signed by Jose Roberto Reed MD 01/18/25 13:26:
I was informed by hospice nurse with patient wants to move forward with hospice as outpatient.
Original Note:
Today's Communication/Plan
-
Pain control. Discharge planning
Assessment / Plan
Assessment / Plan
Physical exam:
General: Chronically ill
HEENT: Normocephalic, Atraumatic and Moist Mucous Membranes
Respiratory: Clear to Auscultation; Negative Wheezes, Rales or Rhonchi
Cardiac: Regular Rhythm and S1/S2, systolic murmur
GI: Soft, tender and Nondistended
Musculoskeletal: Right lower extremity edema. No Clubbing, No Cyanosis
Neuro: Awake, Alert and Oriented, no gross neurological deficits.
Psych: Calm
A/P:
Intractable Pain secondary to Chronic Right Lower Extremity Lymphedema
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
-Continue MC Contin 15m q8h
-Continue oxycodone 5mg PO q4hprn mild pain, 10mg PO q4hprn moderate pain and Dilaudid 0.5mg IV q3hprn severe pain
-Continue gabapentin as prior to admission
-Continue lymphedema treatment - consulted PT/OT
- Palliative care consult appreciated. Patient not ready for hospice but plan to discuss with hospice staff. Breakthrough doses of oxycodone increased per palliative.
- Patient interested in going to assisted living rather than SNF--> CM working on d/c dispo but if unable to go to assisted living probably will need to go to SNF temporarily.
- Patient discussing with oncology team if we can get Keytruda treatment after discharge
- Discussed with patient and DESI Arango over the phone prior--> plan to discharge to either rehab or assisted living and currently awaiting for first availability of either.
- Discussed with case briefer today on 01/18 and awaiting discharge disposition
Abdominal pain and postchemotherapy stomatitis:
-Magic mouthwash
- Add Bentyl as needed
- Bowel regimen as needed
- X-ray of the abdomen unremarkable a few days ago
Stage IV Anal Squamous Cell Cancer
-Consulted Oncology and palliative care and awaiting input
-Patient reports last chemotherapy was 6 weeks ago
-He expresses interest in palliative care vs hospice particularly if felt that he can not resume chemotherapy or that is chemotherapy will not help his lymphedema--> he has gone back and forth so hospice is going to come and discuss with patient
today for clarity.
Hypomagnesemia
- Start oral mag replacement
Coronary Artery Disease s/p Stent
-Continue Aspirin and Plavix
Diabetes Mellitus, Type II
-HgbA1c in December 2024 6.4
-BS this morning 85 and 131
-Continue glimepiride and metformin
-Monitor sugars and continue coverage insulin
BPH
-Continue Flomax
DVT proph: Lovenox
Code Status: DNR
Anticipated Discharge: 24 - 48 hours
Subjective/Interval History
-
Date of Service: January 18, 2025
Patient states his right leg pain improved. Abdominal pain improved as well. Afebrile
Objective Data
-
Vital Signs:
Vital Signs
Temp Pulse Resp BP Pulse Ox
97.9 F 95 18 102/65 98
01/17/25 23:00 01/17/25 23:00 01/17/25 23:00 01/17/25 23:00 01/17/25 23:00
I&O
01/17/25 01/18/25 01/19/25
06:59 06:59 06:59
Intake Total 1380 / 1380 720 / 720
Output Total 1075 / 1075 1500 / 1500
Balance 305 / 305 -780 / -780
[2025-01-18 08:25] LABS: Glucose - Point of Care 104 mg/dl (70-99)
[2025-01-18 08:31] VITALS: BP 100/66
[2025-01-18 08:42] LABS: % Basophils 0.5 % (0-2); % Eosinophils 1.2 % (0-6); % Immature Granulocytes 0.6 % (0-0.5); % Lymphocytes 20.8 % (20.5-51.1); % Monocytes 14.2 % (1.7-9.3); % Neutrophils 62.7 % (42.2-75.2); Absolute Eosinophils 0.1 10^3/uL (0-0.7); Absolute Lymphocytes 1.4 10^3/uL (1.2-3.4); Absolute Monocytes 0.9 10^3/uL (0.1-0.6); Absolute Neutrophils 4.1 10^3/uL (1.4-6.5); Hematocrit 28.8 % (39.0-52.0); Hemoglobin 9.5 g/dL (13.0-18.0); Mean Corpuscular Hgb 26.6 pg (27.0-31.0); Mean Corpuscular Volume 80.7 fL (80.0-94.0); Mean Platelet Volume 9.1 fL (7.4-10.4); Nucleated Red Blood Cells % 0 % (-); Platelet Count 344 10^3/uL (130-400); Red Blood Cell Count 3.57 10^6/uL (4.70-6.10); Red Cell Dist. Width 16.4 % (11.5-14.5); White Blood Cell Count 6.5 10^3/uL (4.8-10.8)
[2025-01-18] MEDS: ProAmatine 2.5 MG PO ×2 (09:11→17:26)
[2025-01-18] MEDS: PLAVIX 75 MG PO (09:11)
[2025-01-18] MEDS: MAG-TAB SR 84 MG PO (09:11)
[2025-01-18] MEDS: NEURONTIN 300 MG PO ×3 (09:11→20:14)
[2025-01-18] MEDS: ASPIR LOW (ENTERIC COATED) 81 MG PO (09:11)
[2025-01-18] MEDS: AMARYL 2 MG PO (09:11)
[2025-01-18] MEDS: FLOMAX 0.4 MG PO (09:11)
[2025-01-18 09:15] LABS: ALT (SGPT) 16 U/L (0-50); AST (SGOT) 39 U/L (17-59); Albumin 3.3 g/dl (3.5-5.0); Alkaline Phosphatase 83 U/L (38-126); Blood Urea Nitrogen 15 mg/dl (9-20); Calcium 9.8 mg/dl (8.4-10.2); Carbon Dioxide 24 mmol/L (22-30); Chloride 98 mmol/L (98-107); Estimated Creatinine Clearance 88 ml/min; Glucose 104 mg/dl (70-99); Magnesium 1.5 mg/dl (1.6-2.3); Potassium 4.5 mmol/L (3.5-5.1); Sodium 131 mmol/L (135-145); Total Bilirubin 0.6 mg/dl (0.2-1.3); Total Protein 6.2 g/dl (6.3-8.2); eGFR > 60.00
[2025-01-18] MEDS: GLUCOPHAGE 250 MG PO (09:18)
[2025-01-18] MEDS: ROXICODONE 10 MG PO (09:30)
[2025-01-18 11:53] LABS: Glucose - Point of Care 94 mg/dl (70-99)
--- NOTE | 2025-01-18 12:18 | HOSPNOTE ---
Late entry for 01/17/25. MD and CM reached out about talking with patient one more time about hospice. DESI Arango was telling CM that patient will go to [facility] with hospice. Hospice previously talked to patient twice this past week
and both times patient expressed that he wanted chemotherapy. Hospice will meet with patient today 01/18 to get final decision between chemotherapy vs hospice. More information to follow. CM and Attending updated.
[2025-01-18] MEDS: MAGNESIUM OXIDE 500 MG PO (12:51)
--- NOTE | 2025-01-18 13:00 | W.PN.ONC2 ---
Today's Communication / Plan
-
.
Impression
Impression
Stage IV anal cancer, predominantly widespread lymphadenopathy
Extensive right lower extremity lymphedema due to adenopathy and radiation therapy
Uncontrolled pain due to lower extremity involvement by malignancy
Plan
Plan
Continue pain management - improved
Continue lymphedema management - improved
Pt has met with palliative care and hospice during hospitalization and goals remain restorative
Keytruda when performance status allows. May need SNF prior to resuming therapy
Subjective/Objective
Subjective
no new complaints
Vital Signs:
Vital Signs
Temp Pulse Resp BP Pulse Ox
98.3 F 92 20 100/66 100
01/18/25 08:31 01/18/25 08:31 01/18/25 08:31 01/18/25 08:31 01/18/25 08:31
Lab Results:
Laboratory Data
WBC 6.5 10^3/uL (4.8-10.8) 01/18/25 08:11
Hgb 9.5 g/dL (13.0-18.0) L 01/18/25 08:11
Plt Count 344 10^3/uL (130-400) 01/18/25 08:11
eGFR > 60.00 01/18/25 08:11
--- NOTE | 2025-01-18 13:32 | HOSPNOTE ---
Met with patient to answer any questions and concerns about hospice. Patient stated he has opted to go on to hospice because insurance will not cover Keytruda treatment. Patient stated his main concern is pain being managed and wanted to make sure
that hospice will do that. Provided much reassurance that hospice main goal is to keep him comfortable to the very end. Patient wishes to sign onto hospice at [facility]. Discussed that the hospital CM can help in that process and will need to reach
out to [facility] to find out who their preferred hospice is, as [facility] is not [facility] preferred hospice. Patient vocalized understanding and states he just wants to be kept comfortable. Updated CM and Attending.
[2025-01-18 16:06] VITALS: BP 116/69
[2025-01-18 17:16] LABS: Glucose - Point of Care 74 mg/dl (70-99)
[2025-01-18] MEDS: SENOKOT 8.6 MG PO (20:14)
[2025-01-18] MEDS: ProAmatine PO (20:15)
[2025-01-18 21:34] LABS: Glucose - Point of Care 99 mg/dl (70-99)
[2025-01-18] MEDS: DILAUDID 0.5 MG IV (21:42)
[2025-01-18 23:19] VITALS: BP 120/68
[2025-01-19] MEDS: MS CONTIN (EXTENDED RELEASE) 15 MG PO ×3 (03:34→21:31)
[2025-01-19] MEDS: DILAUDID 0.5 MG IV ×2 (04:42→09:21)
[2025-01-19 05:05] VITALS: BMI 22.5
[2025-01-19 07:23] LABS: Glucose - Point of Care 88 mg/dl (70-99)
[2025-01-19 07:43] VITALS: BP 90/62
--- NOTE | 2025-01-19 08:54 | W.PN.UPDATE ---
Update Note
Progress Note Update
awaiting discharge dispo/placement
medical oncology follow up will be arranged upon discharge
No further inpatient recommnedations. Medical oncology will sign off, please reach out for any further questions or concerns
[2025-01-19] MEDS: NEURONTIN 300 MG PO ×3 (09:17→21:31)
[2025-01-19] MEDS: ASPIR LOW (ENTERIC COATED) 81 MG PO (09:17)
[2025-01-19] MEDS: FLOMAX 0.4 MG PO (09:19)
[2025-01-19] MEDS: GLUCOPHAGE 250 MG PO (09:19)
[2025-01-19] MEDS: AMARYL 2 MG PO (09:19)
[2025-01-19] MEDS: ProAmatine 2.5 MG PO ×3 (09:20→21:31)
[2025-01-19] MEDS: MAGNESIUM OXIDE 500 MG PO (09:20)
[2025-01-19] MEDS: PLAVIX 75 MG PO (09:20)
--- NOTE | 2025-01-19 10:35 | CM ---
Addendum entered by Emily Thomas RN 01/19/25 16:37:
Met with Nba and Pt in room . IMM reviewed and IMM signed on chart.
Spoke with Briseida [facility] she said financials received . Briseida and Karely at Hospice to meet and coordinate his care.
Discharge probable tomorrow to [facility] .
Nba and pt aware [facility] is $570.00 /day . They are in agreement.
PLAN To [facility] tomorrow
Addendum entered by Emily Thomas RN 01/19/25 13:55:
Spoke with Suzi at [facility] . She said she can not accept him with IV pain meds. informed . IV pain med discontinued . MS Contin changed. Pain level 3. LM with Suzi x2 to review new plan of care and see if he can be accepted.Spoke with [facility] WEEKS
updated . Also spoke with [facility] about if [facility] is appropriate for patent.
Original Note:
Spoke with DESI [phone] he indicated pt wants to go to [facility] on hospice.
Pt seen by Hospice. Spoke with [facility] can accept pt .
DESI requested Hospice.
LM with [facility] Suzi Cohen [phone]
PLAN To [facility] with Hospice
--- NOTE | 2025-01-19 10:48 | W.PN.HOSP.TC ---
Addendum entered and electronically signed by Camila Narvaez MD 01/19/25 15:03:
Moderate Malnutrition
Original Note:
Today's Communication/Plan
-
Discharge home today
Assessment / Plan
Assessment / Plan
Impression:
Patient is a 74 y/o male past medical history of Stage IV anal cancer, chronic pain with opioid dependence secondary to right lower extremity lymphedema, coronary artery disease and diabetes mellitus who presents with uncontrolled right lower
extremity pain. Patient was hospitalized from December 08 to December 12, and again from December 24 to December 26 for worsening right lower extremity pain. Patient has been at [facility] since his most recent hospitalization and has been unable to
receive chemotherapy. He denies any changes to his pain regimen, and notes that the currently oral medications are not as affective. He reports slight worsening of his edema but denies any redness. He has been using the lymphedema pump and notes
that help the pain sometime.
Pain controlled, seen by oncology, physical still recommending rehab.
Plan to discharge to rehab then eventually outpatient hospice.
Assessment/plan:
Intractable Pain secondary to Chronic Right Lower Extremity Lymphedema
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
-Continue MC Contin 15m q8h
-Continue oxycodone 5mg PO q4hprn mild pain, 10mg PO q4hprn moderate pain and Dilaudid 0.5mg IV q3hprn severe pain
-Continue gabapentin as prior to admission
-Continue lymphedema treatment - consulted PT/OT
- Palliative care consult appreciated. Patient not ready for hospice but plan to discuss with hospice staff. Breakthrough doses of oxycodone increased per palliative.
- Patient interested in going to assisted living rather than SNF--> CM working on d/c dispo but if unable to go to assisted living probably will need to go to SNF temporarily.
- Patient discussing with oncology team if we can get Keytruda treatment after discharge
- Discussed with patient and DESI Arango over the phone prior--> plan to discharge to either rehab or assisted living and currently awaiting for first availability of either.
- Discussed with case assembler today on 01/18 and awaiting discharge disposition
Abdominal pain and postchemotherapy stomatitis:
-Magic mouthwash
- Add Bentyl as needed
- Bowel regimen as needed
- X-ray of the abdomen unremarkable a few days ago
Stage IV Anal Squamous Cell Cancer
-Consulted Oncology and palliative care and awaiting input
-Patient reports last chemotherapy was 6 weeks ago
-He expresses interest in palliative care vs hospice particularly if felt that he can not resume chemotherapy or that is chemotherapy will not help his lymphedema--> he has gone back and forth so hospice is going to come and discuss with patient
today for clarity.
Hypomagnesemia
- Start oral mag replacement
Coronary Artery Disease s/p Stent
-Continue Aspirin and Plavix
Diabetes Mellitus, Type II
-HgbA1c in December 2024 6.4
-BS this morning 85 and 131
-Continue glimepiride and metformin
-Monitor sugars and continue coverage insulin
BPH
-Continue Flomax
CODE STATUS: DNR
DVT prophylaxis: Lovenox
Diet: Regular diet
DVT proph: Lovenox
Total time spent on today's encounter was 65 minutes which included time spent in counseling the patient/family regarding diagnosis and treatment plan as listed above, goals of care, and symptom management. Case was discussed with nursing staff,
specialists, and care coordinators/case management. All labs and imaging personally reviewed by me. Remainder the time spent in detailed review of previous records, lab data, imaging, and other medical provider documentation.
Anticipated Discharge: Today
Subjective/Interval History
-
Date of Service: January 19, 2025
Patient seen and examined at bedside, in appearance.
Denies any chest pain.
Plan for discharge to rehab and outpatient hospice.
Oncology signed off.
Objective Data
-
Vital Signs:
Vital Signs
Temp Pulse Resp BP Pulse Ox
98.3 F 97 18 90/62 97
01/19/25 07:43 01/19/25 07:43 01/19/25 07:43 01/19/25 07:43 01/19/25 07:43
I&O
01/18/25 01/19/25 01/20/25
06:59 06:59 06:59
Intake Total 720 / 720 1680 / 1680
Output Total 1500 / 1500 1330 / 1330
Balance -780 / -780 350 / 350
Physical Exam
-
General: Appears Chronically Ill
HEENT: Moist Mucous Membranes, No Ptosis, PERRLA and Nose Appears Normal
Respiratory: Rales, Non Labored Respirations and Other ([place])
Cardiac: Regular Rhythm and S1/S2
Breast: Deferred by me
GI: Soft, Nontender, Nondistended and Normal Bowel Sounds
Genito-urinary: No Costovertebral Tender
Musculoskeletal: No Clubbing, No Cyanosis, No Edema and Edema, Right Lower Extrem
Skin: Warm
Neuro: Awake, Alert, Oriented, AO x 3 and No Motor Deficits
Psych: Calm
Data Reviewed
-
Diagnostic Radiology: Image personally visualized and interpreted and Report Reviewed by me
CT Scan: Image personally visualized and interpreted and Report Reviewed by me
Ultrasound: Image personally visualized and interpreted and Report Reviewed by me
MRI: Image personally visualized and interpreted and Report Reviewed by me
Medical Tests (Nuc Med, Echo etc): Image personally visualized and interpreted and Report Reviewed by me
Labs: Labs Reviewed by me
Old Records: Reviewed
[2025-01-19 11:21] LABS: Glucose - Point of Care 105 mg/dl (70-99)
[2025-01-19] MEDS: MIRALAX 17 GRAMS PO (12:04)
--- NOTE | 2025-01-19 12:10 | PN.CDI ---
CDI
- -
CDI:
Physician Documentation Request
Admit Date: 01/11/25 18:53
Dear Doctor Brice,
01/16 notes and assessment: '5% change in 1 month. Pt reports poor appetite for ~ 1 month due to pain and lack of appetite. With weight loss of > 5% in 1 month and < 75% estimated needs > 1 month pt meets AND/ASPEN criteria for moderate protein
calorie malnutrition of chronic illness'
Based on the above information and your assessment, which of the following most accurately represents the patient's nutritional status?
Moderate Malnutrition
Other (please specify)
Pharr Criteria ([facility] 2017)
2 or more criteria must be present for either
non severe or severe malnutrition
Note that the criteria differs related to the
presence of an acute or chronic illness
Acute Illness Chronic Illness
Energy Intake Non Severe: <75% for >7 days Non Severe: <75% for >1 month
Severe: <50% for >5 days Severe: <75% for >1 month
Weight Loss Non Severe: 1-2% over 1 week Non Severe: 5% over 1 month
5% over 1 month 7.5% over 3 months
7.5% over 3 months 10% over 6 months
1 year N/A 20% over 1 year
Severe: >2% over 1 week Severe: >5% over 1 month
>5% over 1 month >7.5% over 3 months
>7.5% over 3 months >10% over 6 months
1 year N/A >20% over 1 year
Body Fat Non Severe: Mild Decrease Non Severe: Mild Loss
Severe: Moderate Decrease Severe: Severe Loss
Muscle Mass Non Severe: Mild Decrease Non Severe: Mild Loss
Severe: Moderate Decrease Severe: Severe Loss
Fluid Accumulation Non Severe: Mild Accumulation Non Severe: Mild Accumulation
Severe: Moderate to severe Severe: Moderate to severe
accumulation accumulation
Reduced Food Beverage Attendant Strength Non Severe: N/A Non Severe: N/A
Severe: Measurably reduced Severe: Measurably reduced
Use of terms such as suspected, likely, concern for, or probable (associated with a specific diagnosis that is being evaluated, monitored, or treated as if it exists) are acceptable and can be coded in the inpatient setting, when documented at the
time of discharge.
Thank you,
Alanis West RN, BSN
CDI Specialist
tiger text
Please use your independent medical judgment in providing your response.
--- NOTE | 2025-01-19 12:32 | VATNOTE ---
VAT rounds: attempted to reaccess pt's port, pt refused reaccess states he is interested in transitioning to hospice.
--- NOTE | 2025-01-19 13:01 | HOSPNOTE ---
Spoke with CM and updated Attending on the medications and stopping IV medications and focusing on oral pain management. The plan is to go to [facility] on hospice services. Will await a call back from to see if [facility] will accept hospice and
not their preferred. Will continue to follow.
[2025-01-19] MEDS: ROXICODONE 10 MG PO ×2 (13:59→18:04)
[2025-01-19 15:24] VITALS: BP 113/64
[2025-01-19 16:15] LABS: Glucose - Point of Care 65 mg/dl (70-99)
[2025-01-19 16:36] LABS: Glucose - Point of Care 74 mg/dl (70-99)
[2025-01-19 19:16] LABS: Glucose - Point of Care 89 mg/dl (70-99)
[2025-01-19] MEDS: SENOKOT 8.6 MG PO (21:31)
[2025-01-19 21:33] LABS: Glucose - Point of Care 97 mg/dl (70-99)
[2025-01-19 23:00] VITALS: BP 111/67
[2025-01-20] MEDS: MS CONTIN (EXTENDED RELEASE) 15 MG PO (04:05)
[2025-01-20 04:09] LABS: Glucose - Point of Care 111 mg/dl (70-99)
[2025-01-20 05:51] VITALS: BMI 22.7
[2025-01-20] MEDS: ROXICODONE 10 MG PO ×2 (06:26)
[2025-01-20 07:11] LABS: Glucose - Point of Care 113 mg/dl (70-99)
[2025-01-20 07:30] VITALS: BP 118/69
[2025-01-20] MEDS: ASPIR LOW (ENTERIC COATED) 81 MG PO (07:53)
[2025-01-20] MEDS: GLUCOPHAGE 250 MG PO (07:53)
[2025-01-20] MEDS: ProAmatine 2.5 MG PO (07:53)
[2025-01-20] MEDS: AMARYL 2 MG PO (07:53)
[2025-01-20] MEDS: FLOMAX 0.4 MG PO (07:53)
[2025-01-20] MEDS: MAGNESIUM OXIDE 500 MG PO (07:54)
[2025-01-20] MEDS: PLAVIX 75 MG PO (07:54)
[2025-01-20] MEDS: NEURONTIN 300 MG PO (07:54)
--- NOTE | 2025-01-20 08:50 | CM ---
Patient to discharge to [facility] today
spoke with Briseida at [facility]
IMM signed, in chart
OO[facility] DNR on chart - NEEDS SIGNATURE
PLAN: [facility] hosp[facility]
report #: [phone]
fax #: [phone]
--- NOTE | 2025-01-20 10:43 | W.PN.HOSP.TC ---
Today's Communication/Plan
-
discharge today
Assessment / Plan
Assessment / Plan
Impression:
Patient is a 74 y/o male past medical history of Stage IV anal cancer, chronic pain with opioid dependence secondary to right lower extremity lymphedema, coronary artery disease and diabetes mellitus who presents with uncontrolled right lower
extremity pain. Patient was hospitalized from December 08 to December 12, and again from December 24 to December 26 for worsening right lower extremity pain. Patient has been at [facility] since his most recent hospitalization and has been unable to
receive chemotherapy. He denies any changes to his pain regimen, and notes that the currently oral medications are not as affective. He reports slight worsening of his edema but denies any redness. He has been using the lymphedema pump and notes
that help the pain sometime.
Pain controlled, seen by oncology, physical still recommending rehab.
Switch IV pain medications to oral regimen.
Plan to discharge to rehab with hospice today..
Assessment/plan:
Intractable Pain secondary to Chronic Right Lower Extremity Lymphedema
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
-Continue MC Contin 15m q8h
-Continue oxycodone 5mg PO q4hprn mild pain, 10mg PO q4hprn moderate pain and Dilaudid 0.5mg IV q3hprn severe pain
-Continue gabapentin as prior to admission
-Continue lymphedema treatment - consulted PT/OT
- Palliative care consult appreciated. Patient not ready for hospice but plan to discuss with hospice staff. Breakthrough doses of oxycodone increased per palliative.
- Patient interested in going to assisted living rather than SNF--> CM working on d/c dispo but if unable to go to assisted living probably will need to go to SNF temporarily.
- Patient discussing with oncology team if we can get Keytruda treatment after discharge
- Discussed with patient and DESI Arango over the phone prior--> plan to discharge to either rehab or assisted living and currently awaiting for first availability of either.
- Discussed with machine adjuster leader case trim today on 01/18 and awaiting discharge disposition
01/20
Switch IV pain medications to oral regimen.
Plan to discharge to rehab with hospice today..
Abdominal pain and postchemotherapy stomatitis:
-Magic mouthwash
- Add Bentyl as needed
- Bowel regimen as needed
- X-ray of the abdomen unremarkable a few days ago
Stage IV Anal Squamous Cell Cancer
-Consulted Oncology and palliative care and awaiting input
-Patient reports last chemotherapy was 6 weeks ago
-He expresses interest in palliative care vs hospice particularly if felt that he can not resume chemotherapy or that is chemotherapy will not help his lymphedema--> he has gone back and forth so hospice is going to come and discuss with patient
today for clarity.
Hypomagnesemia
- Start oral mag replacement
Coronary Artery Disease s/p Stent
-Continue Aspirin and Plavix
Diabetes Mellitus, Type II
-HgbA1c in December 2024 6.4
-BS this morning 85 and 131
-Continue glimepiride and metformin
-Monitor sugars and continue coverage insulin
BPH
-Continue Flomax
CODE STATUS: DNR
DVT prophylaxis: Lovenox
Diet: Regular diet
DVT proph: Lovenox
Total time spent on today's encounter was 65 minutes which included time spent in counseling the patient/family regarding diagnosis and treatment plan as listed above, goals of care, and symptom management. Case was discussed with nursing staff,
specialists, and care coordinators/case management. All labs and imaging personally reviewed by me. Remainder the time spent in detailed review of previous records, lab data, imaging, and other medical provider documentation.
Anticipated Discharge: Today
Subjective/Interval History
-
Date of Service: January 20, 2025
Patient seen and examined at bedside, overall pain is tolerable with current pain regimen.
Plan to discharge to rehab with hospice today.
Objective Data
-
Vital Signs:
Vital Signs
Temp Pulse Resp BP Pulse Ox
98.2 F 89 16 118/69 97
01/20/25 07:30 01/20/25 07:30 01/20/25 07:30 01/20/25 07:30 01/20/25 07:30
I&O
01/19/25 01/20/25 01/21/25
06:59 06:59 06:59
Intake Total 1680 / 1680 300 / 540 480 / 480
Output Total 1330 / 1330 375 / 575 500 / 500
Balance 350 / 350 -75 / -35 -20 / -20
Physical Exam
-
General: Appears Chronically Ill
HEENT: Moist Mucous Membranes, No Ptosis, PERRLA and Nose Appears Normal
Respiratory: Rales, Non Labored Respirations and Other ([place])
Cardiac: Regular Rhythm and S1/S2
Breast: Deferred by me
GI: Soft, Nontender, Nondistended and Normal Bowel Sounds
Genito-urinary: No Costovertebral Tender
Musculoskeletal: No Clubbing, No Cyanosis, No Edema and Edema, Right Lower Extrem
Skin: Warm
Neuro: Awake, Alert, Oriented, AO x 3 and No Motor Deficits
Psych: Calm
Data Reviewed
-
Diagnostic Radiology: Image personally visualized and interpreted and Report Reviewed by me
CT Scan: Image personally visualized and interpreted and Report Reviewed by me
Ultrasound: Image personally visualized and interpreted and Report Reviewed by me
MRI: Image personally visualized and interpreted and Report Reviewed by me
Medical Tests (Nuc Med, Echo etc): Image personally visualized and interpreted and Report Reviewed by me
Labs: Labs Reviewed by me
Old Records: Reviewed
--- NOTE | 2025-01-20 10:46 | W.DCSUMMARY ---
Discharge Summary
Discharge Data
Date of Admission: 01/11/25
Date of Discharge: 01/20/25
-
Pending Results: No
Hospital Course
Hospital course
Patient is a 74 y/o male past medical history of Stage IV anal cancer, chronic pain with opioid dependence secondary to right lower extremity lymphedema, coronary artery disease and diabetes mellitus who presents with uncontrolled right lower
extremity pain. Patient was hospitalized from December 08 to December 12, and again from December 24 to December 26 for worsening right lower extremity pain. Patient has been at [facility] since his most recent hospitalization and has been unable to
receive chemotherapy. He denies any changes to his pain regimen, and notes that the currently oral medications are not as affective. He reports slight worsening of his edema but denies any redness. He has been using the lymphedema pump and notes
that help the pain sometime.
Pain controlled, seen by oncology, physical still recommending rehab.
Switch IV pain medications to oral regimen.
Plan to discharge to rehab with hospice today.
During hospitalization patient was treated from the [facility]
Intractable Pain secondary to Chronic Right Lower Extremity Lymphedema
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
-Continue MC Contin 15m q8h
-Continue oxycodone 5mg PO q4hprn mild pain, 10mg PO q4hprn moderate pain and Dilaudid 0.5mg IV q3hprn severe pain
-Continue gabapentin as prior to admission
-Continue lymphedema treatment - consulted PT/OT
- Palliative care consult appreciated. Patient not ready for hospice but plan to discuss with hospice staff. Breakthrough doses of oxycodone increased per palliative.
- Patient interested in going to assisted living rather than SNF--> CM working on d/c dispo but if unable to go to assisted living probably will need to go to SNF temporarily.
- Patient discussing with oncology team if we can get Keytruda treatment after discharge
- Discussed with patient and DESI Arango over the phone prior--> plan to discharge to either rehab or assisted living and currently awaiting for first availability of either.
- Discussed with comp field case manager today on 01/18 and awaiting discharge disposition
01/20
Switch IV pain medications to oral regimen.
Plan to discharge to rehab with hospice today..
Abdominal pain and postchemotherapy stomatitis:
-Magic mouthwash
- Add Bentyl as needed
- Bowel regimen as needed
- X-ray of the abdomen unremarkable a few days ago
Stage IV Anal Squamous Cell Cancer
-Consulted Oncology and palliative care and awaiting input
-Patient reports last chemotherapy was 6 weeks ago
-He expresses interest in palliative care vs hospice particularly if felt that he can not resume chemotherapy or that is chemotherapy will not help his lymphedema--> he has gone back and forth so hospice is going to come and discuss with patient
today for clarity.
Hypomagnesemia
- Start oral mag replacement
Coronary Artery Disease s/p Stent
-Continue Aspirin and Plavix
Diabetes Mellitus, Type II
-HgbA1c in December 2024 6.4
-BS this morning 85 and 131
-Continue glimepiride and metformin
-Monitor sugars and continue coverage insulin
BPH
-Continue Flomax
CODE STATUS: DNR
DVT prophylaxis: Lovenox
Diet: Regular diet
DVT proph: Lovenox
Total time spent on today's encounter was 40 minutes which included time spent in counseling the patient/family regarding diagnosis and treatment plan as listed above, goals of care, and symptom management. Case was discussed with nursing staff,
specialists, and care coordinators/case management. All labs and imaging personally reviewed by me. Remainder the time spent in detailed review of previous records, lab data, imaging, and other medical provider documentation.
Anticipated Discharge: Today
Discharge Plan
-
Patient Disposition: Long-Term/SNF
Discharge Diagnosis/Procedures: Intractable right lower extremity pain, metastatic stage IV anal cancer
Condition: Fair
Diet: As tolerated
Activity: With assistance
Other Services: PT and OT
Referrals:
Juan Castillo MD [Family Provider] -
Lisseth Oliveira CRNP [Specified Professional Personl] - As needed
Prescriptions:
New
magnesium oxide 500 mg magnesium Tablet
500 mg PO DAILY Qty: 0 0RF
dicyclomine 10 mg Capsule
10 mg PO QIDPRN PRN (Reason: abdominal pain) Qty: 0 0RF
calcium carbonate [Calcium Antacid] 200 mg calcium (500 mg) Tablet,Chewable
400 mg PO Q4HPRN PRN (Reason: indigestion/hiccups) Qty: 0 0RF
acetaminophen 325 mg Tablet
650 mg PO Q4HPRN PRN (Reason: mild pain/ fever>100.5F) Qty: 0 0RF
Continued
cholecalciferol (vitamin D3) [Vitamin D3] 25 mcg (1,000 unit) Tablet
25 mcg PO DAILY Qty: 0
tamsulosin 0.4 MG capsule
0.4 mg PO DAILY
vitamin B complex Tablet
1 tab PO DAILY
metformin 500 mg Tablet
250 mg PO DAILY
aspirin 81 MG tablet,delayed release (DR/EC)
81 mg PO DAILY
glimepiride 2 MG tablet
2 mg PO DAILY
folic acid 1 MG tablet
1 mg PO DAILY
sennosides [senna] 8.6 mg Tablet
8.6 mg PO DAILY
midodrine 2.5 mg Tablet
2.5 mg PO TID
albuterol sulfate 90 mcg/actuation HFA aerosol inhaler
2 puff INHALATION Q4HPRN PRN (Reason: shortness of breath)
polyethylene glycol 3350 [Miralax] 17 gram Powder In Packet
17 g PO DAILYPRN PRN (Reason: constipation)
acetaminophen 325 mg Tablet
650 mg PO Q6H PRN (Reason: fever/mild pain)
bisacodyl [Dulcolax (bisacodyl)] 10 mg Suppository
10 mg CO DAILY PRN (Reason: constipation)
Fleet Enema 19-7 gram/118 mL Enema
118 ml CO ONCE PRN (Reason: constipation)
magnesium oxide 400 mg magnesium Tablet
400 mg PO BID
glucagon HCl [Glucagon (HCl) Emergency Kit] 1 mg Recon Soln
1 mg SC ONCE PRN (Reason: hypoglycemia)
clopidogrel 75 mg tablet
75 mg PO DAILY
gabapentin 300 mg capsule
300 mg PO TID
lorazepam 0.5 mg Tablet
0.5 mg PO BID PRN (Reason: anxiety) Qty: 4 0RF
morphine [MS Contin] 15 mg tablet extended release
15 mg PO Q8H Qty: 4 0RF
Changed
oxycodone 5 mg capsule
5 mg PO DIRECTED PRN (Reason: breakthrough pain) Qty: 6 0RF
Rx Instructions:
Take 5 mg every 4 hours pain and 10 mg every 4 hours for severe pain
Discharge Orders:
Discharge Patient (As Directed); Ordered 01/20/25
Ordered By: Camila Narvaez
Discharge Date and Time
Print Language: TAJIK
--- NOTE | 2025-01-20 10:54 | HOSPNOTE ---
The plan is for patient to go to [facility] with hospice. Transport is scheduled and OOH DNR is needed on chart. Once patient arrives at [facility] we will sign patient onto hospice services. Attending and CM aware and Briseida from [facility] is aware per
CM.
== END 2025-01-20 11:26 | DRG 841 ==
LOC: 3 WEST ACU 18:53
PROVIDERS: Hospitalist; Nurse Practitioner; Physician Assistant Medical; ADMITTING PHYSICIAN Student in an Organized Health Care Education/Training Program; ATTENDING PHYSICIAN General Practice; CONSULT PHYSICIAN Internal Medicine Hospice and Palliative Medicine; EMERGENCY PHYSICIAN Emergency Medicine; FAMILY PHYSICIAN Family Medicine; OTHER PHYSICIAN Internal Medicine Hematology & Oncology
DX: C77.4 Secondary and unspecified malignant neoplasm of inguinal and lower limb lymph nodes (principal); C21.0 Malignant neoplasm of anus, unspecified; E44.0 Moderate protein-calorie malnutrition; E87.1 Hypo-osmolality and hyponatremia; F11.20 Opioid dependence, uncomplicated; I89.0 Lymphedema, not elsewhere classified; G89.29 Other chronic pain; Z87.891 Personal history of nicotine dependence; Z51.5 Encounter for palliative care; Z79.02 Long term (current) use of antithrombotics/antiplatelets; Z79.82 Long term (current) use of aspirin; I25.10 Atherosclerotic heart disease of native coronary artery without angina pectoris; Z95.5 Presence of coronary angioplasty implant and graft; E11.649 Type 2 diabetes mellitus with hypoglycemia without coma; N40.0 Benign prostatic hyperplasia without lower urinary tract symptoms; Z66 Do not resuscitate; K59.00 Constipation, unspecified; E83.42 Hypomagnesemia; Z68.22 Body mass index [BMI] 22.0-22.9, adult; K12.1 Other forms of stomatitis; Z92.3 Personal history of irradiation; Y84.2 Radiological procedure and radiotherapy as the cause of abnormal reaction of the patient, or of later complication, without mention of misadventure at the time of the procedure; Z79.899 Other long term (current) drug therapy; T45.1X5A Adverse effect of antineoplastic and immunosuppressive drugs, initial encounter
CPT/HCPCS: 74022; 80048; 80053; 82962; 83036; 83735; 85025; 85027; 87070; 93971; 96374; 96375; 96376; 97116; 97163; 97167; 97530; 97535; 99285